=== PATIENT | male | born 1945 | race Caucasian/White ===

== ENCOUNTER 2016-11-12 12:04 | Day surgery (SDC) | payer OTHER ==
[~2016-11-12] VITALS: Ht 162.6 cm; Wt 112.0 kg
[~2016-11-12 12:04] MED LIST: 1-ME1LIQ PO; ASPI81TA82 PO; FURO8SOL PO; GLYB1TAB51 PO; JANU50TA PO; LIPITOR PO; METO100T PO; METO5TAB46 PO; MULT-65 PO; NITR.3 SL; PRAS10TA PO; RAMI5CAP36 PO; ZETI10TA5 PO; ZOLP10TA3 PO
[2016-11-12] MEDS ORDERED: SODIUM CHLORID 0.9% 500 ML IV SCH (13:00)
[2016-11-12] MEDS ORDERED: ceFAZolin 2 GM PREMIX 50 ML IV SCH (13:00)
[2016-11-12] MEDS ORDERED: POVIDONE IODINE 5% (ANTISEPSIS KIT) 4 APPLICATIONS EACH NARE SCH (13:00)
[2016-11-12] MEDS ORDERED: INSULIN HUMAN REGULAR 1,000 UNITS/10 ML VIAL SQ PRN (13:00)
[2016-11-12] MEDS ORDERED: METOPROLOL TARTRATE 25 MG TAB PO PRN (13:00)
[2016-11-12] MEDS ORDERED: NO Heparin, Lovenox, Coumadin at least 12 hours prior to procedure. XX PRN (13:00)
[2016-11-12] MEDS ORDERED: MUPIROCIN 2% OINT 1 APPLIC/GM SYR NASAL SCH (13:00)
[2016-11-12] MEDS ORDERED: NS 1000 ML IV SCH (13:00)
[2016-11-12] MEDS ORDERED: LACTATED RINGER'S 1000 ML IV SCH (13:00)
[2016-11-12] MEDS ORDERED: CHLORHEXIDINE GLUCONATE 2 % 1 PACK (2 CLOTHS) TOP SCH (13:00)
[2016-11-12] MEDS ORDERED: Hold AM Insulin & AM Hypoglycemic medications in diabetic patients XX PRN (13:00)
[2016-11-12] MEDS ORDERED: VANCOMYCIN 1000 MG/NS 250 ML IV SCH ×2 (13:00)
[2016-11-12] MEDS ORDERED: ALLO300T2 PO (13:19)
[2016-11-12] MEDS ORDERED: ISOS30TA3 PO (13:19)
[2016-11-12] MEDS ORDERED: LOSA25TA PO (13:19)
[2016-11-12] MEDS ORDERED: CENTTAB PO (13:19)
[2016-11-12] MEDS ORDERED: ZETI10TA5 PO (13:19)
[2016-11-12] MEDS ORDERED: CLOP75TA PO (13:19)
[2016-11-12] MEDS ORDERED: LANTINJ SQ (13:19)
[2016-11-12] MEDS ORDERED: METO100T9 PO (13:19)
[2016-11-12] MEDS ORDERED: GABA300C5 PO (13:19)
[2016-11-12] MEDS ORDERED: ATOR1TAB18 PO (13:19)
[2016-11-12] MEDS ORDERED: ASPE10GE TOPICAL (13:19)
[2016-11-12] MEDS ORDERED: [UNRECOGNIZED DRUG - CODE] (13:19)
[2016-11-12] MEDS ORDERED: ASPI81CH CHEW (13:19)
[2016-11-12 13:35] VITALS: BP 165/71; PULSE 61; RESP 18; TEMP 97.9; O2SAT 96
[2016-11-12 14:25] LABS: AUTOMATED NEUTROPHIL # 4.1 TH/MM3 (1.8-7.7); BASOPHIL % 0.5 % (0.0-2.0); EOSINOPHIL # 0.3 TH/MM3 (0-0.4); EOSINOPHIL % 5.2 % (0.0-4.0); HEMATOCRIT 33.6 % (39.0-51.0); LYMPH % 16.8 % (9.0-44.0); MEAN CELL VOLUME 100.8 FL (80.0-100.0); MEAN CORPUSCULAR HEMOGLOBIN 31.8 PG (27.0-34.0); MEAN CORPUSCULAR HGB CONC 31.5 % (32.0-36.0); MONO % 10.1 % (0.0-8.0); NEUT % 67.4 % (16.0-70.0); PLATELET COUNT 67 TH/MM3 (150-450); RED BLOOD COUNT 3.33 MIL/MM3 (4.50-5.90); RED CELL DISTRIBUTION WIDTH 18.3 % (11.6-17.2)
[2016-11-12 14:30] LABS: APTT (PATIENT) 50.1 SEC (24.3-30.1); INTERNATIONAL NORMALIZED RATIO 1.1 RATIO; PROTHROMBIN TIME - PATIENT 12.1 SEC (9.8-11.6)
[2016-11-12] MEDS ORDERED: LIDOCAINE HCL 2% 50 ML VIAL ONE (14:31)
[2016-11-12 14:35] LABS: HEMO FLAGS AUTO DIFF
[2016-11-12 14:38] LABS: BICARBONATE 26.6 MEQ/L (21.0-32.0); POTASSIUM 6.2 MEQ/L (3.5-5.1)
[2016-11-12] MEDS ORDERED: MIDAZOLAM HCL 2 MG/2 ML VIAL ONE (14:52)
[2016-11-12] MEDS ORDERED: PROPOFOL 200 MG/20 ML AMP IV ONE (15:00)
[2016-11-12 15:04] LABS: PLATELET ESTIMATE SMEAR LOW (NORMAL); PLATELET MORPHOLOGY NORMAL (NORMAL)
[2016-11-12 15:34] LABS: SCAN/DIFF AUTO DIFF CONFIRMED
[2016-11-12] MEDS ORDERED: ACETAMINOPHEN 325 MG TAB PO PRN (15:45)
[2016-11-12] MEDS ORDERED: LEVA500T PO (15:48)
[2016-11-12] MEDS ORDERED: SODIUM POLYSTYRENE SULFONATE SUSP 15 GM/60 ML CUP PO ONE (16:15)
[2016-11-12] MEDS ORDERED: DEXTROSE 50% IN WATER 50 ML VIAL(D50) IV PUSH ONE (16:15)
[2016-11-12] MEDS ORDERED: INSULIN HUMAN REGULAR 1,000 UNITS/10 ML VIAL IV PUSH ONE (16:15)
[2016-11-12] MEDS ORDERED: HEPARIN SODIUM - IV 10,000 UNITS/10 ML VIAL ONE (17:00)
--- NOTE | 2016-11-18 18:24 | MP ---
cc: JAYNE SHIRLEY DATE OF SURGERY 11/12/2016 PROCEDURE Explantation of an [employer] research device. PROCEDURE NOTE The patient was brought to the operating suite in the fasting state after having signed informed consent. The left upper chest was prepped and draped as per policy and anesthetized with 1% lidocaine. A transverse incision was made over the device and using blunt careful dissection, the device was freed from the subcutaneous pocket. More dissection was carried out to free an adapter which is attached to a pacemaker lead positioned in the right ventricular apex. The adapter was removed without any difficulty. The pocket was then closed using 3-0 Vicryl interrupted stitches in two to three layers to close the subcutaneous tissue and then 4-0 Monocryl running stitch to close the subcuticular tissue. Overlapping Steri-Strips and a heavy pressure dressing were applied. There were no apparent immediate complications. CONCLUSION Successful explantation of an [employer] research protocol device. Of note, a [employer] pacemaker lead was left in place as desired by the patient and was capped. MD PRASAD Moss/MARK /3:41 PM /6:21 PM NOMAN
[2016-12-19] MEDS ORDERED: GABA300C5 PO (15:59)
[2016-12-19] MEDS ORDERED: SEVEL800 PO (15:59)
[2016-12-19] MEDS ORDERED: GLYB5TAB3 PO (16:13)
[2016-12-22] MEDS ORDERED: SITA25 PO (13:45)
[2016-12-22] MEDS ORDERED: FURO40TA PO (13:45)
== END 2016-11-12 18:26 | disposition home or self-care (01) ==
LOC: HDOC 12:04 → HDIC 12:05 → HDOC 18:26
PROVIDERS: ATTEND Internal Medicine Cardiovascular Disease
DX: Z45.09 Encounter for adjustment and management of other cardiac device (principal); I25.10 Atherosclerotic heart disease of native coronary artery without angina pectoris; E11.22 Type 2 diabetes mellitus with diabetic chronic kidney disease; N18.6 End stage renal disease; Z95.1 Presence of aortocoronary bypass graft; Z79.82 Long term (current) use of aspirin; Z79.01 Long term (current) use of anticoagulants
CPT/HCPCS: 0307T; 80048; 85025; 85610; 85730; J0690; J1644; J2250; J3010; J3370; J7050

== ENCOUNTER → 2016-12-22 | Day surgery (SDC) | payer MEDICARE, BC, OTHER ==
[~2016-12-22] VITALS: Ht 162.6 cm; Wt 118.6 kg
[~2016-12-22] MED LIST changes: -1-ME1LIQ PO; +ALLO300T2 PO; +ASPI81CH CHEW; -ASPI81TA82 PO; +ATOR1TAB18 PO; +BRIL90TA PO; +BUPIVACAINE HCL PF 0.25% 30 ML VIAL ONE; +BUPIVACAINE/EPINEPHRINE 0.25% PF 30 ML VIAL ONE; +CENTTAB PO; +CLOP75TA PO; +FAMOTIDINE 20 MG/2 ML VIAL ONE; +FURO40TA PO; -FURO8SOL PO; +GABA300C5 PO; +GELFOAM SIZE 100 ONE; -GLYB1TAB51 PO; +GLYB5TAB3 PO; +HEPARIN SODIUM - IV 10,000 UNITS/10 ML VIAL ONE; +HEPARIN SODIUM - SQ 10,000 UNITS/ML VIAL ONE; +Hemodialysis Vas Acc Cath PRN Heparin 1000 unit/ml Flush IVF; +Hemodialysis Vas Access Cath PRN NS Lock Flush IVF; +INSULIN HUMAN REGULAR 1,000 UNITS/10 ML VIAL SQ PRN; +IOHEXOL 300 MG/ML 100 ML BTL (for Rad CT) OTHER ONE; +ISOS30TA3 PO; -JANU50TA PO; +LACTATED RINGER'S 1000 ML IV SCH; +LANTINJ SQ; -LIPITOR PO; +LOSA25TA PO; -METO100T PO; +METO100T9 PO; -METO5TAB46 PO; +METOPROLOL TARTRATE 25 MG TAB PO PRN; +MIDAZOLAM HCL 2 MG/2 ML VIAL ONE; -MULT-65 PO; -NITR.3 SL; -PRAS10TA PO; +PROTAMINE SULFATE 50 MG/5 ML VIAL ONE; -RAMI5CAP36 PO; +SEVEL800 PO; +SITA25 PO; +SODIUM CHLOR 0.9% 250 ML INJ 250 ML IV ONE; +SODIUM CHLORID 0.9% 500 ML INJ 500 ML IV ONE; +SODIUM CHLORID 0.9% 500 ML IV SCH; +THROMBIN (TOPICAL) 5,000 UNIT VIAL ONE; -ZOLP10TA3 PO; +[UNRECOGNIZED DRUG - CODE]
[2016-12-22 13:25] VITALS: BP 174/75; PULSE 69; RESP 16; TEMP 98.6; O2SAT 95
[2016-12-22 13:37] LABS: AUTOMATED NEUTROPHIL # 4.2 TH/MM3 (1.8-7.7); BASOPHIL % 0.5 % (0.0-2.0); EOSINOPHIL # 0.4 TH/MM3 (0-0.4); EOSINOPHIL % 6.7 % (0.0-4.0); HEMATOCRIT 32.3 % (39.0-51.0); LYMPH % 17.1 % (9.0-44.0); LYMPHOCYTE # 1.1 TH/MM3 (1.0-4.8); MEAN CELL VOLUME 96.9 FL (80.0-100.0); MEAN CORPUSCULAR HEMOGLOBIN 31.5 PG (27.0-34.0); MEAN CORPUSCULAR HGB CONC 32.5 % (32.0-36.0); MONO % 11.6 % (0.0-8.0); NEUT % 64.1 % (16.0-70.0); PLATELET COUNT 78 TH/MM3 (150-450); RED BLOOD COUNT 3.33 MIL/MM3 (4.50-5.90); RED CELL DISTRIBUTION WIDTH 18.6 % (11.6-17.2); WHITE BLOOD COUNT 6.6 TH/MM3 (4.0-11.0)
[2016-12-22 13:40] LABS: HEMO FLAGS AUTO DIFF
[2016-12-22 13:52] LABS: BICARBONATE 24.3 MEQ/L (21.0-32.0); POTASSIUM 5.1 MEQ/L (3.5-5.1)
[2016-12-22 14:10] LABS: PLATELET ESTIMATE SMEAR LOW (NORMAL); PLATELET MORPHOLOGY NORMAL (NORMAL); SCAN/DIFF AUTO DIFF CONFIRMED
[2016-12-22 18:05] VITALS: BP 161/68; PULSE 65; RESP 16; TEMP 98.5; O2SAT 95
--- NOTE | 2016-12-23 11:39 | MP ---
cc: KISHORE ROQUE DATE OF PROCEDURE 12/22/2016 PREOPERATIVE DIAGNOSIS Non-maturing left upper extremity fistula placed at outside institution by Dr. Bazzi. The patient has a history of left subclavian pacemaker and a right IJ catheter. SURGEON DO Chi BOAT CANVAS MAKER INSTALLER Rosalie Gunderson IV FLUIDS 500 cc ESTIMATED BLOOD LOSS Minimal. URINE OUTPUT Not calculated. COMPLICATIONS None. ANESTHESIA MAC with local. PROCEDURE PERFORMED 1. Fistulogram left upper extremity. 2. Balloon angioplasty of left cephalic vein with a 5-mm x 4-cm balloon just above the antecubital fossa and then an 8-mm x 4-mm distal left subclavian balloon and then a 12-mm in the left subclavian vein. PROCEDURE The patient's left upper extremity was prepped and draped in sterile fashion after being under MAC anesthesia. Got access to the left upper extremity AV fistula just distal to the anastomosis with a 21-gauge needle over an exchange for a 4-Italian micropuncture catheter, then ultimately a 7-Italian 5-cm sheath. I shot a fistulogram in the left upper extremity that showed that the left upper extremity fistula was patent but sluggish especially at the area underneath the clavicle where the cephalic vein dumped into the axillary vein. Centrally the SVC left innominate were widely patent. The left subclavian vein appeared to be diseased not only by venogram as there was a stagnation of flow but also through the clivus which showed that there was relatively no lumen at the junction between the cephalic and into the subclavian vein. It showed that there was a pacemaker wire in the left subclavian vein. The left cephalic vein had some mild disease distally and had a moderate to high-grade stenosis a few centimeters from its takeoff that was noted pre-procedure to be significant. I performed balloon angioplasty with an 8-mm x 4-cm balloon in the left cephalic vein distally and then I used a 12-mm x 4-cm balloon in the left subclavian vein and performed balloon angioplasty. It should be noted that afterwards there was resolution of the stagnated flow. There was also an area just distal to the takeoff of an anastomosis that was treated with a 4-cm x 5-mm angioplasty balloon with resolution of this afterwards. It should be noted that there was an arterial inflow stenosis that the patient may be brought back in the future for a revision of the fistula, although I had discussion with the patient is that a patient with a pacer wire and at this point may be at risk of recurrent stenosis and failure in which a revision of this AV fistula may be futile. The patient was heparinized to an ACT of 290. It should be noted that at the end of the case I used a 2-0 Vicryl to remove my sheath out of the left arm and used pursestring stitch. It should be noted that I used a Thrombex pad and 4x4s with wide tape at the end of the case for a dressing. The patient tolerated the procedure well and was taken to the PACU at the end of the case. CONCLUSION The patient had a central venous outflow vein and a juxta-arterial anastomosis narrowing. The patient's central venous and outflow stenosis were treated. The patient tolerated the procedure well. DO SUHAIL Layton/DEAN /5:08 PM /11:20 AM
--- NOTE | 2016-12-23 15:45 | EKG ---
Date Performed: 12/22/2016 Time Performed: 13:07:50 PTAGE: 71 years EKG: Sinus rhythm POSSIBLE LEFT ATRIAL ENLARGEMENT NONSPECIFIC T-WAVE ABNORMALITY BORDERLINE ECG PREVIOUS TRACING : 12/23/2012 08.18 No significant change from previous tracing noted. DOCTOR: Julio Juárez Interpretating Date/Time 12/23/2016 15:44:21
== END | disposition home or self-care (01) ==
LOC: HSDC 12:21
PROVIDERS: ATTEND Surgery
DX: T85.898A Other specified complication of other internal prosthetic devices, implants and grafts, initial encounter (principal); I12.0 Hypertensive chronic kidney disease with stage 5 chronic kidney disease or end stage renal disease; N18.6 End stage renal disease; E78.5 Hyperlipidemia, unspecified; E11.9 Type 2 diabetes mellitus without complications; Z95.0 Presence of cardiac pacemaker
CPT/HCPCS: 01930; 37238; 37239; 75710; 80048; 85025; 93005; C1725; C1753; C1769; J1644; J2250; J2720; J3010; J7040; J7050; Q9967

== ENCOUNTER → 2016-12-29 | Outpatient (CLI) | payer MEDICARE, BC, OTHER ==
[~2016-12-29] MED LIST changes: -BUPIVACAINE HCL PF 0.25% 30 ML VIAL ONE; -BUPIVACAINE/EPINEPHRINE 0.25% PF 30 ML VIAL ONE; -FAMOTIDINE 20 MG/2 ML VIAL ONE; -GELFOAM SIZE 100 ONE; -HEPARIN SODIUM - IV 10,000 UNITS/10 ML VIAL ONE; -HEPARIN SODIUM - SQ 10,000 UNITS/ML VIAL ONE; -Hemodialysis Vas Acc Cath PRN Heparin 1000 unit/ml Flush IVF; -Hemodialysis Vas Access Cath PRN NS Lock Flush IVF; -INSULIN HUMAN REGULAR 1,000 UNITS/10 ML VIAL SQ PRN; -IOHEXOL 300 MG/ML 100 ML BTL (for Rad CT) OTHER ONE; -LACTATED RINGER'S 1000 ML IV SCH; -METOPROLOL TARTRATE 25 MG TAB PO PRN; -MIDAZOLAM HCL 2 MG/2 ML VIAL ONE; -PROTAMINE SULFATE 50 MG/5 ML VIAL ONE; -SODIUM CHLOR 0.9% 250 ML INJ 250 ML IV ONE; -SODIUM CHLORID 0.9% 500 ML INJ 500 ML IV ONE; -SODIUM CHLORID 0.9% 500 ML IV SCH; -THROMBIN (TOPICAL) 5,000 UNIT VIAL ONE
[2016-12-29 14:27] LABS: AUTOMATED NEUTROPHIL # 4.6 TH/MM3 (1.8-7.7); BASOPHIL % 0.4 % (0.0-2.0); EOSINOPHIL # 0.4 TH/MM3 (0-0.4); EOSINOPHIL % 5.7 % (0.0-4.0); HEMATOCRIT 38.9 % (39.0-51.0); HEMO FLAGS AUTO DIFF; LYMPH % 16.5 % (9.0-44.0); LYMPHOCYTE # 1.1 TH/MM3 (1.0-4.8); MEAN CORPUSCULAR HEMOGLOBIN 31.6 PG (27.0-34.0); MEAN CORPUSCULAR HGB CONC 31.9 % (32.0-36.0); MONO % 9.9 % (0.0-8.0); NEUT % 67.5 % (16.0-70.0); PLATELET COUNT 91 TH/MM3 (150-450); RED BLOOD COUNT 3.92 MIL/MM3 (4.50-5.90); RED CELL DISTRIBUTION WIDTH 19.6 % (11.6-17.2); WHITE BLOOD COUNT 6.9 TH/MM3 (4.0-11.0)
[2016-12-29 14:34] LABS: PROTHROMBIN TIME - PATIENT 11.2 SEC (9.8-11.6)
[2016-12-29 14:47] LABS: BICARBONATE 21.8 MEQ/L (21.0-32.0); POTASSIUM 5.1 MEQ/L (3.5-5.1)
--- NOTE | 2016-12-29 15:19 | RADRPT ---
EXAM DATE/TIME: 12/29/2016 14:42 [facility] COMPARISON: No previous studies available for comparison. INDICATIONS : Evaluate for pneumonia,pneumothorax and communicable diseases. Pre-op revision of dialysis catheter MEDICAL HISTORY : Cardiovascular disease. SURGICAL HISTORY : CABG. ENCOUNTER: Initial ACUITY: 1 day PAIN SCORE: 0/10 LOCATION: chest FINDINGS: The patient is status post sternotomy. The cardiac silhouette appears mildly enlarged. There is a tyree ble-lumen catheter in place from the right internal jugular approach with the tip overlying the SVC. There is a pacing lead seen in place from the left side. Pacemaker is not present. The lungs are lolita sly clear. No effusion is seen. CONCLUSION: No acute disease. David Dunaway MD on December 29, 2016 at 15:16 Board Certified Radiologist. This report was verified electronically.
[2016-12-29 15:38] LABS: SCAN/DIFF AUTO DIFF CONFIRMED
--- NOTE | 2016-12-30 15:04 | EKG ---
Date Performed: 12/29/2016 Time Performed: 13:06:33 PTAGE: 71 years EKG: Sinus rhythm POSSIBLE LEFT ATRIAL ENLARGEMENT NONSPECIFIC T-WAVE ABNORMALITY Compared to prior tracing no signifi cant change BORDERLINE ECG PREVIOUS TRACING 12/22/2016@ 13.07.50 DOCTOR: Sage Meza Interpretating Date/Time 12/30/2016 15:01:26
== END ==
LOC: CPRE 12:30
PROVIDERS: ATTEND Surgery
DX: N18.6 End stage renal disease (principal); R94.31 Abnormal electrocardiogram [ECG] [EKG]
CPT/HCPCS: 36415; 71020; 80048; 85025; 85610; 93005

== ENCOUNTER → 2017-01-05 | Day surgery (SDC) | payer MEDICARE, BC, OTHER ==
[~2017-01-05] VITALS: Ht 162.6 cm; Wt 118.0 kg
[~2017-01-05] MED LIST changes: +*morphine SULFATE 8 MG/ML PERIprocedure ONLY ONE; +CHLORHEXIDINE GLUCONATE 2 % 1 PACK (2 CLOTHS) TOP ONE; +HEPARIN SODIUM - IV 10,000 UNITS/10 ML VIAL IV ONE; +HEPARIN SODIUM - SQ 10,000 UNITS/ML VIAL ONE; +Hemodialysis Vas Acc Cath PRN Heparin 1000 unit/ml Flush IVF; +Hemodialysis Vas Access Cath PRN NS Lock Flush IVF; +INSULIN HUMAN REGULAR 1,000 UNITS/10 ML VIAL ONE; +NEOSTIGMINE 3 MG/3 ML SYR IV ONE; +ONDANSETRON HCL 4 MG/2 ML VIAL IV PUSH ONE; +PHENYLEPH/NS 1000 MCG/10 ML SYR IV ONE; +POVIDONE IODINE 7.5% SCRUB 118 ML BOTTLE TOPICAL ONE; +PROPOFOL 200 MG/20 ML AMP IV ONE; +SODIUM CHLOR 0.9% 250 ML INJ 250 ML ONE; +VANCOMYCIN HCL 1000 MG VIAL ONE; +ceFAZolin INJ 1,000 MG VIAL IV ONE; +ePHEDrine/NS 25 MG/5 ML SYR IV ONE; +fentaNYL CITRATE 250 MCG/5 ML AMP ONE
[2017-01-05 10:36] VITALS: BP 145/71; PULSE 64; RESP 20; TEMP 97.9; O2SAT 96
[2017-01-05] MEDS: GELFOAM SIZE 100 ONE ×2 (12:25→12:30)
[2017-01-05] MEDS: BUPIVACAINE/EPINEPHRINE 0.25% 50 ML VIAL ONE ×2 (12:25→12:30)
[2017-01-05] MEDS: THROMBIN (TOPICAL) 5,000 UNIT VIAL ONE ×2 (12:26→12:30)
[2017-01-05] MEDS: HEPARIN SODIUM - SQ 10,000 UNITS/ML VIAL ONE ×2 (12:26→12:30)
[2017-01-05 17:02] VITALS: BP 134/61; PULSE 69; RESP 16; TEMP 98.4; O2SAT 97
--- NOTE | 2017-01-06 12:07 | MP ---
cc: KISHORE ROQUE DATE OF SURGERY 01/05/[address] Kishore Roque DATE OF SURGERY 01/05/2017 PREOPERATIVE DIAGNOSIS End-stage renal disease. POSTOPERATIVE DIAGNOSIS End-stage renal disease. PROCEDURE Left upper extremity A-V fistula revision with interposition 5-mm carotid bovine artery between the left cephalic vein and brachial artery. SURGEON Dr. Roque. PAPER FOLDING MACHINE OPERATOR Arely Rodriguez. ANESTHESIA General anesthesia. We also used approximately 20 cc of 0.5% Marcaine with epinephrine. IV FLUIDS 600 cc of crystalloid. INDICATIONS AND PROCEDURE This is a patient who had a history of a left upper extremity A-V fistula by Dr. Bazzi that was not maturing. We suspect there was an in-flow stenosis after recent arteriogram so I performed an incision along the medial aspect of the left upper extremity just above the antecubital fossa with a scalpel and electrocautery. I dissected down to the brachial artery and mobilized it. I placed vessel loops around it proximally and distally. I mobilized the cephalic vein and through its scar tissue. Then, once I mobilized it, I heparinized the patient with 3000 units of heparin and divided it just to the level where I could no longer hear a signal as there was a ro-anastomotic near-occlusion. Once I did this, I transected it by performing a venotomy on the left upper extremity cephalic vein longitudinally. I was able to get back-flow and I was able pass up through a 4.5-mm coronary dilator distally into the cephalic vein. Proximally there was essentially no blood flow. I irrigated the area with heparinized saline. I then performed an arteriotomy in the left brachial artery with an 11-blade and Gasca scissors. After I irrigated the area, I irrigated a 5.0 diameter bovine carotid artery. I controlled the proximal and distal brachial artery with two pediatric profunda clamps. I performed an arteriotomy with an 11-blade here and I performed an anastomosis with an interposition graft between the brachial artery and the outflow cephalic vein. This was performed with two 5-0 Prolenes and a BV1. There was one 6-0 Prolene stitch needed for correction at the end of the case. There was a good thrill in the outflow cephalic vein and in the radial artery distally. The patient tolerated procedure well. It should be noted I did Shar in conjunction with Thrombin to help out with oozing as the patient has a history of thrombocytopenia and renal failure. I closed in layers with a 2-0 and a 3-0 Vicryl absorbable suture and 4-0 Monocryl for the skin with Dermabond and we placed a dressing over this area. The patient tolerated the procedure well and was taken to the PACU at in the end of the case. It should be noted that I did give the patient perioperative Ancef before making my incision which was 2 grams of Ancef IV antibiotics. DO SUHAIL Layton/DEAN /2:43 PM /11:57 AM
== END | disposition home or self-care (01) ==
LOC: HCVO 09:08
PROVIDERS: ATTEND Surgery
DX: N18.6 End stage renal disease (principal); I12.0 Hypertensive chronic kidney disease with stage 5 chronic kidney disease or end stage renal disease; E11.9 Type 2 diabetes mellitus without complications; Z79.4 Long term (current) use of insulin; Z12.0 Encounter for screening for malignant neoplasm of stomach
CPT/HCPCS: 01844; 36832; 76937; 82948; 84132; J0690; J1644; J1815; J2270; J2370; J2405; J2710; J3010; J3370; J7050

== ENCOUNTER 2017-01-24 19:35 | Inpatient (IN) | payer MEDICARE, BC, OTHER ==
[~2017-01-24] VITALS: Ht 162.6 cm; Wt 114.8 kg
[~2017-01-24 19:35] MED LIST changes: -*morphine SULFATE 8 MG/ML PERIprocedure ONLY ONE; -BRIL90TA PO; -CHLORHEXIDINE GLUCONATE 2 % 1 PACK (2 CLOTHS) TOP ONE; -HEPARIN SODIUM - IV 10,000 UNITS/10 ML VIAL IV ONE; -HEPARIN SODIUM - SQ 10,000 UNITS/ML VIAL ONE; -Hemodialysis Vas Acc Cath PRN Heparin 1000 unit/ml Flush IVF; -Hemodialysis Vas Access Cath PRN NS Lock Flush IVF; -INSULIN HUMAN REGULAR 1,000 UNITS/10 ML VIAL ONE; -NEOSTIGMINE 3 MG/3 ML SYR IV ONE; -ONDANSETRON HCL 4 MG/2 ML VIAL IV PUSH ONE; -PHENYLEPH/NS 1000 MCG/10 ML SYR IV ONE; -POVIDONE IODINE 7.5% SCRUB 118 ML BOTTLE TOPICAL ONE; -PROPOFOL 200 MG/20 ML AMP IV ONE; -SODIUM CHLOR 0.9% 250 ML INJ 250 ML ONE; -VANCOMYCIN HCL 1000 MG VIAL ONE; -ceFAZolin INJ 1,000 MG VIAL IV ONE; -ePHEDrine/NS 25 MG/5 ML SYR IV ONE; -fentaNYL CITRATE 250 MCG/5 ML AMP ONE
[2017-01-24 19:40] VITALS: BP 142/65; PULSE 74; RESP 18; TEMP 99.1; O2SAT 98
[2017-01-24 19:47] VITALS: BP 150/70; PULSE 75; RESP 24; TEMP 98.7; O2SAT 95
--- NOTE | 2017-01-24 19:59 | PD ---
HPI Chief Complaint: Chest Pain Time Seen by Provider: 19:47 Travel History International Travel<30 days: No Contact w/Intl Traveler<30days: No Traveled to known affect area: No History of Present Illness HPI This is a 71 year old male with a history of coronary artery disease and end- stage renal disease who presents to the emergency department with chest discomfort that's been going on for more than a week, intermittent, feeling like a tightness in his left chest that radiates down his arm associated with diaphoresis. He says the pain gets worse when he exerts himself although recently he started to feel the pain when he is resting. Currently the pain is a 5 out of 10[address] He [address] Dr[address] Juárez for this pain yesterday and it was recommended that he be admitted but he declined. He is scheduled for catheterization on Thursday. He felt fine this morning but that his pain worsened throughout the afternoon which prompted him to come to the emergency department. He is taken 3 baby aspirin today. PFSH Past Medical History Cancer: No Cardiovascular Problems: Yes (cad, [place]) Diabetes: Yes (insulin dep and PO meds) Patient Takes Glucophage: No Endocrine: Yes Genitourinary: Yes (oliguria) Hepatitis: No Hiatal Hernia: No Hypertension: Yes (on meds) Immune Disorder: No Musculoskeletal: No Neurologic: No Psychiatric: No Respiratory: No Thyroid Disease: No Past Surgical History Abdominal Surgery: No AICD: No Body Medical Devices: left fistula, CARDIAC STENTS Cardiac Surgery: Yes (12 stents, triple bypass, INTERNAL HEART MONITOR PLACEMENT AND REMOVAL) Ear Surgery: No Endocrine Surgery: No Eye Surgery: No Genitourinary Surgery: No Gynecologic Surgery: No Joint Replacement: No Oral Surgery: Yes (tonsillectomy) Pacemaker: No Thoracic Surgery: Yes (open heart, removal of study device from left upper chest) Other Surgery: Yes Social History Alcohol Use: Yes (OCC ) Tobacco Use: No Substance Use: No Allergies-Medications (Allergen,Severity, Reaction): Coded Allergies: No Known Allergies (Unverified , 01/05/17) Reported Meds & Prescriptions Reported Meds & Active Scripts Active Reported Furosemide 40 Mg Tab 80 Mg PO DAILY PRN Januvia (Sitagliptin Phosphate) 25 Mg Tab 50 Mg PO DAILY Glyburide 5 Mg Tab 5 Mg PO BID Take with meals at the same time each day Renvela (Sevelamer Carbonate) 800 Mg Tab 800 Mg PO TID Gabapentin 300 Mg Cap 300 Mg PO HS Zetia (Ezetimibe) 10 Mg Tab 10 Mg PO DAILY Prorenal Qd (Multiple Vitamins W/ Minerals) 1 Cap Cap Centrum Silver (Multiple Vitamins W/ Minerals) 1 Tab 1 Tab PO DAILY Metoprolol Succinate ER 24 HR (Metoprolol Succinate) 100 Mg Tab 100 Mg PO BID Losartan (Losartan Potassium) 25 Mg Tab 25 Mg PO DAILY Lantus Solostar Pen Inj (Insulin Glargine) 300 Unit/3 Ml Pen 2-3 Units SQ DAILY Isosorbide Mononitrate ER (Isosorbide Mononitrate) 30 Mg Maribel 30 Mg PO DAILY Gabapentin 300 Mg Cap 2 Tab PO DAILY Clopidogrel (Clopidogrel Bisulfate) 75 Mg Tab 75 Mg PO DAILY Atorvastatin (Atorvastatin Calcium) 80 Mg Tab 80 Mg PO HS Aspirin 81 Mg Chew 81 Mg CHEW DAILY Allopurinol 300 Mg Tab 300 Mg PO DAILY Review of Systems Except as stated in HPI: all other systems reviewed are Neg Physical Exam Narrative GENERAL:Well appearing, no acute distress SKIN: Well-healing scar involving the left upper arm over AV fistula HEAD: Atraumatic. Normocephalic. EYES: Pupils equal and round. No injection or drainage. ENT: Moist mucous membranes NECK: Trachea midline. CARDIOVASCULAR: Regular rate and rhythm. No murmur appreciated. RESPIRATORY: Clear to auscultation. Breath sounds equal bilaterally. GASTROINTESTINAL: Abdomen soft, non-tender, nondistended. MUSCULOSKELETAL: No obvious deformities. NEUROLOGICAL: Awake and alert. No obvious cranial nerve deficits. Moving all extremities. PSYCHIATRIC: Appropriate mood and affect; insight and judgment normal. Data Data Last Documented VS Vital Signs Date Time Temp Pulse Resp B/P Pulse Ox O2 Delivery O2 Flow Rate FiO2 01/24/17 22:01 70 16 114/54 93 Room Air 01/24/17 19:47 98.7 Orders Electrocardiogram (01/24/17 19:56) Complete Blood Count With Diff (01/24/17 19:56) Comprehensive Metabolic Panel (01/24/17 19:56) Magnesium (Mg) (01/24/17 19:56) Prothrombin Time / Inr (Pt) (01/24/17 19:56) Act Partial Throm Time (Ptt) (01/24/17 19:56) Troponin I (01/24/17 19:56) Chest, Single Ap (01/24/17 19:56) Ecg Monitoring (01/24/17 19:56) Bilateral Bp Monitoring (01/24/17 19:56) Iv Access Insert/Monitor (01/24/17 19:56) Oximetry (01/24/17 19:56) Oxygen Administration (01/24/17 19:56) Morphine Inj (Morphine Inj) (01/24/17 20:00) Sodium Chloride 0.9% Flush (Ns Flush) (01/24/17 20:00) Nitroglycerin Sl (Nitrostat Sl) (01/24/17 20:00) Heparin Infusion CORY.Q1H (01/24/17 21:59) Heparin Inj (Heparin Inj) (01/24/17 22:00) Heparin-D5w Inj (Heparin-D5w Inj) (01/24/17 22:00) Act Partial Throm Time (Ptt) (01/24/17 21:59) Cbc No Diff, Includes Plts (01/24/17 21:59) Cbc No Diff, Includes Plts (01/27/17 06:00) Act Partial Throm Time (Ptt) (01/25/17 04:59) Occult Blood (Hemoccult) Stool (01/24/17 21:59) Admit Order (Ed Use Only) (01/24/17 22:12) Labs Laboratory Tests Test 01/24/17 20:35 White Blood Count 7.8 TH/MM3 Red Blood Count 3.40 MIL/MM3 Hemoglobin 10.6 GM/DL Hematocrit 32.5 % Mean Corpuscular Volume 95.6 FL Mean Corpuscular Hemoglobin 31.3 PG Mean Corpuscular Hemoglobin 32.7 % Concent Red Cell Distribution Width 17.1 % Platelet Count 95 TH/MM3 Mean Platelet Volume 9.3 FL Neutrophils (%) (Auto) 70.4 % Lymphocytes (%) (Auto) 13.6 % Monocytes (%) (Auto) 8.9 % Eosinophils (%) (Auto) 6.7 % Basophils (%) (Auto) 0.4 % Neutrophils # (Auto) 5.5 TH/MM3 Lymphocytes # (Auto) 1.1 TH/MM3 Monocytes # (Auto) 0.7 TH/MM3 Eosinophils # (Auto) 0.5 TH/MM3 Basophils # (Auto) 0.0 TH/MM3 CBC Comment AUTO DIFF Differential Comment AUTO DIFF CONFIRMED Platelet Estimate LOW Platelet Morphology Comment NORMAL Tear Drop Cells 1+ Ovalocytes 1+ Prothrombin Time 10.9 SEC Prothromb Time International 1.0 RATIO Ratio Activated Partial 23.9 SEC Thromboplast Time Sodium Level 136 MEQ/L Potassium Level 4.6 MEQ/L Chloride Level 101 MEQ/L Carbon Dioxide Level 27.0 MEQ/L Anion Gap 8 MEQ/L Blood Urea Nitrogen 26 MG/DL Creatinine 5.47 MG/DL Estimat Glomerular Filtration 10 ML/MIN Rate Random Glucose 277 MG/DL Calcium Level 8.6 MG/DL Magnesium Level 2.1 MG/DL Total Bilirubin 0.3 MG/DL Aspartate Amino Transf 21 U/L (AST/SGOT) Alanine Aminotransferase 21 U/L (ALT/SGPT) Alkaline Phosphatase 109 U/L Troponin I 0.09 NG/ML Total Protein 6.7 GM/DL Albumin 3.3 GM/DL [facility] Medical Decision Making Medical Screen Exam Complete: Yes Emergency Medical Condition: Yes Interpretation(s) EKG: Normal sinus rhythm with no ST changes Anemia Thrombocytopenia Renal failure Troponin 0.09 Chest x-ray: No acute process Differential Diagnosis Unstable angina, nSTEMI, STEMI, pericarditis Narrative Course This is a 71-year-old male who has a history of end-stage renal disease and coronary artery disease who presents to the emergency department with escalating chest pain that started only with exertion and now is occurring at rest consistent with unstable angina. Patient saw Dr. Juárez in clinic on Thursday and is scheduled for cardiac catheterization on Thursday. At that time he was told he should be admitted but declined. Patient was placed on a monitor and an IV was established. He was given morphine and nitroglycerin for the pain. EKG was reassuring. He was started on heparin. He will be admitted for cardiology consultation. His pain improved in the emergency department. Troponin is 0.09 which is likely elevated in the setting of his chronic kidney disease. Diagnosis Primary Impression: Unstable angina Admitting Information Admitting Physician Requests: Admit Collette Schulz MD Jan 24, 2017 19:59
[2017-01-24] MEDS ORDERED: SODIUM CHLORIDE 0.9% FLUSH 10 ML FLUSH IVF PRN (20:00)
[2017-01-24] MEDS ORDERED: MORPHINE SULFATE 4 MG/ML INJ IV PUSH ONE (20:00)
[2017-01-24] MEDS: NITROGLYCERIN 0.4 MG SL 25 TABS/BTL SL SCH ×3 (20:05→20:54)
--- NOTE | 2017-01-24 20:47 | RADRPT ---
EXAM DATE/TIME: 01/24/2017 20:11 [facility] COMPARISON: CHEST SINGLE AP, December 23, 2012, 11:32. INDICATIONS : Chest pain. MEDICAL HISTORY : Cardiovascular disease. SURGICAL HISTORY : CABG. 12 stents. ENCOUNTER: Initial ACUITY: 1 day PAIN SCORE: 5/10 LOCATION: Bilateral chest FINDINGS: A single view of the chest demonstrates the lungs to be symmetrically aerated without evidence of mas s, infiltrate or effusion. The heart size is enlarged but stable. There is evidence of previous card iothoracic surgery. Bilateral central lines are in place. There is no pneumothorax. The bony structur es are stable.. CONCLUSION: No acute disease. No significant change has occurred. Jerel Mays MD on January 24, 2017 at 20:45 Board Certified Radiologist. This report was verified electronically.
[2017-01-24 20:54] VITALS: BP 134/59; PULSE 77; RESP 16; O2SAT 94
[2017-01-24 21:00] LABS: AUTOMATED NEUTROPHIL # 5.5 TH/MM3 (1.8-7.7); BASOPHIL % 0.4 % (0.0-2.0); EOSINOPHIL # 0.5 TH/MM3 (0-0.4); EOSINOPHIL % 6.7 % (0.0-4.0); HEMATOCRIT 32.5 % (39.0-51.0); LYMPH % 13.6 % (9.0-44.0); LYMPHOCYTE # 1.1 TH/MM3 (1.0-4.8); MEAN CELL VOLUME 95.6 FL (80.0-100.0); MEAN CORPUSCULAR HEMOGLOBIN 31.3 PG (27.0-34.0); MEAN CORPUSCULAR HGB CONC 32.7 % (32.0-36.0); MONO % 8.9 % (0.0-8.0); NEUT % 70.4 % (16.0-70.0); PLATELET COUNT 95 TH/MM3 (150-450); RED CELL DISTRIBUTION WIDTH 17.1 % (11.6-17.2); WHITE BLOOD COUNT 7.8 TH/MM3 (4.0-11.0)
[2017-01-24 21:13] LABS: APTT (PATIENT) 23.9 SEC (24.3-30.1); PROTHROMBIN TIME - PATIENT 10.9 SEC (9.8-11.6)
[2017-01-24 21:23] LABS: ANION GAP 8 MEQ/L (5-15); AST (GOT) 21 U/L (15-37); BLOOD UREA NITROGEN 26 MG/DL (7-18); CHLORIDE 101 MEQ/L (98-107); GLOMERULAR FILTRATION RATE 10 ML/MIN (>89); MAGNESIUM 2.1 MG/DL (1.5-2.5); POTASSIUM 4.6 MEQ/L (3.5-5.1); SODIUM (NA) 136 MEQ/L (136-145)
[2017-01-24 21:28] LABS: ALKALINE PHOSPHATASE 109 U/L (45-117); ALT (GPT) 21 U/L (12-78); TOTAL BILIRUBIN ADULT 0.3 MG/DL (0.2-1.0)
[2017-01-24 21:49] LABS: HEMO FLAGS AUTO DIFF
[2017-01-24 21:57] LABS: PLATELET ESTIMATE SMEAR LOW (NORMAL); PLATELET MORPHOLOGY NORMAL (NORMAL); TEARDROP RBCS 1+ (NORMAL)
[2017-01-24 21:59] LABS: OVALOCYTES 1+ (NORMAL); SCAN/DIFF AUTO DIFF CONFIRMED
[2017-01-24] MEDS ORDERED: HEPARIN SODIUM - IV 10,000 UNITS/10 ML VIAL IV ONE (22:00)
[2017-01-24 22:01] VITALS: BP 114/54; PULSE 70; RESP 16; O2SAT 93
[2017-01-24] MEDS: HEPARIN-D5W INJ 250 ML IV SCH (22:18)
[2017-01-24] MEDS ORDERED: ACETAMINOPHEN 325 MG TAB PO PRN (23:30)
[2017-01-24] MEDS ORDERED: NITROGLYCERIN 0.4 MG SL 25 TABS/BTL SL PRN (23:30)
[2017-01-24] MEDS ORDERED: ONDANSETRON HCL 4 MG/2 ML VIAL IV PUSH PRN (23:30)
[2017-01-24 23:34] VITALS: BP 113/54; PULSE 70; RESP 16; O2SAT 96
[2017-01-25] VITALS (8 sets, daily range): BP systolic 104–142; BP diastolic 54–67; PULSE 66–76; RESP 18–20; TEMP 98.1–98.4; O2SAT 92–94
[2017-01-25 06:01] LABS: APTT (PATIENT) 40.1 SEC (24.3-30.1)
[2017-01-25] MEDS ORDERED: NON-FORMULARY DRUG (Metoprolol Succinate ER 24 HR 100 MG) PO SCH (10:00)
[2017-01-25] MEDS ORDERED: LOSARTAN 25 MG TAB PO SCH (10:00)
[2017-01-25] MEDS ORDERED: ISOSORBIDE MONONITRATE 30 MG TAB PO SCH (10:00)
[2017-01-25] MEDS ORDERED: FUROSEMIDE 40 MG TAB PO PRN (10:00)
--- NOTE | 2017-01-25 10:22 | EKG ---
Date Performed: 01/25/2017 Time Performed: 07:27:58 PTAGE: 71 years EKG: Sinus rhythm POSSIBLE LEFT ATRIAL ENLARGEMENT MINIMAL ST DEPRESSION BORDERLINE ECG Compared to prior tracing no s ignificant change PREVIOUS TRACING : 01/24/2017 19.50 DOCTOR: Dot Fields Interpretating Date/Time 01/25/2017 10:21:17
--- NOTE | 2017-01-25 10:22 | EKG ---
Date Performed: 01/24/2017 Time Performed: 19:50:19 PTAGE: 71 years EKG: Sinus rhythm POSSIBLE LEFT ATRIAL ENLARGEMENT BORDERLINE ECG NO PREVIOUS TRACING DOCTOR: Dot Fields Interpretating Date/Time 01/25/2017 10:21:08
[2017-01-25] MEDS ORDERED: ALLOPURINOL 300 MG TAB PO SCH (11:00)
[2017-01-25] MEDS: ATORVASTATIN 80 MG TAB PO SCH ×3 (11:00→21:05)
[2017-01-25] MEDS ORDERED: ASPIRIN 81 MG CHEW TAB CHEW SCH (11:00)
[2017-01-25] MEDS: EZETIMIBE 10 MG TAB PO SCH ×3 (11:00→21:05)
[2017-01-25] MEDS: LOSARTAN 25 MG TAB PO SCH ×2 (11:00→11:29)
[2017-01-25] MEDS: CLOPIDOGREL 75 MG TAB PO SCH (11:28)
[2017-01-25] MEDS: FAMOTIDINE 20 MG TAB PO SCH ×2 (11:29→21:08)
[2017-01-25] MEDS: METOPROLOL TARTRATE 25 MG TAB PO SCH ×2 (11:29→21:05)
[2017-01-25] MEDS: ASPIRIN EC 81 MG TABEC PO SCH (11:29)
[2017-01-25] MEDS: SEVELAMER CARBONATE 800 MG TAB PO SCH ×2 (11:29→16:38)
--- NOTE | 2017-01-25 11:49 | MB ---
cc: HAKEEM GUZMÁN MD, GLEN DATE OF CONSULTATION: 01/25/2017 1943 REASON FOR CONSULTATION Unstable angina. HISTORY OF PRESENT ILLNESS 71-year-old male with past medical history significant for coronary artery disease status post OK in 1997, CABG x3 in 2002, subsequent percutaneous coronary interventions, diabetes, hypertension, hyperlipidemia, chronic kidney disease on hemodialysis who presented to the hospital with chest pain for the last two days, not relieved by nitroglycerin. The patient has been started on IV heparin. EKG shows normal sinus rhythm with no acute ST changes. Cardiology has been consulted for further management and evaluation. Of note, Dr. Juárez saw him on Thursday and was planning to do a left heart catheterization on Thursday. REVIEW OF SYSTEMS: Negative except for what is mentioned in the HPI. PAST MEDICAL HISTORY: 1. Chronic renal insufficiency on hemodialysis. 2. Coronary artery disease, status post myocardial infarction, three stents in 1997. 3. Status post three vessel bypass surgery in 2002. 4. Stent to the distal left main. The patient is known to have 2 out of 3 grafts patent. 5. Diabetes. 6. Hypertension. 7. Hyperlipidemia. 8. Obesity. ALLERGIES NO KNOWN DRUG ALLERGIES. SOCIAL HISTORY No smoking. No illicit drug use. He drinks alcohol socially. CARDIAC HOME MEDICATIONS 1. Lasix 40 milligrams p.o. p.r.n. 2. Metoprolol 100 milligrams p.o. b.i.d. 3. Losartan 25 milligrams p.o. daily. 4. Imdur 30 milligrams p.o. daily. 5. Plavix 75 milligrams p.o. daily. 6. Lipitor 80 milligrams p.o. daily. 7. Aspirin 81 milligrams p.o. daily. PHYSICAL EXAMINATION: VITAL SIGNS: Temperature 98, respiratory rate 20, heart rate 76, blood pressure 118/57. O2 sat 92% on room air. GENERAL: Awake, alert, oriented x3, in no acute distress. NECK: No JVD. No carotid bruits. CHEST: He has a port on the right side of the chest. HEART: Regular rate and rhythm. No murmurs, rubs, or gallops. LUNGS: Clear to auscultation bilaterally. No wheezing, no rhonchi, no rales. ABDOMEN: Soft, non-tender, non-distended. Positive bowel sounds. Obese. EXTREMITIES: No cyanosis, no edema. Pulses throughout. He has a venous fistula on the left arm. DATA CBC: hemoglobin 10, hematocrit 32, platelet count 95, INR 1. Electrolytes: sodium 136, potassium 4.6, BUN 26, creatinine 5.47, troponin 0.09 and 0.29. Albumin 3.3, total protein 6.7. IMAGING STUDIES: Chest x-ray: No acute cardiopulmonary process. ASSESSMENT/PLAN 71-year-old male with known coronary artery disease admitted with ACS / non- STEMI in the setting of worsening angina. Currently he remains afebrile, hemodynamically stable, and chest pain free. He has been started on heparin drip. He is scheduled for a left heart cath/PCI tomorrow by Dr. Efrem Juárez. Given the patient's known chronic kidney disease and hemodialysis consult nephrology for HD after PCI cath. Recommendations: 1. Keep NPO for LHC +/- PCI in AM with Dr. Juárez 2. Continue aggressive medical management for CAD with beta-jacki, statins, long-acting nitrate, and an SUE inhibitor. 3. Nephrology consult for HD Thank you for the opportunity to take part in the care of this patient. The patient will be followed by Dr. Efrem Juárez tomorrow morning. MD IJEOMA Correa/JOVANA /9:43 AM /11:21 AM NOMAN
[2017-01-25 12:08] LABS: APTT (PATIENT) 37.9 SEC (24.3-30.1)
--- NOTE | 2017-01-25 13:25 | HHI.HP ---
[facility] Service [facility] Primary Care Physician Brittany Rutledge Admission Diagnosis unstable angina Diagnoses: Travel History International Travel<30 Days: No Contact w/Intl Traveler <30 Da: No Traveled to Known Affected Are: No Past Family Social History Allergies: Coded Allergies: No Known Allergies (Unverified , 01/05/17) Physical Exam Vital Signs Vital Signs Date Time Temp Pulse Resp B/P Pulse Ox O2 Delivery O2 Flow Rate FiO2 01/25/17 09:00 72 01/25/17 08:00 98.3 76 20 118/57 92 01/25/17 08:00 Room Air 01/25/17 04:00 98.1 71 18 137/62 94 01/25/17 01:30 Room Air 01/25/17 00:28 73 16 113/54 94 01/25/17 00:00 98.4 71 18 142/67 93 01/24/17 23:34 70 16 113/54 96 Room Air 01/24/17 22:01 70 16 114/54 93 Room Air 01/24/17 20:54 77 16 134/59 94 Room Air 01/24/17 19:47 98.7 75 24 150/70 95 01/24/17 19:40 99.1 74 18 142/65 98 Room Air Physical Exam GENERAL: This is a well-nourished, well-developed patient, in no apparent distress. SKIN: No rashes, ecchymoses or lesions. Cool and dry. HEAD: Atraumatic. Normocephalic. No temporal or scalp tenderness. EYES: Pupils equal round and reactive. Extraocular motions intact. No scleral icterus. No injection or drainage. ENT: Nose without bleeding, purulent drainage or septal hematoma. Throat without erythema, tonsillar hypertrophy or exudate. Uvula midline. Airway patent. NECK: Trachea midline. No JVD or lymphadenopathy. Supple, nontender, no meningeal signs. CARDIOVASCULAR: Regular rate and rhythm without murmurs, gallops, or rubs. RESPIRATORY: Clear to auscultation. Breath sounds equal bilaterally. No wheezes , rales, or rhonchi. GASTROINTESTINAL: Abdomen soft, non-tender, nondistended. No hepato-splenomegaly , or palpable masses. No guarding. MUSCULOSKELETAL: Extremities without clubbing, cyanosis, or edema. No joint tenderness, effusion, or edema noted. No calf tenderness. Negative Homans sign bilaterally. NEUROLOGICAL: Awake and alert. Cranial nerves II through XII intact. Motor and sensory grossly within normal limits. Five out of 5 muscle strength in all muscle groups. Normal speech. Laboratory Laboratory Tests Test 01/24/17 01/25/17 01/25/17 20:35 04:29 11:30 White Blood Count 7.8 Red Blood Count 3.40 Hemoglobin 10.6 Hematocrit 32.5 Mean Corpuscular Volume 95.6 Mean Corpuscular Hemoglobin 31.3 Mean Corpuscular Hemoglobin 32.7 Concent Red Cell Distribution Width 17.1 Platelet Count 95 Mean Platelet Volume 9.3 Neutrophils (%) (Auto) 70.4 Lymphocytes (%) (Auto) 13.6 Monocytes (%) (Auto) 8.9 Eosinophils (%) (Auto) 6.7 Basophils (%) (Auto) 0.4 Neutrophils # (Auto) 5.5 Lymphocytes # (Auto) 1.1 Monocytes # (Auto) 0.7 Eosinophils # (Auto) 0.5 Basophils # (Auto) 0.0 CBC Comment AUTO DIFF Differential Comment AUTO DIFF CONFIRMED Platelet Estimate LOW Platelet Morphology Comment NORMAL Tear Drop Cells 1+ Ovalocytes 1+ Prothrombin Time 10.9 Prothromb Time International 1.0 Ratio Activated Partial 23.9 40.1 37.9 Thromboplast Time Sodium Level 136 Potassium Level 4.6 Chloride Level 101 Carbon Dioxide Level 27.0 Anion Gap 8 Blood Urea Nitrogen 26 Creatinine 5.47 Estimat Glomerular Filtration 10 Rate Random Glucose 277 Calcium Level 8.6 Magnesium Level 2.1 Total Bilirubin 0.3 Aspartate Amino Transf 21 (AST/SGOT) Alanine Aminotransferase 21 (ALT/SGPT) Alkaline Phosphatase 109 Troponin I 0.09 0.29 0.31 Total Protein 6.7 Albumin 3.3 Result Diagram: 01/24/17203401/24/172034 Assessment and Plan Assessment and Plan patient seen and examined PLease refer to admission H & P for details Unstable aNGINA ESRD on HD Appreciate Cardiology input on heparin GTt chest pain free now plan for cardiac cath in am NPOafter midnight Nephrology consulted for HD discussed with patient discussed with Isabella OWENS Physician Certification 2 Midnight Certification Type: Admission for Inpatient Services Order for Inpatient Services The services are ordered in accordance with Medicare regulations or non- Medicare payer requirements, as applicable. In the case of services not specified as inpatient-only, they are appropriately provided as inpatient services in accordance with the 2-midnight benchmark. Estimated LOS (days): 3 days is the estimated time the patient will need to remain in the hospital, assuming treatment plan goals are met and no additional complications. Post-Hospital Plan: Home Tonia Dawson MD Jan 25, 2017 13:25
[2017-01-25] MEDS ORDERED: ONDANSETRON HCL 4 MG/2 ML VIAL IV PRN (15:30)
[2017-01-25] MEDS ORDERED: SODIUM CHLOR 0.9% 1000 ML INJ 1,000 ML IV PRN ×3 (15:30)
[2017-01-25] MEDS ORDERED: SODIUM CHLORIDE 0.9% FLUSH 10 ML FLUSH IV FLUSH PRN (15:30)
[2017-01-25] MEDS ORDERED: GENTAMICIN SULFATE (DIALYSIS USE ONLY) 20 MG/2 ML VIAL IV PRN (15:30)
[2017-01-25] MEDS ORDERED: MANNITOL 12.5 GM/50 ML VIAL IV PRN (15:30)
[2017-01-25] MEDS ORDERED: HEPARIN SODIUM - IV 10,000 UNITS/10 ML VIAL PRN (15:30)
[2017-01-25] MEDS ORDERED: ALBUMIN HUMAN 25% 25 GM/100 ML BAGP IV PRN (15:30)
[2017-01-25] MEDS ORDERED: diphenhydrAMINE HCL 25 MG CAP PO PRN (15:30)
[2017-01-25] MEDS ORDERED: cloNIDine HCL 0.1 MG TAB PO PRN (15:30)
[2017-01-25] MEDS ORDERED: GELATIN 12 MM/7 MM FOAM TOP PRN (15:30)
[2017-01-25] MEDS ORDERED: ACETAMINOPHEN 325 MG TAB PO PRN (15:30)
[2017-01-25] MEDS ORDERED: HEPARIN SODIUM - IV 10,000 UNITS/10 ML VIAL IVF PRN (15:30)
[2017-01-25] MEDS ORDERED: NITROGLYCERIN 0.4 MG SL 25 TABS/BTL SL PRN (15:30)
--- NOTE | 2017-01-25 15:57 | MB ---
cc: CONCEPCION BARRON MD DATE OF CONSULTATION 01/25/17 REASON FOR CONSULTATION End-stage renal disease management. HISTORY OF PRESENT ILLNESS This is a 71-year-old male with a history of end-stage renal disease. He is on hemodialysis Tuesdays, and Saturdays and follows up with Dr. Cisneros in [place]. The patient had a full hemodialysis treatment on Thursday. The patient presented with angina symptoms. He follows up closely with Dr. Juárez and the plan is for a cardiac cath to be performed on Thursday. The patient has had ongoing chest pains for some time which progressively got worse and worse. He has a background history of previous CABG and multiple previous coronary stents. The patient also has a history of hypertension, diabetes. The patient is otherwise resting comfortably at this time and has no acute complaints. His vital signs, blood pressure otherwise stable. Nephrology was consulted for further dialysis management. REVIEW OF SYSTEMS No chest pains at this time, however, had previous chest pains prior to admission. No nausea. No vomiting. No diarrhea. No dizziness or loss of consciousness, otherwise review of systems negative. PAST MEDICAL HISTORY Past medical history includes ESRD on hemodialysis Thursday, and Thursday, followed up in [place] with Dr. Cisneros. CAD status post MD with three cardiac stents in 1997. History of three-vessel CABG in 2002. History of left main stent. History of diabetes, dyslipidemia and obesity. ALLERGIES NO KNOWN DRUG ALLERGIES. SOCIAL HISTORY No tobacco, alcohol or drug use. MEDICATIONS Home included: 1. Lasix. 2. Metoprolol. 3. Losartan. 4. Imdur. 5. Plavix. 6. Lipitor. 7. Aspirin. PHYSICAL EXAMINATION VITAL SIGNS: At the time of evaluation temperature 98.3, pulse 76, respiratory rate 20, blood pressure 118/57, pulse ox 92% on room air. GENERAL: Awake, alert, oriented, no apparent distress. HEENT: Neck soft supple. No lymphadenopathy. CARDIAC: Regular rate and rhythm. PULMONARY: Lungs clear to auscultation bilaterally. ABDOMEN: Soft, nontender, nondistended. EXTREMITIES: No edema. LABORATORY FINDINGS White count 7.8, hemoglobin 10.6, hematocrit 32.5 with platelet count 95, sodium 136, potassium 4.6, chloride 101, bicarb 27, BUN 26, creatinine 5.4 with glucose 277. Troponin was initially 0.09 and trended up to 0.29 and 0.31. ASSESSMENT/PLAN PROBLEM #1 End-stage renal disease. The patient is on hemodialysis Thursday, and Saturdays and follows up as an outpatient with Dr. Cisneros in [place]. He had a full hemodialysis treatment on Thursday. At this point his volume status and electrolytes are stable. We will plan to the next dialysis on Thursday if the patient is still here and continue with Thursday, , Thursday dialysis. Continue to renal dose medications and avoid nephrotoxins. PROBLEM #2 Non-ST MD. The patient has elevation in troponin trends and plan is for a cardiac cath tomorrow with Dr. Juárez. The patient has an extensive cardiac history. Continue to monitor and continue follow up with cardiology. PROBLEM #3 diabetes. The patient's glucose was 277 at the time of admission. Continue glucose monitoring and insulin as needed. Continue to monitor closely. PROBLEM #4 Hypertension, blood pressure is stable. Continue to monitor. Concepcion Barron MD DVP/EO /3:28 PM /3:45 PM
[2017-01-25] MEDS: MULTIVITAMIN HEMATINIC THERAPEUTIC TAB PO SCH (16:46)
[2017-01-25] MEDS ORDERED: ATORVASTATIN 80 MG TAB PO SCH (21:00)
[2017-01-25] MEDS: GABAPENTIN 300 MG CAP PO SCH (21:05)
[2017-01-25] MEDS: HEPARIN-D5W INJ 250 ML IV SCH (21:06)
[2017-01-26] VITALS (16 sets, daily range): BP systolic 118–166; BP diastolic 57–74; PULSE 65–75; RESP 18; TEMP 97.9–98.9; O2SAT 93–98
[2017-01-26 04:42] LABS: AUTOMATED NEUTROPHIL # 3.8 TH/MM3 (1.8-7.7); BASOPHIL % 0.5 % (0.0-2.0); EOSINOPHIL # 0.6 TH/MM3 (0-0.4); EOSINOPHIL % 8.7 % (0.0-4.0); HEMATOCRIT 34.5 % (39.0-51.0); HEMO FLAGS DIFF FINAL; LYMPH % 24.6 % (9.0-44.0); LYMPHOCYTE # 1.7 TH/MM3 (1.0-4.8); MEAN CELL VOLUME 96.5 FL (80.0-100.0); MEAN CORPUSCULAR HEMOGLOBIN 32.5 PG (27.0-34.0); MEAN CORPUSCULAR HGB CONC 33.7 % (32.0-36.0); MONO % 9.3 % (0.0-8.0); NEUT % 56.9 % (16.0-70.0); PLATELET COUNT 127 TH/MM3 (150-450); RED BLOOD COUNT 3.57 MIL/MM3 (4.50-5.90); RED CELL DISTRIBUTION WIDTH 17.2 % (11.6-17.2); WHITE BLOOD COUNT 6.8 TH/MM3 (4.0-11.0)
[2017-01-26 04:43] LABS: APTT (PATIENT) 44.8 SEC (24.3-30.1)
[2017-01-26 05:03] LABS: BICARBONATE 23.7 MEQ/L (21.0-32.0); POTASSIUM 4.8 MEQ/L (3.5-5.1)
[2017-01-26] MEDS: ISOSORBIDE MONONITRATE 30 MG TAB PO SCH (05:03)
--- NOTE | 2017-01-26 08:35 | MH ---
cc: CHE MIRANDA MD DATE OF ADMISSION: 01/24/2017 DATE OF : 1945 CHIEF COMPLAINT Chest time. Travel: [facility] a few weeks ago. CHIEF COMPLAINT: Chest pain. HISTORY OF PRESENT ILLNESS This is a pleasant 71-year-old male with a significant history of coronary artery disease and end stage renal disease. The patient's last stents were in July of 2016. He is well known to Dr. Juárez, cardiology, who the patient saw for evaluation on Thursday. The patient has been having mild chest pain off and on for 4 weeks. He states that the pain is midsternal and radiates into both of his arms. He does note an achy sensation and he is positive for exertional pain after eating or walking. The patient states that the pain has continued to worsen over the past few weeks. He and his are very aware of his cardiac pain and when he needs to come in for evaluation. The patient was encouraged per Dr. Juárez to come to the hospital on Thursday but the patient declined admission during his office visit. He was set up for cardiac catheterization for Thursday, tomorrow, as an outpatient. The patient yesterday on 01/24/2017 began having extreme chest pain. He took 4 nitroglycerin over a one hour period and was unable to get the pain under control so he then decided to come to the hospital for evaluation. He is currently on a heparin drip, sitting up in the chair, alert, oriented and chest pain has been under control since his admission to the hospital. According to the record, during this acute episode of pain, the patient also took three baby aspirin without relief. The patient did travel to [facility] a few weeks ago and did not exertional chest pain that he was able to control with nitroglycerin. PAST MEDICAL HISTORY: 1. Coronary artery disease. 2. SD. 3. Diabetes type 2. 4. Insulin dependent, on p.o. meds. 5. End-stage renal disease 6. Oliguria. 7. Hypertension. 8. Hyperlipidemia. 9. Obesity. PAST SURGICAL HISTORY: 1. Twelve cardiac stents. 2. Triple bypass. 3. Internal heart monitor placement and removal. 4. Left fistula x2. 5. Dialysis Thursday, and Thursday. He did receive his dialysis Thursday morning. 6. Tonsillectomy. ALLERGIES: None known. REPORTED MEDICATIONS: 1. Lasix. 2. Januvia. 3. Glyburide 4. Renvela. 5. Gabapentin 6. Zetia. 7. Prorenal Multiple Vitamins 8. Centrum. 9. Metoprolol. 10. Losartan. 11. Lantus. 12. Isosorbide 13. Plavix. 14. Atorvastatin. 15. Aspirin 16. Allopurinol SOCIAL HISTORY: Currently the patient is , lives at home with his . He has 4 girls. One of the girls lives close by and is available to assist patient and . No tobacco ever. No illicit drug use. Occasional social alcohol use. FAMILY HISTORY: Heart disease and diabetes. REVIEW OF SYSTEMS: A 12 point review was obtained, positives noted in the HPI which includes chest pain with radiation, end-stage renal disease with dialysis, cardiac stents in July, exertional chest pain. Other systems negative or unremarkable. The patient had a bowel movement yesterday and today, normal. PHYSICAL EXAMINATION: VITAL SIGNS: Temperature is 98.3, pulse 76, respiratory rate 20, blood pressure 118/57. It has been as high as 142/67, at midnight last night, O2 sat 92% on room air. GENERAL: Obese male, looks to be his stated age, sitting up in the chair, alert, oriented, conversational. SKIN: [place] mucous membranes, warm and dry. HEENT: Atraumatic, normocephalic. PERRLA. No scleral icterus. Mucous membranes pink and moist. NECK: Short, obese, supple. Trachea midline. CARDIOVASCULAR: S1-S2. Regular rate and rhythm, heart sounds are distant but audible. No murmurs, rubs, or gallops. RESPIRATORY: Essentially clear to auscultation, anteriorly and posteriorly, no rales, rhonchi or wheezing. ABDOMEN: Obese, round, soft, non-tender, non-distended. Active bowel sounds in all four quads. MUSCULOSKELETAL: He moves his extremities with purpose. He does have 1+ edema, which appears chronic in his lower extremities bilaterally. He has no obvious deformities. NEUROLOGIC: Alert, oriented, good historian. Speech is clear. PSYCHIATRIC: Appropriate mood and affect. Insight and judgment is normal. DIAGNOSTIC DATA WBC count 7.8, RBC 3.4, hemoglobin 10.6, hematocrit 32.5, platelet count 95. Neutrophil percentage auto count 70.4, monocyte auto count 8.9, eosinophils 6.7, platelet estimate is low. Teardrop cells 1+, ovalocytes 1+. Coagulation, PT/INR 1. PTT 40.1 at the last check. Chemistry: Sodium 136, potassium 4.6, chloride 101, carbon dioxide 27, anion gap 8, BUN 26, creatinine 5.47, random glucose 277, troponin 0.09 and 0.29. Albumin 3.3, total protein 6.7. IMAGING STUDIES: Chest x-ray, no acute disease. No significant changes. ASSESSMENT: 1. Chest spine rule out SD. 2. Cardiovascular disease 3. Diabetes mellitus type 2 uncontrolled. 4. End-stage renal disease currently on hemodialysis. 5. Hypertension. 6. Morbid obesity. PLAN Admit, currently the patient is n.p.o. pending any further testing today. This will be reevaluated once cardiology has seen him. ECG monitoring, IV access, O2 administration as needed. Pain management, DVT prophylaxis with heparin IV and infusion, cardiology has been consulted for his expert opinion on further testing needed. Nephrology has been consulted for his end-stage renal disease. The patient will have p.r.n. medications for pain, nausea, bowel regimen, headache. He can be out of bed with assistance for his safety. Medications have been reconciled. Chief need is for his cardiac pain to be monitored. The patient has been educated and knows to let staff know if the pain returns. The patient is full code, full aggressive care. We will follow. Patient will be placed on Pepcid for PUD prophylaxis. Dictated by: GRACIELA Pollock MD DON Bernal/JOVANA /9:45 AM /8:34 AM
[2017-01-26] MEDS: SEVELAMER CARBONATE 800 MG TAB PO SCH ×3 (09:00→18:00)
[2017-01-26] MEDS: LOSARTAN 25 MG TAB PO SCH (09:00)
[2017-01-26] MEDS: ASPIRIN EC 81 MG TABEC PO SCH (09:00)
[2017-01-26] MEDS: INSULIN DETEMIR 100 UNITS/ML VIAL SQ SCH (09:00)
[2017-01-26] MEDS: CLOPIDOGREL 75 MG TAB PO SCH (10:12)
[2017-01-26] MEDS: FAMOTIDINE 20 MG TAB PO SCH ×2 (10:12→20:53)
[2017-01-26] MEDS: METOPROLOL TARTRATE 25 MG TAB PO SCH ×2 (10:12→20:53)
[2017-01-26] MEDS: ALLOPURINOL 100 MG TAB PO SCH (10:13)
[2017-01-26] MEDS: MULTIVITAMIN HEMATINIC THERAPEUTIC TAB PO SCH (10:13)
[2017-01-26 10:47] LABS: APTT (PATIENT) 49.5 SEC (24.3-30.1)
[2017-01-26] MEDS ORDERED: IOHEXOL 350 MG/ML 100 ML BTL (for Cath Lab) OTHER ONE (13:44)
--- NOTE | 2017-01-26 13:53 | HHI.PR ---
Subjective Remarks up in chair alert family in NPO , awaiting cardiac cath. chest pain X 1 this am (Isabella Izaguirre) Objective Objective Results - Vital Signs Date Time Temp Pulse Resp B/P Pulse Ox O2 Delivery O2 Flow Rate FiO2 01/26/17 12:00 98.0 65 18 121/57 93 01/26/17 10:45 93 21 01/26/17 10:27 95 Room Air 01/26/17 08:00 97.9 71 18 118/58 95 01/26/17 04:45 74 126/74 01/26/17 04:41 156/70 01/26/17 04:00 98.4 72 18 139/63 93 01/26/17 03:32 66 01/26/17 00:00 98.5 68 18 140/62 95 01/25/17 21:11 Room Air 01/25/17 20:00 98.3 71 18 127/60 94 01/25/17 16:00 98.3 74 20 104/54 93 I/O 01/25/17 01/25/17 01/25/17 01/26/17 01/26/17 01/26/17 07:00 15:00 23:00 07:00 15:00 23:00 Intake Total 240 ml 480 ml 240 ml Output Total 0 ml Balance 240 ml 480 ml 240 ml Intake Oral 240 ml 480 ml 240 ml Output Urine Total 0 ml # Voids 0 1 2 # Bowel Movements 0 0 0 (Isabella Izaguirre) Result Diagram: 01/26/17 0354 01/26/17 0354 ROS General: Weakness (generalized), Other (10 point ROS done . Positives noted. other systems negative or unremarkable) Cardiac: Chest Pain Pulmonary: Cough (occasional), SOB (Isabella Izaguirre) Physical Exam Physical Exam PHYSICAL EXAMINATION GENERAL: This is a well-developed, well-nourished obese male who appears to be in no acute distress. He is alert and awake, HEAD: Normocephalic without any lesion or mass noted. Facial features appear symmetric. OROPHARYNGEAL: Oropharynx without erythema or edema. NECK: Supple. No nuchal rigidity or lymphadenopathy. Trachea midline without deviation. CARDIAC: Regular rhythm, regular rate, S1 and S2 are heard. Murmur none no gallops or rubs. LUNGS: Clear to auscultation bilaterally. No wheeze, ABDOMEN: Soft, nontender, no organomegaly or masses. Bowel sounds are heard in all four quadrants. No rebound. No guarding. EXTREMITIES: Trace to 1+ edema. Pulses equal bilateral. NEUROLOGICAL: Patient mood and affect appropriate. No focal deficit SKIN:Warm and moist Objective Remarks I'm ready to get this heart catheter over with (Isabella Izaguirre) A/P Assessment and Plan 1. Chest pain rule out RI. 2. Cardiovascular disease 3. Diabetes mellitus type 2 uncontrolled. 4. End-stage renal disease currently on hemodialysis. 5. Hypertension. 6. Morbid obesity. PLAN Patient is nothing by mouth for cardiac catheter today. He is currently maintained on a heparin drip. He has had one bout of midsternal chest pain today relieved with nitroglycerin This O2 administration as needed. Pain management, appreciate cardiac consult and management. Out of bed with assistance for his safety Nephrology has been consulted for his end-stage renal disease. Plan is for patient to have his usual dialysis tomorrow if he is still here in the hospital The patient will have p.r.n. medications for pain, nausea, bowel regimen, headache. Hypertension, medical management, stable Obesity, diet control and exercise discussed with patient and family Discussed With: Nurse, Family (patient and family), Other (Dr. Dawson, seen on her behalf) (Isabella Izaguirre) Assessment and Plan patient seen and examined had brief episode of chest pain earlier, resolved with nitro s/p cardiac cath: severe restenosis of OM2 and mid left circumflex stents placed a few months ago, patent ARMIJO to LAD and patent SV to PDA, normal EF 55% . Two more stents placed today in areas of restenosis. Plavix changed to Brilinta HD per nephrology anticipate discharge in am discussed with patient discussed with Isabella OWENS (Tonia Dawson MD) Isabella Izaguirre Jan 26, 2017 13:53 Tonia Dawson MD Jan 26, 2017 15:34
[2017-01-26] MEDS: WATER IV SCH ×2 (14:51)
[2017-01-26] MEDS: DEXTROSE 5% IV SCH ×2 (14:51)
[2017-01-26] MEDS: ABCIXIMAB IV SCH ×2 (14:51)
[2017-01-26] MEDS: TICAGRELOR 90 MG TAB PO SCH (14:58)
[2017-01-26] MEDS ORDERED: MISC INFORMATION XX ONE (15:00)
[2017-01-26] MEDS ORDERED: SODIUM CHLORIDE 0.9% FLUSH 5 ML FLUSH IVF PRN (15:00)
--- NOTE | 2017-01-26 15:03 | PD.CARD.PN ---
Subjective Subjective Remarks No further chest discomfort. No dyspnea, dizziness, palpitations. Objective Medications Item Value Date Time Isosorbide 30 mg 01/26/17 0700 Mononitrate DAILY@07/PO 01/26/17 0503 (Imdur) Atorvastatin 80 mg 01/25/17 2100 Calcium HS/PO 01/25/17 210 (Lipitor) EZETIMIBE 10 mg 01/25/17 2100 (Zetia) HS/PO 01/25/17 210 Losartan Potassium 25 mg 01/25/17 1100 (Cozaar) DAILY/PO Aspirin 81 mg 01/25/17 1100 (Ecotrin Ec) DAILY/PO 01/26/17 0900 Clopidogrel 75 mg 01/25/17 1100 Bisulfate DAILY/PO 01/26/17 1012 (Plavix) Metoprolol 25 mg 01/25/17 1100 Tartrate Q12HR/PO 01/26/17 1012 (Lopressor) Furosemide 80 mg 01/25/17 1000 (Lasix) DAILY PRN/PO Vital Signs / I&O Vital Signs Date Time Temp Pulse Resp B/P Pulse Ox O2 Delivery O2 Flow Rate FiO2 01/26/17 12:00 98.0 65 18 121/57 93 01/26/17 10:45 93 21 01/26/17 10:27 95 Room Air 01/26/17 08:00 97.9 71 18 118/58 95 01/26/17 04:45 74 126/74 01/26/17 04:41 156/70 01/26/17 04:00 98.4 72 18 139/63 93 01/26/17 03:32 66 01/26/17 00:00 98.5 68 18 140/62 95 01/25/17 21:11 Room Air 01/25/17 20:00 98.3 71 18 127/60 94 01/25/17 16:00 98.3 74 20 104/54 93 I/O 01/25/17 01/25/17 01/25/17 01/26/17 01/26/17 01/26/17 07:00 15:00 23:00 07:00 15:00 23:00 Intake Total 240 ml 480 ml 240 ml 196 ml Output Total 0 ml Balance 240 ml 480 ml 240 ml 196 ml Intake Oral 240 ml 480 ml 240 ml IV Total 196 ml Output Urine Total 0 ml # Voids 0 1 2 # Bowel Movements 0 0 0 Physical Exam GENERAL: Well developed, well nourished. No acute distress. HEENT: Jugular venous pressure is normal. CHEST: Lungs clear to auscultation bilaterally. Unlabored respiratory effort. CARDIAC: Regular rate and rhythm without S3, S4, or murmur. ABDOMEN: Soft, nontender, no hepatosplenomegaly. Bowel sounds present. EXTREMITIES: No clubbing, cyanosis, or edema. Laboratory Laboratory Tests Test 01/25/17 01/26/17 01/26/17 20:15 03:54 10:25 Activated Partial 39.0 SEC 44.8 SEC 49.5 SEC Thromboplast Time White Blood Count 6.8 TH/MM3 Red Blood Count 3.57 MIL/MM3 Hemoglobin 11.6 GM/DL Hematocrit 34.5 % Mean Corpuscular Volume 96.5 FL Mean Corpuscular Hemoglobin 32.5 PG Mean Corpuscular Hemoglobin 33.7 % Concent Red Cell Distribution Width 17.2 % Platelet Count 127 TH/MM3 Mean Platelet Volume 9.7 FL Neutrophils (%) (Auto) 56.9 % Lymphocytes (%) (Auto) 24.6 % Monocytes (%) (Auto) 9.3 % Eosinophils (%) (Auto) 8.7 % Basophils (%) (Auto) 0.5 % Neutrophils # (Auto) 3.8 TH/MM3 Lymphocytes # (Auto) 1.7 TH/MM3 Monocytes # (Auto) 0.6 TH/MM3 Eosinophils # (Auto) 0.6 TH/MM3 Basophils # (Auto) 0.0 TH/MM3 CBC Comment DIFF FINAL Differential Comment Sodium Level 137 MEQ/L Potassium Level 4.8 MEQ/L Chloride Level 102 MEQ/L Carbon Dioxide Level 23.7 MEQ/L Anion Gap 11 MEQ/L Blood Urea Nitrogen 40 MG/DL Creatinine 8.02 MG/DL Estimat Glomerular Filtration 7 ML/MIN Rate Random Glucose 197 MG/DL Calcium Level 8.9 MG/DL Troponin I 0.24 NG/ML Assessment and Plan Problem List: (1) CAD (coronary artery disease) Assessment and Plan: Stable overnight. Cath today shows severe restenosis of OM2 and mid left circumflex stents placed a few months ago in [place], patent ARMIJO to LAD and patent SV to PDA, normal EF 55%. Two more stents placed today in areas of restenosis. REC overnight observation, change Plavix to Brilinta (2) Hypertension Assessment and Plan: Mostly normotensive. Cont same. (3) Hyperlipidemia Assessment and Plan: Continues on atorvastatin, Zetia. Check lipid profile in the morning. Code Status full code Discussed Condition With patient Problem Qualifiers (1) CAD (coronary artery disease): Qualified Code: I25.110 - Coronary artery disease involving [place] coronary artery of [place] heart with unstable angina pectoris (2) Hypertension: Qualified Code: I10 - Essential hypertension (3) Hyperlipidemia: Qualified Code: E78.2 - Mixed hyperlipidemia Julio Juárez MD Jan 26, 2017 15:03
[2017-01-26] MEDS ORDERED: HEPARIN SODIUM - IV 10,000 UNITS/10 ML VIAL ONE (15:29)
[2017-01-26] MEDS ORDERED: NITROGLYCERIN 0.4 MG SL 25 TABS/BTL SL ONE (15:30)
--- NOTE | 2017-01-26 15:35 | MA ---
cc: KRISTEN SHIRLEY M.D. DATE: 01/26/2017 PROCEDURE Left heart catheterization, selective coronary and graft angiography, left ventriculography, angioplasty and stent of the very proximal second obtuse marginal, angioplasty and stent of the mid-left circumflex. PROCEDURE NOTE The patient was brought to the cardiac catheterization laboratory in a fasting state after having signed informed consent. The right groin was prepped and draped as per policy and anesthetized with 1% lidocaine. Arterial access was obtained via the right femoral artery and a 6-[place] sheath placed. Coronary arteriography was performed using 6-[place] Felicity left 4.0 and right progressive catheters. The left internal mammary artery was engaged with a progressive right catheter. The vein graft to the right coronary was engaged with a multipurpose catheter. Left ventriculography was done using a standard 6-[place] pigtail. Percutaneous coronary intervention was done as described below. There were no apparent immediate complications. HEMODYNAMIC DATA Left ventricle 137 with an end-diastolic pressure of 18. Aorta 133/59 with a mean of 91. There was no significant transvalvular aortic gradient on pullback of the pigtail catheter. CORONARY ARTERIOGRAPHY The eft main demonstrates a stent from its distal portion into the ostium of the left circumflex. There is mild restenosis of the stent, up to 15% severity. The ostial to mid left main has minimal luminal irregularities. The LAD is totally occluded proximally. The left circumflex demonstrates stents in the midportion and extending into the second obtuse marginal. There is 95% restenosis of the mid left circumflex stent and 95% restenosis of the very proximal second obtuse marginal stent. The first obtuse marginal branches early and in the more medial branch there is 70% stenosis at its origin. The more lateral branch is totally occluded proximally. The continuation of the left circumflex after the takeoff of the second obtuse marginal is subtotally occluded. It is a small vessel distally. The right coronary artery is diffusely diseased. There appears to be a stent from its ostium in the proximal portion and a stent in its midportion. There is diffuse probably up to 80% restenosis of the mid stent. There is diffuse up to at least 50% restenosis of the more proximal stent. Competitive flow was evident distally. What functionally serves as a posterior descending artery has 50% distal stenosis. GRAFT ANGIOGRAPHY The left internal mammary artery to the LAD is tortuous but widely patent. The mid to distal LAD has minimal to mild diffuse luminal irregularities. A diagonal arises from the very proximal LAD and has 80-90% proximal stenosis. A few collaterals from the LAD to the left circumflex territory are seen. The vein graft to the posterior descending artery is widely patent. LEFT VENTRICULOGRAPHY Contrast injection of the left ventricle reveals no segmental wall motion abnormalities. Estimated ejection fraction is 55%. PERCUTANEOUS CORONARY INTERVENTION DESCRIPTION ReoPro was given as per protocol. Adequate heparin was given during the procedure to achieve an ACT greater than 250 seconds. Using a 6-[place] XB 3.5 guiding catheter the ostium of left main was re-engaged. Using a 0.014 [place] guidewire the mid left circumflex and obtuse marginal disease was crossed without difficulty and the tip of the wire positioned in the distal second obtuse marginal. Pre-dilation was done using a 3.0-mm E[place] balloon catheter. Stenting of the very proximal second obtuse marginal was done using a 3.0 x 18-mm Resolute stent which was deployed at 13-14 atmospheres for 30 seconds. Stenting of the mid left circumflex lesion was done using a 3.0 x 18-mm Resolute stent which was deployed at 15 atmospheres for 30 seconds. Final angiography shows overall good results with reduction of the stenoses to roughly 0% residual with no definite evidence for dissection or distal embolization. The patient tolerated the procedure well. He did develop chest pain with balloon inflations relieved by balloon deflations as well as administration of sublingual nitroglycerin. CONCLUSION 1. Severe three-vessel [place] coronary artery disease including severe restenosis of mid left circumflex and proximal second obtuse marginal stents placed several months ago, now status post repeat stenting of these two regions. 2. Patent left internal mammary artery to the LAD and patent vein graft to the posterior descending artery. 3. Normal left ventricular function with estimated ejection fraction of 55%. MD PRASAD Moss/VIVI /2:52 PM /3:18 PM NOMAN
[2017-01-26] MEDS ORDERED: MIDAZOLAM HCL 2 MG/2 ML VIAL ONE (16:00)
--- NOTE | 2017-01-26 17:29 | HHI.NPPN ---
Subjective History of Present Illness 71 year old male with CAD S/P Stents, ESRD on HD 4 to 41/2 hrs session Review of Systems General Constitutional: Fatigue Objective Data Data 01/25/17 01/26/17 19:00 07:00 Intake Total 240 ml 720 ml Output Total 0 ml Balance 240 ml 720 ml Intake Oral 240 ml 720 ml Output Urine Total 0 ml # Voids 0 3 # Bowel Movements 0 0 Vital Signs Date Time Temp Pulse Resp B/P Pulse Ox O2 Delivery O2 Flow Rate FiO2 01/26/17 17:02 70 01/26/17 16:30 98.9 70 18 166/61 98 01/26/17 15:21 96 Room Air 01/26/17 12:00 98.0 65 18 121/57 93 01/26/17 10:45 93 21 01/26/17 10:27 95 Room Air 01/26/17 08:00 97.9 71 18 118/58 95 01/26/17 04:45 74 126/74 01/26/17 04:41 156/70 01/26/17 04:00 98.4 72 18 139/63 93 01/26/17 03:32 66 01/26/17 00:00 98.5 68 18 140/62 95 01/25/17 21:11 Room Air 01/25/17 20:00 98.3 71 18 127/60 94 -: 01/26/17 0354 01/26/17 0354 Physical Exam General Appearance: Well Developed, Well Nourished Neck Neck Exam: Neck Supple Pulmonary Resp Exam: Clear Bilaterally, Breath Sounds Equal Cardiology CV Exam: Regular, Normal Sinus Rhythm Gastrointestinal/Abdomen GI Exam: Soft, Non-Tender, Bowel Sounds Present Extremeties Extremities Exam: Moderate Edema Neurologic Neuro Exam: Alert, Awake Assessment/Plan Problem List: (1) ESRD (end stage renal disease) Plan: Patient is a ESRD pt who will need a 4 hours dialysis treatment in am continue to observe S/P Cath stents HD schedule (2) Hypertension (3) CAD (coronary artery disease) Plan s/p stents Problem Qualifiers (1) Hypertension: Qualified Code: I10 - Essential hypertension (2) CAD (coronary artery disease): Qualified Code: I25.110 - Coronary artery disease involving [place] coronary artery of [place] heart with unstable angina pectoris Marquez Juares MD Jan 26, 2017 17:29
[2017-01-26] MEDS: ATORVASTATIN 80 MG TAB PO SCH (20:53)
[2017-01-26] MEDS: GABAPENTIN 300 MG CAP PO SCH (20:53)
[2017-01-26] MEDS: EZETIMIBE 10 MG TAB PO SCH (20:54)
[2017-01-26] MEDS: SODIUM CHLORIDE 0.9% FLUSH 5 ML FLUSH IVF SCH (21:00)
[2017-01-27] VITALS (12 sets, daily range): BP systolic 136–154; BP diastolic 55–76; PULSE 67–91; RESP 18; TEMP 98–98.8; O2SAT 94–98
[2017-01-27] MEDS: ABCIXIMAB IV SCH ×2 (01:24)
[2017-01-27] MEDS: WATER IV SCH ×2 (01:24)
[2017-01-27] MEDS: DEXTROSE 5% IV SCH ×2 (01:24)
[2017-01-27] MEDS: ISOSORBIDE MONONITRATE 30 MG TAB PO SCH (05:12)
[2017-01-27 07:22] LABS: BICARBONATE 25.2 MEQ/L (21.0-32.0); HDL CHOLESTEROL 43.4 MG/DL (40.0-60.0); POTASSIUM 4.7 MEQ/L (3.5-5.1)
--- NOTE | 2017-01-27 08:44 | PD.CARD.PN ---
Subjective Subjective Remarks Feels "great". No angina, dyspnea, dizziness, palpitations, groin pain. Objective Medications Item Value Date Time Aspirin 81 mg 01/27/17 0900 (Aspirin Chew) DAILY/PO Ticagrelor 90 mg 01/26/17 2100 (Brilinta) BID/PO 01/26/17 1458 Isosorbide 30 mg 01/26/17 0700 Mononitrate DAILY@07/PO 01/27/17 0512 (Imdur) Atorvastatin 80 mg 01/25/17 2100 Calcium HS/PO 01/26/172052 (Lipitor) EZETIMIBE 10 mg 01/25/17 2100 (Zetia) HS/PO 01/26/172053 Losartan Potassium 25 mg 01/25/17 1100 (Cozaar) DAILY/PO Metoprolol 25 mg 01/25/17 1100 Tartrate Q12HR/PO 01/26/172052 (Lopressor) Furosemide 80 mg 01/25/17 1000 (Lasix) DAILY PRN/PO Vital Signs / I&O Vital Signs Date Time Temp Pulse Resp B/P Pulse Ox O2 Delivery O2 Flow Rate FiO2 01/27/17 07:00 98.8 83 18 136/55 94 01/27/17 07:00 94 Room Air 01/27/17 06:00 73 01/27/17 05:00 72 01/27/17 04:00 67 01/27/17 04:00 98.1 70 18 153/74 98 01/27/17 03:00 72 01/27/17 02:00 74 01/27/17 01:00 72 01/27/17 00:00 77 01/27/17 00:00 98.0 76 18 154/76 98 01/26/17 23:00 70 01/26/17 22:00 71 01/26/17 21:00 70 01/26/17 20:00 98.1 71 18 145/73 98 01/26/17 20:00 75 01/26/17 19:30 95 Room Air 01/26/17 19:30 95 Room Air 01/26/17 19:00 68 01/26/17 18:00 69 01/26/17 17:02 70 01/26/17 16:30 98.9 70 18 166/61 98 01/26/17 15:21 96 Room Air 01/26/17 12:00 98.0 65 18 121/57 93 01/26/17 10:45 93 21 01/26/17 10:27 95 Room Air I/O 01/26/17 01/26/17 01/26/17 01/27/17 01/27/17 01/27/17 07:00 15:00 23:00 07:00 15:00 23:00 Intake Total 240 ml 196 ml 240 ml Output Total 1 ml Balance 240 ml 196 ml 239 ml Intake Oral 240 ml 240 ml IV Total 196 ml Stool Total 1 ml # Voids 2 2 # Bowel Movements 0 Physical Exam GENERAL: Well developed, well nourished. No acute distress. HEENT: Jugular venous pressure is normal. CHEST: Lungs clear to auscultation bilaterally. Unlabored respiratory effort. CARDIAC: Regular rate and rhythm without S3, S4, or murmur. ABDOMEN: Soft, nontender, no hepatosplenomegaly. Bowel sounds present. EXTREMITIES: No clubbing, cyanosis, or edema. Right groin nontender, no hematoma. Laboratory Laboratory Tests Test 01/26/17 01/27/17 10:25 05:10 Activated Partial 49.5 SEC Thromboplast Time Sodium Level 137 MEQ/L Potassium Level 4.7 MEQ/L Chloride Level 101 MEQ/L Carbon Dioxide Level 25.2 MEQ/L Anion Gap 11 MEQ/L Blood Urea Nitrogen 46 MG/DL Creatinine 9.44 MG/DL Estimat Glomerular Filtration 5 ML/MIN Rate Random Glucose 137 MG/DL Calcium Level 8.3 MG/DL Total Creatine Kinase 130 U/L Troponin I 0.86 NG/ML Triglycerides Level 159 MG/DL Cholesterol Level 96 MG/DL LDL Cholesterol 21 MG/DL HDL Cholesterol 43.4 MG/DL Cholesterol/HDL Ratio 2.21 RATIO Assessment and Plan Problem List: (1) CAD (coronary artery disease) Assessment and Plan: Stable overnight. Cath yesterday shows severe restenosis of OM2 and mid left circumflex stents placed a few months ago in [place], patent ARMIJO to LAD and patent SV to PDA, normal EF 55%. Two more stents placed yesterday in areas of restenosis. REC OK to discharge home today stop Imdur Plavix changed to Brilinta daily baby aspirin f/u with me 3-4 weeks (2) Hypertension Assessment and Plan: Mostly normotensive. Cont same. (3) Hyperlipidemia Assessment and Plan: Continues on atorvastatin, Zetia. Lipid profile very good with very low LDL. Code Status full code Discussed Condition With patient and Problem Qualifiers (1) CAD (coronary artery disease): Qualified Code: I25.110 - Coronary artery disease involving [place] coronary artery of [place] heart with unstable angina pectoris (2) Hypertension: Qualified Code: I10 - Essential hypertension (3) Hyperlipidemia: Qualified Code: E78.2 - Mixed hyperlipidemia Julio Juárez MD Jan 27, 2017 08:44
[2017-01-27] MEDS: SODIUM CHLORIDE 0.9% FLUSH 5 ML FLUSH IVF SCH (09:00)
[2017-01-27] MEDS: LOSARTAN 25 MG TAB PO SCH (09:00)
[2017-01-27] MEDS: SEVELAMER CARBONATE 800 MG TAB PO SCH ×2 (09:00→13:00)
[2017-01-27] MEDS ORDERED: ASPIRIN 81 MG CHEW TAB PO SCH (09:00)
[2017-01-27] MEDS ORDERED: BRIL90TA PO (10:28)
--- NOTE | 2017-01-27 11:09 | HHI.NPPN ---
Subjective History of Present Illness 71 year old male with CAD S/P Stents, ESRD on HD 4 to 41/2 hrs session Review of Systems General Constitutional: Fatigue Objective Data Data 01/26/17 01/27/17 19:00 07:00 Intake Total 196 ml 240 ml Output Total 1 ml Balance 196 ml 239 ml Intake Oral 240 ml IV Total 196 ml Stool Total 1 ml # Voids 2 Vital Signs Date Time Temp Pulse Resp B/P Pulse Ox O2 Delivery O2 Flow Rate FiO2 01/27/17 09:18 72 01/27/17 08:00 70 01/27/17 07:00 76 01/27/17 07:00 98.8 83 18 136/55 94 01/27/17 07:00 94 Room Air 01/27/17 06:00 73 01/27/17 05:00 72 01/27/17 04:00 67 01/27/17 04:00 98.1 70 18 153/74 98 01/27/17 03:00 72 01/27/17 02:00 74 01/27/17 01:00 72 01/27/17 00:00 77 01/27/17 00:00 98.0 76 18 154/76 98 01/26/17 23:00 70 01/26/17 22:00 71 01/26/17 21:00 70 01/26/17 20:00 98.1 71 18 145/73 98 01/26/17 20:00 75 01/26/17 19:30 95 Room Air 01/26/17 19:30 95 Room Air 01/26/17 19:00 68 01/26/17 18:00 69 01/26/17 17:02 70 01/26/17 16:30 98.9 70 18 166/61 98 01/26/17 15:21 96 Room Air 01/26/17 12:00 98.0 65 18 121/57 93 -: 01/26/17 0354 01/27/17 0510 Physical Exam General Appearance: Well Developed, Well Nourished Neck Neck Exam: Neck Supple Pulmonary Resp Exam: Clear Bilaterally, Breath Sounds Equal Cardiology CV Exam: Regular, Normal Sinus Rhythm Gastrointestinal/Abdomen GI Exam: Soft, Non-Tender, Bowel Sounds Present Extremeties Extremities Exam: Moderate Edema Neurologic Neuro Exam: Alert, Awake Assessment/Plan Problem List: (1) ESRD (end stage renal disease) Plan: Patient is a ESRD is seen during hemodialysis 2K /HCO3, UF 3 L tolerating it well continue to observe S/P Cath stents HD T,T,S (2) Hypertension (3) CAD (coronary artery disease) Plan s/p stents Problem Qualifiers (1) Hypertension: Qualified Code: I10 - Essential hypertension (2) CAD (coronary artery disease): Qualified Code: I25.110 - Coronary artery disease involving [place] coronary artery of [place] heart with unstable angina pectoris Mraquez Juares MD Jan 27, 2017 11:09
--- NOTE | 2017-01-27 11:39 | HHI.PR ---
Subjective Interval History awake alert and oriented seen during HD denies chest pain anxious to go home no other complaints Vitals/Results Intake & Output 01/26/17 01/26/17 01/27/17 15:00 23:00 07:00 Intake Total 196 ml 240 ml Output Total 1 ml Balance 196 ml 239 ml Intake Oral 240 ml IV Total 196 ml Stool Total 1 ml # Voids 2 Vital Signs Vital Signs Date Time Temp Pulse Resp B/P Pulse Ox O2 Delivery O2 Flow Rate FiO2 01/27/17 09:18 72 01/27/17 08:00 70 01/27/17 07:00 76 01/27/17 07:00 98.8 83 18 136/55 94 01/27/17 07:00 94 Room Air 01/27/17 06:00 73 01/27/17 05:00 72 01/27/17 04:00 67 01/27/17 04:00 98.1 70 18 153/74 98 01/27/17 03:00 72 01/27/17 02:00 74 01/27/17 01:00 72 01/27/17 00:00 77 01/27/17 00:00 98.0 76 18 154/76 98 01/26/17 23:00 70 01/26/17 22:00 71 01/26/17 21:00 70 01/26/17 20:00 98.1 71 18 145/73 98 01/26/17 20:00 75 01/26/17 19:30 95 Room Air 01/26/17 19:30 95 Room Air 01/26/17 19:00 68 01/26/17 18:00 69 01/26/17 17:02 70 01/26/17 16:30 98.9 70 18 166/61 98 01/26/17 15:21 96 Room Air 01/26/17 12:00 98.0 65 18 121/57 93 CBC/BMP: 01/26/17 0354 01/27/17 0510 Lab Results Laboratory Tests Test 01/27/17 05:10 Sodium Level 137 MEQ/L Potassium Level 4.7 MEQ/L Chloride Level 101 MEQ/L Carbon Dioxide Level 25.2 MEQ/L Anion Gap 11 MEQ/L Blood Urea Nitrogen 46 MG/DL Creatinine 9.44 MG/DL Estimat Glomerular Filtration 5 ML/MIN Rate Random Glucose 137 MG/DL Calcium Level 8.3 MG/DL Total Creatine Kinase 130 U/L Troponin I 0.86 NG/ML Triglycerides Level 159 MG/DL Cholesterol Level 96 MG/DL LDL Cholesterol 21 MG/DL HDL Cholesterol 43.4 MG/DL Cholesterol/HDL Ratio 2.21 RATIO Physical Exam General General Appearance: Well Developed, Well Nourished Neck Neck Exam: Neck Supple Pulmonary Resp Exam: Clear Bilaterally, Breath Sounds Equal Cardiology CV Exam: Regular, Normal Sinus Rhythm Gastrointestinal/Abdomen GI Exam: Soft, Non-Tender, Bowel Sounds Present Extremeties Extremities Exam: Moderate Edema Neurologic Neuro Exam: Alert, Awake Assessment/Plan Assessment/Plan Physical Exam Physical Exam PHYSICAL EXAMINATION GENERAL: This is a well-developed, well-nourished obese male who appears to be in no acute distress. He is alert and awake, HEAD: Normocephalic without any lesion or mass noted. Facial features appear symmetric. OROPHARYNGEAL: Oropharynx without erythema or edema. NECK: Supple. No nuchal rigidity or lymphadenopathy. Trachea midline without deviation. CARDIAC: Regular rhythm, regular rate, S1 and S2 are heard. Murmur none no gallops or rubs. LUNGS: Clear to auscultation bilaterally. No wheeze, ABDOMEN: Soft, nontender, no organomegaly or masses. Bowel sounds are heard in all four quadrants. No rebound. No guarding. EXTREMITIES: Trace to 1+ edema. Pulses equal bilateral. NEUROLOGICAL: Patient mood and affect appropriate. No focal deficit SKIN:Warm and moist Plan A/P Assessment and Plan 1. Chest pain rule out [place]. 2. Cardiovascular disease 3. Diabetes mellitus type 2 uncontrolled. 4. End-stage renal disease currently on hemodialysis. 5. Hypertension. 6. Morbid obesity. PLAN Appreciate cardiology input s/p cardiac cath: severe restenosis of OM2 and mid left circumflex stents placed a few months ago, patent ARMIJO to LAD and patent SV to PDA, normal EF 55% . Two more stents placed in areas of restenosis. Plavix changed to Brilinta cleared by cardiology for discharge Follow up with Dr Juárez in 3-4 weeks Appreciate Nephrology input, HD in progress p.r.n. medications for pain, nausea, bowel regimen and headache. Hypertension, medical management, stable Obesity, diet control and exercise discussed with patient and family ok to d/c home after HD follow up outpatient with cardiology in 3-4 weeks discussed with patient Tonia Dawson MD Jan 27, 2017 11:39
[2017-01-27] MEDS: MULTIVITAMIN HEMATINIC THERAPEUTIC TAB PO SCH (13:25)
[2017-01-27] MEDS: FAMOTIDINE 20 MG TAB PO SCH (13:25)
[2017-01-27] MEDS: INSULIN DETEMIR 100 UNITS/ML VIAL SQ SCH (13:25)
[2017-01-27] MEDS: METOPROLOL TARTRATE 25 MG TAB PO SCH (13:25)
[2017-01-27] MEDS: TICAGRELOR 90 MG TAB PO SCH (13:26)
[2017-01-27] MEDS: ALLOPURINOL 100 MG TAB PO SCH (13:27)
--- NOTE | 2017-01-27 16:55 | HHI.DS ---
Discharge Summary Admission Date Jan 24, 2017 at 22:13 Discharge Date: Jan 27, 2017 Admitting Diagnosis unstable angina Procedures heart cath Brief History This was a pleasant 71-year-old male with a significant history of coronary artery disease and end stage renal disease. The patient's last stents were in July of 2016. He was well known to Dr. Juárez, cardiology, who the patient saw for evaluation on Thursday. The patient had been having mild chest pain off and on for 4 weeks. He stated that the pain was midsternal and radiates into both of his arms. He did note an achy sensation and he was positive for exertional pain after eating or walking. The patient stated that the pain has continued to worsen over the past few weeks. He and his are very aware of his cardiac pain and when he needs to come in for evaluation. The patient was encouraged per Dr. Juárez to come to the hospital on Thursday but the patient declined admission during his office visit. He was set up for cardiac catheterization for Thursday, tomorrow, as an outpatient. The patient yesterday on 01/24/2017 began having extreme chest pain. He took 4 nitroglycerin over a one hour period and was unable to get the pain under control so he then decided to come to the hospital for evaluation. He was currently on a heparin drip, sitting up in the chair, alert, oriented and chest pain has been under control since his admission to the hospital. CBC/BMP: 01/26/17 0354 01/27/17 0510 Significant Findings Laboratory Tests Test 01/24/17 01/25/17 01/25/17 01/25/17 20:35 04:29 11:30 20:15 Red Blood Count 3.40 MIL/MM3 (4.50-5.90) Hemoglobin 10.6 GM/DL (13.0-17.0) Hematocrit 32.5 % (39.0-51.0) Platelet Count 95 TH/MM3 (150-450) Neutrophils (%) (Auto) 70.4 % (16.0-70.0) Monocytes (%) (Auto) 8.9 % (0.0-8.0) Eosinophils (%) (Auto) 6.7 % (0.0-4.0) Eosinophils # (Auto) 0.5 TH/MM3 (0-0.4) Platelet Estimate LOW (NORMAL) Tear Drop Cells 1+ (NORMAL) Ovalocytes 1+ (NORMAL) Activated Partial 23.9 SEC 40.1 SEC 37.9 SEC 39.0 SEC Thromboplast Time (24.3-30.1) (24.3-30.1) (24.3-30.1) (24.3-30.1) Blood Urea Nitrogen 26 MG/DL (7-18) Creatinine 5.47 MG/DL (0.60-1.30) Estimat Glomerular Filtration 10 ML/MIN (>89) Rate Random Glucose 277 MG/DL (74-106) Troponin I 0.09 NG/ML 0.29 NG/ML 0.31 NG/ML (0.02-0.05) (0.02-0.05) (0.02-0.05) Albumin 3.3 GM/DL (3.4-5.0) Test 01/26/17 01/26/17 01/27/17 03:54 10:25 05:10 Red Blood Count 3.57 MIL/MM3 (4.50-5.90) Hemoglobin 11.6 GM/DL (13.0-17.0) Hematocrit 34.5 % (39.0-51.0) Platelet Count 127 TH/MM3 (150-450) Monocytes (%) (Auto) 9.3 % (0.0-8.0) Eosinophils (%) (Auto) 8.7 % (0.0-4.0) Eosinophils # (Auto) 0.6 TH/MM3 (0-0.4) Activated Partial 44.8 SEC 49.5 SEC Thromboplast Time (24.3-30.1) (24.3-30.1) Blood Urea Nitrogen 40 MG/DL (7-18) 46 MG/DL (7-18) Creatinine 8.02 MG/DL 9.44 MG/DL (0.60-1.30) (0.60-1.30) Estimat Glomerular Filtration 7 ML/MIN (>89) 5 ML/MIN (>89) Rate Random Glucose 197 MG/DL 137 MG/DL (74-106) (74-106) Troponin I 0.24 NG/ML 0.86 NG/ML (0.02-0.05) (0.02-0.05) Calcium Level 8.3 MG/DL (8.5-10.1) Triglycerides Level 159 MG/DL (42-150) Cholesterol Level 96 MG/DL (120-200) PE at Discharge GENERAL: This was a well-developed, well-nourished obese male who appeared to be in no acute distress. He was alert and awake, HEAD: Normocephalic without any lesion or mass noted. Facial features appear symmetric. OROPHARYNGEAL: Oropharynx without erythema or edema. NECK: Supple. No nuchal rigidity or lymphadenopathy. Trachea midline without deviation. CARDIAC: Regular rhythm, regular rate, S1 and S2 are heard. Murmur none no gallops or rubs. LUNGS: Clear to auscultation bilaterally. No wheeze, ABDOMEN: Soft, nontender, no organomegaly or masses. Bowel sounds are heard in all four quadrants. No rebound. No guarding. EXTREMITIES: Trace to 1+ edema. Pulses equal bilateral. NEUROLOGICAL: Patient mood and affect appropriate. No focal deficit SKIN:Warm and moist Hospital Course These are the diagnoses that were used to treat this patient during his hospital stay and what his care plan was based on. 1. Chest pain rule out [place]. 2. Cardiovascular disease 3. Diabetes mellitus type 2 uncontrolled. 4. End-stage renal disease currently on hemodialysis. 5. Hypertension. 6. Morbid obesity. Appreciate cardiology input and consult. Patient was evaluated and set up for cardiac catheter, Thursday afternoon which was the time that he was originally set up for his outpatient study patient was stabilized with medications and a heparin drip will time for his cardiac catheter. I'll signs were monitored every 4 and when necessary depending on patient needs. Patient spent quality time with his family and was up in chair before his heart catheter. Labs were monitored. s/p cardiac cath: severe restenosis of OM2 and mid left circumflex stents placed a few months ago, patent ARMIJO to LAD and patent SV to PDA, normal EF 55% . Two more stents placed in areas of restenosis. Plavix changed to Brilinta cleared by cardiology for discharge on 01-27-[address] Juárez in 3-4 weeks Appreciate Nephrology input, HD in progress today. Patient receives dialysis on Thursday. Her treatment Thursday before coming to the emergency room p.r.n. medications for pain, nausea, bowel regimen and headache. Hypertension, medical management, stable Obesity, diet control and exercise discussed with patient and family, ok to d/c home after HD. Patient had no further chest pain, was stable post his heart catheter and stents. follow up outpatient with cardiology in 3-4 weeks discussed with patient Tonia Dawson MD Jan 27, 2017 11:39 Pt Condition on Discharge: Stable Discharge Disposition: Discharge Home Discharge Instructions DIET: Follow Instructions for: Heart Healthy Diet Activities you can perform: Regular-No Restrictions Follow up Referrals: Cardiology - 4 Weeks with Julio Juárez MD New Medications: Ticagrelor (Brilinta) 90 Mg Tab 90 MG PO BID CAD #60 TAB Continued Medications: Allopurinol (Allopurinol) 300 Mg Tab 300 MG PO DAILY Gout #30 Ref 0 TAB Aspirin (Aspirin) 81 Mg Chew 81 MG CHEW DAILY Ref 0 TAB Atorvastatin (Atorvastatin) 80 Mg Tab 80 MG PO HS Cholesterol Management #30 Ref 0 TAB Ezetimibe (Zetia) 10 Mg Tab 10 MG PO DAILY #30 Ref 0 TAB Furosemide (Furosemide) 40 Mg Tab 80 MG PO DAILY PRN swelling #30 Ref 0 TAB Gabapentin (Gabapentin) 300 Mg Cap 2 TAB PO DAILY #90 Ref 0 CAP Gabapentin (Gabapentin) 300 Mg Cap 300 MG PO HS Pain Management #30 Ref 0 CAP Glyburide (Glyburide) 5 Mg Tab 5 MG PO BID Take with meals at the same time each day Blood Sugar Management # 30 Ref 0 TAB Insulin Glargine Inj (Lantus Solostar Pen Inj) 300 Unit/3 Ml Pen 2-3 UNITS SQ DAILY Blood Sugar Management Ref 0 PEN Losartan (Losartan) 25 Mg Tab 25 MG PO DAILY Blood Pressure Management #30 Ref 0 TAB Metoprolol Succinate ER 24 HR (Metoprolol Succinate ER 24 HR) 100 Mg Tab 100 MG PO BID #30 Ref 0 TAB Multiple Vitamins W/ Minerals (Centrum Silver) 1 Tab 1 TAB PO DAILY Nutritional Supplement Ref 0 TAB Multiple Vitamins W/ Minerals (Prorenal Qd) 1 Cap Cap Sevelamer Carbonate (Renvela) 800 Mg Tab 800 MG PO TID Control phosphorous levels #90 Ref 0 TAB Sitagliptin (Januvia) 25 Mg Tab 50 MG PO DAILY Blood Sugar Management #30 Ref 0 TAB Discontinued Medications: Clopidogrel (Clopidogrel) 75 Mg Tab 75 MG PO DAILY Blood Clot Prevention #30 Ref 0 TAB Isosorbide Mononitrate ER (Isosorbide Mononitrate ER) 30 Mg Maribel 30 MG PO DAILY Prevent Chest Pain #30 Ref 0 TAB Zina,Isabella M. DIRECTOR INSURANCE Jan 27, 2017 16:55
== END 2017-01-27 14:12 | disposition home or self-care (01) | DRG 246 ==
LOC: NEPE 19:35 → NEDA 22:13 → N04B 01-25 00:45 → HCIS 01-26 15:02
PROVIDERS: ADMIT Internal Medicine; ATTEND Internal Medicine
PROC: 027135Z Dilation of Coronary Artery, Two Arteries with Two Drug-eluting Intraluminal Devices, Percutaneous Approach (ICD-10-PCS; principal; 2017-01-26)
PROC: 4A023N7 Measurement of Cardiac Sampling and Pressure, Left Heart, Percutaneous Approach (ICD-10-PCS; 2017-01-26)
PROC: B2131ZZ Fluoroscopy of Multiple Coronary Artery Bypass Grafts using Low Osmolar Contrast (ICD-10-PCS; 2017-01-26)
PROC: B2111ZZ Fluoroscopy of Multiple Coronary Arteries using Low Osmolar Contrast (ICD-10-PCS; 2017-01-26)
PROC: B2181ZZ Fluoroscopy of Left Internal Mammary Bypass Graft using Low Osmolar Contrast (ICD-10-PCS; 2017-01-26)
PROC: B2151ZZ Fluoroscopy of Left Heart using Low Osmolar Contrast (ICD-10-PCS; 2017-01-26)
PROC: 5A1D00Z (ICD-10-PCS; 2017-01-27)
DX: I25.110 Atherosclerotic heart disease of native coronary artery with unstable angina pectoris (principal); N18.6 End stage renal disease; T82.857A Stenosis of other cardiac prosthetic devices, implants and grafts, initial encounter; I12.0 Hypertensive chronic kidney disease with stage 5 chronic kidney disease or end stage renal disease; I25.710 Atherosclerosis of autologous vein coronary artery bypass graft(s) with unstable angina pectoris; E11.22 Type 2 diabetes mellitus with diabetic chronic kidney disease; Z99.2 Dependence on renal dialysis; N18.9 Chronic kidney disease, unspecified; Z79.4 Long term (current) use of insulin; I25.2 Old myocardial infarction; E11.65 Type 2 diabetes mellitus with hyperglycemia; E66.01 Morbid (severe) obesity due to excess calories; Z79.82 Long term (current) use of aspirin; E78.2 Mixed hyperlipidemia; Y71.1 Therapeutic (nonsurgical) and rehabilitative cardiovascular devices associated with adverse incidents; Y92.9 Unspecified place or not applicable; Y83.8 Other surgical procedures as the cause of abnormal reaction of the patient, or of later complication, without mention of misadventure at the time of the procedure
CPT/HCPCS: 71010; 80048; 80053; 80061; 82550; 83735; 84484; 85002; 85025; 85347; 85610; 85730; 90935; 92928; 93005; 93458; 96374; C1725; C1769; C1874; C1887; C1893; J0130; J1580; J1644; J2250; J2270; J7030; J7060; Q9967

== ENCOUNTER 2017-06-02 03:24 | Inpatient (IN) | payer MEDICARE, BC, OTHER ==
[2017-06-02] VITALS (31 sets, daily range): BP systolic 120–262; BP diastolic 61–124; PULSE 55–82; RESP 17–30; TEMP 98.2; O2SAT 92–100
[~2017-06-02] VITALS: Ht 162.6 cm; Wt 110.0 kg
[~2017-06-02 03:24] MED LIST changes: +BRIL90TA PO; -CLOP75TA PO; -ISOS30TA3 PO
[2017-06-02] MEDS ORDERED: PRAS10TA PO (03:45)
[2017-06-02] MEDS ORDERED: NITROGLYCERIN 2% OINT 1 GM PACKET TOP ONE (03:45)
[2017-06-02] MEDS ORDERED: SODIUM CHLORIDE 0.9% FLUSH 10 ML FLUSH IVF PRN (03:45)
[2017-06-02] MEDS ORDERED: NITROGLYCERIN 0.4 MG SL 25 TABS/BTL SL ONE (03:45)
[2017-06-02] MEDS ORDERED: NITROGLYCERIN-D5W 50 MG/250 ML 250 ML ONE (03:46)
[2017-06-02] MEDS ORDERED: GLIM1TAB PO (03:48)
--- NOTE | 2017-06-02 03:56 | PD ---
HPI Chief Complaint: Chest Pain Time Seen by Provider: 03:28 Travel History International Travel<30 days: No Contact w/Intl Traveler<30days: No Traveled to known affect area: No History of Present Illness HPI The patient is a 71 year old male who presents to the [facility] emergency department with a history of chest pain that he reports is a 10 out of 10 chest pressure in the center of his chest that began on Thursday and then resolved and then recurred again today at approximately 12:30 AM. He reports that he missed dialysis on Thursday as he was concerned that the chest pain may recur if he left his home. He reports that his steam tank operator is in [place]. He reports that he did call his head automatic sawyer, Dr. Juárez has an appointment scheduled for this . The patient reports that his last cardiac catheterization was in January 2017. He reports that his stent was placed at that time. He reports that in total he's had approximately 15 stents placed and in 1997 he had a three-vessel bypass done. He is on Effient. The patient reports that he has been taking this regularly. He reports that he has been taking his blood pressure medicine regularly. The patient arrives with a blood pressure 262/124. He reports that over the last 2 days he noticed progressive swelling in bilateral lower extremities. The patient reports that he is also noted shortness of breath that began an hour prior to arrival. The patient reports that he tried taking 3 sublingual nitroglycerin without relief. He reports that the pain radiates into bilateral shoulders. He reports having nausea with some sweating associated with this. He denies having any prior history of congestive heart failure. The patient reports that he did take 2 adult aspirin prior to arrival. Otherwise on review of systems, the patient denies any recent fevers, cough, congestion, abdominal pain, vomiting, diarrhea , urinary symptoms, or neurologic symptoms. [facility] Past Medical History Narrative Medical The patient's past medical history is significant for coronary artery disease, chronic renal failure on hemodialysis on Thursday, , and Thursday, history of hypertension, history of obesity, hyperlipidemia, diabetes mellitus. Hx Anticoagulant Therapy: Yes Cancer: No Cardiovascular Problems: Yes Diabetes: Yes (insulin dep and PO meds) Endocrine: Yes Genitourinary: Yes (oliguria) Hepatitis: No Hiatal Hernia: No Hypertension: Yes (on meds) Immune Disorder: No Musculoskeletal: No Neurologic: No Psychiatric: No Reproductive: No Respiratory: No Thyroid Disease: No Past Surgical History Narrative Surgical The patient's past surgical history is significant for a left upper extremity fistula, right sided Vas-Cath placement, cardiac catheterization with 15 stents placed previously, history of coronary artery bypass grafting of 3 vessels in 1997, tonsillectomy. Abdominal Surgery: No AICD: No Body Medical Devices: left fistula, CARDIAC STENTS Cardiac Surgery: Yes (12 stents, triple bypass, INTERNAL HEART MONITOR PLACEMENT AND REMOVAL) Ear Surgery: No Endocrine Surgery: No Eye Surgery: No Genitourinary Surgery: No Gynecologic Surgery: No Joint Replacement: No Oral Surgery: Yes (tonsillectomy) Pacemaker: No Thoracic Surgery: Yes (open heart, removal of study device from left upper chest) Other Surgery: Yes Social History Alcohol Use: Yes (OCC ) Tobacco Use: No Substance Use: No Allergies-Medications (Allergen,Severity, Reaction): Coded Allergies: No Known Allergies (Unverified , 06/02/17) Reported Meds & Prescriptions Reported Meds & Active Scripts Active Reported Centrum (Multiple Vitamins W/ Minerals) 1 Chew 1 Tab CHEW DAILY Glimepiride 1 Mg Tab 0 PO DAILY Take with breakfast or first main meal Effient (Prasugrel) 10 Mg Tab 10 Mg PO HS Furosemide 40 Mg Tab 80 Mg PO DAILY PRN Januvia (Sitagliptin Phosphate) 25 Mg Tab 50 Mg PO DAILY Renvela (Sevelamer Carbonate) 800 Mg Tab 800 Mg PO TID Gabapentin 300 Mg Cap 300 Mg PO TID Zetia (Ezetimibe) 10 Mg Tab 10 Mg PO HS Prorenal Qd (Multiple Vitamins W/ Minerals) 1 Cap Cap Metoprolol Succinate ER 24 HR (Metoprolol Succinate) 100 Mg Tab 100 Mg PO BID Losartan (Losartan Potassium) 25 Mg Tab 25 Mg PO DAILY Lantus Solostar Pen Inj (Insulin Glargine) 300 Unit/3 Ml Pen 2-3 Units SQ DAILY Atorvastatin (Atorvastatin Calcium) 80 Mg Tab 80 Mg PO HS Aspirin 81 Mg Chew 81 Mg CHEW DAILY Allopurinol 300 Mg Tab 300 Mg PO DAILY Review of Systems Except as stated in HPI: all other systems reviewed are Neg General / Constitutional: No: Fever Eyes: No: Visual changes HENT: No: Headaches Cardiovascular: Positive: Chest Pain or Discomfort, Diaphoresis, Dyspnea on exertion, Edema Respiratory: No: Shortness of Breath Gastrointestinal: Positive: Nausea, No: Abdominal Pain Genitourinary: No: Dysuria Musculoskeletal: No: Pain Skin: No Rash Neurologic: No: Weakness Psychiatric: No: Depression Endocrine: No: Polydipsia Hematologic/Lymphatic: No: Easy Bruising Physical Exam Narrative General: The patient is a well-developed well-nourished male who is uncomfortable appearing on arrival. Head and Neck exam: Head is normocephalic atraumatic. Eyes: EOMI, pupils are equal round and reactive to light. Nose: Midline septum with pink mucous membranes Mouth: Dentition unremarkable. Moist mucus membranes. Posterior oropharynx is not erythematous. No tonsillar hypertrophy. Uvula midline. Airway patent. Neck: No palpable lymphadenopathy. No nuchal rigidity. No thyromegaly. Cardiovascular: Regular rate and rhythm without murmurs, gallops, or rubs. No pulse deficit to the extremities and simultaneous auscultation and palpation of his radial artery. Lungs: Decreased breath sounds in bilateral bases. Soft expiratory wheezes are audible. Tachypnea is noted. No tripoding. No accessory muscle use. Abdomen: Soft, without tenderness to palpation in all 4 quadrants of the abdomen. No guarding, rebound, or rigidity. Normal bowel sounds are audible. No tenderness on palpation of McBurney's point. Extremities: No clubbing or cyanosis. The patient has 1-2+ pitting edema. 2+ pulses in all 4 extremities. Back: No costovertebral angle tenderness to palpation. Neurologic Exam: Grossly nonfocal. Skin Exam: No rash noted. Intact skin that is warm and dry. Data Data Last Documented VS Vital Signs Date Time Temp Pulse Resp B/P Pulse Ox O2 Delivery O2 Flow Rate FiO2 06/02/17 05:12 94 Venturi Mask 6.00 50 06/02/17 05:05 78 22 188/83 06/02/17 04:02 98.2 Orders Electrocardiogram (06/02/17 03:36) B-Type Natriuretic Peptide (06/02/17 03:36) Ckmb (Isoenzyme) Profile (06/02/17 03:36) Complete Blood Count With Diff (06/02/17 03:36) Comprehensive Metabolic Panel (06/02/17 03:36) Magnesium (Mg) (06/02/17 03:36) Prothrombin Time / Inr (Pt) (06/02/17 03:36) Act Partial Throm Time (Ptt) (06/02/17 03:36) Troponin I (06/02/17 03:36) Lipase (06/02/17 03:36) Chest, Single Ap (06/02/17 03:36) Ecg Monitoring (06/02/17 03:36) Bilateral Bp Monitoring (06/02/17 03:36) Iv Access Insert/Monitor (06/02/17 03:36) Oximetry (06/02/17 03:36) Oxygen Administration (06/02/17 03:36) Nitroglycerin 2% Oint (Nitroglycerin 2% (06/02/17 03:45) Sodium Chloride 0.9% Flush (Ns Flush) (06/02/17 03:45) Nitroglycerin Sl (Nitrostat Sl) (06/02/17 03:45) Nitroglycerin-Dextrose Inj (Nitroglyceri (06/02/17 03:46) Nitroglycerin-Dextrose Inj (Nitroglyceri (06/02/17 04:00) Labetalol Inj (Trandate Inj) (06/02/17 04:30) Morphine Inj (Morphine Inj) (06/02/17 04:30) Ondansetron Inj (Zofran Inj) (06/02/17 04:30) CKMB (06/02/17 03:46) CKMB% (06/02/17 03:46) Hydromorphone Pf Inj (Dilaudid Pf Inj) (06/02/17 05:00) Furosemide Inj (Lasix Inj) (06/02/17 05:00) Cta Thor Abd Aorta W Iv C W3d (06/02/17 05:07) Admit Order (Ed Use Only) (06/02/17 05:11) Consult Nephrology (06/02/17 ) Labs Laboratory Tests Test 06/02/17 03:46 White Blood Count 10.0 TH/MM3 Red Blood Count 3.76 MIL/MM3 Hemoglobin 12.0 GM/DL Hematocrit 37.9 % Mean Corpuscular Volume 100.7 FL Mean Corpuscular Hemoglobin 31.8 PG Mean Corpuscular Hemoglobin 31.6 % Concent Red Cell Distribution Width 18.1 % Platelet Count 180 TH/MM3 Mean Platelet Volume 9.7 FL Neutrophils (%) (Auto) 78.0 % Lymphocytes (%) (Auto) 10.1 % Monocytes (%) (Auto) 7.3 % Eosinophils (%) (Auto) 4.1 % Basophils (%) (Auto) 0.5 % Neutrophils # (Auto) 7.8 TH/MM3 Lymphocytes # (Auto) 1.0 TH/MM3 Monocytes # (Auto) 0.7 TH/MM3 Eosinophils # (Auto) 0.4 TH/MM3 Basophils # (Auto) 0.0 TH/MM3 CBC Comment DIFF FINAL Differential Comment Prothrombin Time 11.2 SEC Prothromb Time International 1.0 RATIO Ratio Activated Partial 26.4 SEC Thromboplast Time Sodium Level 137 MEQ/L Potassium Level 5.8 MEQ/L Chloride Level 103 MEQ/L Carbon Dioxide Level 24.4 MEQ/L Anion Gap 10 MEQ/L Blood Urea Nitrogen 84 MG/DL Creatinine 9.73 MG/DL Estimat Glomerular Filtration 5 ML/MIN Rate Random Glucose 322 MG/DL Calcium Level 7.7 MG/DL Magnesium Level 2.4 MG/DL Total Bilirubin 0.4 MG/DL Aspartate Amino Transf 31 U/L (AST/SGOT) Alanine Aminotransferase 36 U/L (ALT/SGPT) Alkaline Phosphatase 125 U/L Total Creatine Kinase 204 U/L Creatine Kinase MB 1.4 NG/ML Troponin I 0.10 NG/ML B-Type Natriuretic Peptide 422 PG/ML Total Protein 7.5 GM/DL Albumin 3.6 GM/DL Lipase 300 U/L [facility] Medical Decision Making Medical Screen Exam Complete: Yes Emergency Medical Condition: Yes Medical Record Reviewed: Yes Interpretation(s) Last Impressions Chest X-Ray 06/02/17 0336 Signed Impressions: Service Date/Time: Friday, June 02, 2017 03:56 - CONCLUSION: Mild patchy bibasilar infiltrates, right greater than left. Robert Steiner MD Differential Diagnosis Pulmonary edema from missing hemodialysis, versus electrolytic normality, versus acute coronary syndrome, versus flash pulmonary edema from uncontrolled hypertension Narrative Course During the course of the patients emergency department visit, the patients history, examination, and differential diagnosis were reviewed with the patient. The patient had IV access obtained by ar in the left external jugular vein with an 18-gauge Angiocath. The patient tolerated the procedure well. The patient was given sublingual nitroglycerin every 5 minutes 3 while a nitroglycerin drip was set up in order to lower the patient's blood pressure. The patient's blood pressure will be lowered approximately 20%. An ECG done on arrival shows a sinus rhythm heart rate is 79, no acute ST segment elevation, mild ST depression is noted in lead 1, 2. QRS duration is 85 ms, QTC 429 ms. The patient reported continued pain and was given morphine 4 mg IV, Zofran 4 mg IV. The patient reported continued severe pain and was given hydromorphone 0.5 mg IV. The patient's blood pressure remained elevated in spite of being on a nitroglycerin drip and he was given labetalol 10 mg IV. The patient's persistent severe chest pain in association with the extremely high blood pressure made me concerned that the patient was experiencing an aortic dissection. The patients laboratory studies were reviewed and remarkable for a white count 10, hemoglobin 12, platelets 180 with 78 neutrophils, CMP is remarkable for a potassium of 5.8, BUN 84, creatinine 9.73, glucose 322, alkaline phosphatase 125 , CPK 204, troponin I 0.10, BNP 422, lipase 300, PT 11.2, PTT 26.4. Radiology studies were reviewed and remarkable for a chest x-ray that shows mild patchy right basilar infiltrates right greater than the left suspicious for pulmonary edema. I spoke to the steam tank operator on-call regarding this patient's emergent need for hemodialysis. He will be calling the nurse in for treatment emergently. He was also made aware that the patient has findings that could be consistent with an aortic dissection given his extremely elevated blood pressure and chest pain. The patient will undergo CT aortogram with dialysis emergently to follow. The patients results were discussed with the patient, including the plan of care. I explained that further testing and/ or monitoring is indicated based on the patients history, examination, and/ or laboratory findings. Therefore, I recommended admission for additional evaluation. The patient expressed understanding and was agreeable with this plan. The patient was admitted to the hospital in critical condition and sent to a bed under the care of the bagman/woman service. Critical Care Narrative Aggregate critical care time was 40 minutes. Time to perform other separately billable procedures was not included in the critical care time. My time did not include minutes spent treating any other patients simultaneously or on activities that did not directly contribute to the patient's treatment. The services I provided to this patient were to treat and/or prevent clinically significant deterioration that could result in: Respiratory failure related to fluid overload, versus related to aortic dissection, versus cardiac arrhythmia related to acute coronary syndrome I provided critical care services requiring my management, as noted below: Chart data review, documentation time, medication orders and management, vital sign assessments/reviewing monitor data, ordering and reviewing lab tests, ordering and interpreting/reviewing x-rays and diagnostic studies, care of the patient and discussion of the patient with the admitting physicians. Physician Communication Physician Communication The steam tank operator on-call, was called regarding this patient's evaluation and his emergent need for dialysis. He is point to call the dialysis nurse in. The patient's case is discussed with Dr. Cristina who did agree to admit the patient to the bagman/woman service. Diagnosis Primary Impression: Chest pain Qualified Code: R07.9 - Chest pain, unspecified type Additional Impressions: Hypertensive emergency Pulmonary edema Qualified Code: J81.0 - Acute pulmonary edema Chronic renal failure Qualified Code: N18.9 - Chronic renal failure, unspecified CKD stage Admitting Information Admitting Physician Requests: Admit Josefina Armstrong MD Jun 02, 2017 03:56
[2017-06-02] MEDS ORDERED: NITROGLYCERIN-D5W 50 MG/250 ML 250 ML IV SCH (04:00)
[2017-06-02 04:04] LABS: AUTOMATED NEUTROPHIL # 7.8 TH/MM3 (1.8-7.7); BASOPHIL % 0.5 % (0.0-2.0); EOSINOPHIL # 0.4 TH/MM3 (0-0.4); EOSINOPHIL % 4.1 % (0.0-4.0); HEMATOCRIT 37.9 % (39.0-51.0); HEMO FLAGS DIFF FINAL; LYMPH % 10.1 % (9.0-44.0); MEAN CELL VOLUME 100.7 FL (80.0-100.0); MEAN CORPUSCULAR HEMOGLOBIN 31.8 PG (27.0-34.0); MEAN CORPUSCULAR HGB CONC 31.6 % (32.0-36.0); MONO % 7.3 % (0.0-8.0); PLATELET COUNT 180 TH/MM3 (150-450); RED BLOOD COUNT 3.76 MIL/MM3 (4.50-5.90); RED CELL DISTRIBUTION WIDTH 18.1 % (11.6-17.2)
[2017-06-02 04:09] LABS: APTT (PATIENT) 26.4 SEC (24.3-30.1); PROTHROMBIN TIME - PATIENT 11.2 SEC (9.8-11.6)
[2017-06-02] MEDS ORDERED: CENTCHW4 CHEW (04:19)
[2017-06-02] MEDS ORDERED: MORPHINE SULFATE 4 MG/ML INJ IV PUSH ONE (04:30)
[2017-06-02] MEDS ORDERED: ONDANSETRON HCL 4 MG/2 ML VIAL IV PUSH ONE (04:30)
[2017-06-02] MEDS ORDERED: LABETALOL HCL 100 MG/20 ML VIAL IV PUSH ONE (04:30)
[2017-06-02 04:35] LABS: ANION GAP 10 MEQ/L (5-15); AST (GOT) 31 U/L (15-37); BICARBONATE 24.4 MEQ/L (21.0-32.0); BLOOD UREA NITROGEN 84 MG/DL (7-18); CHLORIDE 103 MEQ/L (98-107); GLOMERULAR FILTRATION RATE 5 ML/MIN (>89); MAGNESIUM 2.4 MG/DL (1.5-2.5); POTASSIUM 5.8 MEQ/L (3.5-5.1); SODIUM (NA) 137 MEQ/L (136-145)
[2017-06-02 04:36] LABS: ALT (GPT) 36 U/L (12-78)
[2017-06-02 04:40] LABS: ALKALINE PHOSPHATASE 125 U/L (45-117); CREATINE KINASE 204 U/L (39-308); TOTAL BILIRUBIN ADULT 0.4 MG/DL (0.2-1.0)
[2017-06-02 04:54] LABS: CKMB 1.4 NG/ML (0.5-3.6)
[2017-06-02] MEDS ORDERED: HYDROmorphone HCL PF 1 MG/ML VIAL IV PUSH ONE (05:00)
[2017-06-02] MEDS ORDERED: FUROSEMIDE 40 MG/4 ML VIAL IV PUSH ONE (05:00)
--- NOTE | 2017-06-02 05:05 | RADRPT ---
EXAM DATE/TIME: 06/02/2017 03:56 [facility] COMPARISON: CHEST SINGLE AP, January 24, 2017, 20:11. INDICATIONS : Chest pain. MEDICAL HISTORY : Cardiovascular disease. SURGICAL HISTORY : CABG. 12 stents. ENCOUNTER: Initial ACUITY: 1 day PAIN SCORE: 5/10 LOCATION: Bilateral chest FINDINGS: Double-lumen right subclavian central line stable position. Residual pacer lead courses from the lef t side. The heart is enlarged. Prior median sternotomy. Indistinctness and engorgement of the cent ral bronchopulmonary markings similar to prior when taking into account differences in technique. So me mild patchy infiltrates in the lower lungs without consolidation. CONCLUSION: Mild patchy bibasilar infiltrates, right greater than left. Robert Steiner MD on June 02, 2017 at 5:02 Board Certified Radiologist. This report was verified electronically.
[2017-06-02] MEDS ORDERED: ONDANSETRON HCL 4 MG/2 ML VIAL IV PRN ×2 (05:15→09:15)
[2017-06-02] MEDS ORDERED: DEXTROSE 50% IN WATER 50 ML VIAL(D50) IV PUSH PRN (05:15)
[2017-06-02] MEDS ORDERED: MISCELLANEOUS NURSING INFORMATION XX SCH (05:15)
[2017-06-02] MEDS ORDERED: CHLORHEXIDINE GLUCONATE 2 % 1 PACK (2 CLOTHS) TOP PRN (05:15)
[2017-06-02] MEDS ORDERED: RESP: ALBUTEROL 2.5 MG/IPRATROPIUM 0.5 MG NEB (PRN) INH (05:15)
--- NOTE | 2017-06-02 05:26 | HHI.HP ---
HPI Service Critical Care Medicine Primary Care Physician Brittany Rutledge Admission Diagnosis Hypertensive emergency, chest pain Diagnosis: Chief Complaint: chest pain Travel History International Travel<30 Days: No Contact w/Intl Traveler <30 Da: No Traveled to Known Affected Are: No History of Present Illness This is a 71yM with a strong CAD history s/p multiple PCI and CABG who presents with 10/10 chest pain unrelieved by ntg SL. He has a history of ESRD and presents after skipping his dialysis. He states that his chest pain has been going since Thursday, and he skipped HD on thursday because he was afraid IHD would make his chest pain worse. He states this pain feels like his prior heart attacks. he denies any other symptoms of fever, chills, nausea, vomiting, diarrhea. does endorse SOB and orthopnea. In the ED he was severely hypertensive with BP 262/124. He was given NTG without improvement. He was started on NGT drip and his BP was controlled < 200, but again his chest pain persisted. Nephrology was consulted for emergent dialysis. The patient also underwent CT aortogram to rule out acute dissection, formal read pending, but preliminarily negative for acute dissection. He is hypoxic on ventimask with spo2 91%. Critical care medicine is consulted to evaluate and manage his hypertensive emergency and hypoxemia. The remainder of the ROS and history is negative unless otherwise documented. Review of Systems Constitutional: DENIES: Diaphoretic episodes, Fatigue, Fever, Chills Respiratory: COMPLAINS OF: Shortness of breath, DENIES: Cough, Snoring, Wheezing, Hemoptysis, Sputum production Cardiovascular: COMPLAINS OF: Chest pain, Dyspnea on Exertion, Lower Extremity Edema, Orthopnea, DENIES: Palpitations, Syncope, PND, Claudication Gastrointestinal: DENIES: Abdominal pain, Black stools, Bloody stools, Constipation, Diarrhea, Nausea, Vomiting Neurologic: DENIES: Headache Past Family Social History Allergies: Coded Allergies: No Known Allergies (Unverified , 06/02/17) Past Medical History coronary artery disease s/p CABG and multiple PCI chronic renal failure on hemodialysis on Thursday, , and Thursday hypertension obesity hyperlipidemia insulin dependent diabetes mellitus Past Surgical History left upper extremity fistula right sided Vas-Cath placement cardiac catheterization with 15 stents placed previously coronary artery bypass grafting of 3 vessels in 1997 tonsillectomy. Reported Medications Effient (Prasugrel) 10 Mg Tab 10 Mg PO HS Furosemide 40 Mg Tab 80 Mg PO DAILY PRN Januvia (Sitagliptin Phosphate) 25 Mg Tab 50 Mg PO DAILY Glyburide 5 Mg Tab 5 Mg PO BID Take with meals at the same time each day Renvela (Sevelamer Carbonate) 800 Mg Tab 800 Mg PO TID Gabapentin 300 Mg Cap 300 Mg PO TID Zetia (Ezetimibe) 10 Mg Tab 10 Mg PO HS Prorenal Qd (Multiple Vitamins W/ Minerals) 1 Cap Cap Centrum Silver (Multiple Vitamins W/ Minerals) 1 Tab 1 Tab PO DAILY Metoprolol Succinate ER 24 HR (Metoprolol Succinate) 100 Mg Tab 100 Mg PO BID Losartan (Losartan Potassium) 25 Mg Tab 25 Mg PO DAILY Lantus Solostar Pen Inj (Insulin Glargine) 300 Unit/3 Ml Pen 2-3 Units SQ DAILY Atorvastatin (Atorvastatin Calcium) 80 Mg Tab 80 Mg PO HS Aspirin 81 Mg Chew 81 Mg CHEW DAILY Allopurinol 300 Mg Tab 300 Mg PO DAILY Active Ordered Medications See MAR Family History Reviewed and found to be noncontributory to his acute illness Social History occasional etoh use. Physical Exam Vital Signs Vital Signs Date Time Temp Pulse Resp B/P Pulse Ox O2 Delivery O2 Flow Rate FiO2 06/02/17 05:15 77 21 186/85 95 Venturi Mask 50 06/02/17 05:12 94 Venturi Mask 6.00 50 06/02/17 05:05 78 22 188/83 93 Venturi Mask 50 06/02/17 04:50 81 20 188/78 92 Nasal Cannula 3 06/02/17 04:45 81 20 194/88 92 Nasal Cannula 3 06/02/17 04:44 81 22 214/102 92 Nasal Cannula 3 06/02/17 04:18 80 22 233/120 94 Nasal Cannula 3 06/02/17 04:02 98.2 79 22 218/107 94 Nasal Cannula 3 06/02/17 03:55 93 Nasal Cannula 3 06/02/17 03:55 22 94 Nasal Cannula 3 06/02/17 03:36 77 22 262/124 95 Nasal Cannula 3 06/02/17 03:35 94 Nasal Cannula 3 06/02/17 03:31 77 22 228/102 Room Air Physical Exam gen: obese elderly male, sitting in bed, in respiratory distress heent: perrl. mucous membranes moist neck: large neck circumference prevents accurate assessment of jvd. trachea midline. chest: labored. tachypneic. on ventimask. spo2 91%. bilateral crackles. cv: normal rate, regular rhythm. on NTG drip. sbp 196 on my exam. abd: obese, soft, nontender, nondistended. no guarding extr: distal pulses 2+. 2+ peripheral edema neuro: RASS 0. no focal deficits. Laboratory Laboratory Tests Test 06/02/17 03:46 White Blood Count 10.0 Red Blood Count 3.76 Hemoglobin 12.0 Hematocrit 37.9 Mean Corpuscular Volume 100.7 Mean Corpuscular Hemoglobin 31.8 Mean Corpuscular Hemoglobin 31.6 Concent Red Cell Distribution Width 18.1 Platelet Count 180 Mean Platelet Volume 9.7 Neutrophils (%) (Auto) 78.0 Lymphocytes (%) (Auto) 10.1 Monocytes (%) (Auto) 7.3 Eosinophils (%) (Auto) 4.1 Basophils (%) (Auto) 0.5 Neutrophils # (Auto) 7.8 Lymphocytes # (Auto) 1.0 Monocytes # (Auto) 0.7 Eosinophils # (Auto) 0.4 Basophils # (Auto) 0.0 CBC Comment DIFF FINAL Differential Comment Prothrombin Time 11.2 Prothromb Time International 1.0 Ratio Activated Partial 26.4 Thromboplast Time Sodium Level 137 Potassium Level 5.8 Chloride Level 103 Carbon Dioxide Level 24.4 Anion Gap 10 Blood Urea Nitrogen 84 Creatinine 9.73 Estimat Glomerular Filtration 5 Rate Random Glucose 322 Calcium Level 7.7 Magnesium Level 2.4 Total Bilirubin 0.4 Aspartate Amino Transf 31 (AST/SGOT) Alanine Aminotransferase 36 (ALT/SGPT) Alkaline Phosphatase 125 Total Creatine Kinase 204 Creatine Kinase MB 1.4 Troponin I 0.10 B-Type Natriuretic Peptide 422 Total Protein 7.5 Albumin 3.6 Lipase 300 Result Diagram: 06/02/176 06/02/17345 Imaging Last Impressions Chest X-Ray 06/02/17335 Signed Impressions: Service Date/Time: Friday, June 02, 2017 03:56 - CONCLUSION: Mild patchy bibasilar infiltrates, right greater than left. Robert Steiner MD Assessment and Plan Assessment and Plan Assessment: 71yM with CAD, ESRD who presents with hypertensive emergency, unrelenting chest pain, and Pulmonary edema/CHF exacerbation unknown type, intravascular volume overload. Critically ill. continue NGT drip. may need second iv agent. agree with emergent dialysis. trend troponins. Hypertensive Emergency -- NGT drip -- goal SBP < 180 -- will add cardene drip as second line agent -- prn hydralazine, labetalol -- emergent HD Acute hypoxic respiratory failure Acute intravascular volume overload Acute CHF exacerbation, unknown type Pulmonary Edema -- emergent HD -- 2d echo -- wean fio2 for spo2 > 90% -- nebs, pulmonary toilet. chest pain -- NTG -- morphine prn Critical Care time: 40 minutes, exclusive of separately billable procedures. Darryn Cristina MD Jun 02, 2017 05:26
[2017-06-02] MEDS ORDERED: HEPARIN SODIUM - SQ 10,000 UNITS/ML VIAL SQ SCH (06:00)
[2017-06-02] MEDS ORDERED: LABETALOL HCL 100 MG/20 ML VIAL IV PUSH PRN (06:15)
[2017-06-02] MEDS ORDERED: niCARdipine INJ 25 MG in SODIUM CHLOR 0.9% 250 ML INJ 250 ML IV SCH (06:15)
[2017-06-02] MEDS ORDERED: IOHEXOL 350 MG/ML 10 ML VIAL (for RAD DIAG) IV ONE (06:24)
--- NOTE | 2017-06-02 06:56 | RADRPT ---
EXAM DATE/TIME: 06/02/2017 05:48 [facility] COMPARISON: CHEST SINGLE AP, June 02, 2017, 3:56. INDICATIONS : Chest pain, shortness of breath, diaphoretic and nausea. IV CONTRAST: 50 cc Omnipaque 350 (iohexol) IV RADIATION DOSE: 7.37 CTDIvol (mGy) MEDICAL HISTORY : Cardiovascular disease. Kidney failure. SURGICAL HISTORY : CABG Coronary artery stent.Dialysis. ENCOUNTER: Initial ACUITY: 1 day PAIN SCALE: 10/10 LOCATION: chest TECHNIQUE: Volumetric scanning was performed using a multi-row detector CT scanner. The data was post processed with a variety of visualization algorithms including full volume maximum intensity projection, multi -planar sliding thin slab reformation, curved planar reformation, and surface rendering techniques. Using automated exposure control and adjustment of the mA and/or kV according to patient size, radiat ion dose was kept as low as reasonably achievable to obtain optimal diagnostic quality images. DICOM format image data is available electronically for review and comparison. Patient is markedly elevat ed creatinine and is scheduled for dialysis within the hour. FINDINGS: LUNGS: Small bilateral pleural effusions, larger on the right measuring 12 mm. Patchy areas of infiltrate a nd the costophrenic angles and anterior right lower lung. MEDIASTINUM: Scattered nonenlarged mediastinal lymph nodes. No evidence of pericardial effusion. ABDOMEN: No calcified gallstones. Bilateral renal cortical thinning. No gross abnormality in the liver, sple en, pancreas. No dilated loops of small or large bowel. Fat containing inguinal hernia. PELVIS: Small bilateral fat containing inguinal hernias. Bilateral hydroceles. THORACIC AORTA: The thoracic aortic root is normal with normal branching of the great vessels. There is no evidence of aneurysm or dissection. ABDOMINAL AORTA: The aorta is normal in caliber without aneurysm or dissection. The renal arteries are patent bilater ally. The proximal celiac and superior mesenteric arteries are patent and normal in diameter. Arter iosclerotic wall calcification. PELVIC VESSELS: The internal iliac and external iliac vessels are patent without aneurysm or stenosis. CONCLUSION: 1. No evidence of aortic aneurysm or dissection. 2. Patchy basilar pulmonary infiltrates and small pleural effusions. 3. Bilateral hydroceles for a Robert Steiner MD on June 02, 2017 at 6:48 Board Certified Radiologist. This report was verified electronically.
[2017-06-02] MEDS: INSULIN NovoLIN REGULAR SUPPLEMENTAL SCALE SQ SCH ×3 (07:00→16:00)
--- NOTE | 2017-06-02 07:34 | EKG ---
Date Performed: 06/02/2017 Time Performed: 03:34:33 PTAGE: 71 years EKG: Baseline artifact present Sinus rhythm MODERATE ST DEPRESSION ABNORMAL ECG Given the baseline artifact I would repeat EKG. Clinical correla tion is suggested. NO PREVIOUS TRACING DOCTOR: Sander Briones Interpretating Date/Time 06/02/2017 07:33:19
[2017-06-02] MEDS: DOCUSATE SODIUM 50 MG/SENNA 8.6 MG TAB PO SCH (09:00)
[2017-06-02] MEDS ORDERED: SODIUM CHLOR 0.9% 1000 ML INJ 1,000 ML IV PRN (09:11)
[2017-06-02] MEDS ORDERED: HEPARIN SODIUM - IV 10,000 UNITS/10 ML VIAL IVF PRN (09:15)
[2017-06-02] MEDS ORDERED: cloNIDine HCL 0.1 MG TAB PO PRN (09:15)
[2017-06-02] MEDS ORDERED: ACETAMINOPHEN 325 MG TAB PO PRN (09:15)
[2017-06-02] MEDS ORDERED: diphenhydrAMINE HCL 25 MG CAP PO PRN (09:15)
[2017-06-02] MEDS ORDERED: MANNITOL 12.5 GM/50 ML VIAL IV PRN (09:15)
[2017-06-02] MEDS ORDERED: GELATIN 12 MM/7 MM FOAM TOP PRN (09:15)
--- NOTE | 2017-06-02 10:09 | PD.CONS ---
HPI Service Nephrology Consult Requested By Reason for Consult ESRD on HD Primary Care Physician Brittany Rutledge History of Present Illness This is a 71 y/o male patient who presented to ER for severe chest pain. He has a hx of ESRD, typically dialyzes in [facility] and follows with Dr. Cisneros. The patient, however, developed chest pain Thursday and was concerned dialysis would make the pain worse. His last HD was . Other PMH of DMII , HTN, and CAD with 15 prior stents and 3 vessel bypass surgery in 1997. On arrival he was in hypertensive urgency with systolic BP in 260s. He was started on a Nitro gtt, Cardene gtt, and given NTG paste. He is seen today during dialysis, is obtunded and unable to answer questions or stay awake. His BP was in 70s systolic during dialysis, therefore only 2 liters was able to be removed. His hemoglobin is stable on arrival, K noted to be 5.8. He was dialyzed on a 1K bath. We were consulted for dialysis management this admission. He is a full code. (Vivienne Thomas) Review of Systems ROS Limitations: Clinical Condition, Altered Mental Status Respiratory: COMPLAINS OF: Shortness of breath Cardiovascular: COMPLAINS OF: Chest pain, Lower Extremity Edema (Vivienne Thomas) Past Family Social History Allergies: Coded Allergies: No Known Allergies (Unverified , 06/02/17) Past Medical History ESRD on HD TTS CAD s/p CABG and multiple PCI hypertension hyperlipidemia Diabetes mellitus gout anemia of chronic disease morbid obesity Past Surgical History left upper extremity fistula right sided Vas-Cath placement cardiac catheterization with 15 stents placed previously coronary artery bypass grafting of 3 vessels in 1997 tonsillectomy. Reported Medications Centrum (Multiple Vitamins W/ Minerals) 1 Chew 1 Tab CHEW DAILY Glimepiride 1 Mg Tab 0 PO DAILY Take with breakfast or first main meal Effient (Prasugrel) 10 Mg Tab 10 Mg PO HS Furosemide 40 Mg Tab 80 Mg PO DAILY PRN Januvia (Sitagliptin Phosphate) 25 Mg Tab 50 Mg PO DAILY Renvela (Sevelamer Carbonate) 800 Mg Tab 800 Mg PO TID Gabapentin 300 Mg Cap 300 Mg PO TID Zetia (Ezetimibe) 10 Mg Tab 10 Mg PO HS Prorenal Qd (Multiple Vitamins W/ Minerals) 1 Cap Cap Metoprolol Succinate ER 24 HR (Metoprolol Succinate) 100 Mg Tab 100 Mg PO BID Losartan (Losartan Potassium) 25 Mg Tab 25 Mg PO DAILY Lantus Solostar Pen Inj (Insulin Glargine) 300 Unit/3 Ml Pen 2-3 Units SQ DAILY Atorvastatin (Atorvastatin Calcium) 80 Mg Tab 80 Mg PO HS Aspirin 81 Mg Chew 81 Mg CHEW DAILY Allopurinol 300 Mg Tab 300 Mg PO DAILY Active Ordered Medications Current Medications Medications (Trade) Dose Ordered Sig/Maddison Route Start Time Stop Time Status Last Admin Sodium Chloride 2 ml 2 ml UNSCH PRN IVF 06/02/17 03:45 (Nitroglycerin-Dextrose Inj) 250 ml @ 0 mls/hr TITRATE IV 06/02/17 04:00 06/02/17 04:04 (D50w (Vial) Inj) 25 ml UNSCH PRN IV PUSH 06/02/17 05:15 (Zofran Inj) 4 mg Q6H PRN IV 06/02/17 05:15 (Heparin Inj) 5,000 units Q12H SQ 06/02/17 06:00 Miscellaneous Information 1 Q361D XX 06/02/17 05:15 (Chlorhexidine 2% Cloth) 3 pack Taper DAILY@04 TOP 06/03/17 04:00 05/30/18 03:59 (Chlorhexidine 2% Cloth) 3 pack UNSCH PRN TOP 06/02/17 05:15 Senna/Docusate Sodium 1 tab 1 tab BID PO 06/02/17 09:00 (Cardene Inj/NS 250 ml Inj) 260 ml @ 0 mls/hr TITRATE IV 06/02/17 06:15 (Trandate Inj) 20 mg Q15M PRN IV PUSH 06/02/17 06:15 (Apresoline Inj) 10 mg Q30M PRN IV PUSH 06/02/17 06:15 Morphine Sulfate 2 mg 2 mg Q1H PRN IV PUSH 06/02/17 06:45 (NS 1000 ml Inj) 1,000 ml @ 0 mls/hr Q0M PRN IV 06/02/17 09:11 Heparin Sodium (Porcine) 8000 units 8,000 units UNSCH PRN IVF 06/02/17 09:15 Sodium Chloride 1,000 ml @ 200 mls/hr Q5H PRN IV 06/02/17 09:11 (NS 1000 ml Inj) 1,000 ml @ 0 mls/hr Q0M PRN IV 06/02/17 09:11 (Mannitol Inj) 12.5 gm UNSCH PRN IV 06/02/17 09:15 (Albumin 25% Inj) 25 gm UNSCH PRN IV 06/02/17 09:15 (NS Flush) 5 ml UNSCH PRN IV FLUSH 06/02/17 09:15 (Heparin Inj) UNSCH PRN .XX 06/02/17 09:15 (Gentamicin (Dialysis) Inj) 20 mg UNSCH PRN IV 06/02/17 09:15 (Zofran Inj) 4 mg UNSCH PRN IV 06/02/17 09:15 (Tylenol) 650 mg UNSCH PRN PO 06/02/17 09:15 (Benadryl) 25 mg UNSCH PRN PO 06/02/17 09:15 (Nitrostat Sl) 0.4 mg UNSCH PRN SL 06/02/17 09:15 (Catapres) 0.1 mg UNSCH PRN PO 06/02/17 09:15 (Gelfoam 12 Mm/7 Mm Top) 1 foam UNSCH PRN TOP 06/02/17 09:15 Family History unable to obtain Social History unable to obtain he lives in [facility] full code (Vivienne Thomas) Physical Exam Vital Signs Vital Signs Date Time Temp Pulse Resp B/P Pulse Ox O2 Delivery O2 Flow Rate FiO2 06/02/17 06:10 82 22 205/84 92 Venturi Mask 50 06/02/17 05:33 74 22 183/83 95 Venturi Mask 50 06/02/17 05:26 76 20 188/88 95 Venturi Mask 50 06/02/17 05:22 79 21 168/75 96 Venturi Mask 50 06/02/17 05:15 77 21 186/85 95 Venturi Mask 50 06/02/17 05:12 94 Venturi Mask 6.00 50 06/02/17 05:05 78 22 188/83 93 Venturi Mask 50 06/02/17 04:50 81 20 188/78 92 Nasal Cannula 3 06/02/17 04:45 81 20 194/88 92 Nasal Cannula 3 06/02/17 04:44 81 22 214/102 92 Nasal Cannula 3 06/02/17 04:18 80 22 233/120 94 Nasal Cannula 3 06/02/17 04:02 98.2 79 22 218/107 94 Nasal Cannula 3 06/02/17 03:55 93 Nasal Cannula 3 06/02/17 03:55 22 94 Nasal Cannula 3 06/02/17 03:36 77 22 262/124 95 Nasal Cannula 3 06/02/17 03:35 94 Nasal Cannula 3 06/02/17 03:31 77 22 228/102 Room Air Physical Exam 71 y/o Obese Male patient he is sleepy, lethargic, obtunded opens eyes to sternal rub only for a brief period, then falls asleep; unable to follow commands CV: S1/S2, RRR no murmurs Lungs; shallow respirations, he is on venti mask, rales throughout Ext: he has edema in all extremities, left AC + thrill/bruit PermCath in right chest Abd: round, non tender, obese, umbilical hernia is present Laboratory Laboratory Tests Test 06/02/17 03:46 White Blood Count 10.0 Red Blood Count 3.76 Hemoglobin 12.0 Hematocrit 37.9 Mean Corpuscular Volume 100.7 Mean Corpuscular Hemoglobin 31.8 Mean Corpuscular Hemoglobin 31.6 Concent Red Cell Distribution Width 18.1 Platelet Count 180 Mean Platelet Volume 9.7 Neutrophils (%) (Auto) 78.0 Lymphocytes (%) (Auto) 10.1 Monocytes (%) (Auto) 7.3 Eosinophils (%) (Auto) 4.1 Basophils (%) (Auto) 0.5 Neutrophils # (Auto) 7.8 Lymphocytes # (Auto) 1.0 Monocytes # (Auto) 0.7 Eosinophils # (Auto) 0.4 Basophils # (Auto) 0.0 CBC Comment DIFF FINAL Differential Comment Prothrombin Time 11.2 Prothromb Time International 1.0 Ratio Activated Partial 26.4 Thromboplast Time Sodium Level 137 Potassium Level 5.8 Chloride Level 103 Carbon Dioxide Level 24.4 Anion Gap 10 Blood Urea Nitrogen 84 Creatinine 9.73 Estimat Glomerular Filtration 5 Rate Random Glucose 322 Calcium Level 7.7 Magnesium Level 2.4 Total Bilirubin 0.4 Aspartate Amino Transf 31 (AST/SGOT) Alanine Aminotransferase 36 (ALT/SGPT) Alkaline Phosphatase 125 Total Creatine Kinase 204 Creatine Kinase MB 1.4 Troponin I 0.10 B-Type Natriuretic Peptide 422 Total Protein 7.5 Albumin 3.6 Lipase 300 (Vivienne Thomas) Result Diagram: 06/02/17 0346 06/02/17 034 Imaging Last Impressions Aorta CTA 06/02/17 050 Signed Impressions: Service Date/Time: Friday, June 02, 2017 05:48 - CONCLUSION: 1. No evidence of aortic aneurysm or dissection. 2. Patchy basilar pulmonary infiltrates and small pleural effusions. 3. Bilateral hydroceles for a Robert Steiner MD Chest X-Ray 06/02/17335 Signed Impressions: Service Date/Time: Friday, June 02, 2017 03:56 - CONCLUSION: Mild patchy bibasilar infiltrates, right greater than left. Robert Steiner MD (Vivienne Thomas) Assessment and Plan Problem List: (1) ESRD (end stage renal disease) Plan: Seen during dialysis today on a 1K, 350 BFR, goal 5L blood pressure would not tolerate fluid removal, only 2 liters removed Hyperkalemic, see below he will likely need additional treatment tomorrow for fluid removal He has permcath for HD, also with access in left arm (had fistulogram and angioplasty by Dr. Curry on 12/22/16) avoid IVF in this patient renally dose medications when appropriate (2) Hyperkalemia Plan: likely due to missing dialysis. dialyzed on a 1K, repeat renal panel (3) Hypertensive emergency Plan: He was on Nitro gtt, Cardene gtt, NTG patch blood pressure has improved monitor and resume home medications, titrate to effect (4) CAD (coronary artery disease) Plan: he has a very extensive cardiac history he was on NTG infusion, is on NTG paste 2D echo ordered he had a catheterization on January 26 (5) Anemia Plan: Epogen not required follow Hb (6) Metabolic bone disease Plan: Check phosphorus level resume home Renvela, titrate as needed (7) DM (diabetes mellitus) Plan: continue insulin therapy, goal 140-180 mg/dL (Vivienne Thomas) Problem List: (1) ESRD (end stage renal disease) Plan: Seen during dialysis today on a 1K, 350 BFR, goal 5L blood pressure would not tolerate fluid removal, only 2 liters removed Hyperkalemic, see below he will likely need additional treatment tomorrow for fluid removal He has permcath for HD, also with access in left arm (had fistulogram and angioplasty by Dr. Curry on 12/22/16) avoid IVF in this patient renally dose medications when appropriate (2) Hyperkalemia Plan: likely due to missing dialysis. dialyzed on a 1K, repeat renal panel (3) Hypertensive emergency Plan: He was on Nitro gtt, Cardene gtt, NTG patch blood pressure has improved monitor and resume home medications, titrate to effect (4) CAD (coronary artery disease) Plan: he has a very extensive cardiac history he was on NTG infusion, is on NTG paste 2D echo ordered he had a catheterization on January 26 (5) Anemia Plan: Epogen not required follow Hb (6) Metabolic bone disease Plan: Check phosphorus level resume home Renvela, titrate as needed (7) DM (diabetes mellitus) Plan: continue insulin therapy, goal 140-180 mg/dL Assessment and Plan patient was seen and examined. Poorly responsive when I saw him. AVF in the left arm: has no bruit or thrill. (had BP cuff over it, I asked the RN who reported that it had no bruit even earlier). He has signs of fluid overload. Did not tolerate aggressive fluid removal, 2 liters removed. May need dialysis again tomorrow. May need to investigate encephalopathy. Agree with above assessment and plan. (Stephen Mixon MD) Vivienne Thomas Jun 02, 2017 10:09 Stephen Mixon MD Jun 02, 2017 17:27
[2017-06-02 15:14] LABS: BLOOD GAS BASE EXCESS 0.5 mmol/L (-2-2); BLOOD GAS CARBOXYHEMOGLOBIN 1.4 % (0-4); BLOOD GAS HCO3 28 mmol/L (22-26); BLOOD GAS METHEMOGLOBIN 1.6 % (0-2); BLOOD GAS O2 HGB SATURATION 93 % (90-100); BLOOD GAS OXYGEN CONTENT 13.9 Vol % (12.0-20.0); BLOOD GAS PCO2 74 mmHg (38-42); BLOOD GAS PO2 103 mmHg (61-120); BLOOD GAS TOTAL HGB 10.5 G/DL (12.0-16.0); TEMP CORR TO 98.6
[2017-06-02 15:15] LABS: CRITICAL VALUE YES; DRAW SITE RT RADIAL; FIO2 50 %; LITER FLOW 6 L/M; NUMBER OF ARTERIAL PUNCTURES 1; OXYGEN DEVICE Venti Mask; STAT NO; ULNAR PULSE PRESENT
[2017-06-02] MEDS ORDERED: ASPIRIN 81 MG CHEW TAB CHEW ONE (16:00)
[2017-06-02 16:42] LABS: HEMATOCRIT 34.8 % (39.0-51.0); MEAN CELL VOLUME 101.4 FL (80.0-100.0); MEAN CORPUSCULAR HEMOGLOBIN 31.4 PG (27.0-34.0); PLATELET COUNT 127 TH/MM3 (150-450); RED BLOOD COUNT 3.43 MIL/MM3 (4.50-5.90); RED CELL DISTRIBUTION WIDTH 18.2 % (11.6-17.2); REVIEW FLAG FINAL; WHITE BLOOD COUNT 9.9 TH/MM3 (4.0-11.0)
[2017-06-02] MEDS: HEPARIN-D5W 25,000 U/250 ML 250 ML IV SCH (16:52)
[2017-06-02 16:54] LABS: APTT (PATIENT) 26.6 SEC (24.3-30.1); PROTHROMBIN TIME - PATIENT 11.4 SEC (9.8-11.6)
[2017-06-02 17:37] LABS: BLOOD GAS BASE EXCESS 0.5 mmol/L (-2-2); BLOOD GAS CARBOXYHEMOGLOBIN 1.4 % (0-4); BLOOD GAS HCO3 28 mmol/L (22-26); BLOOD GAS METHEMOGLOBIN 1.7 % (0-2); BLOOD GAS O2 HGB SATURATION 93 % (90-100); BLOOD GAS OXYGEN CONTENT 13.8 Vol % (12.0-20.0); BLOOD GAS PCO2 71 mmHg (38-42); BLOOD GAS PO2 98 mmHg (61-120); BLOOD GAS TOTAL HGB 10.5 G/DL (12.0-16.0); TEMP CORR TO 98.6
[2017-06-02 17:38] LABS: CRITICAL VALUE YES; DRAW SITE RT RADIAL; FIO2 40 %; NUMBER OF ARTERIAL PUNCTURES 1; OXYGEN DEVICE BiPAP; STAT NO; ULNAR PULSE PRESENT
[2017-06-02] MEDS ORDERED: ETOMIDATE 20 MG/10 ML VIAL ONE (17:46)
[2017-06-02] MEDS ORDERED: ETOMIDATE 20 MG/10 ML VIAL IV PUSH ONE (18:00)
[2017-06-02] MEDS: fentaNYL DRIP 250 ML IV SCH (18:15)
--- NOTE | 2017-06-02 18:24 | RADRPT ---
EXAM DATE/TIME: 06/02/2017 17:57 [facility] COMPARISON: CHEST SINGLE AP, June 02, 2017, 3:56. INDICATIONS : Post endotracheal tube placement. MEDICAL HISTORY : Cardiovascular disease. Kidney failure SURGICAL HISTORY : CABG Coronary artery stent.Dialysis ENCOUNTER: Subsequent ACUITY: 1 day PAIN SCORE: Non-responsive. LOCATION: Bilateral chest FINDINGS: Patient is now intubated. Endotracheal tube tip is approximately 4 cm above the henri. Mild basilar predominant atelectasis and very small bilateral pleural effusions are noted, not significantly aviles ed. I don't see a pneumothorax. Median sternotomy and CABG changes are again noted. There is an abandoned left subclavian pacer lead. There is a right internal jugular double lumen dialysis catheter with distal tip at the atriocaval j unction again noted. CONCLUSION: 1. Endotracheal tube tip is approximately 4 cm above the henri. 2. Mild bibasilar atelectasis and small effusions. 3. Previous median sternotomy and CABG. Heart size stable, upper limits of normal. David Cui MD on June 02, 2017 at 18:20 Board Certified Radiologist. This report was verified electronically.
[2017-06-02 18:44] LABS: BLOOD GAS HCO3 25 mmol/L (22-26); BLOOD GAS METHEMOGLOBIN 0.8 % (0-2); BLOOD GAS O2 HGB SATURATION 97 % (90-100); BLOOD GAS PCO2 61 mmHg (38-42); BLOOD GAS PO2 426 mmHg (61-120); BLOOD GAS TOTAL HGB 10.9 G/DL (12.0-16.0); TEMP CORR TO 98.6
[2017-06-02 18:45] LABS: CRITICAL VALUE YES; OXYGEN DEVICE VENTILATOR
[2017-06-02 18:46] LABS: DRAW SITE RT RADIAL; FIO2 100 %; NUMBER OF ARTERIAL PUNCTURES 1; STAT NO; ULNAR PULSE PRESENT; VENT SETTINGS PRVC/AV
[2017-06-02] MEDS ORDERED: MIDAZOLAM HCL 2 MG/2 ML VIAL IV PRN (23:00)
[2017-06-03] VITALS (39 sets, daily range): BP systolic 107–181; BP diastolic 53–78; PULSE 56–100; RESP 0–23; TEMP 98.2–99.9; O2SAT 80–100
[2017-06-03 00:28] LABS: APTT (PATIENT) 36.2 SEC (24.3-30.1)
[2017-06-03 03:59] LABS: HEMATOCRIT 29.9 % (39.0-51.0); MEAN CELL VOLUME 97.2 FL (80.0-100.0); MEAN CORPUSCULAR HEMOGLOBIN 32.4 PG (27.0-34.0); MEAN CORPUSCULAR HGB CONC 33.4 % (32.0-36.0); PLATELET COUNT 116 TH/MM3 (150-450); RED BLOOD COUNT 3.08 MIL/MM3 (4.50-5.90); RED CELL DISTRIBUTION WIDTH 17.7 % (11.6-17.2); REVIEW FLAG FINAL; WHITE BLOOD COUNT 8.7 TH/MM3 (4.0-11.0)
[2017-06-03 04:31] LABS: BICARBONATE 26.2 MEQ/L (21.0-32.0); POTASSIUM 3.4 MEQ/L (3.5-5.1)
[2017-06-03 04:50] LABS: CALCIUM-PROTEIN CORRECTED 7.6 MG/DL (8.5-10.1)
--- NOTE | 2017-06-03 06:57 | MB ---
cc: DANIELA MAZARIEGOS DO DATE OF CONSULTATION 06/02/2017 REASON FOR CONSULTATION Chest pain, NSTEMI HISTORY OF PRESENT ILLNESS Tony Keith is a pleasant 71-year-old male who presents to [facility] emergency room on June 02, 2017 due to chest pain. He states that the chest pain originally started ThursdayMay 29. He had discussed this with Dr. Juárez and Dr. Juárez is partner who sees him in the office had planned to have him undergo a cardiac catheterization later this week. He skipped his hemodialysis on Thursday because he was afraid that the hemodialysis would make his chest pain worse. He states that this is similar to his prior heart attacks. On arrival, he was severely hypertensive with a blood pressure of 262/124. He was given nitroglycerin without improvement. He was then started on a nitroglycerin drip to get his blood pressure controlled. In seeing him in the ICU, he is hypoxic on a Ventimask and somewhat lethargic. He currently denies chest pain or shortness of breath. PAST MEDICAL HISTORY 1. Coronary artery disease 2. Chronic renal failure on hemodialysis Thursday, , Thursday. 3. Hypertension 4. Obesity 5. Hyperlipidemia 6. Diabetes mellitus PAST SURGICAL HISTORY 1. Left upper extremity fistula 2. Right-sided vas cath placement 3. Coronary artery bypass grafting x3 vessels (1997) 4. Extensive amount of PCI with around 15-20 stents placed in the past. Most recent cardiac catheterization (January 26, 2017) showing stent from the left main into the left circumflex with mild restenosis up to 15%. LAD is totally occluded proximally. Left circumflex demonstrates stents in the midportion with restenosis of 95% in the midportion as well as restenosis in the second obtuse marginal stent. The first obtuse marginal branch has a 70% stenosis at its origin. The lateral branch is totally occluded proximally. RCA is diffusely diseased with up to 80% restenosis in the midportion. ARMIJO to LAD is tortuous but widely patent. He underwent PCI of the mid left circumflex and obtuse marginal with placement of a Resolute drug-eluting stent (3 x 18) to the proximal second obtuse marginal. PCI of the mid left circumflex was done with a Resolute drug-eluting stent (3 x 18). 5. Tonsillectomy ALLERGIES NO KNOWN DRUG ALLERGIES. MEDICATIONS 1. Losartan 25 mg daily 2. Gabapentin 300 mg t.i.d. 3. Allopurinol 3 mg daily 4. Toprol XL 100 mg b.i.d. 5. Zetia 10 mg every night 6. Januvia 50 mg daily 7. Lipitor 80 mg every night 8. Lantus daily 9. Lasix 80 mg daily as needed for swelling 10. Aspirin 81 mg daily 11. Renvela 800 mg t.i.d. 12. Effient 10 mg every night 13. Glimepiride 1 mg daily FAMILY HISTORY Denies premature coronary artery disease or sudden cardiac within the family. SOCIAL HISTORY The patient rarely uses alcohol. Denies current tobacco or drug abuse. REVIEW OF SYSTEMS 14-systems were reviewed including osteopathic. Pertinent positives and negatives as above, otherwise negative. PHYSICAL EXAMINATION VITAL SIGNS: Temperature 98.2, heart rate 67, blood pressure 139/64, respirations 18, pulse ox 98%. GENERAL: The patient appears lethargic, but in no acute distress, alert, oriented x3. HEAD, EYES, EARS, NOSE, AND THROAT: Extraocular muscles intact. Mucous membranes moist. NECK: Supple. No JVD at 45 degrees. No carotid bruits heard bilaterally. Carotid upstroke is brisk in nature. HEART: Regular rate and rhythm. Positive first and second heart sounds with no murmurs, gallops or rubs. LUNGS: Clear to auscultation bilaterally. No wheezes, rales or rhonchi. ABDOMEN: Soft, nontender and nondistended. No organomegaly noted. EXTREMITIES: Showed trace edema bilaterally. SKIN: Warm, dry and intact. OSTEOPATHIC: No kyphoscoliosis, lordosis or paraspinal tender points. LABORATORY FINDINGS Hemoglobin 12.0, hematocrit 37.9, platelets 180. Potassium 5.8, BUN 84, creatinine 9.73, troponin 1.78. BNP 422. Electrocardiogram (June 02, 2017 at 0334) sinus rhythm, mild ST depressions throughout. IMPRESSION 1. NSTEMI 2. Extensive coronary artery disease with history of coronary artery bypass grafting (1997) and a significant amount of PCI with multiple stenting as above. 3. Hypertensive emergency with a blood pressure of 260/120 on arrival 4. End-stage renal disease on hemodialysis for which he missed his most recent one on Thursday. 5. Acute hypoxic respiratory failure. 6. Acute congestive heart failure. 7. Chest pain concerning for coronary insufficiency. RECOMMENDATIONS 1. Mr. Keith is currently relatively lethargic and a ABG will be obtained and on this was found to be retaining carbon dioxide. He will be placed on BiPap and this was discussed with critical care management who will follow up on the patient. 2. He will be started on a heparin drip for his NSTEMI as well as his aspirin and Effient. 3. We will continue to control his blood pressure. 4. We will check a 2-D echo to look at his overall left ventricular function, cardiac structure and possible valvopathies. 5. With his chest pain on arrival, I am concerned with his extensive history of coronary artery disease. This was discussed with Dr. Juárez and he will see him in the morning for further consideration of ischemic evaluation once he is stabilized for such. 6. Further recommendations will be made based on the hospital course. Thank you for allowing me to see Baldo Keith. If there are any questions, please do not hesitate to call. Daniela Mazariegos DO VGP/DJL /11:40 PM /6:39 AM
[2017-06-03] MEDS: INSULIN NovoLIN REGULAR SUPPLEMENTAL SCALE SQ SCH ×4 (07:00→21:00)
--- NOTE | 2017-06-03 07:54 | PD.CARD.PN ---
Subjective Subjective Remarks Intubated. Sedated. Objective Medications Item Value Date Time Aspirin 81 mg 06/03/17 0900 (Aspirin Chew) DAILY/CHEW Losartan Potassium 25 mg 06/03/17 0900 (Cozaar) DAILY/PO Atorvastatin 80 mg 06/02/17 2100 Calcium HS/PO (Lipitor) Prasugrel 10 mg 06/02/17 2100 (Effient) HS/PO Metoprolol 100 mg 06/02/17 2100 Succinate BID/PO (Toprol Xl) Heparin Sodium/ 250 ml @ 0 mls/hr 06/02/17 1530 Dextrose TITRATE/IV 06/02/17 1652 Nitroglycerin/ 250 ml @ 0 mls/hr 06/02/17 0400 Dextrose TITRATE/IV 06/02/17 0404 Vital Signs / I&O Vital Signs Date Time Temp Pulse Resp B/P Pulse Ox O2 Delivery O2 Flow Rate FiO2 06/03/17 03:24 97 Ventilator 06/03/17 03:19 98 50 06/03/17 00:09 100 50 06/03/17 00:00 99.4 65 20 144/69 100 06/02/17 22:00 55 06/02/17 21:12 100 50 06/02/17 20:00 59 06/02/17 20:00 98.2 59 21 164/80 96 06/02/17 18:12 99 100 06/02/17 18:02 64 06/02/17 18:00 66 06/02/17 17:01 57 19 133/63 100 06/02/17 16:10 58 06/02/17 16:10 58 30 143/66 100 06/02/17 16:00 59 22 99 06/02/17 16:00 59 06/02/17 16:00 100 40 06/02/17 14:01 62 06/02/17 14:00 62 06/02/17 13:01 66 06/02/17 13:01 66 19 139/64 98 06/02/17 13:01 66 06/02/17 13:01 66 06/02/17 12:32 67 06/02/17 12:32 67 19 132/65 100 06/02/17 12:32 67 06/02/17 12:32 67 06/02/17 12:12 66 06/02/17 12:12 66 18 120/61 98 06/02/17 12:12 66 06/02/17 12:12 66 06/02/17 12:00 67 17 97 06/02/17 12:00 67 06/02/17 12:00 67 06/02/17 12:00 67 06/02/17 10:42 67 17 121/62 94 06/02/17 10:42 67 I/O 06/02/17 06/02/17 06/02/17 06/03/17 06/03/17 06/03/17 07:00 15:00 23:00 07:00 15:00 23:00 Intake Total 0 ml 199 ml Output Total 2000 ml 0 ml Balance -2000 ml 199 ml Intake Oral 0 ml IV Total 199 ml Output Urine Total 0 ml Hemodialysis 2000 ml # Voids 2 Physical Exam GENERAL: Well developed, well nourished. Intubated. Sedated. HEENT: Jugular venous pressure is hard to assess. CHEST: Lungs clear to auscultation bilaterally. Unlabored respiratory effort. CARDIAC: Regular rate and rhythm without S3, S4. I/ CHASE RUSB. Normal S2. ABDOMEN: Soft, nontender, no hepatosplenomegaly. Bowel sounds present. EXTREMITIES: No clubbing, cyanosis. Trace edema. Laboratory Laboratory Tests Test 06/02/17 06/02/17 06/02/17 06/02/17 13:25 14:48 16:10 17:26 Troponin I 1.78 NG/ML 2.36 NG/ML Blood Gas Puncture Site RT RADIAL RT RADIAL Blood Gas Patient Temperature 98.6 98.6 Blood Gas HCO3 28 mmol/L 28 mmol/L Blood Gas Base Excess 0.5 mmol/L 0.5 mmol/L Blood Gas Oxygen Saturation 93 % 93 % Arterial Blood pH 7.20 7.21 Arterial Blood Partial 74 mmHg 71 mmHg Pressure CO2 Arterial Blood Partial 103 mmHg 98 mmHg Pressure O2 Arterial Blood Oxygen Content 13.9 Vol % 13.8 Vol % Arterial Blood 1.4 % 1.4 % Carboxyhemoglobin Arterial Blood Methemoglobin 1.6 % 1.7 % Blood Gas Hemoglobin 10.5 G/DL 10.5 G/DL Oxygen Delivery Device Venti Mask BiPAP Blood Gas Liter Flow 6 L/M Blood Gas Inspired Oxygen 50 % 40 % White Blood Count 9.9 TH/MM3 Red Blood Count 3.43 MIL/MM3 Hemoglobin 10.8 GM/DL Hematocrit 34.8 % Mean Corpuscular Volume 101.4 FL Mean Corpuscular Hemoglobin 31.4 PG Mean Corpuscular Hemoglobin 31.0 % Concent Red Cell Distribution Width 18.2 % Platelet Count 127 TH/MM3 Mean Platelet Volume 9.5 FL Prothrombin Time 11.4 SEC Prothromb Time International 1.0 RATIO Ratio Activated Partial 26.6 SEC Thromboplast Time Blood Gas Ventilator Setting Test 06/02/17 06/02/17 06/03/17 18:34 23:35 03:55 Blood Gas Puncture Site RT RADIAL Blood Gas Patient Temperature 98.6 Blood Gas HCO3 25 mmol/L Blood Gas Base Excess -2.0 mmol/L Blood Gas Oxygen Saturation 97 % Arterial Blood pH 7.23 Arterial Blood Partial 61 mmHg Pressure CO2 Arterial Blood Partial 426 mmHg Pressure O2 Arterial Blood Oxygen Content 16.0 Vol % Arterial Blood 0.0 % Carboxyhemoglobin Arterial Blood Methemoglobin 0.8 % Blood Gas Hemoglobin 10.9 G/DL Oxygen Delivery Device VENTILATOR Blood Gas Ventilator Setting PRVC/AV Blood Gas Inspired Oxygen 100 % Activated Partial 36.2 SEC Thromboplast Time Troponin I 4.05 NG/ML 4.15 NG/ML White Blood Count 8.7 TH/MM3 Red Blood Count 3.08 MIL/MM3 Hemoglobin 10.0 GM/DL Hematocrit 29.9 % Mean Corpuscular Volume 97.2 FL Mean Corpuscular Hemoglobin 32.4 PG Mean Corpuscular Hemoglobin 33.4 % Concent Red Cell Distribution Width 17.7 % Platelet Count 116 TH/MM3 Mean Platelet Volume 9.7 FL Sodium Level 142 MEQ/L Potassium Level 3.4 MEQ/L Chloride Level 104 MEQ/L Carbon Dioxide Level 26.2 MEQ/L Anion Gap 12 MEQ/L Blood Urea Nitrogen 63 MG/DL Creatinine 8.57 MG/DL Estimat Glomerular Filtration 6 ML/MIN Rate Random Glucose 60 MG/DL Calcium Level 7.1 MG/DL Protein Corrected Calcium 7.6 MG/DL Total Protein 6.1 GM/DL Assessment and Plan Problem List: (1) CAD (coronary artery disease) Assessment and Plan: Cardiac enzymes suggestive of NSTEMI. Patient with frequent, severe angina symptoms past few days. Suspect he has restenosed one of his distal left circumflex stents or possibly his left main stent. REC continue current regimen, cath when respiratory status more stable; discussed plans with patient's (2) Hypertensive emergency Assessment and Plan: BP's better today. Continue to monitor. (3) Respiratory failure Assessment and Plan: Probable CHF, possibly precipitated by uncontrolled HTN. Patient also missed dialysis last Thursday. EF on prior evaluations has been normal. Await echo. Continue dialysis. Continue beta jacki, ARB. Code Status full code Discussed Condition With patient's at length Problem Qualifiers (1) CAD (coronary artery disease): Qualified Code: I25.110 - Coronary artery disease involving [place] coronary artery of [place] heart with unstable angina pectoris (2) Respiratory failure: Qualified Code: J96.02 - Acute respiratory failure with hypercapnia Julio Juárez MD Jun 03, 2017 07:54
[2017-06-03] MEDS: CHLORHEXIDINE 0.12% (ORAL KIT) 15 ML CUP MT SCH ×2 (07:56→21:27)
[2017-06-03] MEDS: RESP: ALBUTEROL 2.5 MG/IPRATROPIUM 0.5 MG NEB (SCH) NEB ×3 (08:25→19:35)
[2017-06-03] MEDS: LOSARTAN 25 MG TAB PO SCH (09:00)
[2017-06-03] MEDS: DOCUSATE SODIUM 50 MG/SENNA 8.6 MG TAB PO SCH ×2 (09:00→21:26)
--- NOTE | 2017-06-03 09:15 | MH ---
cc: KRISTEN SHIRLEY M.D. DATE OF ADMISSION: 06/02/2017 DATE OF : 1945 REASON FOR ADMISSION Cardiac catheterization. HISTORY OF PRESENT ILLNESS The patient is a 71-year-old -English male with an extensive history of coronary artery disease, diabetes, end-stage renal disease, hypertension, hyperlipidemia, who is now admitted for cardiac catheterization. The patient over the last several days has been having increasing frequency of substernal chest discomfort described as "indigestion" for which he has been using sublingual nitroglycerin for relief. One of the episodes lasted about 40 minutes. The episodes have been occurring with minimal to no exertion. The chest pains are also similar to his previous angina. He denies pleurisy, lightheadedness, syncope, near-syncope, palpitations, pedal edema, paroxysmal nocturnal dyspnea. He reports compliance with his medications. PAST MEDICAL HISTORY 1. Hypertension. 2. Hyperlipidemia. 3. End-stage renal disease. 4. Diabetes. 5. Coronary artery disease status post bypass surgery 2002, status post Rotablator and stent of the distal left main/ostial left circumflex 03/11/2012, status post repeat stenting of the left main/left circumflex 11/23/2012 with a 3.5 mm Resolute stent. On 07/21/2016 he once again underwent stenting of the distal left main at [facility] with a 4.0 mm Promus stent, as well as stenting of the distal left circumflex using overlapping 3.0 and to 2.75 mm Promus stents. His last heart catheterization was 01/26/2017 showing severe re-stenosis of the left circumflex stents and he underwent repeat stenting of the distal left circumflex using two 3.0 mm Resolute stents. At that time his left main region was widely patent and he also has a known patent left internal mammary artery to the LAD and 40% ostial lesion in the vein graft to the posterior descending artery. MEDICATIONS His cardiac medications: 1. Aspirin 81 mg q. daily. 2. Atorvastatin 80 mg q.h.s. 3. Effient 10 mg q. daily. 4. Furosemide 40 mg q. daily p.r.n. 5. Metoprolol succinate 200 mg daily. 6. Zetia 10 mg q. daily. ALLERGIES No known drug allergies. FAMILY HISTORY Noncontributory. SOCIAL HISTORY The patient has never smoked cigarettes. He drinks occasional alcohol. REVIEW OF SYSTEMS As in the history of present illness, otherwise negative or noncontributory. PHYSICAL EXAMINATION VITAL SIGNS: On exam his blood pressure is 142/60 with a pulse of 60, respirations 15. GENERAL: In general he is a well-developed, well-nourished male in no acute distress. HEENT/NECK: Jugular venous pressure is normal. Carotid pulses are 2+ bilaterally and without bruits. CHEST: Examination of the chest reveals clear lung espitia. CARDIAC: On cardiac examination he has a regular rhythm and rate without S3, S4 or murmur. ABDOMEN: On abdominal examination he has a soft, obese, nontender abdomen. Bowel sounds are present. There is no definite hepatosplenomegaly. EXTREMITIES: Examination of the extremities reveals no clubbing or cyanosis. There is trace pretibial edema bilaterally. Peripheral pulses are normal throughout. IMPRESSION Recurrent, worsening angina symptoms in this 71-year-old -English male with an extensive history of coronary artery disease, diabetes, end-stage renal disease, hypertension, hyperlipidemia. I suspect he has developed severe restenosis in one or more of his left circumflex stents, possibly his left main stent. Because of the instability of his symptoms he has been recommended cardiac catheterization with possible percutaneous coronary intervention. The nature of these procedures and potential risks have been outlined. He agrees to proceed. PLAN Cardiac catheterization on 06/04/2017. ADDENDUM: Since dictation of this history and physical the patient was admitted to the hospital with abnormal cardiac enzymes, respiratory failure necessitating intubation. MD PRASAD Moss/CHLOE /11:06 AM /9:11 AM NOMAN
[2017-06-03] MEDS: ASPIRIN 81 MG CHEW TAB CHEW SCH (09:43)
[2017-06-03] MEDS: METOPROLOL SUCCINATE 50 MG EXTENDED RELEASE TAB PO SCH ×2 (09:43→21:26)
[2017-06-03] MEDS: MORPHINE SULFATE 4 MG/ML INJ IV PUSH PRN (10:19)
[2017-06-03] MEDS: fentaNYL DRIP 250 ML IV SCH (12:20)
--- NOTE | 2017-06-03 12:27 | HHI.NPPN ---
Subjective General Problems: Edema Renal Failure: Chronic, End Stage Renal Disease Interval History He was intubated overnight. is at bedside. Had 2 liters UF with dialysis yesterday as his blood pressure would not tolerate. (Vivienne Thomas) Review of Systems General General Remarks unable to assess (Vivienne Thomas) Objective Data Data 06/02/17 06/03/17 18:59 06:59 Intake Total 0 ml 199 ml Output Total 2000 ml 0 ml Balance -2000 ml 199 ml Intake Oral 0 ml IV Total 199 ml Output Urine Total 0 ml Hemodialysis 2000 ml Vital Signs Date Time Temp Pulse Resp B/P Pulse Ox O2 Delivery O2 Flow Rate FiO2 06/03/17 12:00 64 06/03/17 11:42 98 50 06/03/17 11:00 66 23 140/63 99 06/03/17 10:00 66 16 143/68 99 06/03/17 10:00 64 06/03/17 09:00 66 20 141/67 98 06/03/17 08:31 97 50 06/03/17 08:00 98.7 67 13 131/60 98 06/03/17 08:00 69 06/03/17 07:00 71 21 154/67 98 06/03/17 04:00 56 06/03/17 04:00 99.4 65 18 144/69 96 06/03/17 03:24 97 Ventilator 06/03/17 03:19 98 50 06/03/17 02:00 56 06/03/17 00:09 100 50 06/03/17 00:00 99.4 65 20 144/69 100 06/03/17 00:00 100 06/02/17 22:00 55 06/02/17 21:12 100 50 06/02/17 20:00 59 06/02/17 20:00 98.2 59 21 164/80 96 06/02/17 18:12 99 100 06/02/17 18:02 64 06/02/17 18:00 66 06/02/17 17:01 57 19 133/63 100 06/02/17 16:10 58 06/02/17 16:10 58 30 143/66 100 06/02/17 16:00 59 22 99 06/02/17 16:00 59 06/02/17 16:00 100 40 06/02/17 14:01 62 06/02/17 14:00 62 06/02/17 13:01 66 06/02/17 13:01 66 19 139/64 98 06/02/17 13:01 66 06/02/17 13:01 66 06/02/17 12:32 67 06/02/17 12:32 67 19 132/65 100 06/02/17 12:32 67 06/02/17 12:32 67 (Vivienne Thomas) -: 06/03/17 0355 06/03/17 0355 Imaging Last 72 hours Impressions Aorta CTA 06/02/17 0507 Signed Impressions: Service Date/Time: Friday, June 02, 2017 05:48 - CONCLUSION: 1. No evidence of aortic aneurysm or dissection. 2. Patchy basilar pulmonary infiltrates and small pleural effusions. 3. Bilateral hydroceles for a Robert Steiner MD Chest X-Ray 06/02/17 0336 Signed Impressions: Service Date/Time: Friday, June 02, 2017 03:56 - CONCLUSION: Mild patchy bibasilar infiltrates, right greater than left. Robert Steiner MD Chest X-Ray 06/02/17 0000 Signed Impressions: Service Date/Time: Friday, June 02, 2017 17:57 - CONCLUSION: 1. Endotracheal tube tip is approximately 4 cm above the henri. 2. Mild bibasilar atelectasis and small effusions. 3. Previous median sternotomy and CABG. Heart size stable, upper limits of normal. David Cui MD (Vivienne Thomas) Physical Exam General Appearance: Well Developed, No Acute Distress, Comfortable, Sleeping, Obese ( Vivienne Thomas) Throat Throat Exam: Oral Mucosa Tasley & Moist (Vivienne Thomas) Pulmonary Resp Exam: Breath Sounds Equal, No Distress, Crackles Resp Remarks vented lung sounds (Vivienne Thomas) Cardiology CV Exam: Regular, Normal Sinus Rhythm (Vivienne Thomas) Gastrointestinal/Abdomen GI Exam: Soft, Non-Tender, Bowel Sounds Present (Vivinene Thomas) Musculoskeletal MS Exam: Joints Intact, Normal Tone, Unable to Ambulate (Vivienne Thomas) Integumentary Skin Exam: Warm, Dry (Vivienne Thomas) Extremeties Extremities Exam: Pedal Pulses Palpable, Moderate Edema, Pitting Edema ( Vivienne Thomas) Neurologic Neuro Exam: Unresponsive, Sedated (Vivienne Thomas) VTE Prophylaxis Device: SCDs (Vivienne Thomas) Assessment/Plan Discussed Condition With: Spouse Assessment Summary: Anemia of CKD, End Stage Renal Disease Electrolyte Assessment: Hypocalcemia, Hypokalemia Problem List: (1) ESRD (end stage renal disease) Plan: Typical MWF HD, follows in 2 liter UF yesterday, will dialyze again today for fluid removal K is low, should correct with dialysis avoid IVF he has permcath for dialysis renally dose medications when appropriate (2) CAD (coronary artery disease) Plan: new NSTEMI, has a very extensive cardiac history he is on NTG paste likely will have cardiac catheterization, possibly tomorrow (3) Hyperkalemia Plan: now hypokalemic, monitor labs (4) Hypertensive emergency Plan: BP improved continue medications as ordered fluid removal with dialysis (5) Anemia Plan: Epogen not required follow Hb (6) Metabolic bone disease Plan: phosphorus level has been ordered (7) DM (diabetes mellitus) Plan: continue insulin therapy, goal 140-180 mg/dL (8) Respiratory failure Plan: requiring intubation vent settings: A/C 20/550/50/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 Agree with above assessment and plan. Discussed with patient's at the bedside. Dialysis today. Prognosis is guarded. Cardiology on the case. Appears to have suffered ACS. (Stephen Mixon MD) Problem Qualifiers (1) CAD (coronary artery disease): Qualified Code: I25.110 - Coronary artery disease involving [place] coronary artery of [place] heart with unstable angina pectoris (2) Respiratory failure: Qualified Code: J96.02 - Acute respiratory failure with hypercapnia Vivienne Thomas Jun 03, 2017 12:27 Stephen Mixon MD Jun 03, 2017 18:21
--- NOTE | 2017-06-03 13:45 | HHI.CCPN ---
Subjective Remarks/Hospital Course This is a 71yM with a strong CAD history s/p multiple PCI and CABG who presents with 10/10 chest pain unrelieved by ntg SL. He has a history of ESRD and presents after skipping his dialysis. He states that his chest pain has been going since Thursday, and he skipped HD on thursday because he was afraid IHD would make his chest pain worse. He states this pain feels like his prior heart attacks. he denies any other symptoms of fever, chills, nausea, vomiting, diarrhea. does endorse SOB and orthopnea. In the ED he was severely hypertensive with BP 262/124. He was given NTG without improvement. He was started on NGT drip and his BP was controlled < 200, but again his chest pain persisted. Nephrology was consulted for emergent dialysis. The patient also underwent CT aortogram to rule out acute dissection, formal read pending, but preliminarily negative for acute dissection. He is hypoxic on ventimask with spo2 91%. Critical care medicine is consulted to evaluate and manage his hypertensive emergency and hypoxemia. The remainder of the ROS and history is negative unless otherwise documented. SUBJ 06/03/17: Patient was intubated yesterday for worsening hypercarbic resp failure and encephalopathy. Trop peaked at 4.2, cardiology Dr. Juárez following. More awake, but failed CPAP today Objective Vital Signs Date Time Temp Pulse Resp B/P Pulse Ox O2 Delivery O2 Flow Rate FiO2 06/03/17 13:00 71 7 145/65 80 06/03/17 12:00 98.2 06/03/17 11:42 50 06/03/17 03:24 Ventilator 06/02/17 05:12 6.00 Intake and Output 06/02/17 06/02/17 06/03/17 08:00 16:00 00:00 Intake Total 0 ml 199 ml Output Total 2000 ml 0 ml Balance -2000 ml 199 ml Result Diagram: 06/03/17 0355 06/03/17 0355 Other Results Laboratory Tests Test 06/02/17 06/02/17 06/02/17 14:48 17:26 18:34 Blood Gas Puncture Site RT RADIAL RT RADIAL RT RADIAL Blood Gas Patient Temperature 98.6 98.6 98.6 Blood Gas HCO3 28 mmol/L 28 mmol/L 25 mmol/L (22-26) (22-26) (22-26) Blood Gas Base Excess 0.5 mmol/L 0.5 mmol/L -2.0 mmol/L (-2-2) (-2-2) (-2-2) Blood Gas Oxygen Saturation 93 % (90-100) 93 % (90-100) 97 % (90-100) Arterial Blood pH 7.20 7.21 7.23 (7.380-7.420) (7.380-7.420) (7.380-7.420) Arterial Blood Partial 74 mmHg (38-42) 71 mmHg (38-42) 61 mmHg (38-42) Pressure CO2 Arterial Blood Partial 103 mmHg 98 mmHg 426 mmHg Pressure O2 (61-120) (61-120) (61-120) Arterial Blood Oxygen Content 13.9 Vol % 13.8 Vol % 16.0 Vol % (12.0-20.0) (12.0-20.0) (12.0-20.0) Arterial Blood 1.4 % (0-4) 1.4 % (0-4) 0.0 % (0-4) Carboxyhemoglobin Arterial Blood Methemoglobin 1.6 % (0-2) 1.7 % (0-2) 0.8 % (0-2) Blood Gas Hemoglobin 10.5 G/DL 10.5 G/DL 10.9 G/DL (12.0-16.0) (12.0-16.0) (12.0-16.0) Oxygen Delivery Device Venti Mask BiPAP VENTILATOR Blood Gas Liter Flow 6 L/M Blood Gas Inspired Oxygen 50 % 40 % 100 % Blood Gas Ventilator Setting PRVC/AV Imaging Last Impressions Chest X-Ray 06/02/17 0336 Signed Impressions: Service Date/Time: Friday, June 02, 2017 03:56 - CONCLUSION: Mild patchy bibasilar infiltrates, right greater than left. Robert Steiner MD Objective Remarks gen: obese elderly male, intubated, sedated with fentanyl heent: perrl. mucous membranes moist. orotracheally intubated neck: large neck circumference prevents accurate assessment of jvd. trachea midline. chest:Air entry equal bilaterally, few crackles. cv: normal rate, regular rhythm. On heparin and fentanyl abd: obese, soft, nontender, nondistended. no guarding extr: distal pulses 2+. 2+ peripheral edema neuro: Intubated sedated, wakes up easily, follows commands. No focal deficits A/P Assessment and Plan Assessment: 71yM with CAD, ESRD who presents with hypertensive emergency, unrelenting chest pain, and Pulmonary edema/CHF exacerbation unknown type, intravascular volume overload. Critically ill. continue NGT drip. Emergent dialysis. trend troponins-ruled in for NSTEMI Neuro: - Propofol and fentanyl for sedation and vent synchrony CVS: ACS/NSTEMI Hypertensive Emergency -- NGT drip, IV Heparin, Aspirin -- goal SBP < 160 -- Continue Cozaar, metoprolol -- Cardene drip as needed -- prn hydralazine, labetalol -- Emergent HD -- Cardiology Dr. Juárez. Cath once stable Resp: Acute hypoxic respiratory failure Acute intravascular volume overload Acute CHF exacerbation, unknown type Acute hypercapnic respiratory failure -- Emergently intubated 06/02, for hypercapnic resp -- Pulmonary Edema, continue emergent HD -- 2d echo -- wean fio2 for spo2 > 90% -- nebs, pulmonary toilet. GI: - Start Nepro, IV Protonix ESRD -- HD per nephrology ID -- Monitor for infection HEME: -- Continue IV Heparin Critical Care time: 40 minutes, exclusive of separately billable procedures. Santo Hernandez MD Jun 03, 2017 13:45
[2017-06-03 14:23] LABS: APTT (PATIENT) 39.8 SEC (24.3-30.1)
[2017-06-03] MEDS: HEPARIN-D5W 25,000 U/250 ML 250 ML IV SCH (17:48)
[2017-06-03] MEDS: HEPARIN SODIUM - IV 10,000 UNITS/10 ML VIAL PRN (18:04)
[2017-06-03] MEDS: GENTAMICIN SULFATE (DIALYSIS USE ONLY) 20 MG/2 ML VIAL IV PRN (18:04)
[2017-06-03] MEDS: SODIUM CHLOR 0.9% 1000 ML INJ 1,000 ML IV PRN (18:05)
[2017-06-03] MEDS: ATORVASTATIN 80 MG TAB PO SCH ×2 (21:00→21:25)
[2017-06-03] MEDS: PRASUGREL 10 MG TAB PO SCH ×2 (21:00→21:25)
[2017-06-03 22:28] LABS: APTT (PATIENT) 52.3 SEC (24.3-30.1)
[2017-06-04] VITALS (44 sets, daily range): BP systolic 100–176; BP diastolic 53–79; PULSE 70–93; RESP 12–31; TEMP 98.5–100.4; O2SAT 89–99
[2017-06-04] MEDS: hydrALAZINE HCL 20 MG/ML VIAL IV PUSH PRN ×2 (01:43→13:39)
[2017-06-04] MEDS: INSULIN NovoLIN REGULAR SUPPLEMENTAL SCALE SQ SCH ×5 (03:00→20:58)
[2017-06-04] MEDS: RESP: ALBUTEROL 2.5 MG/IPRATROPIUM 0.5 MG NEB (SCH) NEB ×5 (03:52→20:09)
[2017-06-04] MEDS: CHLORHEXIDINE GLUCONATE 2 % 1 PACK (2 CLOTHS) TOP SCH (04:00)
[2017-06-04 04:17] LABS: AUTOMATED NEUTROPHIL # 7.5 TH/MM3 (1.8-7.7); BASOPHIL % 0.2 % (0.0-2.0); EOSINOPHIL # 0.3 TH/MM3 (0-0.4); EOSINOPHIL % 2.7 % (0.0-4.0); HEMATOCRIT 33.6 % (39.0-51.0); HEMO FLAGS DIFF FINAL; LYMPHOCYTE # 1.6 TH/MM3 (1.0-4.8); MEAN CELL VOLUME 96.5 FL (80.0-100.0); MEAN CORPUSCULAR HEMOGLOBIN 31.7 PG (27.0-34.0); MEAN CORPUSCULAR HGB CONC 32.8 % (32.0-36.0); MONO % 10.9 % (0.0-8.0); NEUT % 71.2 % (16.0-70.0); PLATELET COUNT 112 TH/MM3 (150-450); RED BLOOD COUNT 3.48 MIL/MM3 (4.50-5.90); RED CELL DISTRIBUTION WIDTH 18.4 % (11.6-17.2); WHITE BLOOD COUNT 10.6 TH/MM3 (4.0-11.0)
[2017-06-04 04:26] LABS: APTT (PATIENT) 52.3 SEC (24.3-30.1)
[2017-06-04 05:28] LABS: ALKALINE PHOSPHATASE 76 U/L (45-117); ALT (GPT) 23 U/L (12-78); ANION GAP 13 MEQ/L (5-15); AST (GOT) 35 U/L (15-37); BICARBONATE 26.3 MEQ/L (21.0-32.0); BLOOD UREA NITROGEN 43 MG/DL (7-18); CHLORIDE 100 MEQ/L (98-107); GLOMERULAR FILTRATION RATE 7 ML/MIN (>89); MAGNESIUM 1.9 MG/DL (1.5-2.5); POTASSIUM 3.5 MEQ/L (3.5-5.1); SODIUM (NA) 139 MEQ/L (136-145); TOTAL BILIRUBIN ADULT 1.2 MG/DL (0.2-1.0)
--- NOTE | 2017-06-04 06:11 | RADRPT ---
EXAM DATE/TIME: 06/04/2017 04:32 [facility] COMPARISON: CHEST SINGLE AP, June 02, 2017, 17:57. INDICATIONS : Shortness of breath, possible pulmonary disease. MEDICAL HISTORY : Cardiovascular disease. Renal failure, chronic. SURGICAL HISTORY : CABG. Coronary artery stent. ENCOUNTER: Subsequent ACUITY: 2 days PAIN SCORE: Non-responsive. LOCATION: Bilateral chest FINDINGS: Right double lumen catheter tip at the caval atrial junction. Interval extubation. Gastric tube tra verses the [id number]. Patchy left lower lung infiltrates similar to prior. No blunting of the c ostophrenic angle on the left side. No filtrates seen on the right. CONCLUSION: Stable left lower lung infiltrates and probable increasing left pleural effusion. Robert Steiner MD on June 04, 2017 at 6:09 Board Certified Radiologist. This report was verified electronically.
[2017-06-04] MEDS: LOSARTAN 25 MG TAB PO SCH (08:56)
[2017-06-04] MEDS: DOCUSATE SODIUM 50 MG/SENNA 8.6 MG TAB PO SCH ×2 (08:56→20:54)
[2017-06-04] MEDS: CHLORHEXIDINE 0.12% (ORAL KIT) 15 ML CUP MT SCH ×2 (08:56→20:00)
[2017-06-04] MEDS: ASPIRIN 81 MG CHEW TAB CHEW SCH (08:56)
[2017-06-04] MEDS: fentaNYL DRIP 250 ML IV SCH (08:56)
[2017-06-04] MEDS: METOPROLOL SUCCINATE 50 MG EXTENDED RELEASE TAB PO SCH (08:57)
[2017-06-04] MEDS ORDERED: METOPROLOL TARTRATE 5 MG/5 ML VIAL ONE (09:43)
--- NOTE | 2017-06-04 10:09 | ECHRPT ---
Indication: CONCLUSIONS BP: / HR: Rhythm: Sinus MEASUREMENTS (Male / Female) Normal Values Technical Quality:Very technically difficult study 2D ECHO LV Diastolic Diameter PLAX 4.2 cm 4.2 - 5.9 / 3.9 - 5.3 cm LV Systolic Diameter PLAX 2.8 cm IVS Diastolic Thickness 1.3 cm 0.6 - 1.0 / 0.6 - 0.9 cm LVPW Diastolic Thickness 1.3 cm 0.6 - 1.0 / 0.6 - 0.9 cm LV Relative Wall Thickness 0.6 LVOT Diameter 1.9 cm M-MODE Aortic Root Diameter MM 3.0 cm LA Systolic Diameter MM 4.7 cm LA Ao Ratio MM 1.6 DOPPLER MV Area PHT 4.5 cm Mitral E Point Velocity 82.4 cm/s Mitral A Point Velocity 76.5 cm/s Mitral E to A Ratio 1.1 PV Peak Velocity 119.0 cm/s PV Peak Gradient 5.7 mmHg FINDINGS LEFT VENTRICLE Normal left ventricular size. Mild concentric left ventricular hypertrophy. The left ventricular systolic function is normal with an estimated ejection fraction in the range of 60-65%. No regional wall motion abnormalities are present. RIGHT VENTRICLE The right ventricle was not well visualized. LEFT ATRIUM The left atrial size is mildly dilated. RIGHT ATRIUM The right atrial size is normal. ATRIAL SEPTUM Normal atrial septal thickness without atrial level shunting by limited color doppler interrogation. AORTA The aortic root and proximal ascending aorta are normal in size on limited imaging. MITRAL VALVE Mitral annular calcification is present. AORTIC VALVE Moderate aortic valve sclerosis is present. Trivial regurgitation. TRICUSPID VALVE The tricuspid valve is not well visualized. PULMONARY VALVE The pulmonary valve is not well visualized. VESSELS The inferior vena cava is normal in size. PERICARDIUM No pericardial effusion. Everton Armstrong MD (Electronically Signed) Final Date:04 June 2017 10:07
[2017-06-04 10:11] LABS: BLOOD GAS BASE EXCESS -1.2 mmol/L (-2-2); BLOOD GAS CARBOXYHEMOGLOBIN 1.1 % (0-4); BLOOD GAS HCO3 24 mmol/L (22-26); BLOOD GAS METHEMOGLOBIN 1.8 % (0-2); BLOOD GAS O2 HGB SATURATION 94 % (90-100); BLOOD GAS OXYGEN CONTENT 15.8 Vol % (12.0-20.0); BLOOD GAS PCO2 50 mmHg (38-42); BLOOD GAS PO2 115 mmHg (61-120); BLOOD GAS TOTAL HGB 11.8 G/DL (12.0-16.0); CRITICAL VALUE NO; DRAW SITE RT RADIAL; FIO2 40 %; NUMBER OF ARTERIAL PUNCTURES 1; OXYGEN DEVICE VENTILATOR; STAT NO; TEMP CORR TO 98.6; ULNAR PULSE PRESENT; VENT SETTINGS CPAP+5/PS5
--- NOTE | 2017-06-04 10:24 | HHI.CCPN ---
Subjective Remarks/Hospital Course This is a 71yM with a strong CAD history s/p multiple PCI and CABG who presents with 10/10 chest pain unrelieved by ntg SL. He has a history of ESRD and presents after skipping his dialysis. He states that his chest pain has been going since Thursday, and he skipped HD on thursday because he was afraid IHD would make his chest pain worse. He states this pain feels like his prior heart attacks. he denies any other symptoms of fever, chills, nausea, vomiting, diarrhea. does endorse SOB and orthopnea. In the ED he was severely hypertensive with BP 262/124. He was given NTG without improvement. He was started on NGT drip and his BP was controlled < 200, but again his chest pain persisted. Nephrology was consulted for emergent dialysis. The patient also underwent CT aortogram to rule out acute dissection, formal read pending, but preliminarily negative for acute dissection. He is hypoxic on ventimask with spo2 91%. Critical care medicine is consulted to evaluate and manage his hypertensive emergency and hypoxemia. The remainder of the ROS and history is negative unless otherwise documented. SUBJ 06/03/17: Patient was intubated yesterday for worsening hypercarbic resp failure and encephalopathy. Trop peaked at 4.2, cardiology Dr. Juárez following. More awake, but failed CPAP today 06/04; remains intubated on low-dose fentanyl, wakes up easily follows commands. Tolerating CPAP trial slightly better today. Chest x-ray shows slightly worsening left lower lobe infiltrate effusion Objective Vital Signs Date Time Temp Pulse Resp B/P Pulse Ox O2 Delivery O2 Flow Rate FiO2 06/04/17 08:19 98 40 06/04/17 08:00 70 06/04/17 06:30 15 152/69 06/04/17 04:00 99.5 06/03/17 03:24 Ventilator 06/02/17 05:12 6.00 Intake and Output 06/03/17 06/03/17 06/03/17 07:59 15:59 23:59 Intake Total 332 ml 90 ml Output Total 0 ml 3000 ml Balance 332 ml -2910 ml Result Diagram: 06/04/17 0328 06/04/17 0328 Imaging Last Impressions Chest X-Ray 06/02/17 0336 Signed Impressions: Service Date/Time: Friday, June 02, 2017 03:56 - CONCLUSION: Mild patchy bibasilar infiltrates, right greater than left. Robert Steiner MD Objective Remarks gen: obese elderly male, intubated, sedated with fentanyl heent: perrl. mucous membranes moist. orotracheally intubated neck: large neck circumference prevents accurate assessment of jvd. trachea midline. chest:Air entry equal bilaterally, few crackles. cv: normal rate, regular rhythm. On heparin and fentanyl abd: obese, soft, nontender, nondistended. no guarding extr: distal pulses 2+. 2+ peripheral edema neuro: Intubated sedated, wakes up easily, follows commands. No focal deficits A/P Assessment and Plan Assessment: 71yM with CAD, ESRD who presents with hypertensive emergency, unrelenting chest pain, and Pulmonary edema/CHF exacerbation. Critically ill. continue NGT drip. Emergent dialysis. ruled in for NSTEMI. Cath once stable Neuro: - Fentanyl for light sedation and vent synchrony CVS: ACS/NSTEMI Hypertensive Emergency -- Continue, IV Heparin, Aspirin. Change to sq heparin today -- goal SBP < 160 -- Continue Cozaar, metoprolol -- Cardene drip as needed, prn hydralazine, labetalol -- Emergent HD -- Cardiology Dr. Juárez. Cath once stable Resp: Acute hypoxic respiratory failure Acute intravascular volume overload Acute CHF exacerbation, unknown type Acute hypercapnic respiratory failure -- Emergently intubated 06/02, for hypercapnic resp -- Pulmonary Edema, continue HD per nephrology -- 2d echo -- wean fio2 for spo2 > 90% -- nebs, pulmonary toilet. -- CPAP trial with possible extubation today GI: - Start Nepro if not extubated, IV Protonix ESRD -- HD per nephrology ID -- Monitor for infection HEME: -- Change IV Heparin to sq today -- PPI Critical Care time: Level 3 Santo Hernandez MD Jun 04, 2017 10:24
[2017-06-04] MEDS: METOPROLOL TARTRATE 100 MG TAB PO SCH ×2 (11:41→20:54)
[2017-06-04] MEDS: MORPHINE SULFATE 4 MG/ML INJ IV PUSH PRN (11:42)
[2017-06-04] MEDS: NITROGLYCERIN 0.4 MG SL 25 TABS/BTL SL PRN ×2 (12:13→12:35)
--- NOTE | 2017-06-04 12:14 | PD.CARD.PN ---
Subjective Subjective Remarks Patient seen this morning Patient seen for Dr. Juárez No events overnight, no CP Doing well on CPAP Objective Medications Current Medications Medications (Trade) Dose Ordered Sig/Maddison Route Start Time Stop Time Status Last Admin (NS Flush) 2 ml UNSCH PRN IVF 06/02/17 03:45 (D50w (Vial) Inj) 25 ml UNSCH PRN IV PUSH 06/02/17 05:15 06/03/17 07:44 (Zofran Inj) 4 mg Q6H PRN IV 06/02/17 05:15 Miscellaneous Information 1 Q361D XX 06/02/17 05:15 (Chlorhexidine 2% Cloth) 3 pack Taper DAILY@04 TOP 06/03/17 04:00 05/30/18 03:59 06/04/17 04:00 (Chlorhexidine 2% Cloth) 3 pack UNSCH PRN TOP 06/02/17 05:15 Senna/Docusate Sodium 1 tab 1 tab BID PO 06/02/17 09:00 06/04/17 08:56 (Cardene Inj/NS 250 ml Inj) 260 ml @ 0 mls/hr TITRATE IV 06/02/17 06:15 (Trandate Inj) 20 mg Q15M PRN IV PUSH 06/02/17 06:15 06/04/17 12:05 (Apresoline Inj) 10 mg Q30M PRN IV PUSH 06/02/17 06:15 06/04/17 01:43 Morphine Sulfate 2 mg 2 mg Q1H PRN IV PUSH 06/02/17 06:45 06/04/17 11:42 (NS 1000 ml Inj) 1,000 ml @ 0 mls/hr Q0M PRN IV 06/02/17 09:11 06/03/17 18:05 Heparin Sodium (Porcine) 8000 units 8,000 units UNSCH PRN IVF 06/02/17 09:15 Sodium Chloride 1,000 ml @ 200 mls/hr Q5H PRN IV 06/02/17 09:11 (NS 1000 ml Inj) 1,000 ml @ 0 mls/hr Q0M PRN IV 06/02/17 09:11 (Mannitol Inj) 12.5 gm UNSCH PRN IV 06/02/17 09:15 (Albumin 25% Inj) 25 gm UNSCH PRN IV 06/02/17 09:15 (NS Flush) 5 ml UNSCH PRN IV FLUSH 06/02/17 09:15 (Heparin Inj) UNSCH PRN .XX 06/02/17 09:15 06/03/17 18:04 (Gentamicin (Dialysis) Inj) 20 mg UNSCH PRN IV 06/02/17 09:15 06/03/17 18:04 (Zofran Inj) 4 mg UNSCH PRN IV 06/02/17 09:15 (Tylenol) 650 mg UNSCH PRN PO 06/02/17 09:15 06/03/17 23:31 (Benadryl) 25 mg UNSCH PRN PO 06/02/17 09:15 (Nitrostat Sl) 0.4 mg UNSCH PRN SL 06/02/17 09:15 (Catapres) 0.1 mg UNSCH PRN PO 06/02/17 09:15 (Gelfoam 12 Mm/7 Mm Top) 1 foam UNSCH PRN TOP 06/02/17 09:15 (Aspirin Chew) 81 mg DAILY CHEW 06/03/17 09:00 06/04/17 08:56 (Lipitor) 80 mg HS PO 06/02/17 21:00 06/03/17 21:00 (Cozaar) 25 mg DAILY PO 06/03/17 09:00 06/04/17 08:56 (Effient) 10 mg HS PO 06/02/17 21:00 06/03/17 21:00 (Peridex 0.12% Liq) 15 ml BID@08,20 MT 06/02/17 20:00 06/04/17 08:56 (Lopressor) 100 mg Q12HR PO 06/04/17 11:00 06/04/17 11:41 (Heparin Inj) 5,000 units Q12HR SQ 06/04/17 21:00 Vital Signs / I&O Vital Signs Date Time Temp Pulse Resp B/P Pulse Ox O2 Delivery O2 Flow Rate FiO2 06/04/17 10:25 94 Nasal Cannula 3.00 06/04/17 10:25 94 Nasal Cannula 3 06/04/17 08:19 98 40 06/04/17 08:19 40 06/04/17 08:00 70 06/04/17 08:00 40 06/04/17 08:00 99.2 75 20 165/74 98 17/17 06:30 78 15 152/69 98 17/17 06:01 74 21 157/69 98 17 06:00 73 17 06:00 73 20 97 06/04/17 05:30 75 20 176/74 98 17 05:00 75 20 157/67 97 06/04/17 04:30 77 16 162/71 98 17 04:16 97 40 17 04:00 99.5 75 14 157/70 97 17 04:00 75 06/04/17 04:00 40 06/04/17 03:30 75 15 146/64 97 17 03:00 77 20 153/69 97 17 02:30 79 12 146/66 97 17 02:01 80 20 158/70 97 17 02:00 80 06/04/17 02:00 80 20 97 17 01:19 21 17 01:18 99 40 17 01:00 74 18 172/73 97 1717 00:30 75 13 161/71 97 17/17 00:00 40 06/04/17 00:00 100.4 76 18 172/72 98 17 00:00 76 17 23:30 79 21 174/76 98 16/17 23:00 79 20 171/73 97 16/17 22:30 79 20 177/75 99 16/17 22:12 98 40 1617 22:01 79 21 167/72 100 16/17 22:00 80 16/17 22:00 80 20 100 16/17 21:30 77 20 170/74 99 16/17 21:15 80 20 172/73 98 16/17 21:00 78 21 172/72 99 16/17 20:45 77 20 164/75 100 16/17 20:30 75 20 163/71 100 16/17 20:16 78 20 166/72 100 16/17 20:00 99.9 74 21 154/68 99 16/17 20:00 74 16/17 20:00 40 06/03/17 19:45 73 20 143/66 99 06/03/17 19:30 74 20 169/74 100 06/03/17 19:25 100 40 06/03/17 19:15 75 22 181/71 100 06/03/17 19:00 72 20 176/78 06/03/17 18:00 66 20 138/65 100 06/03/17 18:00 74 06/03/17 17:00 67 20 164/59 100 06/03/17 16:14 100 40 06/03/17 16:00 68 06/03/17 16:00 98.2 68 20 154/69 97 06/03/17 15:00 65 0 113/53 96 06/03/17 14:00 67 20 107/53 96 06/03/17 14:00 62 06/03/17 13:00 71 7 145/65 80 I/O 06/03/17 06/03/17 06/03/17 06/04/17 06/04/17 06/04/17 07:00 15:00 23:00 07:00 15:00 23:00 Intake Total 332 ml 90 ml 175 ml Output Total 0 ml 3000 ml Balance 332 ml -2910 ml 175 ml IV Total 332 ml 90 ml 175 ml Output Urine Total 0 ml Hemodialysis 3000 ml # Voids 0 0 Physical Exam GENERAL: NAD, currently awake on vent SKIN: Warm and dry. HEAD: Atraumatic. Normocephalic. EYES: Pupils equal and round. No scleral icterus. No injection or drainage. ENT: No nasal bleeding or discharge. Mucous membranes pink and moist. NECK: Trachea midline. No JVD. CARDIOVASCULAR: Regular rate and rhythm. RESPIRATORY: No accessory muscle use. Decreased breath sounds bilaterally GASTROINTESTINAL: Abdomen soft, non-tender, nondistended. Hepatic and splenic margins not palpable. MUSCULOSKELETAL: 1+ edema bilaterally. NEUROLOGICAL: Awake and alert. No obvious cranial nerve deficits. Motor grossly within normal limits. Five out of 5 muscle strength in the arms and legs. Normal speech. PSYCHIATRIC: Appropriate mood and affect; insight and judgment normal. Laboratory Laboratory Tests Test 06/03/17 06/03/17 06/03/17 06/04/17 13:12 18:00 22:02 03:28 Activated Partial 39.8 SEC 52.3 SEC 52.3 SEC Thromboplast Time Hepatitis A IgM Antibody NEGATIVE Hepatitis B Surface Antigen NEGATIVE Hepatitis B Core IgM Antibody NEGATIVE Hepatitis C Antibody NEGATIVE White Blood Count 10.6 TH/MM3 Red Blood Count 3.48 MIL/MM3 Hemoglobin 11.0 GM/DL Hematocrit 33.6 % Mean Corpuscular Volume 96.5 FL Mean Corpuscular Hemoglobin 31.7 PG Mean Corpuscular Hemoglobin 32.8 % Concent Red Cell Distribution Width 18.4 % Platelet Count 112 TH/MM3 Mean Platelet Volume 10.2 FL Neutrophils (%) (Auto) 71.2 % Lymphocytes (%) (Auto) 15.0 % Monocytes (%) (Auto) 10.9 % Eosinophils (%) (Auto) 2.7 % Basophils (%) (Auto) 0.2 % Neutrophils # (Auto) 7.5 TH/MM3 Lymphocytes # (Auto) 1.6 TH/MM3 Monocytes # (Auto) 1.1 TH/MM3 Eosinophils # (Auto) 0.3 TH/MM3 Basophils # (Auto) 0.0 TH/MM3 CBC Comment DIFF FINAL Differential Comment Sodium Level 139 MEQ/L Potassium Level 3.5 MEQ/L Chloride Level 100 MEQ/L Carbon Dioxide Level 26.3 MEQ/L Anion Gap 13 MEQ/L Blood Urea Nitrogen 43 MG/DL Creatinine 7.52 MG/DL Estimat Glomerular Filtration 7 ML/MIN Rate Random Glucose 138 MG/DL Calcium Level 7.8 MG/DL Phosphorus Level 3.4 MG/DL Magnesium Level 1.9 MG/DL Total Bilirubin 1.2 MG/DL Aspartate Amino Transf 35 U/L (AST/SGOT) Alanine Aminotransferase 23 U/L (ALT/SGPT) Alkaline Phosphatase 76 U/L Total Protein 6.6 GM/DL Albumin 3.1 GM/DL Test 06/04/17 10:05 Blood Gas Puncture Site RT RADIAL Blood Gas Patient Temperature 98.6 Blood Gas HCO3 24 mmol/L Blood Gas Base Excess -1.2 mmol/L Blood Gas Oxygen Saturation 94 % Arterial Blood pH 7.31 Arterial Blood Partial 50 mmHg Pressure CO2 Arterial Blood Partial 115 mmHg Pressure O2 Arterial Blood Oxygen Content 15.8 Vol % Arterial Blood 1.1 % Carboxyhemoglobin Arterial Blood Methemoglobin 1.8 % Blood Gas Hemoglobin 11.8 G/DL Oxygen Delivery Device VENTILATOR Blood Gas Ventilator Setting CPAP+5/PS5 Blood Gas Inspired Oxygen 40 % Assessment and Plan Problem List: (1) CAD (coronary artery disease) (2) Hypertensive emergency (3) Respiratory failure (4) NSTEMI (non-ST elevated myocardial infarction) (5) ESRD (end stage renal disease) (6) DM (diabetes mellitus) (7) Hyperlipidemia (8) Hypertension Assessment and Plan 1) NSTEMI with multiple PCI in the past 2) Unstable angina over the past week, concern for instent restenosis 3) Plan for extubation today 4) Await respiratory stability before cardiac catheterization Problem Qualifiers (1) CAD (coronary artery disease): Qualified Code: I25.110 - Coronary artery disease involving [place] coronary artery of [place] heart with unstable angina pectoris (2) Respiratory failure: Qualified Code: J96.02 - Acute respiratory failure with hypercapnia Sunny Hernández DO Jun 04, 2017 12:14
[2017-06-04] MEDS ORDERED: METOPROLOL TARTRATE 5 MG/5 ML VIAL IV PUSH ONE ×2 (14:30→15:45)
--- NOTE | 2017-06-04 15:00 | HHI.NPPN ---
Subjective General Problems: Edema Renal Failure: Chronic, End Stage Renal Disease Interval History He was extubated. Now awake on venti mask, following commands. Seen during dialysis. Started on Nitro gtt. (Vivienne Thomas) Review of Systems General Constitutional: Fatigue (Vivienne Thomas) Respiratory Lungs: SOB (Vivienne Thomas) Objective Data Data 06/03/17 06/04/17 19:00 07:00 Intake Total 332 ml 265 ml Output Total 0 ml 3000 ml Balance 332 ml -2735 ml IV Total 332 ml 265 ml Output Urine Total 0 ml Hemodialysis 3000 ml # Voids 0 Vital Signs Date Time Temp Pulse Resp B/P Pulse Ox O2 Delivery O2 Flow Rate FiO2 06/04/17 12:00 80 06/04/17 12:00 98.5 93 21 164/79 89 06/04/17 10:25 94 Nasal Cannula 3.00 06/04/17 10:25 94 Nasal Cannula 3 06/04/17 10:00 70 06/04/17 10:00 91 06/04/17 08:19 98 40 06/04/17 08:19 40 06/04/17 08:00 70 06/04/17 08:00 40 06/04/17 08:00 99.2 75 20 165/74 98 06/04/17 06:30 78 15 152/69 98 06/04/17 06:01 74 21 157/69 98 06/04/17 06:00 73 06/04/17 06:00 73 20 97 06/04/17 05:30 75 20 176/74 98 06/04/17 05:00 75 20 157/67 97 06/04/17 04:30 77 16 162/71 98 06/04/17 04:16 97 40 06/04/17 04:00 99.5 75 14 157/70 97 06/04/17 04:00 75 06/04/17 04:00 40 06/04/17 03:30 75 15 146/64 97 06/04/17 03:00 77 20 153/69 97 06/04/17 02:30 79 12 146/66 97 06/04/17 02:01 80 20 158/70 97 06/04/17 02:00 80 06/04/17 02:00 80 20 97 06/04/17 01:19 21 06/04/17 01:18 99 40 06/04/17 01:00 74 18 172/73 97 06/04/17 00:30 75 13 161/71 97 06/04/17 00:00 40 06/04/17 00:00 100.4 76 18 172/72 98 06/04/17 00:00 76 06/03/17 23:30 79 21 174/76 98 06/03/17 23:00 79 20 171/73 97 06/03/17 22:30 79 20 177/75 99 06/03/17 22:12 98 40 06/03/17 22:01 79 21 167/72 100 06/03/17 22:00 80 06/03/17 22:00 80 20 100 06/03/17 21:30 77 20 170/74 99 06/03/17 21:15 80 20 172/73 98 06/03/17 21:00 78 21 172/72 99 06/03/17 20:45 77 20 164/75 100 06/03/17 20:30 75 20 163/71 100 06/03/17 20:16 78 20 166/72 100 06/03/17 20:00 99.9 74 21 154/68 99 06/03/17 20:00 74 06/03/17 20:00 40 06/03/17 19:45 73 20 143/66 99 06/03/17 19:30 74 20 169/74 100 06/03/17 19:25 100 40 06/03/17 19:15 75 22 181/71 100 06/03/17 19:00 72 20 176/78 06/03/17 18:00 66 20 138/65 100 06/03/17 18:00 74 06/03/17 17:00 67 20 164/59 100 06/03/17 16:14 100 40 06/03/17 16:00 68 06/03/17 16:00 98.2 68 20 154/69 97 06/03/17 15:00 65 0 113/53 96 (Vivienne Thomas) -: 06/04/17 0328 06/04/17 0328 Imaging Last 72 hours Impressions Chest X-Ray 06/04/17 0600 Signed Impressions: Service Date/Time: May 04:32 - CONCLUSION: Stable left lower lung infiltrates and probable increasing left pleural effusion. Robert Steiner MD Aorta CTA 06/02/17 0507 Signed Impressions: Service Date/Time: Friday, June 02, 2017 05:48 - CONCLUSION: 1. No evidence of aortic aneurysm or dissection. 2. Patchy basilar pulmonary infiltrates and small pleural effusions. 3. Bilateral hydroceles for a Robert Steiner MD Chest X-Ray 06/02/17 0336 Signed Impressions: Service Date/Time: Friday, June 02, 2017 03:56 - CONCLUSION: Mild patchy bibasilar infiltrates, right greater than left. Robert Steiner MD Chest X-Ray 06/02/17 0000 Signed Impressions: Service Date/Time: Friday, June 02, 2017 17:57 - CONCLUSION: 1. Endotracheal tube tip is approximately 4 cm above the henri. 2. Mild bibasilar atelectasis and small effusions. 3. Previous median sternotomy and CABG. Heart size stable, upper limits of normal. David Cui MD Tubes & Lines: Perma-Cath Drip Comment heparin, NTG (Vivienne Thomas B. ADMISSIONS GATE ATTENDANT) Physical Exam General Appearance: Well Developed, No Acute Distress, Comfortable, Obese (Vivienne Thomas B. ADMISSIONS GATE ATTENDANT) Throat Throat Exam: Oral Mucosa [place] & Moist (Vivienne Thomas B. ADMISSIONS GATE ATTENDANT) Pulmonary Resp Exam: Breath Sounds Equal, No Distress, Crackles, Rhonchi (Vivienne Thomas B. ADMISSIONS GATE ATTENDANT) Cardiology CV Exam: Regular, Normal Sinus Rhythm (Vivienne Thomas B. ADMISSIONS GATE ATTENDANT) Gastrointestinal/Abdomen GI Exam: Soft, Non-Tender, Bowel Sounds Present (Vivienne Thomas B. ADMISSIONS GATE ATTENDANT) Musculoskeletal MS Exam: Joints Intact, Normal Tone, Unable to Ambulate (Vivienne Thomas B. ADMISSIONS GATE ATTENDANT) Integumentary Skin Exam: Clear, Warm, Dry, Intact (Vivienne Thomas B. ADMISSIONS GATE ATTENDANT) Extremeties Extremities Exam: Pedal Pulses Palpable, Moderate Edema, Pitting Edema ( Vivienne Thomas B. ADMISSIONS GATE ATTENDANT) Neurologic Neuro Exam: Alert, Awake, Moving All Extremities (Vivienne Thomas BPrashant SANTILLANP) VTE Prophylaxis Device: SCDs Meds: Heparin (Vivienne Thomas) Assessment/Plan Discussed Condition With: Patient Assessment Summary: Anemia of CKD, End Stage Renal Disease Electrolyte Assessment: Hypocalcemia, Hypokalemia Problem List: (1) ESRD (end stage renal disease) Plan: Typical TTS HD, follows in [facility] [place] [facility] [facility] yesterday for fluid removal (3L UF) Seen during bedside HD today on a 4K, 400 BFR, goal 4L On a 4K bath for hypokalemia, repeat renal panel in AM avoid IVF he has permcath for dialysis renally dose medications when appropriate (2) CAD (coronary artery disease) Plan: new NSTEMI, has a very extensive cardiac history started on NTG drip, also on heparin likely will have cardiac catheterization when more stable (3) Hyperkalemia Plan: now hypokalemic, monitor labs (4) Hypertensive emergency Plan: BP acceptable continue medications as ordered fluid removal with dialysis (5) Anemia Plan: Epogen not required follow Hb (6) Metabolic bone disease Plan: phosphorus level is acceptable (7) DM (diabetes mellitus) Plan: continue insulin therapy, goal 140-180 mg/dL (8) Respiratory failure Plan: s/p extubation monitor respiratory status (Vivienne Thomas) Problem List: (1) ESRD (end stage renal disease) Plan: Typical TTS HD, follows in [facility] [place] [facility] [place] [facility] yesterday for fluid removal (3L UF) Seen during bedside HD today on a 4K, 400 BFR, goal 4L On a 4K bath for hypokalemia, repeat renal panel in AM avoid IVF he has permcath for dialysis renally dose medications when appropriate (2) CAD (coronary artery disease) Plan: new NSTEMI, has a very extensive cardiac history started on NTG drip, also on heparin likely will have cardiac catheterization when more stable (3) Hyperkalemia Plan: now hypokalemic, monitor labs (4) Hypertensive emergency Plan: BP acceptable continue medications as ordered fluid removal with dialysis (5) Anemia Plan: Epogen not required follow Hb (6) Metabolic bone disease Plan: phosphorus level is acceptable (7) DM (diabetes mellitus) Plan: continue insulin therapy, goal 140-180 mg/dL (8) Respiratory failure Plan: s/p extubation monitor respiratory status Plan patient was seen and examined. Agree with above assessment and plan. (Stephen Mixon MD) Problem Qualifiers (1) CAD (coronary artery disease): Qualified Code: I25.110 - Coronary artery disease involving [place] coronary artery of [place] heart with unstable angina pectoris (2) Respiratory failure: Qualified Code: J96.02 - Acute respiratory failure with hypercapnia Vivienne Thomas Jun 04, 2017 15:00 Stephen Mixon MD Jun 05, 2017 20:19
[2017-06-04] MEDS: HEPARIN SODIUM - IV 10,000 UNITS/10 ML VIAL PRN ×2 (15:57→15:58)
[2017-06-04] MEDS: SODIUM CHLOR 0.9% 1000 ML INJ 1,000 ML IV PRN (15:57)
[2017-06-04] MEDS: SODIUM CHLORIDE 0.9% FLUSH 10 ML FLUSH IV FLUSH PRN ×2 (15:58→15:59)
[2017-06-04] MEDS: GENTAMICIN SULFATE (DIALYSIS USE ONLY) 20 MG/2 ML VIAL IV PRN (15:58)
[2017-06-04] MEDS: PRASUGREL 10 MG TAB PO SCH (20:53)
[2017-06-04] MEDS: ATORVASTATIN 80 MG TAB PO SCH (20:54)
[2017-06-04] MEDS: HEPARIN SODIUM - SQ 10,000 UNITS/ML VIAL SQ SCH (20:55)
[2017-06-05] VITALS (18 sets, daily range): BP systolic 125–159; BP diastolic 59–70; PULSE 75–90; RESP 14–21; TEMP 98.1–99.3; O2SAT 92–100
[2017-06-05] MEDS: RESP: ALBUTEROL 2.5 MG/IPRATROPIUM 0.5 MG NEB (SCH) NEB ×7 (00:34→23:40)
[2017-06-05] MEDS: INSULIN NovoLIN REGULAR SUPPLEMENTAL SCALE SQ SCH ×5 (03:00→20:59)
[2017-06-05] MEDS: CHLORHEXIDINE GLUCONATE 2 % 1 PACK (2 CLOTHS) TOP SCH (04:00)
--- NOTE | 2017-06-05 04:49 | RADRPT ---
EXAM DATE/TIME: 06/05/2017 03:51 [facility] COMPARISON: CHEST SINGLE AP, June 04, 2017, 4:32. INDICATIONS : Evaluate for respiratory disease. MEDICAL HISTORY : Cardiovascular disease. Renal failure, chronic. SURGICAL HISTORY : CABG. Coronary artery stent. ENCOUNTER: Subsequent ACUITY: 4 - 6 days PAIN SCORE: Non-responsive. LOCATION: chest FINDINGS: A single view of the chest demonstrates persistent left basilar consolidation with probable associate d effusion. Lungs are now hypoinflated with some developing atelectatic changes above the right hemid iaphragm. Heart size remains prominent. Right IJ dialysis type catheter with a left subclavian device possibly representing a pacer lead. Heart size is prominent with findings of prior CABG. Nasogastric tube is curled in the proximal gastric lumen. CONCLUSION: 1. Persistent left basilar consolidation/effusion with developing atelectatic changes above the right hemidiaphragm. 2. Cardiomegaly with stable postsurgical changes. Isaias Warner MD on June 05, 2017 at 4:44 Board Certified Radiologist. This report was verified electronically.
[2017-06-05] MEDS: NITROGLYCERIN-D5W 50 MG/250 ML 250 ML IV SCH (06:10)
[2017-06-05 06:18] LABS: AUTOMATED NEUTROPHIL # 9.6 TH/MM3 (1.8-7.7); BASOPHIL % 0.2 % (0.0-2.0); EOSINOPHIL # 0.2 TH/MM3 (0-0.4); EOSINOPHIL % 1.5 % (0.0-4.0); HEMATOCRIT 35.5 % (39.0-51.0); LYMPH % 6.3 % (9.0-44.0); LYMPHOCYTE # 0.7 TH/MM3 (1.0-4.8); MEAN CELL VOLUME 99.7 FL (80.0-100.0); MEAN CORPUSCULAR HEMOGLOBIN 31.5 PG (27.0-34.0); MEAN CORPUSCULAR HGB CONC 31.6 % (32.0-36.0); MONO % 10.6 % (0.0-8.0); NEUT % 81.4 % (16.0-70.0); PLATELET COUNT 89 TH/MM3 (150-450); RED BLOOD COUNT 3.56 MIL/MM3 (4.50-5.90); RED CELL DISTRIBUTION WIDTH 17.7 % (11.6-17.2); WHITE BLOOD COUNT 11.7 TH/MM3 (4.0-11.0)
[2017-06-05 06:21] LABS: HEMO FLAGS AUTO DIFF
[2017-06-05 06:35] LABS: APTT (PATIENT) 23.2 SEC (24.3-30.1)
[2017-06-05 07:03] LABS: ALKALINE PHOSPHATASE 82 U/L (45-117); ALT (GPT) 26 U/L (12-78); ANION GAP 10 MEQ/L (5-15); AST (GOT) 69 U/L (15-37); BICARBONATE 30.2 MEQ/L (21.0-32.0); BLOOD UREA NITROGEN 40 MG/DL (7-18); CHLORIDE 96 MEQ/L (98-107); GLOMERULAR FILTRATION RATE 8 ML/MIN (>89); POTASSIUM 4.6 MEQ/L (3.5-5.1); SODIUM (NA) 136 MEQ/L (136-145); TOTAL BILIRUBIN ADULT 0.8 MG/DL (0.2-1.0)
[2017-06-05] MEDS: CHLORHEXIDINE 0.12% (ORAL KIT) 15 ML CUP MT SCH ×2 (08:00→20:00)
[2017-06-05] MEDS: LOSARTAN 25 MG TAB PO SCH (08:18)
[2017-06-05] MEDS: METOPROLOL TARTRATE 100 MG TAB PO SCH ×2 (08:18→20:59)
[2017-06-05] MEDS: ASPIRIN 81 MG CHEW TAB CHEW SCH (08:18)
[2017-06-05] MEDS: DOCUSATE SODIUM 50 MG/SENNA 8.6 MG TAB PO SCH ×2 (08:18→20:59)
[2017-06-05] MEDS: HEPARIN SODIUM - SQ 10,000 UNITS/ML VIAL SQ SCH ×2 (08:31→20:59)
--- NOTE | 2017-06-05 09:20 | EKG ---
Date Performed: 06/04/2017 Time Performed: 14:18:55 PTAGE: 71 years EKG: Sinus rhythm POSSIBLE LEFT ATRIAL ENLARGEMENT ST DEVIATION AND MODERATE T-WAVE ABNORMALITY, CONSIDER LATERAL ISCH EMIA ABNORMAL ECG Compared to prior tracing no significant change PREVIOUS TRACING : 06/02/2017 03.34 DOCTOR: Cam Bauer Interpretating Date/Time 06/05/2017 09:17:16
[2017-06-05 09:24] LABS: BANDS 8 % (0-6); BASOPHILS 1 % (0-2); EOSINOPHILS 2 % (0-4); NEUTROPHIL # MANUAL DIFF 9.8 TH/MM3 (1.8-7.7); PLATELET ESTIMATE SMEAR LOW (NORMAL); PLATELET MORPHOLOGY NORMAL (NORMAL); POLYS (SEG NEUTROPHILS) 76 % (16-70); SCAN/DIFF FINAL DIFF MANUAL; WBC DIFF SAMPLE 100
--- NOTE | 2017-06-05 09:27 | PD.CARD.PN ---
Subjective Subjective Remarks No events overnight Patient does appear better than yesterday No chest pain Objective Medications Current Medications Medications (Trade) Dose Ordered Sig/Maddison Route Start Time Stop Time Status Last Admin (NS Flush) 2 ml UNSCH PRN IVF 06/02/17 03:45 (D50w (Vial) Inj) 25 ml UNSCH PRN IV PUSH 06/02/17 05:15 06/03/17 07:44 (Zofran Inj) 4 mg Q6H PRN IV 06/02/17 05:15 Miscellaneous Information 1 Q361D XX 06/02/17 05:15 (Chlorhexidine 2% Cloth) 3 pack Taper DAILY@04 TOP 06/03/17 04:00 05/30/18 03:59 06/05/17 04:00 (Chlorhexidine 2% Cloth) 3 pack UNSCH PRN TOP 06/02/17 05:15 Senna/Docusate Sodium 1 tab 1 tab BID PO 06/02/17 09:00 06/05/17 08:18 (Cardene Inj/NS 250 ml Inj) 260 ml @ 0 mls/hr TITRATE IV 06/02/17 06:15 (Trandate Inj) 20 mg Q15M PRN IV PUSH 06/02/17 06:15 06/04/17 12:05 (Apresoline Inj) 10 mg Q30M PRN IV PUSH 06/02/17 06:15 06/04/17 13:39 Morphine Sulfate 2 mg 2 mg Q1H PRN IV PUSH 06/02/17 06:45 06/04/17 11:42 (NS 1000 ml Inj) 1,000 ml @ 0 mls/hr Q0M PRN IV 06/02/17 09:11 06/03/17 18:05 Heparin Sodium (Porcine) 8000 units 8,000 units UNSCH PRN IVF 06/02/17 09:15 Sodium Chloride 1,000 ml @ 200 mls/hr Q5H PRN IV 06/02/17 09:11 (NS 1000 ml Inj) 1,000 ml @ 0 mls/hr Q0M PRN IV 06/02/17 09:11 06/04/17 15:57 (Mannitol Inj) 12.5 gm UNSCH PRN IV 06/02/17 09:15 (Albumin 25% Inj) 25 gm UNSCH PRN IV 06/02/17 09:15 (NS Flush) 5 ml UNSCH PRN IV FLUSH 06/02/17 09:15 06/04/17 15:59 (Heparin Inj) UNSCH PRN .XX 06/02/17 09:15 06/04/17 15:58 (Gentamicin (Dialysis) Inj) 20 mg UNSCH PRN IV 06/02/17 09:15 06/04/17 15:58 (Zofran Inj) 4 mg UNSCH PRN IV 06/02/17 09:15 (Tylenol) 650 mg UNSCH PRN PO 06/02/17 09:15 06/03/17 23:31 (Benadryl) 25 mg UNSCH PRN PO 06/02/17 09:15 (Nitrostat Sl) 0.4 mg UNSCH PRN SL 06/02/17 09:15 06/04/17 12:35 (Catapres) 0.1 mg UNSCH PRN PO 06/02/17 09:15 (Gelfoam 12 Mm/7 Mm Top) 1 foam UNSCH PRN TOP 06/02/17 09:15 (Aspirin Chew) 81 mg DAILY CHEW 06/03/17 09:00 06/05/17 08:18 (Lipitor) 80 mg HS PO 06/02/17 21:00 06/04/17 20:54 (Cozaar) 25 mg DAILY PO 06/03/17 09:00 06/05/17 08:18 (Effient) 10 mg HS PO 06/02/17 21:00 06/04/17 20:53 (Peridex 0.12% Liq) 15 ml BID@08,20 MT 06/02/17 20:00 06/04/17 08:56 (Lopressor) 100 mg Q12HR PO 06/04/17 11:00 06/05/17 08:18 Heparin Sodium (Porcine) 5000 units 5,000 units Q12HR SQ 06/04/17 21:00 06/04/17 20:55 (Nitroglycerin-Dextrose Inj) 250 ml @ 0 mls/hr TITRATE IV 06/04/17 14:30 06/05/17 06:10 Vital Signs / I&O Vital Signs Date Time Temp Pulse Resp B/P Pulse Ox O2 Delivery O2 Flow Rate FiO2 06/05/17 07:41 100 Nasal Cannula 4.00 06/05/17 06:23 15 06/05/17 06:00 86 06/05/17 04:00 79 06/05/17 04:00 99.3 79 18 151/64 92 06/05/17 03:40 96 Venturi Mask 6.00 50 06/05/17 02:08 99 BiPAP 06/05/17 02:00 76 06/05/17 00:28 100 50 06/05/17 00:20 78 21 159/70 97 06/05/17 00:00 98.5 78 17 138/63 98 06/05/17 00:00 78 06/04/17 23:41 76 18 130/57 96 06/04/17 23:20 77 17 135/62 96 06/04/17 23:00 80 17 122/56 95 06/04/17 22:40 79 18 120/56 93 06/04/17 22:20 81 17 123/56 95 06/04/17 22:00 82 17 122/58 94 06/04/17 22:00 82 06/04/17 21:40 85 17 113/55 95 06/04/17 21:20 86 19 124/56 95 06/04/17 21:01 86 31 131/53 94 06/04/17 21:00 86 31 95 06/04/17 20:41 85 18 141/61 93 06/04/17 20:20 84 17 147/65 94 06/04/17 20:12 96 Venturi Mask 06/04/17 20:01 84 19 139/61 94 06/04/17 20:00 85 06/04/17 20:00 98.8 85 20 94 06/04/17 19:40 86 17 144/65 96 06/04/17 19:21 86 18 140/63 94 06/04/17 19:01 86 18 137/60 95 06/04/17 19:00 86 23 95 06/04/17 18:00 90 06/04/17 16:00 98.8 90 24 100/55 90 06/04/17 16:00 90 06/04/17 14:00 87 06/04/17 12:00 80 06/04/17 12:00 98.5 93 21 164/79 89 06/04/17 10:25 94 Nasal Cannula 3.00 06/04/17 10:25 94 Nasal Cannula 3 06/04/17 10:00 70 06/04/17 10:00 91 I/O 06/04/17 06/04/17 06/04/17 06/05/17 06/05/17 06/05/17 07:00 15:00 23:00 07:00 15:00 23:00 Intake Total 175 ml 97 ml 112 ml Output Total 3320 ml Balance 175 ml -3223 ml 112 ml IV Total 175 ml 97 ml 112 ml Output Urine Total 320 ml Hemodialysis 3000 ml # Voids 0 Physical Exam GENERAL: NAD, AAOx3 SKIN: Warm and dry. HEAD: Atraumatic. Normocephalic. EYES: Pupils equal and round. No scleral icterus. No injection or drainage. ENT: No nasal bleeding or discharge. Mucous membranes pink and moist. NECK: Trachea midline. No JVD. CARDIOVASCULAR: Regular rate and rhythm. RESPIRATORY: No accessory muscle use. Decreased breath sounds bilaterally, specifically RLL GASTROINTESTINAL: Abdomen soft, non-tender, nondistended. Hepatic and splenic margins not palpable. MUSCULOSKELETAL: 1+ edema bilaterally. NEUROLOGICAL: Awake and alert. No obvious cranial nerve deficits. Motor grossly within normal limits. Five out of 5 muscle strength in the arms and legs. Normal speech. PSYCHIATRIC: Appropriate mood and affect; insight and judgment normal. Laboratory Laboratory Tests Test 06/04/17 06/05/17 10:05 05:53 Blood Gas Puncture Site RT RADIAL Blood Gas Patient Temperature 98.6 Blood Gas HCO3 24 mmol/L Blood Gas Base Excess -1.2 mmol/L Blood Gas Oxygen Saturation 94 % Arterial Blood pH 7.31 Arterial Blood Partial 50 mmHg Pressure CO2 Arterial Blood Partial 115 mmHg Pressure O2 Arterial Blood Oxygen Content 15.8 Vol % Arterial Blood 1.1 % Carboxyhemoglobin Arterial Blood Methemoglobin 1.8 % Blood Gas Hemoglobin 11.8 G/DL Oxygen Delivery Device VENTILATOR Blood Gas Ventilator Setting CPAP+5/PS5 Blood Gas Inspired Oxygen 40 % White Blood Count 11.7 TH/MM3 Red Blood Count 3.56 MIL/MM3 Hemoglobin 11.2 GM/DL Hematocrit 35.5 % Mean Corpuscular Volume 99.7 FL Mean Corpuscular Hemoglobin 31.5 PG Mean Corpuscular Hemoglobin 31.6 % Concent Red Cell Distribution Width 17.7 % Platelet Count 89 TH/MM3 Mean Platelet Volume 10.3 FL Neutrophils (%) (Auto) 81.4 % Lymphocytes (%) (Auto) 6.3 % Monocytes (%) (Auto) 10.6 % Eosinophils (%) (Auto) 1.5 % Basophils (%) (Auto) 0.2 % Neutrophils # (Auto) 9.6 TH/MM3 Lymphocytes # (Auto) 0.7 TH/MM3 Monocytes # (Auto) 1.2 TH/MM3 Eosinophils # (Auto) 0.2 TH/MM3 Basophils # (Auto) 0.0 TH/MM3 CBC Comment AUTO DIFF Activated Partial 23.2 SEC Thromboplast Time Sodium Level 136 MEQ/L Potassium Level 4.6 MEQ/L Chloride Level 96 MEQ/L Carbon Dioxide Level 30.2 MEQ/L Anion Gap 10 MEQ/L Blood Urea Nitrogen 40 MG/DL Creatinine 6.83 MG/DL Estimat Glomerular Filtration 8 ML/MIN Rate Random Glucose 170 MG/DL Calcium Level 7.9 MG/DL Total Bilirubin 0.8 MG/DL Aspartate Amino Transf 69 U/L (AST/SGOT) Alanine Aminotransferase 26 U/L (ALT/SGPT) Alkaline Phosphatase 82 U/L Total Protein 7.3 GM/DL Albumin 3.4 GM/DL Assessment and Plan Problem List: (1) CAD (coronary artery disease) (2) Hypertensive emergency (3) Respiratory failure (4) NSTEMI (non-ST elevated myocardial infarction) (5) ESRD (end stage renal disease) (6) DM (diabetes mellitus) (7) Hyperlipidemia (8) Hypertension Assessment and Plan 1) NSTEMI with multiple PCI in the past 2) Unstable angina over the past week, concern for in-stent restenosis 3) Patient extubated, still with high oxygen demand and does not appear to be able to lay flat 4) Will plan for cardiac catheterization on Thursday tentatively 5) Discussed with patient and his , in agreement 6) Will have to watch platelets, heparin stopped due to Plts 89, will discuss with critical care Problem Qualifiers (1) CAD (coronary artery disease): Qualified Code: I25.110 - Coronary artery disease involving [place] coronary artery of [place] heart with unstable angina pectoris (2) Respiratory failure: Qualified Code: J96.02 - Acute respiratory failure with hypercapnia Sunny Hernández DO Jun 05, 2017 09:27
--- NOTE | 2017-06-05 11:05 | HHI.NPPN ---
Subjective General Problems: Edema Renal Failure: Chronic, End Stage Renal Disease Interval History Sitting up in bed, awake/alert with at bedside. He has developed scleral hemorrhage bilaterally, atraumatic. On Nitro gtt. (Vivienne Thomas) Review of Systems General Constitutional: Fatigue (Vivienne Thomas) Respiratory Lungs: SOB (Vivienne Thomas) Objective Data Data 06/04/17 06/05/17 19:00 07:00 Intake Total 209 ml Output Total 3000 ml 320 ml Balance -3000 ml -111 ml IV Total 209 ml Output Urine Total 320 ml Hemodialysis 3000 ml Vital Signs Date Time Temp Pulse Resp B/P Pulse Ox O2 Delivery O2 Flow Rate FiO2 06/05/17 10:00 75 06/05/17 08:00 98.8 81 17 132/63 100 06/05/17 08:00 81 06/05/17 07:41 100 Nasal Cannula 4.00 06/05/17 06:23 15 06/05/17 06:00 86 06/05/17 04:00 79 06/05/17 04:00 99.3 79 18 151/64 92 06/05/17 03:40 96 Venturi Mask 6.00 50 06/05/17 02:08 99 BiPAP 06/05/17 02:00 76 06/05/17 00:28 100 50 06/05/17 00:20 78 21 159/70 97 06/05/17 00:00 98.5 78 17 138/63 98 06/05/17 00:00 78 06/04/17 23:41 76 18 130/57 96 06/04/17 23:20 77 17 135/62 96 06/04/17 23:00 80 17 122/56 95 06/04/17 22:40 79 18 120/56 93 06/04/17 22:20 81 17 123/56 95 06/04/17 22:00 82 17 122/58 94 06/04/17 22:00 82 06/04/17 21:40 85 17 113/55 95 06/04/17 21:20 86 19 124/56 95 06/04/17 21:01 86 31 131/53 94 06/04/17 21:00 86 31 95 06/04/17 20:41 85 18 141/61 93 06/04/17 20:20 84 17 147/65 94 06/04/17 20:12 96 Venturi Mask 06/04/17 20:01 84 19 139/61 94 06/04/17 20:00 85 06/04/17 20:00 98.8 85 20 94 06/04/17 19:40 86 17 144/65 96 06/04/17 19:21 86 18 140/63 94 06/04/17 19:01 86 18 137/60 95 06/04/17 19:00 86 23 95 06/04/17 18:00 90 06/04/17 16:00 98.8 90 24 100/55 90 06/04/17 16:00 90 06/04/17 14:00 87 06/04/17 12:00 80 06/04/17 12:00 98.5 93 21 164/79 89 (Vivienne Thomas) -: 06/05/17 0553 06/05/17 0553 Imaging Last 72 hours Impressions Chest X-Ray 06/05/17 0600 Signed Impressions: Service Date/Time: Monday, June 05, 2017 03:51 - CONCLUSION: 1. Persistent left basilar consolidation/effusion with developing atelectatic changes above the right hemidiaphragm. 2. Cardiomegaly with stable postsurgical changes. Isaias Warner MD Chest X-Ray 06/04/17 0600 Signed Impressions: Service Date/Time: May 04:32 - CONCLUSION: Stable left lower lung infiltrates and probable increasing left pleural effusion. Robert Steiner MD Tubes & Lines: Perma-Cath Drip Comment NTG (Vivienne Thomas) Physical Exam General Appearance: Well Developed, No Acute Distress, Comfortable, Obese (Vivienne Thomas) Eyes Eye Remarks bilateral ocular hemorrhage (Vivienne Thomas) Throat Throat Exam: Oral Mucosa [place] & Moist (Vivienne Thomas) Pulmonary Resp Exam: Breath Sounds Equal, No Distress, Crackles, Rhonchi (Vivienne Thomas) Cardiology CV Exam: Regular, Normal Sinus Rhythm (Vivienne Thomas) Gastrointestinal/Abdomen GI Exam: Soft, Non-Tender, Bowel Sounds Present (Vivienne Thomas) Musculoskeletal MS Exam: Joints Intact, Normal Tone, Unable to Ambulate (Vivienne Thomas) Integumentary Skin Exam: Clear, Warm, Dry, Intact (Vivienne Thomas) Extremeties Extremities Exam: Pedal Pulses Palpable, Moderate Edema, Pitting Edema ( Vivienne Thomas) Neurologic Neuro Exam: Alert, Awake, Moving All Extremities (Vivienne Thomas) VTE Prophylaxis Device: SCDs (Vivienne Thomas) Assessment/Plan Discussed Condition With: Patient, Spouse Assessment Summary: Anemia of CKD, End Stage Renal Disease Electrolyte Assessment: Hypocalcemia, Hypokalemia Problem List: (1) ESRD (end stage renal disease) Plan: Typical TTS HD, follows in [facility] Wed for fluid removal; over the past three days he has had 8 liters fluid removal due for regular HD tomorrow repeat K is normal avoid IVF he has permcath for dialysis renally dose medications when appropriate (2) CAD (coronary artery disease) Plan: new NSTEMI, has a very extensive cardiac history started on NTG drip, off of heparin gtt likely will have cardiac catheterization when more stable, possibly thursday (3) Hyperkalemia Plan: now hypokalemic, monitor labs (4) Hypertensive emergency Plan: BP acceptable continue medications as ordered fluid removal with dialysis (5) Anemia Plan: Epogen not required follow Hb (6) Metabolic bone disease Plan: phosphorus level is acceptable (7) DM (diabetes mellitus) Plan: continue insulin therapy, goal 140-180 mg/dL (8) Respiratory failure Plan: s/p extubation monitor respiratory status (Vivienne Thomas) Plan patient was seen and examined. Agree with above assessment and plan. Discussed with patient and his at the bedside. Cardiac cath is planned for Thursday, we may consider dialysis on Thursday after cath if volume control becomes an issue. (Stephen Mixon MD) Problem Qualifiers (1) CAD (coronary artery disease): Qualified Code: I25.110 - Coronary artery disease involving [place] coronary artery of [place] heart with unstable angina pectoris (2) Respiratory failure: Qualified Code: J96.02 - Acute respiratory failure with hypercapnia Vivienne Thomas Jun 05, 2017 11:05 Stephen Mixon MD Jun 05, 2017 20:44
--- NOTE | 2017-06-05 12:54 | HHI.CCPN ---
Subjective Remarks/Hospital Course This is a 71yM with a strong CAD history s/p multiple PCI and CABG who presents with 10/10 chest pain unrelieved by ntg SL. He has a history of ESRD and presents after skipping his dialysis. He states that his chest pain has been going since Thursday, and he skipped HD on thursday because he was afraid IHD would make his chest pain worse. He states this pain feels like his prior heart attacks. he denies any other symptoms of fever, chills, nausea, vomiting, diarrhea. does endorse SOB and orthopnea. In the ED he was severely hypertensive with BP 262/124. He was given NTG without improvement. He was started on NGT drip and his BP was controlled < 200, but again his chest pain persisted. Nephrology was consulted for emergent dialysis. The patient also underwent CT aortogram to rule out acute dissection, formal read pending, but preliminarily negative for acute dissection. He is hypoxic on ventimask with spo2 91%. Critical care medicine is consulted to evaluate and manage his hypertensive emergency and hypoxemia. The remainder of the ROS and history is negative unless otherwise documented. SUBJ 06/03/17: Patient was intubated yesterday for worsening hypercarbic resp failure and encephalopathy. Trop peaked at 4.2, cardiology Dr. Juárez following. More awake, but failed CPAP today 06/04; remains intubated on low-dose fentanyl, wakes up easily follows commands. Tolerating CPAP trial slightly better today. Chest x-ray shows slightly worsening left lower lobe infiltrate effusion 06/05: Chest pain is controlled, currently on nitroglycerin drip at 50 mcg/min- wean to DC as tolerated. IV heparin had to be held due to thrombocytopenia, hit screen sent. Tentatively plan for cardiac catheterization on Thursday. HD yesterday with 3L removed Objective Vital Signs Date Time Temp Pulse Resp B/P Pulse Ox O2 Delivery O2 Flow Rate FiO2 06/05/17 12:00 79 06/05/17 12:00 99.2 17 125/59 98 06/05/17 07:41 Nasal Cannula 4.00 06/05/17 03:40 50 Intake and Output 06/04/17 06/04/17 06/04/17 07:59 15:59 23:59 Intake Total 175 ml 97 ml Output Total 3320 ml Balance 175 ml -3223 ml Result Diagram: 06/05/17 0553 06/05/17 0553 Imaging Last Impressions Chest X-Ray 06/02/17 0336 Signed Impressions: Service Date/Time: Friday, June 02, 2017 03:56 - CONCLUSION: Mild patchy bibasilar infiltrates, right greater than left. Robert Stiener MD Objective Remarks gen: obese elderly male, on NC heent: perrl. mucous membranes moist. neck: large neck circumference prevents accurate assessment of jvd. trachea midline. chest:Air entry equal bilaterally, few basilar crackles. cv: normal rate, regular rhythm. Heparin on hold, nitro gtt at 50 mcg/min abd: obese, soft, nontender, nondistended. no guarding extr: distal pulses 2+. 2+ peripheral edema neuro: Alert awake oriented 3 nonfocal deficits A/P Assessment and Plan Assessment: 71yM with CAD, ESRD who presents with hypertensive emergency, unrelenting chest pain, and Pulmonary edema/CHF exacerbation. Critically ill. continue NGT drip. Emergent dialysis. ruled in for NSTEMI. Cath once stable Neuro: - As needed morphine for pain CVS: ACS/NSTEMI Hypertensive Emergency -- Continue Aspirin. IV Heparin on hold due to thrombocytopenia -- Wean to DC nitro drip -- goal SBP < 160 -- Continue Cozaar, metoprolol -- Cardene drip as needed, prn hydralazine, labetalol -- HD TTS -- Cardiology Dr. Juárez. Cardiac catheterization tentatively on Thursday Resp: Acute hypoxic respiratory failure Acute intravascular volume overload Acute CHF exacerbation, unknown type Acute hypercapnic respiratory failure -- Emergently intubated 06/02, for hypercapnic resp. Extubated 06/04/17 -- Pulmonary Edema, continue HD per nephrology -- 2d echo Nl EF -- wean fio2 for spo2 > 90% -- nebs, pulmonary toilet. -- EzPAP, Acapella GI: - Cardiac and renal diet, protonix ESRD -- HD per nephrology, TTS schedule ID -- Monitor for infection HEME: -- IV heparin on hold due to thrombocytopenia -- PPI Critical Care time: Level 3 Santo Hernandez MD Jun 05, 2017 12:54
[2017-06-05] MEDS: ATORVASTATIN 80 MG TAB PO SCH (20:58)
[2017-06-05] MEDS: PRASUGREL 10 MG TAB PO SCH (20:58)
[2017-06-06] VITALS (24 sets, daily range): BP systolic 118–168; BP diastolic 56–92; PULSE 79–109; RESP 16–39; TEMP 98.2–98.8; O2SAT 92–99
[2017-06-06] MEDS: hydrALAZINE HCL 20 MG/ML VIAL IV PUSH PRN (01:08)
[2017-06-06] MEDS: CHLORHEXIDINE GLUCONATE 2 % 1 PACK (2 CLOTHS) TOP SCH ×2 (03:33→20:28)
[2017-06-06] MEDS: INSULIN NovoLIN REGULAR SUPPLEMENTAL SCALE SQ SCH ×5 (03:33→20:44)
[2017-06-06] MEDS: RESP: ALBUTEROL 2.5 MG/IPRATROPIUM 0.5 MG NEB (SCH) NEB ×5 (04:15→20:52)
--- NOTE | 2017-06-06 04:38 | RADRPT ---
EXAM DATE/TIME: 06/06/2017 03:50 [facility] COMPARISON: CHEST SINGLE AP, June 05, 2017, 3:51. INDICATIONS : Shortness of breath, possible pulmonary disease. MEDICAL HISTORY : Cardiovascular disease. Renal failure, chronic. SURGICAL HISTORY : CABG. Coronary artery stent. ENCOUNTER: Subsequent ACUITY: 1 week PAIN SCORE: Non-responsive. LOCATION: Bilateral chest FINDINGS: Mild basilar airspace disease stable to slightly improved from June 05. Previous nasogastric tube r emoved. Right-sided Vas-Cath tip remains in superior vena cava. Previous median sternotomy. Pacer makayla d unchanged. CONCLUSION: 1. Mild basilar airspace disease stable to slightly improved from June 05. Removal of previous NG t ube. Right vas catheter unchanged. Jayme Carlin MD on June 06, 2017 at 4:36 Board Certified Radiologist. This report was verified electronically.
[2017-06-06] MEDS: CHLORHEXIDINE 0.12% (ORAL KIT) 15 ML CUP MT SCH ×2 (08:00→19:17)
[2017-06-06] MEDS: LOSARTAN 25 MG TAB PO SCH (08:56)
[2017-06-06] MEDS: METOPROLOL TARTRATE 100 MG TAB PO SCH ×2 (08:56→20:28)
[2017-06-06] MEDS: DOCUSATE SODIUM 50 MG/SENNA 8.6 MG TAB PO SCH ×2 (08:56→20:27)
[2017-06-06] MEDS: ASPIRIN 81 MG CHEW TAB CHEW SCH (08:56)
[2017-06-06] MEDS: HEPARIN SODIUM - SQ 10,000 UNITS/ML VIAL SQ SCH (09:00)
--- NOTE | 2017-06-06 10:12 | HHI.CCPN ---
Subjective Remarks/Hospital Course This is a 71yM with a strong CAD history s/p multiple PCI and CABG who presents with 10/10 chest pain unrelieved by ntg SL. He has a history of ESRD and presents after skipping his dialysis. He states that his chest pain has been going since Thursday, and he skipped HD on thursday because he was afraid IHD would make his chest pain worse. He states this pain feels like his prior heart attacks. he denies any other symptoms of fever, chills, nausea, vomiting, diarrhea. does endorse SOB and orthopnea. In the ED he was severely hypertensive with BP 262/124. He was given NTG without improvement. He was started on NGT drip and his BP was controlled < 200, but again his chest pain persisted. Nephrology was consulted for emergent dialysis. The patient also underwent CT aortogram to rule out acute dissection, formal read pending, but preliminarily negative for acute dissection. He is hypoxic on ventimask with spo2 91%. Critical care medicine is consulted to evaluate and manage his hypertensive emergency and hypoxemia. The remainder of the ROS and history is negative unless otherwise documented. 06/03/17: Patient was intubated yesterday for worsening hypercarbic resp failure and encephalopathy. Trop peaked at 4.2, cardiology Dr. Juárez following. More awake, but failed CPAP today 06/04; remains intubated on low-dose fentanyl, wakes up easily follows commands. Tolerating CPAP trial slightly better today. Chest x-ray shows slightly worsening left lower lobe infiltrate effusion 06/05: Chest pain is controlled, currently on nitroglycerin drip at 50 mcg/min- wean to DC as tolerated. IV heparin had to be held due to thrombocytopenia, hit screen sent. Tentatively plan for cardiac catheterization on Thursday. HD yesterday with 3L removed Subjective: 06/06 Denies CP, Remains on low dose nitroglycerin 5mcg/min because he is afraid he will experience chestpain and Dr. Hernández okayed continuation. HIT screen pending. Refusing Bipap at night. Objective Vital Signs Date Time Temp Pulse Resp B/P Pulse Ox O2 Delivery O2 Flow Rate FiO2 06/06/17 06:00 79 06/06/17 04:00 98.8 20 147/65 95 06/05/17 20:17 Nasal Cannula 4.00 06/05/17 03:40 50 Intake and Output 06/05/17 06/05/17 06/05/17 07:59 15:59 23:59 Intake Total 112 ml 104 ml 60 ml Output Total 100 ml 0 ml Balance 112 ml 4 ml 60 ml Result Diagram: 06/05/17 0553 06/05/17 0553 Imaging Last Impressions Chest X-Ray 06/02/17 0336 Signed Impressions: Service Date/Time: Friday, June 02, 2017 03:56 - CONCLUSION: Mild patchy bibasilar infiltrates, right greater than left. Robert Steiner MD Objective Remarks GENERAL: Obese gentleman who is sitting up in bed on nasal cannula. SKIN: Warm and dry. HEAD: Atraumatic. Normocephalic. EYES: Pupils equal and round. No scleral icterus. No injection or drainage. ENT: No nasal bleeding or discharge. Mucous membranes pink and moist. NECK: large neck circumference prevents accurate assessment of jvd CARDIOVASCULAR: Regular rate and rhythm. No murmurs rubs or gallops. RESPIRATORY: Clear to auscultation bilaterally. No wheezes Rales or rhonchi. GASTROINTESTINAL: Abdomen obese, soft soft, non-tender, nondistended. MUSCULOSKELETAL: Extremities without clubbing, cyanosis, 2+ edema of all extremities. No obvious deformities. NEUROLOGICAL: Awake and alert. No obvious cranial nerve deficits. Motor grossly within normal limits. Normal speech. A/P Assessment and Plan Assessment: 71yM with CAD, ESRD who presents with hypertensive emergency, unrelenting chest pain, and Pulmonary edema/CHF exacerbation. Ruled in for NSTEMI. Cath once stable Neuro: - As needed morphine for pain - Request something for sleep. Melatonin 5 mg by mouth daily at bedtime - Resume gabapentin 300 mg by mouth 3 times a day CVS: ACS/NSTEMI Hypertensive Emergency Hyperlipidemia -- Continue Aspirin, Effient 10 by mouth daily at bedtime. IV Heparin on hold due to thrombocytopenia -- On low dose nitro drip -- goal SBP < 160 -- Continue Cozaar 25 daily, metoprolol 100 twice a day --Continue atorvastatin 80 g by mouth daily at bedtime -- Cardene drip as needed, prn hydralazine, labetalol -- HD TTS -- Cardiology Dr. Juárez. Cardiac catheterization tentatively on Thursday Resp: Acute hypoxic respiratory failure Acute intravascular volume overload Acute CHF exacerbation, unknown type Acute hypercapnic respiratory failure -- Emergently intubated 06/02, for hypercapnic resp. Extubated 06/04/17 -- Pulmonary Edema improving, continue HD per nephrology. Lasix 80 mg po -- 2d echo Nl EF -- wean fio2 for spo2 > 90% -- nebs, pulmonary toilet. -- EzPAP, Acapella GI: - Order cardiac and renal diet, protonix ESRD -- HD per nephrology, TTS schedule. Resume renvela. ID -- Monitor for infection HEME: -- IV heparin on hold due to thrombocytopenia -- PPI Out of bed today. and patient updated at bedside. Discussed with Dr. Hernández. requests no transfer yet but can go to [facility] soon from my standpoint. Level 2 Kia Castillo MD Jun 06, 2017 10:12
[2017-06-06] MEDS ORDERED: FUROSEMIDE 80 MG TAB PO ONE (10:45)
--- NOTE | 2017-06-06 11:33 | HHI.NPPN ---
Subjective General Problems: Edema Renal Failure: Chronic, End Stage Renal Disease Additional Remarks No acute complaints, no chest pains today Review of Systems General Constitutional: Fatigue Respiratory Lungs: SOB Objective Data Data 06/05/17 06/06/17 18:59 06:59 Intake Total 104 ml 77 ml Output Total 100 ml 225 ml Balance 4 ml -148 ml IV Total 104 ml 77 ml Output Urine Total 100 ml 225 ml # Bowel Movements 0 Vital Signs Date Time Temp Pulse Resp B/P Pulse Ox O2 Delivery O2 Flow Rate FiO2 06/06/17 06:00 79 06/06/17 04:00 88 06/06/17 04:00 98.8 88 20 147/65 95 06/06/17 02:00 93 06/06/17 00:00 84 06/06/17 00:00 98.4 84 26 150/70 95 06/05/17 22:00 87 06/05/17 20:17 95 Nasal Cannula 4.00 06/05/17 20:00 98.8 90 16 155/70 94 06/05/17 20:00 90 06/05/17 18:00 85 06/05/17 16:00 85 06/05/17 16:00 98.1 85 14 154/66 95 06/05/17 14:00 79 06/05/17 12:00 79 06/05/17 12:00 99.2 79 17 125/59 98 -: 06/05/17 0553 06/05/17 0553 Tubes & Lines: Perma-Cath Drip Comment NTG Physical Exam General Appearance: Well Developed, No Acute Distress, Comfortable, Obese Throat Throat Exam: Oral Mucosa [place] & Moist Pulmonary Resp Exam: Breath Sounds Equal, No Distress, Crackles, Rhonchi Cardiology CV Exam: Regular, Normal Sinus Rhythm Gastrointestinal/Abdomen GI Exam: Soft, Non-Tender, Bowel Sounds Present Musculoskeletal MS Exam: Joints Intact, Normal Tone, Unable to Ambulate Integumentary Skin Exam: Clear, Warm, Dry, Intact Extremeties Extremities Exam: Pedal Pulses Palpable, Moderate Edema, Pitting Edema Neurologic Neuro Exam: Alert, Awake, Moving All Extremities VTE Prophylaxis Device: SCDs Assessment/Plan Discussed Condition With: Patient, Spouse Assessment Summary: Anemia of CKD, End Stage Renal Disease Electrolyte Assessment: Hypocalcemia, Hypokalemia Problem List: (1) ESRD (end stage renal disease) Plan: Typical TTS HD, follows in [facility] Will do HD today. Plan next HD Thursday or Thursday based on volume status post planned cardiac cath Thursday. Volume status stable. Current tunneled HD catheter. Poor development of left arm AV fistula - may further evaluate outpatient (previous revision with Dr. Mireles 12/2016) renally dose medications when appropriate (2) CAD (coronary artery disease) Plan: new NSTEMI, has a very extensive cardiac history started on NTG drip, also on heparin Planned cardiac cath Thursday (3) Hyperkalemia Plan: Improved, continue HD (4) Hypertensive emergency Plan: BP acceptable continue medications as ordered fluid removal with dialysis (5) Anemia Plan: Epogen not required follow Hb (6) Metabolic bone disease Plan: phosphorus level is acceptable (7) DM (diabetes mellitus) Plan: continue insulin therapy, goal 140-180 mg/dL (8) Respiratory failure Plan: s/p extubation monitor respiratory status Problem Qualifiers (1) CAD (coronary artery disease): Qualified Code: I25.110 - Coronary artery disease involving [place] coronary artery of [place] heart with unstable angina pectoris (2) Anemia: Qualified Code: N18.6 - Anemia in chronic kidney disease, on chronic dialysis (3) DM (diabetes mellitus): (4) Respiratory failure: Qualified Code: J96.02 - Acute respiratory failure with hypercapnia Trip Carranza MD Jun 06, 2017 11:33
[2017-06-06] MEDS: SEVELAMER CARBONATE 800 MG TAB PO SCH ×2 (12:06→17:50)
--- NOTE | 2017-06-06 12:53 | PD.CARD.PN ---
Subjective Subjective Remarks No events overnight No chest pain, currently on 5mcg nitro Objective Medications Current Medications Medications (Trade) Dose Ordered Sig/[place] Route Start Time Stop Time Status Last Admin (NS Flush) 2 ml UNSCH PRN IVF 06/02/17 03:45 (D50w (Vial) Inj) 25 ml UNSCH PRN IV PUSH 06/02/17 05:15 06/03/17 07:44 (Zofran Inj) 4 mg Q6H PRN IV 06/02/17 05:15 Miscellaneous Information 1 Q361D XX 06/02/17 05:15 (Chlorhexidine 2% Cloth) 3 pack Taper DAILY@04 TOP 06/03/17 04:00 05/30/18 03:59 06/06/17 03:33 (Chlorhexidine 2% Cloth) 3 pack UNSCH PRN TOP 06/02/17 05:15 Senna/Docusate Sodium 1 tab 1 tab BID PO 06/02/17 09:00 06/06/17 08:56 (Cardene Inj/NS 250 ml Inj) 260 ml @ 0 mls/hr TITRATE IV 06/02/17 06:15 (Trandate Inj) 20 mg Q15M PRN IV PUSH 06/02/17 06:15 06/04/17 12:05 (Apresoline Inj) 10 mg Q30M PRN IV PUSH 06/02/17 06:15 06/06/17 01:08 Morphine Sulfate 2 mg 2 mg Q1H PRN IV PUSH 06/02/17 06:45 06/04/17 11:42 (NS 1000 ml Inj) 1,000 ml @ 0 mls/hr Q0M PRN IV 06/02/17 09:11 06/03/17 18:05 Heparin Sodium (Porcine) 8000 units 8,000 units UNSCH PRN IVF 06/02/17 09:15 Sodium Chloride 1,000 ml @ 200 mls/hr Q5H PRN IV 06/02/17 09:11 (NS 1000 ml Inj) 1,000 ml @ 0 mls/hr Q0M PRN IV 06/02/17 09:11 06/04/17 15:57 (Mannitol Inj) 12.5 gm UNSCH PRN IV 06/02/17 09:15 (Albumin 25% Inj) 25 gm UNSCH PRN IV 06/02/17 09:15 (NS Flush) 5 ml UNSCH PRN IV FLUSH 06/02/17 09:15 06/04/17 15:59 (Heparin Inj) UNSCH PRN .XX 06/02/17 09:15 06/04/17 15:58 (Gentamicin (Dialysis) Inj) 20 mg UNSCH PRN IV 06/02/17 09:15 06/04/17 15:58 (Zofran Inj) 4 mg UNSCH PRN IV 06/02/17 09:15 (Tylenol) 650 mg UNSCH PRN PO 06/02/17 09:15 06/03/17 23:31 (Benadryl) 25 mg UNSCH PRN PO 06/02/17 09:15 (Nitrostat Sl) 0.4 mg UNSCH PRN SL 06/02/17 09:15 06/04/17 12:35 (Catapres) 0.1 mg UNSCH PRN PO 06/02/17 09:15 (Gelfoam 12 Mm/7 Mm Top) 1 foam UNSCH PRN TOP 06/02/17 09:15 (Aspirin Chew) 81 mg DAILY CHEW 06/03/17 09:00 06/06/17 08:56 (Lipitor) 80 mg HS PO 06/02/17 21:00 06/05/17 20:58 (Cozaar) 25 mg DAILY PO 06/03/17 09:00 06/06/17 08:56 (Effient) 10 mg HS PO 06/02/17 21:00 06/05/17 20:58 (Peridex 0.12% Liq) 15 ml BID@08,20 MT 06/02/17 20:00 06/04/17 08:56 (Lopressor) 100 mg Q12HR PO 06/04/17 11:00 06/06/17 08:56 Heparin Sodium (Porcine) 5000 units 5,000 units Q12HR SQ 06/04/17 21:00 06/04/17 20:55 (Nitroglycerin-Dextrose Inj) 250 ml @ 0 mls/hr TITRATE IV 06/04/17 14:30 06/05/17 06:10 (Melatonin) 5 mg HS PO 06/06/17 21:00 (Neurontin) 300 mg TID PO 06/06/17 13:00 06/06/17 12:06 (Renvela) 800 mg TID PO 06/06/17 13:00 06/06/17 12:06 Vital Signs / I&O Vital Signs Date Time Temp Pulse Resp B/P Pulse Ox O2 Delivery O2 Flow Rate FiO2 06/06/17 12:00 83 06/06/17 12:00 98.5 83 23 139/61 95 06/06/17 10:00 80 06/06/17 10:00 81 23 119/59 95 06/06/17 09:00 96 19 167/77 93 06/06/17 08:00 92 06/06/17 08:00 98.4 92 20 168/78 95 06/06/17 07:00 91 16 168/80 95 06/06/17 06:00 79 06/06/17 04:00 88 06/06/17 04:00 98.8 88 20 147/65 95 06/06/17 02:00 93 06/06/17 00:00 84 06/06/17 00:00 98.4 84 26 150/70 95 06/05/17 22:00 87 06/05/17 20:17 95 Nasal Cannula 4.00 06/05/17 20:00 98.8 90 16 155/70 94 06/05/17 20:00 90 06/05/17 18:00 85 06/05/17 16:00 85 06/05/17 16:00 98.1 85 14 154/66 95 06/05/17 14:00 79 I/O 06/05/17 06/05/17 06/05/17 06/06/17 06/06/17 06/06/17 07:00 15:00 23:00 07:00 15:00 23:00 Intake Total 112 ml 104 ml 60 ml 17 ml Output Total 100 ml 0 ml 225 ml Balance 112 ml 4 ml 60 ml -208 ml IV Total 112 ml 104 ml 60 ml 17 ml Output Urine Total 100 ml 0 ml 225 ml # Bowel Movements 0 Physical Exam GENERAL: NAD, AAOx3 SKIN: Warm and dry. HEAD: Atraumatic. Normocephalic. EYES: Pupils equal and round. No scleral icterus. No injection or drainage. ENT: No nasal bleeding or discharge. Mucous membranes pink and moist. NECK: Trachea midline. No JVD. CARDIOVASCULAR: Regular rate and rhythm. RESPIRATORY: No accessory muscle use. Decreased breath sounds bilaterally, specifically RLL GASTROINTESTINAL: Abdomen soft, non-tender, nondistended. Hepatic and splenic margins not palpable. MUSCULOSKELETAL: 1+ edema bilaterally. NEUROLOGICAL: Awake and alert. No obvious cranial nerve deficits. Motor grossly within normal limits. Five out of 5 muscle strength in the arms and legs. Normal speech. PSYCHIATRIC: Appropriate mood and affect; insight and judgment normal. Assessment and Plan Problem List: (1) CAD (coronary artery disease) (2) Hypertensive emergency (3) Respiratory failure (4) NSTEMI (non-ST elevated myocardial infarction) (5) ESRD (end stage renal disease) (6) DM (diabetes mellitus) (7) Hyperlipidemia (8) Hypertension Assessment and Plan 1) NSTEMI with multiple PCI in the past 2) Unstable angina over the past week, concern for in-stent restenosis 3) Patient extubated, cath cancelled for Thursday due to inability to lay flat, will have to see for Thursday 4) Will plan for cardiac catheterization on Thursday tentatively 5) Discussed with patient and his , in agreement 6) Will have to watch platelets, heparin stopped due to Plts 89, will discuss with critical care, plan repeat labs today YANCY panel sent, but not really on heparin long enough usually for YANCY 7) Does not want nitro off, he is concerned the chest pain will reoccur Problem Qualifiers (1) CAD (coronary artery disease): Qualified Code: I25.110 - Coronary artery disease involving [place] coronary artery of [place] heart with unstable angina pectoris (2) Respiratory failure: Qualified Code: J96.02 - Acute respiratory failure with hypercapnia (3) DM (diabetes mellitus): Sunny Hernández DO Jun 06, 2017 12:53
[2017-06-06] MEDS ORDERED: GABAPENTIN 300 MG CAP PO SCH (13:00)
[2017-06-06 14:23] LABS: AUTOMATED NEUTROPHIL # 7.6 TH/MM3 (1.8-7.7); BASOPHIL % 0.2 % (0.0-2.0); EOSINOPHIL # 0.3 TH/MM3 (0-0.4); EOSINOPHIL % 2.6 % (0.0-4.0); HEMATOCRIT 33.6 % (39.0-51.0); LYMPH % 6.4 % (9.0-44.0); LYMPHOCYTE # 0.6 TH/MM3 (1.0-4.8); MEAN CELL VOLUME 98.7 FL (80.0-100.0); MEAN CORPUSCULAR HEMOGLOBIN 31.7 PG (27.0-34.0); MEAN CORPUSCULAR HGB CONC 32.1 % (32.0-36.0); MONO % 13.8 % (0.0-8.0); PLATELET COUNT 97 TH/MM3 (150-450); RED BLOOD COUNT 3.41 MIL/MM3 (4.50-5.90); RED CELL DISTRIBUTION WIDTH 17.5 % (11.6-17.2); WHITE BLOOD COUNT 9.9 TH/MM3 (4.0-11.0)
[2017-06-06 14:25] LABS: HEMO FLAGS AUTO DIFF
[2017-06-06 14:44] LABS: ALT (GPT) 23 U/L (12-78); ANION GAP 11 MEQ/L (5-15); AST (GOT) 38 U/L (15-37); BICARBONATE 32.1 MEQ/L (21.0-32.0); BLOOD UREA NITROGEN 60 MG/DL (7-18); CHLORIDE 95 MEQ/L (98-107); GLOMERULAR FILTRATION RATE 6 ML/MIN (>89); MAGNESIUM 2.2 MG/DL (1.5-2.5); POTASSIUM 4.4 MEQ/L (3.5-5.1); SODIUM (NA) 138 MEQ/L (136-145)
[2017-06-06 14:54] LABS: ALKALINE PHOSPHATASE 75 U/L (45-117); TOTAL BILIRUBIN ADULT 0.6 MG/DL (0.2-1.0)
[2017-06-06 14:55] LABS: SCAN/DIFF AUTO DIFF CONFIRMED
[2017-06-06] MEDS ORDERED: HEPARIN SODIUM - IV 10,000 UNITS/10 ML VIAL IV ONE (15:00)
[2017-06-06 15:08] LABS: HEPARIN AB OD 0.275 O.D. (0.000-0.300); HEPARIN INDUCED PLATELET AB NEGATIVE (NEGATIVE)
[2017-06-06] MEDS: HEPARIN-D5W 25,000 U/250 ML 250 ML IV SCH (15:24)
[2017-06-06] MEDS: GENTAMICIN SULFATE (DIALYSIS USE ONLY) 20 MG/2 ML VIAL IV PRN (15:55)
[2017-06-06] MEDS: HEPARIN SODIUM - IV 10,000 UNITS/10 ML VIAL PRN (15:56)
[2017-06-06] MEDS: SODIUM CHLORIDE 0.9% FLUSH 10 ML FLUSH IV FLUSH PRN (15:57)
[2017-06-06] MEDS: SODIUM CHLOR 0.9% 1000 ML INJ 1,000 ML IV PRN (15:57)
[2017-06-06 17:02] LABS: APTT (PATIENT) 26.8 SEC (24.3-30.1); PROTHROMBIN TIME - PATIENT 10.9 SEC (9.8-11.6)
[2017-06-06] MEDS: MELATONIN 5 MG TAB PO SCH (20:27)
[2017-06-06] MEDS: PRASUGREL 10 MG TAB PO SCH (20:28)
[2017-06-06] MEDS: ATORVASTATIN 80 MG TAB PO SCH (20:28)
[2017-06-06] MEDS: NITROGLYCERIN-D5W 50 MG/250 ML 250 ML IV SCH (20:34)
[2017-06-07] VITALS (15 sets, daily range): BP systolic 125–168; BP diastolic 59–76; PULSE 72–94; RESP 12–28; TEMP 98.7–99.4; O2SAT 94–99
[2017-06-07] MEDS: RESP: ALBUTEROL 2.5 MG/IPRATROPIUM 0.5 MG NEB (SCH) NEB ×7 (00:09→23:20)
[2017-06-07 00:36] LABS: APTT (PATIENT) 37.9 SEC (24.3-30.1)
[2017-06-07] MEDS: INSULIN NovoLIN REGULAR SUPPLEMENTAL SCALE SQ SCH ×5 (02:16→21:00)
[2017-06-07 05:19] LABS: APTT (PATIENT) 44.1 SEC (24.3-30.1)
[2017-06-07 05:23] LABS: HEMATOCRIT 33.8 % (39.0-51.0); MEAN CELL VOLUME 98.3 FL (80.0-100.0); MEAN CORPUSCULAR HEMOGLOBIN 31.5 PG (27.0-34.0); MEAN CORPUSCULAR HGB CONC 32.1 % (32.0-36.0); PLATELET COUNT 91 TH/MM3 (150-450); RED BLOOD COUNT 3.43 MIL/MM3 (4.50-5.90); RED CELL DISTRIBUTION WIDTH 17.5 % (11.6-17.2); WHITE BLOOD COUNT 8.9 TH/MM3 (4.0-11.0)
[2017-06-07 05:27] LABS: REVIEW FLAG FINAL
[2017-06-07] MEDS: ASPIRIN 81 MG CHEW TAB CHEW SCH (07:53)
[2017-06-07] MEDS: GABAPENTIN 300 MG CAP PO SCH (07:53)
[2017-06-07] MEDS: SEVELAMER CARBONATE 800 MG TAB PO SCH ×3 (07:53→18:41)
[2017-06-07] MEDS: LOSARTAN 25 MG TAB PO SCH (07:54)
[2017-06-07] MEDS: METOPROLOL TARTRATE 100 MG TAB PO SCH ×2 (07:54→21:26)
[2017-06-07] MEDS: CHLORHEXIDINE 0.12% (ORAL KIT) 15 ML CUP MT SCH ×2 (07:54→20:00)
[2017-06-07] MEDS: DOCUSATE SODIUM 50 MG/SENNA 8.6 MG TAB PO SCH ×2 (07:55→21:26)
[2017-06-07 11:56] LABS: APTT (PATIENT) 35.3 SEC (24.3-30.1)
--- NOTE | 2017-06-07 15:00 | PD.CARD.PN ---
Subjective Subjective Remarks Patient seen this morning No complaints Breathing better, up to the chair, can lay flat Nitro at 5 mcg Objective Medications Current Medications Medications (Trade) Dose Ordered Sig/[place] Route Start Time Stop Time Status Last Admin (NS Flush) 2 ml UNSCH PRN IVF 06/02/17 03:45 (D50w (Vial) Inj) 25 ml UNSCH PRN IV PUSH 06/02/17 05:15 06/03/17 07:44 (NovoLIN R SUPPLEMENTAL SCALE) 1 ACHS AND 3AM SQ 06/02/17 07:00 06/07/17 11:00 (Zofran Inj) 4 mg Q6H PRN IV 06/02/17 05:15 (Duoneb Neb) 1 ampule Q2HR NEB PRN INH 06/02/17 05:15 Miscellaneous Information 1 Q361D XX 06/02/17 05:15 06/02/17 05:15 (Chlorhexidine 2% Cloth) 3 pack Taper DAILY@04 TOP 06/03/17 04:00 05/30/18 03:59 06/06/17 20:28 (Chlorhexidine 2% Cloth) 3 pack UNSCH PRN TOP 06/02/17 05:15 (Lakesha-Colace) 1 tab BID PO 06/02/17 09:00 06/07/17 07:55 Nicardipine HCl 25 mg/Sodium Chloride 260 ml @ 0 mls/hr TITRATE IV 06/02/17 06:15 (Trandate Inj) 20 mg Q15M PRN IV PUSH 06/02/17 06:15 06/04/17 12:05 (Apresoline Inj) 10 mg Q30M PRN IV PUSH 06/02/17 06:15 06/06/17 01:08 (Morphine Inj) 2 mg Q1H PRN IV PUSH 06/02/17 06:45 06/04/17 11:42 Sodium Chloride 1,000 ml @ 0 mls/hr Q0M PRN IV 06/02/17 09:11 06/03/17 18:05 (Heparin Inj) 8,000 units UNSCH PRN IVF 06/02/17 09:15 Sodium Chloride 1,000 ml @ 200 mls/hr Q5H PRN IV 06/02/17 09:11 Sodium Chloride 1,000 ml @ 0 mls/hr Q0M PRN IV 06/02/17 09:11 06/06/17 15:57 (Mannitol Inj) 12.5 gm UNSCH PRN IV 06/02/17 09:15 (Albumin 25% Inj) 25 gm UNSCH PRN IV 06/02/17 09:15 (NS Flush) 5 ml UNSCH PRN IV FLUSH 06/02/17 09:15 06/06/17 15:57 (Heparin Inj) UNSCH PRN .XX 06/02/17 09:15 06/06/17 15:56 (Gentamicin (Dialysis) Inj) 20 mg UNSCH PRN IV 06/02/17 09:15 06/06/17 15:55 (Zofran Inj) 4 mg UNSCH PRN IV 06/02/17 09:15 (Tylenol) 650 mg UNSCH PRN PO 06/02/17 09:15 06/03/17 23:31 (Benadryl) 25 mg UNSCH PRN PO 06/02/17 09:15 (Nitrostat Sl) 0.4 mg UNSCH PRN SL 06/02/17 09:15 06/04/17 12:35 (Catapres) 0.1 mg UNSCH PRN PO 06/02/17 09:15 (Gelfoam 12 Mm/7 Mm Top) 1 foam UNSCH PRN TOP 06/02/17 09:15 (Aspirin Chew) 81 mg DAILY CHEW 06/03/17 09:00 06/07/17 07:53 (Lipitor) 80 mg HS PO 06/02/17 21:00 06/06/17 20:28 (Cozaar) 25 mg DAILY PO 06/03/17 09:00 06/07/17 07:54 (Effient) 10 mg HS PO 06/02/17 21:00 06/06/17 20:28 (Peridex 0.12% Liq) 15 ml BID@08,20 MT 06/02/17 20:00 06/04/17 08:56 (Lopressor) 100 mg Q12HR PO 06/04/17 11:00 06/07/17 07:54 (Duoneb Neb) 1 ampule Q4HR NEB NEB 06/04/17 12:00 06/07/17 07:27 Nitroglycerin/ Dextrose 250 ml @ 0 mls/hr TITRATE IV 06/04/17 14:30 06/06/17 20:34 (Melatonin) 5 mg HS PO 06/06/17 21:00 06/06/17 20:27 (Renvela) 800 mg TID PO 06/06/17 13:00 06/07/17 13:00 Heparin Sodium/ Dextrose 250 ml @ 0 mls/hr TITRATE IV 06/06/17 15:00 06/06/17 15:24 (Neurontin) 300 mg DAILY PO 06/07/17 09:00 06/07/17 07:53 (Afrin 0.05% [place] M[place]ool) 2 spray BID NASAL 06/07/17 21:00 06/10/17 20:59 Vital Signs / I&O Vital Signs Date Time Temp Pulse Resp B/P (MAP) Pulse Ox O2 Delivery O2 Flow Rate FiO2 06/07/17 12:00 72 06/07/17 12:00 72 132/62 06/07/17 10:00 74 06/07/17 08:00 98.9 86 22 168/76 (106) 97 06/07/17 08:00 86 06/07/17 07:28 95 Nasal Cannula 3.00 06/07/17 06:00 83 06/07/17 04:00 80 06/07/17 04:00 98.7 80 23 134/60 (84) 96 06/07/17 02:00 80 06/07/17 00:09 96 Nasal Cannula 4.00 06/07/17 00:00 78 06/07/17 00:00 98.8 78 24 125/59 (81) 95 06/06/17 22:00 86 06/06/17 20:00 98.3 109 33 139/92 (108) 92 06/06/17 20:00 109 06/06/17 18:00 98 06/06/17 18:00 98 31 124/60 (81) 97 06/06/17 17:48 97 20 132/77 (95) 97 06/06/17 17:30 96 22 99 06/06/17 17:21 96 27 141/60 (87) 98 06/06/17 17:15 97 39 99 06/06/17 17:00 96 23 137/60 (85) 98 06/06/17 16:48 92 18 118/56 (76) 97 06/06/17 16:45 93 28 142/67 (92) 98 06/06/17 16:42 93 22 141/63 (89) 96 06/06/17 16:30 95 23 137/60 (85) 97 06/06/17 16:15 91 23 134/56 (82) 98 06/06/17 16:00 98.2 91 29 124/56 (78) 97 06/06/17 16:00 91 I/O 06/06/17 06/06/17 06/06/17 06/07/17 06/07/17 06/07/17 07:00 15:00 23:00 07:00 15:00 23:00 Intake Total 17 ml 313 ml 499 ml 372 ml Output Total 225 ml 110 ml 2500 ml Balance -208 ml 203 ml -2001 ml 372 ml Intake Oral 300 ml 400 ml 250 ml IV Total 17 ml 13 ml 99 ml 122 ml Output Urine Total 225 ml 110 ml Hemodialysis 2500 ml # Voids 1 1 # Bowel Movements 0 1 Physical Exam GENERAL: NAD, AAOx3 SKIN: Warm and dry. HEAD: Atraumatic. Normocephalic. EYES: Pupils equal and round. No scleral icterus. No injection or drainage. ENT: No nasal bleeding or discharge. Mucous membranes pink and moist. NECK: Trachea midline. No JVD. CARDIOVASCULAR: Regular rate and rhythm. RESPIRATORY: No accessory muscle use. Decreased breath sounds bilaterally, specifically RLL GASTROINTESTINAL: Abdomen soft, non-tender, nondistended. Hepatic and splenic margins not palpable. MUSCULOSKELETAL: 1+ edema bilaterally. NEUROLOGICAL: Awake and alert. No obvious cranial nerve deficits. Motor grossly within normal limits. Five out of 5 muscle strength in the arms and legs. Normal speech. PSYCHIATRIC: Appropriate mood and affect; insight and judgment normal. Laboratory Laboratory Tests Test 06/06/17 15:00 06/06/17 23:23 06/07/17 03:55 06/07/17 03:59 Prothrombin Time 10.9 SEC Prothromb Time International Ratio 1.0 RATIO Activated Partial Thromboplast Time 26.8 SEC 37.9 SEC 44.1 SEC White Blood Count 8.9 TH/MM3 Red Blood Count 3.43 MIL/MM3 Hemoglobin 10.8 GM/DL Hematocrit 33.8 % Mean Corpuscular Volume 98.3 FL Mean Corpuscular Hemoglobin 31.5 PG Mean Corpuscular Hemoglobin Concent 32.1 % Red Cell Distribution Width 17.5 % Platelet Count 91 TH/MM3 Mean Platelet Volume 10.8 FL Blood Urea Nitrogen 45 MG/DL Creatinine 6.93 MG/DL Random Glucose 99 MG/DL Calcium Level 8.2 MG/DL Sodium Level 140 MEQ/L Potassium Level 4.0 MEQ/L Chloride Level 98 MEQ/L Carbon Dioxide Level 30.0 MEQ/L Anion Gap 12 MEQ/L Estimat Glomerular Filtration Rate 8 ML/MIN Test 06/07/17 10:40 Activated Partial Thromboplast Time 35.3 SEC Assessment and Plan Problem List: (1) CAD (coronary artery disease) ICD Codes: I25.10 - Atherosclerotic heart disease of [place] coronary artery without angina pectoris Status: Acute (2) Hypertensive emergency ICD Codes: I16.1 - Hypertensive emergency Status: Acute (3) Respiratory failure ICD Codes: J96.90 - Respiratory failure, unspecified, unspecified whether with hypoxia or hypercapnia Status: Acute (4) NSTEMI (non-ST elevated myocardial infarction) ICD Codes: I21.4 - Non-ST elevation (NSTEMI) myocardial infarction Status: Acute (5) ESRD (end stage renal disease) ICD Codes: N18.6 - End stage renal disease Status: Acute (6) DM (diabetes mellitus) ICD Codes: E11.9 - Type 2 diabetes mellitus without complications Status: Acute (7) Hyperlipidemia ICD Codes: E78.5 - Hyperlipidemia, unspecified Status: Acute (8) Hypertension ICD Codes: I10 - Essential (primary) hypertension Status: Acute Assessment and Plan 1) NSTEMI with multiple PCI in the past 2) Unstable angina over the past week, concern for in-stent restenosis 3) Patient extubated, cath cancelled for Thursday due to inability to lay flat, will plan for tomorrow 4) Discussed with patient and his , in agreement 5) Will have to watch platelets, heparin restarted YANCY panel sent, but not really on heparin long enough usually for YANCY, YANCY negative 6) Does not want nitro off, he is concerned the chest pain will reoccur 7) Plan for catheterization with Dr. Juárez tomorrow Problem Qualifiers (1) CAD (coronary artery disease): (2) Respiratory failure: (3) DM (diabetes mellitus): Sunny Hernández DO Jun 07, 2017 15:00
[2017-06-07] MEDS: HEPARIN-D5W 25,000 U/250 ML 250 ML IV SCH (15:43)
--- NOTE | 2017-06-07 16:09 | HHI.NPPN ---
Subjective General Problems: Edema Renal Failure: Chronic, End Stage Renal Disease Additional Remarks No acute complaints, no chest pains today. Tolerated HD yesterday Review of Systems General Constitutional: Fatigue Respiratory Lungs: SOB Objective Data Data Vital Signs Date Time Temp Pulse Resp B/P (MAP) Pulse Ox O2 Delivery O2 Flow Rate FiO2 06/07/17 12:00 72 06/07/17 12:00 72 132/62 06/07/17 10:00 74 06/07/17 08:00 98.9 86 22 168/76 (106) 97 06/07/17 08:00 86 06/07/17 07:28 95 Nasal Cannula 3.00 06/07/17 06:00 83 06/07/17 04:00 80 06/07/17 04:00 98.7 80 23 134/60 (84) 96 06/07/17 02:00 80 06/07/17 00:09 96 Nasal Cannula 4.00 06/07/17 00:00 78 06/07/17 00:00 98.8 78 24 125/59 (81) 95 06/06/17 22:00 86 06/06/17 20:00 98.3 109 33 139/92 (108) 92 06/06/17 20:00 109 06/06/17 18:00 98 06/06/17 18:00 98 31 124/60 (81) 97 06/06/17 17:48 97 20 132/77 (95) 97 06/06/17 17:30 96 22 99 06/06/17 17:21 96 27 141/60 (87) 98 06/06/17 17:15 97 39 99 06/06/17 17:00 96 23 137/60 (85) 98 06/06/17 16:48 92 18 118/56 (76) 97 06/06/17 16:45 93 28 142/67 (92) 98 06/06/17 16:42 93 22 141/63 (89) 96 06/06/17 16:30 95 23 137/60 (85) 97 06/06/17 16:15 91 23 134/56 (82) 98 -: 06/07/17 0359 06/07/17 0359 Tubes & Lines: Perma-Cath Drip Comment NTG Physical Exam General Appearance: Well Developed, No Acute Distress, Comfortable, Obese Throat Throat Exam: Oral Mucosa [place] & Moist Pulmonary Resp Exam: Breath Sounds Equal, No Distress, Crackles, Rhonchi Cardiology CV Exam: Regular, Normal Sinus Rhythm Gastrointestinal/Abdomen GI Exam: Soft, Non-Tender, Bowel Sounds Present Musculoskeletal MS Exam: Joints Intact, Normal Tone, Unable to Ambulate Integumentary Skin Exam: Clear, Warm, Dry, Intact Extremeties Extremities Exam: Pedal Pulses Palpable, Moderate Edema, Pitting Edema Neurologic Neuro Exam: Alert, Awake, Moving All Extremities VTE Prophylaxis Device: SCDs Assessment/Plan Discussed Condition With: Patient, Spouse Assessment Summary: Anemia of CKD, End Stage Renal Disease Electrolyte Assessment: Hypocalcemia, Hypokalemia Problem List: (1) ESRD (end stage renal disease) ICD Codes: N18.6 - End stage renal disease Status: Acute Plan: Typical TTS HD, follows in HD Done yesterday - 2.5L UF Plan next HD Thursday. Planned cardiac cath Thursday. (If any volume issues post cath may consider for HD afterwards, otherwise plan HD for Thursday) Volume status stable. Current tunneled HD catheter. Poor development of left arm AV fistula - may further evaluate outpatient (previous revision with Dr. Mireles 12/2016) renally dose medications when appropriate (2) CAD (coronary artery disease) ICD Codes: I25.10 - Atherosclerotic heart disease of [place] coronary artery without angina pectoris Status: Acute Plan: new NSTEMI, has a very extensive cardiac history started on NTG drip, also on heparin Planned cardiac cath Thursday (3) Hyperkalemia ICD Codes: E87.5 - Hyperkalemia Status: Acute Plan: Improved, continue HD (4) Hypertensive emergency ICD Codes: I16.1 - Hypertensive emergency Status: Acute Plan: BP acceptable continue medications as ordered fluid removal with dialysis (5) Anemia ICD Codes: D64.9 - Anemia, unspecified Status: Acute Plan: Epogen not required follow Hb (6) Metabolic bone disease ICD Codes: E88.9 - Metabolic disorder, unspecified; M90.80 - Osteopathy in diseases classified elsewhere, unspecified site Status: Acute Plan: phosphorus level is acceptable (7) DM (diabetes mellitus) ICD Codes: E11.9 - Type 2 diabetes mellitus without complications Status: Acute Plan: continue insulin therapy, goal 140-180 mg/dL (8) Respiratory failure ICD Codes: J96.90 - Respiratory failure, unspecified, unspecified whether with hypoxia or hypercapnia Status: Acute Plan: s/p extubation monitor respiratory status Problem Qualifiers (1) CAD (coronary artery disease): (2) Anemia: (3) DM (diabetes mellitus): (4) Respiratory failure: Trip Carranza MD Jun 07, 2017 16:09
--- NOTE | 2017-06-07 17:00 | HHI.CCPN ---
Subjective Remarks/Hospital Course This is a 71yM with a strong CAD history s/p multiple PCI and CABG who presents with 10/10 chest pain unrelieved by ntg SL. He has a history of ESRD and presents after skipping his dialysis. He states that his chest pain has been going since Thursday, and he skipped HD on thursday because he was afraid IHD would make his chest pain worse. He states this pain feels like his prior heart attacks. he denies any other symptoms of fever, chills, nausea, vomiting, diarrhea. does endorse SOB and orthopnea. In the ED he was severely hypertensive with BP 262/124. He was given NTG without improvement. He was started on NGT drip and his BP was controlled < 200, but again his chest pain persisted. Nephrology was consulted for emergent dialysis. The patient also underwent CT aortogram to rule out acute dissection, formal read pending, but preliminarily negative for acute dissection. He is hypoxic on ventimask with spo2 91%. Critical care medicine is consulted to evaluate and manage his hypertensive emergency and hypoxemia. The remainder of the ROS and history is negative unless otherwise documented. 06/03/17: Patient was intubated yesterday for worsening hypercarbic resp failure and encephalopathy. Trop peaked at 4.2, cardiology Dr. Juárez following. More awake, but failed CPAP today 06/04; remains intubated on low-dose fentanyl, wakes up easily follows commands. Tolerating CPAP trial slightly better today. Chest x-ray shows slightly worsening left lower lobe infiltrate effusion 06/05: Chest pain is controlled, currently on nitroglycerin drip at 50 mcg/min- wean to DC as tolerated. IV heparin had to be held due to thrombocytopenia, hit screen sent. Tentatively plan for cardiac catheterization on Thursday. HD yesterday with 3L removed 06/06 Denies CP, Remains on low dose nitroglycerin 5mcg/min because he is afraid he will experience chestpain and Dr. Hernández okayed continuation. HIT screen pending. Refusing Bipap at night. Subjective: 06/07 Denies CP. Heparin drip was resumed. HIT is negative. On NC. Plan for cath in am tomorrow. C/o nasal congestion and requests nasal spray. Objective Vital Signs Date Time Temp Pulse Resp B/P (MAP) Pulse Ox O2 Delivery O2 Flow Rate FiO2 06/07/17 12:00 72 06/07/17 12:00 132/62 06/07/17 08:00 98.9 22 97 06/07/17 07:28 Nasal Cannula 3.00 06/05/17 03:40 50 Intake and Output 06/07/17 06/07/17 06/08/17 08:00 16:00 00:00 Intake Total 372 ml Balance 372 ml Result Diagram: 06/07/17 0359 06/07/17 0359 Imaging Last Impressions Chest X-Ray 06/02/17 0336 Signed Impressions: Service Date/Time: Friday, June 02, 2017 03:56 - CONCLUSION: Mild patchy bibasilar infiltrates, right greater than left. Robert Steiner MD Objective Remarks GENERAL: Obese gentleman who is sitting up in bed on nasal cannula, conversant with his . SKIN: Warm and dry. HEAD: Atraumatic. Normocephalic. EYES: Pupils equal and round. No scleral icterus. No injection or drainage. ENT: No nasal bleeding or discharge. Mucous membranes pink and moist. NECK: large neck circumference prevents accurate assessment of jvd CARDIOVASCULAR: Regular rate and rhythm. No murmurs rubs or gallops. RESPIRATORY: Clear to auscultation bilaterally. No wheezes Rales or rhonchi. GASTROINTESTINAL: Abdomen obese, soft soft, non-tender, nondistended. MUSCULOSKELETAL: Extremities without clubbing, cyanosis, 2+ edema of all extremities. No obvious deformities. NEUROLOGICAL: Awake and alert. No obvious cranial nerve deficits. Motor grossly within normal limits. Normal speech. A/P Assessment and Plan Assessment: 71yM with CAD, ESRD who presents with hypertensive emergency, unrelenting chest pain, and Pulmonary edema/CHF exacerbation. Ruled in for NSTEMI. Cath once stable Neuro: - As needed morphine for pain - Request something for sleep. Melatonin 5 mg by mouth daily at bedtime - Resume gabapentin 300 mg by mouth 3 times a day Nasal congestion Afrin nasal spray bid x3 days CVS: ACS/NSTEMI Hypertensive Emergency Hyperlipidemia -- Continue Aspirin, Effient 10 by mouth daily at bedtime.On IV Heparin -- On low dose nitro drip -- goal SBP < 160 -- Continue Cozaar 25 daily, metoprolol 100 twice a day --Continue atorvastatin 80 g by mouth daily at bedtime -- Cardene drip as needed, prn hydralazine, labetalol -- HD TTS -- Cardiology Dr. Juárez. Cardiac catheterization tentatively on Thursday Resp: Acute hypoxic respiratory failure Acute intravascular volume overload Acute CHF exacerbation, unknown type Acute hypercapnic respiratory failure -- Emergently intubated 06/02, for hypercapnic resp. Extubated 06/04/17 -- Pulmonary Edema improved, continue HD per nephrology. Lasix 80 mg po -- 2d echo Nl EF -- wean fio2 for spo2 > 90% -- nebs, pulmonary toilet. -- EzPAP, Acapella GI: - Continue cardiac and renal diet, protonix ESRD -- HD per nephrology, TTS schedule. Resume renvela. ID -- Monitor for infection HEME: -- IV heparin resumed. HIT Ab negative. -- PPI Continue Out of bed today. and patient updated at bedside. Discussed with Dr. Hernández who states patient will remain in ICU due to unstable angina. Level 2 Kia Castillo MD Jun 07, 2017 16:59
[2017-06-07 19:11] LABS: APTT (PATIENT) 45.5 SEC (24.3-30.1)
[2017-06-07] MEDS ORDERED: ASPIRIN 325 MG TAB PO SCH (20:30)
[2017-06-07] MEDS ORDERED: DIAZEPAM 10 MG TAB PO SCH (20:30)
[2017-06-07] MEDS ORDERED: diphenhydrAMINE HCL 50 MG CAP PO SCH (20:30)
[2017-06-07] MEDS: ATORVASTATIN 80 MG TAB PO SCH (21:25)
[2017-06-07] MEDS: MELATONIN 5 MG TAB PO SCH (21:25)
[2017-06-07] MEDS: OXYMETAZOLINE HCL 0.05% 15 ML NASAL SPRAY NASAL SCH (21:25)
[2017-06-07] MEDS: PRASUGREL 10 MG TAB PO SCH (21:26)
[2017-06-07 23:45] LABS: APTT (PATIENT) 43.4 SEC (24.3-30.1)
[2017-06-08] VITALS (19 sets, daily range): BP systolic 94–135; BP diastolic 48–61; PULSE 63–97; RESP 11–38; TEMP 98.4–98.9; O2SAT 95–100
[2017-06-08] MEDS: MORPHINE SULFATE 4 MG/ML INJ IV PUSH PRN (00:37)
[2017-06-08] MEDS: RESP: ALBUTEROL 2.5 MG/IPRATROPIUM 0.5 MG NEB (SCH) NEB ×3 (02:56→11:15)
[2017-06-08] MEDS: INSULIN NovoLIN REGULAR SUPPLEMENTAL SCALE SQ SCH ×5 (03:00→20:43)
[2017-06-08] MEDS: CHLORHEXIDINE GLUCONATE 2 % 1 PACK (2 CLOTHS) TOP SCH ×2 (04:00→20:37)
[2017-06-08 05:39] LABS: AUTOMATED NEUTROPHIL # 5.8 TH/MM3 (1.8-7.7); BASOPHIL % 0.3 % (0.0-2.0); EOSINOPHIL # 0.5 TH/MM3 (0-0.4); EOSINOPHIL % 5.6 % (0.0-4.0); HEMO FLAGS DIFF FINAL; LYMPH % 12.7 % (9.0-44.0); LYMPHOCYTE # 1.1 TH/MM3 (1.0-4.8); MEAN CORPUSCULAR HEMOGLOBIN 31.9 PG (27.0-34.0); MEAN CORPUSCULAR HGB CONC 32.6 % (32.0-36.0); NEUT % 66.4 % (16.0-70.0); PLATELET COUNT 131 TH/MM3 (150-450); RED BLOOD COUNT 3.27 MIL/MM3 (4.50-5.90); RED CELL DISTRIBUTION WIDTH 17.3 % (11.6-17.2); WHITE BLOOD COUNT 8.8 TH/MM3 (4.0-11.0)
[2017-06-08 06:12] LABS: BICARBONATE 30.2 MEQ/L (21.0-32.0); POTASSIUM 4.5 MEQ/L (3.5-5.1)
[2017-06-08] MEDS ORDERED: HEPARIN-NS/PF INJ 1,000 ML ONE (07:05)
[2017-06-08] MEDS ORDERED: MIDAZOLAM HCL 2 MG/2 ML VIAL ONE (07:05)
[2017-06-08] MEDS: ASPIRIN 81 MG CHEW TAB CHEW SCH (07:13)
[2017-06-08] MEDS: CHLORHEXIDINE 0.12% (ORAL KIT) 15 ML CUP MT SCH ×2 (08:00→20:00)
[2017-06-08] MEDS ORDERED: SODIUM CHLOR 0.9% 1000 ML INJ 1,000 ML IV SCH (08:34)
--- NOTE | 2017-06-08 08:37 | CATHPROC ---
[facility] HIS Report Study Information Study Number Scheduled Start Study Start [id number] 06/08/2017 Jun 08 2017 7:35AM Referring Institution Admit Source Facility Department 1 Other [facility] - Floor Trader Physician and Clinical Staff Initial Julio Wesley Folder Hand Sandra Crews RN Folder Hand Paris Tee,NATASHA Recorder oRb Rivas,RODEO RIDER(BS) Scrub Meera Lawrence,RT(R) Scrub Rebecca Chan,RODEO RIDER TECH2 Procedures Performed Procedure Location (Site) Vessel Name Coronary Angiograms LCA Left Coronary Coronary Angiograms RCA Right Coronary Coronary Angiograms ARMIJO-LAD Left Coronary Coronary Angiograms SVG-PDA Right Coronary L Heart Cath LV Gram-hand inj. LV LV Ventricle Equipment Time Carbon Coating Machine Operator Description Size Mfg Part Number Used/Scraped TRANSDUCER, TRErlyAVE [id number] 07:45 HEMPHILL CREWS * Used W/STOCKCOCK *[id number] *[id number] *[id number] *[id number] 07:45 [employer] INDUSTRIES PACK, CCL CUSTOM * Used *[id number] 07:45 [employer] PACER PEN, SKIN DUAL W/ RULER * Used *[id number] 07:45 [employer] MEDICAL SHEATH, FR6.5 PRELUDE 11CM FR 6.5 038ACT Used *[id number] 07:45 [employer]ikdate WIRE, 3MMJ .035 180CM 180CM Used *[id number] 07:45 NAMIC MANIFOLD, 4 PORT * Used *[id number] 07:45 [employer] OMNIPAQUE, 350 MG, 150ML 150ML [id number] Used [id number] 07:45 [employer] BLANKET,WARM AIR CCL * Used *[id number] History: Current Medications Medication Dosage/Unit Route Frequency Last Date/Time Taken ASA Beta Betsy EFFIENT LIPITOR COZAAR History: Allergies Allergy Reaction No Known Allergies History: Risk Factors Family History of Hypertension Dyslipidemia Previous [place] Previous Heart Failure Premature CAD Yes Yes No Yes No Prior Valve Prior PCI Prior CABG Prior CABGDate Surgery No Yes Yes 10/19/2002 Cerebrovascular 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 Diabetes Disease Disease Disease Yes No No No No History: Stress Tests Stress or Imaging Studies Performed No History: Other Current Smoker No Labs Hgb (g/dl) Hct (%) WBC (l/cumm) Platelets (thousands) 11.60-17.00 35.00-51.00 4.00-11.00 150.00-450.00 10.4 32 8.8 131 Glucose (mg/dl) BUN (mg/dl) Creatinine (mg/dl) BUN:Creatinine (1:x) 74.00-106.00 7.00-18.00 0.50-1.30 10.00-20.00 191 64 8.8 7.3 Na (meq/l) K (meq/l) 136.00-145.00 3.50-5.10 134 4.5 INR (PTT:PT) 0.90-1.10 1 CPK-MB (ng/ML) 0.50-3.60 Not Drawn Medication Medication Total Dose (Bolus/Oral) Medication Total Dosage/Unit 1% XYLOCAINE 20 mL VERSED 2 mg Medications (Bolus/Oral) Medication Time Given Dosage/Unit Administered By Reason VERSED 06/08/2017 7:58:29 AM 2 mg Sandra Crews 2 mg VERSED given in lab by Sandra Crews, NATASHA in Right Forearm via Peripheral IV. Ordered by Julio Montanez. 1% XYLOCAINE 06/08/2017 7:58:46 AM 20 mL Julio Juárez 20 mL 1% XYLOCAINE given in lab by Julio Juárez in Right Groin via Subcutaneous. Ordered by Devon Juárez enn. Medication (Drip) Medication Time Given Dosage/Unit Concentration/Unit Diluent (ml) Solution IV Solutions 06/08/2017 7:36:25 AM 0 mL (IV) 500 NaCl .9 IV Solutions given in lab by Paris Tee, NATASHA in Right Forearm via Peripheral IV. Pump/Drip Flow = 20 ml/hr using NaCl .9. Ordered by Julio Juárez. Initial Case Assessment Cardiovascular HR Rhythm NIBP Chest Pain 78 SR 125/64 0 Edema Present Skin color Skin None Normal Warm Dry Circulatory - Right Pulses Dorsalis Pedis Femoral 1 1 Scale (0,1,2,3,4,d) Circulatory - Left Pulses Dorsalis Pedis Femoral 1 1 Scale (0,1,2,3,4,d) Circulatory - Lower Extremities Color Lower Right Color Lower Left Normal Normal Neurological State Oriented to time-place- Alert Moves all extremities person Respiration - General Respiration Rate SpO2 (%) (B/min) 16 98 Final Case Assessment Cardiovascular HR Rhythm NIBP Chest Pain 78 SR 125/64 0 Edema Present Skin color Skin None Normal Warm Dry Circulatory - Right Pulses Dorsalis Pedis Femoral 1 1 Scale (0,1,2,3,4,d) Circulatory - Left Pulses Dorsalis Pedis Femoral 1 1 Scale (0,1,2,3,4,d) Circulatory - Lower Extremities Color Lower Right Color Lower Left Normal Normal Neurological State Oriented to time-place- Alert Moves all extremities person Respiration - General Respiration Rate SpO2 (%) (B/min) 16 98 Chronological Log Time Study Chronological Log 7:30:19 Patient arrived via Bed. 7:30:20 Patient Name, D.O.B, / Armband Verified By R.N. 7:30:21 Consent signed by the physician and the patient and verified by the Floor Trader staff. 7:30:22 Pre-op and post- op instructions given; patient acknowledges understanding of instructions. Vitals capture started with the following parameters, Patient=Adult, Interval=3 min, Initial Pr vpsifo=135 mmHg, 7:35:15 Deflation Rate=5 mmHg, Cuff placed on Right Arm 7:36:04 FX=892 bpm, FYLC=599/77 mmhg, SpO2=99.0 %, Resp=23 B/min 7:36:18 Patient has been NPO for Less than 6Hrs. 7:36:19 Skin Breakdown- 7:36:21 Patient Warmer Placed on the Table. 7:36:24 A # 20 IV was noted in the Forearm (right). Grade = 0 IV Solutions given in lab by Paris Tee RN in Right Forearm via Peripheral IV. Pump/Drip Flow = 20 ml/hr using 7:36:25 NaCl .9. Ordered by Julio Juárez. 7:36:26 History and physical on the chart or being dictated. Assessment: Initial Case, HR=78 BPM, Rhythm=SR, OYEG=657/64 mmhg, Chest Pain=0, Edema=None, [place] r=Normal, Skin = Warm, Dry Right Pulses: Naif Ped=1, Femoral=1 Left Pulses: Naif Ped=1, Femoral=1 7:36:27 Lower Right Extremities: Color=Normal Lower Left Extremities: Color=Normal Neurological: State=Alert, Ox3, DOS SANTOS Respiration: Resp=16 B/min, SpO2=98 % 7:38:31 HR=89 bpm, ECXQ=400/68 mmhg, SpO2=98.0 %, Resp=20 B/min, Pain=0, Leonora=10, [place]=2 7:41:32 HR=77 bpm, SOTR=549/67 mmhg, SpO2=98.0 %, Resp=18 B/min, Pain=0, Leonora=10, [place]=2 7:44:30 HR=74 bpm, YGTI=964/78 mmhg, SpO2=98.0 %, Resp=22 B/min, Pain=0, Leonora=10, [place]=2 7:47:34 HR=78 bpm, QYFQ=086/70 mmhg, SpO2=99.0 %, Resp=18 B/min, Pain=0, Leonora=10, [place]=2 7:50:30 HR=77 bpm, KFQW=457/64 mmhg, SpO2=99.0 %, Resp=17 B/min, Pain=0, Leonora=10, [place]=2 7:50:41 Pressure channel 1 zeroed. 7:51:23 Reference ECG taken 7:52:38 Right groin prepped with 2% chlorhexidine, and with a 3 min. waiting time. 7:52:39 MD paged 7:52:40 MD responded 7:53:29 HR=77 bpm, JDXL=269/66 mmhg, SpO2=99.0 %, Resp=14 B/min, Pain=0, Leonora=10, Ames=2 7:55:45 MD arrived. 7:56:31 HR=79 bpm, HEUC=478/62 mmhg, SpO2=97.0 %, Resp=19 B/min, Pain=0, Leonora=10, [place]es=2 Time Out. Correct patient, correct procedure,correct physician, power injector not loaded with c ontrast with surgical 7:57:55 team present. Time Out Concurred by , individual staff in procedure 7:57:57 Case Start 7:58:29 2 mg VERSED given in lab by Sandra Crews, RN in Right Forearm via Peripheral IV. Ordere d by Julio Juárez. 7:58:46 20 mL 1% XYLOCAINE given in lab by Julio Juárez in Right Groin via Subcutaneous. Ordered by Julio Juárez. 7:59:33 HR=80 bpm, XAWQ=810/60 mmhg, FgC4=897.0 %, Resp=15 B/min, Pain=0, Leonora=10, [place]=2 8:00:55 Access site was Right Femoral Artery. 8:01:08 A SHEATH, FR6.5 PRELUDE 11CM FR 6.5 was advanced into the Fem Art (right) using the Percutan eous technique. A JL 4.0 INFINITI CATHETER FR 6 was advanced over a wire. OMNIPAQUE, 350 MG, 150ML 150ML was use d for 8:01:14 injections. Recorded Pressure: Ao, HR=78, Condition=Condition 1 8:02:27 (Aorta) Ao 105/57/77 8:02:31 The LCA was injected and visualized at various angles. OMNIPAQUE, 350 MG, 150ML 150ML used. 8:02:33 HR=83 bpm, IEZC=511/62 mmhg, SpO2=96.0 %, Resp=22 B/min, Pain=0, Leonora=10, Ames=2 8:03:17 Catheter was removed A 3DRC INFINITI CATHETER FR 6 was advanced over a wire. OMNIPAQUE, 350 MG, 150ML 150ML was used for 8:03:19 injections. 8:04:59 The RCA was injected and visualized at various angles. OMNIPAQUE, 350 MG, 150ML 150ML used. 8:05:31 HR=80 bpm, LAJT=315/58 mmhg, SpO2=96.0 %, Resp=25 B/min, Pain=0, Leonora=10, Ames=2 8:06:27 The ARMIJO-LAD was injected and visualized at various angles. OMNIPAQUE, 350 MG, 150ML 150ML u sed. 8:07:11 Catheter was removed A MPA-2 INFINITI CATHETER FR 6 was advanced over a wire. OMNIPAQUE, 350 MG, 150ML 150ML was used for 8:08:00 injections. 8:08:30 HR=81 bpm, UNZL=219/59 mmhg, SpO2=96.0 %, Resp=21 B/min, Pain=0, Leonora=10, Ames=2 8:08:58 The SVG-PDA was injected and visualized at various angles. OMNIPAQUE, 350 MG, 150ML 150ML us ed. Recorded Pressure: LV, HR=82, Condition=Condition 1 8:10:06 (Left Ventricle) LV 115/6/24 8:10:13 The LV was manually injected with 8 cc's and visualized. OMNIPAQUE, 350 MG, 150ML 150ML use d. Recorded Pressure: LV, Ao, HR=82, Condition=Condition 1 8:10:33 (Left Ventricle) LV 120/9/28, (Aorta) Ao 111/56/78 8:11:02 Catheter was removed 8:11:30 HR=80 bpm, WQAD=330/62 mmhg, SpO2=96.0 %, Resp=23 B/min, Pain=0, Leonora=10, [place]=2 8:14:32 HR=81 bpm, JWAX=924/60 mmhg, SpO2=96.0 %, Resp=20 B/min, Pain=0, Leonora=10, [place]=2 8:17:32 HR=81 bpm, YLDW=540/61 mmhg, SpO2=97.0 %, Resp=21 B/min, Pain=0, Leonora=10, [place]=2 8:18:52 Case End Assessment: Final Case, HR=78 BPM, Rhythm=SR, TUID=863/64 mmhg, Chest Pain=0, Edema=None, Color =Normal, Skin = Warm, Dry Right Pulses: Naif Ped=1, Femoral=1 Left Pulses: Naif Ped=1, Femoral=1 8:19:09 Lower Right Extremities: Color=Normal Lower Left Extremities: Color=Normal Neurological: State=Alert, Ox3, DOS SANTOS Respiration: Resp=16 B/min, SpO2=98 % 8:20:33 HR=81 bpm, ZLZJ=145/63 mmhg, SpO2=97.0 %, Resp=27 B/min, Pain=0, Leonora=10, Am[place]=2 8:23:33 HR=81 bpm, XRDD=072/67 mmhg, SpO2=98.0 %, Resp=19 B/min, Pain=0, Leonora=10, [place]=2 8:27:00 Activated Clotting Time Drawn 8:28:11 Sheath(s) left in place, will be removed in Holding Area 8:28:15 Sterile dressing applied to site 8:28:15 No case complications noted. 8:28:16 Cine recording checked. 8:28:20 Bedside Report will be given. 8:28:22 Contrast Scanned 8:28:25 A Left Heart Cath was performed. 8:28:40 ACT (Normal Range 90-180) = 174 8:29:00 Patient moved to stretcher End Study - Contrast Media Used In Study Contrast Total Opened (mL) Total Used (mL) Total Wasted (mL) Omnipaque 100 100 0 End Study - Maximum Contrast Load Max Contrast Load (mL) 68.2 End Study - Radiation Exposure Fluoro Time (minutes) 3.0 End Study - Patient Disposition Complications Transferred To No Critical Care Bed
[2017-06-08] MEDS ORDERED: SODIUM CHLOR 0.9% 250 ML INJ 250 ML IV PRN (08:45)
[2017-06-08] MEDS ORDERED: ATROPINE SULFATE 1 MG/ML VIAL IV PRN (08:45)
--- NOTE | 2017-06-08 08:54 | MA ---
cc: KRISTEN SHIRLEY M.D. DATE: 06/08/2017 PROCEDURE Left heart catheterization, selective coronary and graft angiography, left ventriculography. PROCEDURE NOTE The patient was brought to the cardiac catheterization laboratory in a fasting state after having signed informed consent. The right groin was prepped and draped as per policy and anesthetized with 1% lidocaine. Arterial access was obtained via the right femoral artery and a 6-Divehi sheath placed. Coronary arteriography was performed using 6-Divehi Felicity left 4.0 and right progressive catheters. The left internal mammary artery was engaged with the progressive right catheter. The vein graft to the right coronary artery was engaged with a multipurpose catheter which was also used for left ventriculography. There were no apparent immediate complications. Manual pressure was applied to achieve good hemostasis. HEMODYNAMIC DATA Left ventricle 120 with an end-diastolic pressure of 15. Aorta 111/56 with a mean of 78. There was no significant transvalvular aortic gradient on pullback of the pigtail catheter. CORONARY ARTERIOGRAPHY The left main has a stent encompassing its mid to distal portion and into the very proximal left circumflex. This stent is widely patent. The mid left main may have up to 10% stenosis. The left anterior descending is totally occluded proximally. The left circumflex is a relatively large vessel giving rise to medium-sized early branching first obtuse marginal. The more inferior branch of which is totally occluded, the more superior branch of which has 60% ostial stenosis. In the mid left circumflex there are a number of stents and there is severe restenosis in two regions of the mid left circumflex. Also in the proximal left circumflex there is 60-70% stenosis in a region which does not appear to be stented. The right coronary artery is diffusely diseased. It is somewhat difficult to quantify the degree of stenoses. Stents are evident in the ostial to proximal region and in the midvessel. The mid stent has diffuse re-stenosis probably up to 80% severity. GRAFT ANGIOGRAPHY The left internal mammary artery to the LAD is widely patent. There is retrograde filling into what appears to be a relatively small caliber diagonal which has 95% proximal stenosis. The vein graft to the right coronary artery is widely patent. There are diffuse minimal luminal irregularities of this graft. A vein graft to the obtuse marginal is known to be chronically totally occluded. LEFT VENTRICULOGRAPHY Contrast injection of the left ventricle reveals no segmental wall motion abnormalities. Ejection fraction is estimated at 60%. CONCLUSION 1. Severe three-vessel tan[place] coronary artery disease. 2. Patent left internal mammary artery to the LAD and patent vein graft to the right coronary artery, chronically totally occluded vein graft to the obtuse marginal. 3. Normal left ventricular function with estimated ejection fraction of 60%. 4. Recurrent severe restenosis of mid left circumflex stents. DISCUSSION The patient has both Resolute and Promus stents in the left circumflex, both of which have severely restenosed in the past several months. Consideration could be made towards laser therapy of this region or AngioSculpt angioplasty. He also will be considered for possible redo bypass surgery, although target vessels appear to be relatively poor. MD PRASAD Moss/VIVI /8:28 AM /8:39 AM NOMAN
[2017-06-08] MEDS: SEVELAMER CARBONATE 800 MG TAB PO SCH ×3 (09:00→18:00)
[2017-06-08] MEDS: OXYMETAZOLINE HCL 0.05% 15 ML NASAL SPRAY NASAL SCH ×2 (09:00→20:40)
[2017-06-08] MEDS: METOPROLOL TARTRATE 100 MG TAB PO SCH ×2 (10:26→20:36)
[2017-06-08] MEDS: LOSARTAN 25 MG TAB PO SCH (10:26)
[2017-06-08] MEDS: GABAPENTIN 300 MG CAP PO SCH (10:26)
[2017-06-08] MEDS: DOCUSATE SODIUM 50 MG/SENNA 8.6 MG TAB PO SCH ×2 (10:26→20:36)
--- NOTE | 2017-06-08 12:37 | HHI.NPPN ---
Subjective General Problems: Edema Renal Failure: Chronic, End Stage Renal Disease Interval History He had catheterization this morning with no intervention. To have another procedure tomorrow. He is awake, alert. No complaints. (Vivienne Thomas) Review of Systems General Constitutional: Fatigue (Vivienne Thomas) Respiratory Lungs: SOB (Vivienne Thomas) Objective Data Data Vital Signs Date Time Temp Pulse Resp B/P (MAP) Pulse Ox O2 Delivery O2 Flow Rate FiO2 06/08/17 11:16 98 Nasal Cannula 3.00 06/08/17 06:00 72 113/55 06/08/17 04:00 98.9 75 22 113/55 (74) 95 06/08/17 00:00 98.7 97 18 127/57 (80) 95 06/07/17 23:00 94 06/07/17 20:17 98 Nasal Cannula 3.00 06/07/17 20:00 99.1 86 28 145/70 (95) 99 06/07/17 18:00 83 06/07/17 16:00 82 06/07/17 16:00 99.4 82 20 127/60 (82) 94 06/07/17 14:00 74 (Vivienne Thomas) -: 06/08/17 0508 06/08/17 0508 Imaging Last 72 hours Impressions Chest X-Ray 06/06/17 0600 Signed Impressions: Service Date/Time: Tuesday, June 06, 2017 03:50 - CONCLUSION: 1. Mild basilar airspace disease stable to slightly improved from June 05. Removal of previous NG tube. Right vas catheter unchanged. Jayme Carlin MD Tubes & Lines: Perma-Cath (Vivienne Thomas) Physical Exam General Appearance: Well Developed, No Acute Distress, Comfortable, Obese (Vivienne Thomas) Eyes Eye Remarks bilateral ocular hemorrhage (Vivienne Thomas) Throat Throat Exam: Oral Mucosa [place] & Moist (Vivienne Thomas) Pulmonary Resp Exam: Breath Sounds Equal, No Distress, Crackles, Rhonchi (Vivienne Thomas) Cardiology CV Exam: Regular, Normal Sinus Rhythm (William,Vivienne B. OFFAL TRIMMER) Gastrointestinal/Abdomen GI Exam: Soft, Non-Tender, Bowel Sounds Present (Vivienne Thomas OFFAL TRIMMER) Musculoskeletal MS Exam: Joints Intact, Normal Tone, Unable to Ambulate (Vivienne Thomas OFFAL TRIMMER) Integumentary Skin Exam: Clear, Warm, Dry, Intact (Vivienne Thomas. OFFAL TRIMMER) Extremeties Extremities Exam: Pedal Pulses Palpable, Moderate Edema, Pitting Edema (Vivienne Thomas OFFAL TRIMMER) Neurologic Neuro Exam: Alert, Awake, Moving All Extremities (Vivienne Thomas OFFAL TRIMMER) VTE Prophylaxis Device: SCDs (Vivienne Thomas B. OFFAL TRIMMER) Assessment/Plan Discussed Condition With: Patient, Spouse Assessment Summary: Anemia of CKD, End Stage Renal Disease Electrolyte Assessment: Hypocalcemia, Hypokalemia Problem List: (1) ESRD (end stage renal disease) ICD Codes: N18.6 - End stage renal disease Status: Acute Plan: Typical TTS HD, follows in [facility] Due for dialysis tomorrow Volume status is stable. No acute electrolyte concerns Current tunneled HD catheter. Poor development of left arm AV fistula - may further evaluate outpatient ( previous revision with Dr. Mireles 12/2016) continue current plan, avoid IVF renally dose medications when appropriate (2) CAD (coronary artery disease) ICD Codes: I25.10 - Atherosclerotic heart disease of [place] coronary artery without angina pectoris Status: Acute Plan: new NSTEMI, has a very extensive cardiac history off NTG and heparin gtt s/pp cardiac cath, to have additional procedure tomorrow per family monitor clinically (3) Hyperkalemia ICD Codes: E87.5 - Hyperkalemia Status: Acute Plan: Improved, continue HD (4) Hypertensive emergency ICD Codes: I16.1 - Hypertensive emergency Status: Acute Plan: BP acceptable continue medications as ordered fluid removal with dialysis (5) Anemia ICD Codes: D64.9 - Anemia, unspecified Status: Acute Plan: Epogen not required follow Hb (6) Metabolic bone disease ICD Codes: E88.9 - Metabolic disorder, unspecified; M90.80 - Osteopathy in diseases classified elsewhere, unspecified site Status: Acute Plan: phosphorus level is acceptable (7) DM (diabetes mellitus) ICD Codes: E11.9 - Type 2 diabetes mellitus without complications Status: Acute Plan: continue insulin therapy, goal 140-180 mg/dL (8) Respiratory failure ICD Codes: J96.90 - Respiratory failure, unspecified, unspecified whether with hypoxia or hypercapnia Status: Acute Plan: s/p extubation monitor respiratory status (Vivienne Thomas) Plan patient was seen and examined. Agree with above assessment and plan. (Stephen Mixon MD) Problem Qualifiers (1) CAD (coronary artery disease): (2) Anemia: (3) DM (diabetes mellitus): (4) Respiratory failure: Vivienne Thomas Jun 08, 2017 12:36 Stephen Mixon MD Jun 09, 2017 11:12
[2017-06-08] MEDS ORDERED: IOHEXOL 350 MG/ML 50 ML BTL (for Cath Lab) OTHER ONE (13:41)
--- NOTE | 2017-06-08 13:53 | PD.CARD.PN ---
Subjective Subjective Remarks No angina over the weekend. Dyspnea resolved. No dizziness, palpitations. Slept fairly well. Objective Medications Item Value Date Time Nitroglycerin/ 250 ml @ 0 mls/hr 06/04/17 1430 Dextrose TITRATE/IV 06/06/17 2034 Metoprolol 100 mg 06/04/17 1100 Tartrate Q12HR/PO 06/08/17 1026 (Lopressor) Aspirin 81 mg 06/03/17 0900 (Aspirin Chew) DAILY/CHEW 06/08/17 0713 Losartan Potassium 25 mg 06/03/17 0900 (Cozaar) DAILY/PO 06/08/17 1026 Atorvastatin 80 mg 06/02/17 2100 Calcium HS/PO 06/07/17 2125 (Lipitor) Vital Signs / I&O Vital Signs Date Time Temp Pulse Resp B/P (MAP) Pulse Ox O2 Delivery O2 Flow Rate FiO2 06/08/17 11:16 98 Nasal Cannula 3.00 06/08/17 06:00 72 113/55 06/08/17 04:00 98.9 75 22 113/55 (74) 95 06/08/17 00:00 98.7 97 18 127/57 (80) 95 06/07/17 23:00 94 06/07/17 20:17 98 Nasal Cannula 3.00 06/07/17 20:00 99.1 86 28 145/70 (95) 99 06/07/17 18:00 83 06/07/17 16:00 82 06/07/17 16:00 99.4 82 20 127/60 (82) 94 06/07/17 14:00 74 I/O 06/07/17 06/07/17 06/07/17 06/08/17 06/08/17 06/08/17 07:00 15:00 23:00 07:00 15:00 23:00 Intake Total 372 ml 745 ml Output Total 100 ml 100 ml Balance 372 ml 645 ml -100 ml Intake Oral 250 ml 480 ml IV Total 122 ml 265 ml Output Urine Total 100 ml 100 ml # Voids 1 Physical Exam GENERAL: Well developed, well nourished. Intubated. Sedated. HEENT: Jugular venous pressure is hard to assess. CHEST: Lungs clear to auscultation bilaterally. Unlabored respiratory effort. CARDIAC: Regular rate and rhythm without S3, S4. I/ CHASE RUSB. Normal S2. ABDOMEN: Soft, nontender, no hepatosplenomegaly. Bowel sounds present. EXTREMITIES: No clubbing, cyanosis, edema Laboratory Laboratory Tests Test 06/07/17 18:22 06/07/17 23:21 06/08/17 05:08 Activated Partial Thromboplast Time 45.5 SEC 43.4 SEC White Blood Count 8.8 TH/MM3 Red Blood Count 3.27 MIL/MM3 Hemoglobin 10.4 GM/DL Hematocrit 32.0 % Mean Corpuscular Volume 98.0 FL Mean Corpuscular Hemoglobin 31.9 PG Mean Corpuscular Hemoglobin Concent 32.6 % Red Cell Distribution Width 17.3 % Platelet Count 131 TH/MM3 Mean Platelet Volume 9.8 FL Neutrophils (%) (Auto) 66.4 % Lymphocytes (%) (Auto) 12.7 % Monocytes (%) (Auto) 15.0 % Eosinophils (%) (Auto) 5.6 % Basophils (%) (Auto) 0.3 % Neutrophils # (Auto) 5.8 TH/MM3 Lymphocytes # (Auto) 1.1 TH/MM3 Monocytes # (Auto) 1.3 TH/MM3 Eosinophils # (Auto) 0.5 TH/MM3 Basophils # (Auto) 0.0 TH/MM3 CBC Comment DIFF FINAL Differential Comment Blood Urea Nitrogen 64 MG/DL Creatinine 8.80 MG/DL Random Glucose 191 MG/DL Calcium Level 7.8 MG/DL Sodium Level 134 MEQ/L Potassium Level 4.5 MEQ/L Chloride Level 93 MEQ/L Carbon Dioxide Level 30.2 MEQ/L Anion Gap 11 MEQ/L Estimat Glomerular Filtration Rate 6 ML/MIN Assessment and Plan Problem List: (1) CAD (coronary artery disease) ICD Codes: I25.10 - Atherosclerotic heart disease of [place] coronary artery without angina pectoris Status: Acute Plan: Cath today shows severe in-stent restenosis of mid left circumflex in two areas. This region already has Resolute and Promus type drug eluting stents. Will refer patient to Dr. Hernández for laser atherectomy. If in the future he once again experiences left circumflex restenosis, rec consider redo CABG. (2) Hypertensive emergency ICD Codes: I16.1 - Hypertensive emergency Status: Acute Plan: BP's overall better. Continue to monitor. (3) Respiratory failure ICD Codes: J96.90 - Respiratory failure, unspecified, unspecified whether with hypoxia or hypercapnia Status: Acute Plan: Stable s/p extubation last week. Dyspnea essentially resolved. Patient may have had CHF precipitated by acute myocardial ischemia/infarction as well as hypertensive urgency. EF by echo and cath normal. (4) Hyperlipidemia ICD Codes: E78.5 - Hyperlipidemia, unspecified Status: Acute Plan: Continue statin therapy. Code Status full code Discussed Condition With patient and at length Problem Qualifiers (1) CAD (coronary artery disease): (2) Respiratory failure: (3) Hyperlipidemia: Qualified Codes: E78.2 - Mixed hyperlipidemia Julio Juárez MD Jun 08, 2017 13:53
--- NOTE | 2017-06-08 15:28 | PD.TRANSFR ---
Transfer Summary Admission Date Jun 02, 2017 at 05:14 Transfer Date: Jun 08, 2017 Admitting Diagnosis Hypertensive emergency, chest pain Diagnoses: Transfer Summary/Subjective This is a 71yM with a strong CAD history s/p multiple PCI and CABG who presents with 10/10 chest pain unrelieved by ntg SL. He has a history of ESRD and presents after skipping his dialysis. He states that his chest pain has been going since Thursday, and he skipped HD on thursday because he was afraid IHD would make his chest pain worse. He states this pain feels like his prior heart attacks. he denies any other symptoms of fever, chills, nausea, vomiting, diarrhea. does endorse SOB and orthopnea. In the ED he was severely hypertensive with BP 262/124. He was given NTG without improvement. He was started on NGT drip and his BP was controlled < 200, but again his chest pain persisted. Nephrology was consulted for emergent dialysis. The patient also underwent CT aortogram to rule out acute dissection, formal read pending, but preliminarily negative for acute dissection. He is hypoxic on ventimask with spo2 91%. Critical care medicine is consulted to evaluate and manage his hypertensive emergency and hypoxemia. The remainder of the ROS and history is negative unless otherwise documented. 06/03/17: Patient was intubated yesterday for worsening hypercarbic resp failure and encephalopathy. Trop peaked at 4.2, cardiology Dr. Juárez following. More awake, but failed CPAP today 06/04; remains intubated on low-dose fentanyl, wakes up easily follows commands. Tolerating CPAP trial slightly better today. Chest x-ray shows slightly worsening left lower lobe infiltrate effusion 06/05: Chest pain is controlled, currently on nitroglycerin drip at 50 mcg/min- wean to DC as tolerated. IV heparin had to be held due to thrombocytopenia, hit screen sent. Tentatively plan for cardiac catheterization on Thursday. HD yesterday with 3L removed 06/06 Denies CP, Remains on low dose nitroglycerin 5mcg/min because he is afraid he will experience chestpain and Dr. Hernández okayed continuation. HIT screen pending. Refusing Bipap at night. 06/07 Denies CP. Heparin drip was resumed. HIT is negative. On NC. Plan for cath in am tomorrow. Subjective: 06/08 Patient denies chest pain. Cardiac catheterization today with recurrent stenosis of circumflex stents. Dr. Juárez and Edgar planning for laser atherectomy on Thursday. Objective Vital Signs Date Time Temp Pulse Resp B/P (MAP) Pulse Ox O2 Delivery O2 Flow Rate FiO2 06/08/17 11:16 98 Nasal Cannula 3.00 06/08/17 06:00 72 113/55 06/08/17 04:00 98.9 22 06/05/17 03:40 50 Intake and Output 06/08/17 06/08/17 06/09/17 08:00 16:00 00:00 Output Total 100 ml Balance -100 ml Result Diagram: 06/08/17 0508 06/08/17 0508 Imaging Last Impressions Chest X-Ray 06/02/17 0336 Signed Impressions: Service Date/Time: Friday, June 02, 2017 03:56 - CONCLUSION: Mild patchy bibasilar infiltrates, right greater than left. Robert Steiner MD Objective Remarks GENERAL: Obese gentleman who is laying flat in bed post cath on nasal cannula. SKIN: Warm and dry. HEAD: Atraumatic. Normocephalic. EYES: Pupils equal and round. No scleral icterus. No injection or drainage. ENT: No nasal bleeding or discharge. Mucous membranes pink and moist. NECK: large neck circumference prevents accurate assessment of jvd CARDIOVASCULAR: Regular rate and rhythm. No murmurs rubs or gallops. RESPIRATORY: Clear to auscultation bilaterally. No wheezes Rales or rhonchi. GASTROINTESTINAL: Abdomen obese, soft soft, non-tender, nondistended. VASC: Dressing in place right groin. No tenderness. No significant hematoma. Feet are warm with palpable DP pulses bilaterally MUSCULOSKELETAL: Extremities without clubbing, cyanosis,1+ edema of all extremities. No obvious deformities. NEUROLOGICAL: Awake and alert. No obvious cranial nerve deficits. Motor grossly within normal limits. Normal speech. A/P Assessment and Plan Assessment: 71yM with CAD, ESRD who presents with hypertensive emergency, unrelenting chest pain, and Pulmonary edema/CHF exacerbation. Ruled in for NSTEMI. Cath once stable Neuro: - As needed morphine for pain - Requested something for sleep. Melatonin 5 mg by mouth daily at bedtime - Gabapentin 300 mg by mouth daily CVS: ACS/NSTEMI Hypertensive Emergency Hyperlipidemia -- Continue Aspirin daily. Effient on hold, resume per discussion with Dr. Hernández. . Heparin drip off per cardiology -- Off nitro drip -- goal SBP < 160 -- Continue Cozaar 25 daily, metoprolol 100 twice a day --Continue atorvastatin 80 g by mouth daily at bedtime -- Cardene drip as needed, prn hydralazine, labetalol -- Cardiology Dr. Juárez. Cardiac catheterization 06/08 - resstenosis circumflex stent --Referred for laser atherectomy of circ by Dr. Hernández, tentatively Wed 06/10. Resp: Acute hypoxic respiratory failure, resolved. Acute intravascular volume overload, resolved Acute CHF exacerbation, Acute hypercapnic respiratory failure -- Emergently intubated 06/02, for hypercapnic resp. Extubated 06/04/17 -- Pulmonary Edema improving, continue HD per nephrology. Lasix 80 mg po daily. -- 2d echo Nl EF -- wean fio2 for spo2 > 90% -- nebs, pulmonary toilet. -- EzPAP, Acapella GI: - REsume Cardiac and renal diet, protonix ESRD -- HD per nephrology, TTS schedule. Plan for HD tomorrow, 06/09. ID -- Monitor for infection HEME: -- IV heparin on hold due to thrombocytopenia -- PPI Out of bed when taken off of groin precautions. and patient updated at bedside. Discussed with Dr. Hernández, states patient will stay in ICU but states consult hospitalist for medical management. Level 2 Kia Castillo MD Jun 08, 2017 15:28
--- NOTE | 2017-06-08 17:46 | HHI.PR ---
Objective Objective Results - Vital Signs Date Time Temp Pulse Resp B/P (MAP) Pulse Ox O2 Delivery O2 Flow Rate FiO2 06/08/17 11:16 98 Nasal Cannula 3.00 06/08/17 06:00 72 113/55 06/08/17 04:00 98.9 75 22 113/55 (74) 95 06/08/17 00:00 98.7 97 18 127/57 (80) 95 06/07/17 23:00 94 06/07/17 20:17 98 Nasal Cannula 3.00 06/07/17 20:00 99.1 86 28 145/70 (95) 99 06/07/17 18:00 83 I/O 06/07/17 06/07/17 06/07/17 06/08/17 06/08/17 06/08/17 07:00 15:00 23:00 07:00 15:00 23:00 Intake Total 372 ml 745 ml Output Total 100 ml 100 ml Balance 372 ml 645 ml -100 ml Intake Oral 250 ml 480 ml IV Total 122 ml 265 ml Output Urine Total 100 ml 100 ml # Voids 1 Result Diagram: 06/08/17 0508 06/08/17 0508 Other Results Laboratory Tests Test 06/07/17 18:22 06/07/17 23:21 06/08/17 05:08 Activated Partial Thromboplast Time 45.5 43.4 White Blood Count 8.8 Red Blood Count 3.27 Hemoglobin 10.4 Hematocrit 32.0 Mean Corpuscular Volume 98.0 Mean Corpuscular Hemoglobin 31.9 Mean Corpuscular Hemoglobin Concent 32.6 Red Cell Distribution Width 17.3 Platelet Count 131 Mean Platelet Volume 9.8 Neutrophils (%) (Auto) 66.4 Lymphocytes (%) (Auto) 12.7 Monocytes (%) (Auto) 15.0 Eosinophils (%) (Auto) 5.6 Basophils (%) (Auto) 0.3 Neutrophils # (Auto) 5.8 Lymphocytes # (Auto) 1.1 Monocytes # (Auto) 1.3 Eosinophils # (Auto) 0.5 Basophils # (Auto) 0.0 CBC Comment DIFF FINAL Differential Comment Blood Urea Nitrogen 64 Creatinine 8.80 Random Glucose 191 Calcium Level 7.8 Sodium Level 134 Potassium Level 4.5 Chloride Level 93 Carbon Dioxide Level 30.2 Anion Gap 11 Estimat Glomerular Filtration Rate 6 Physical Exam Physical Exam pt is seen & Examined d/w PT & his & daughters at bedside card input appreciated cardiac cath findings noted, for Intervention on thursday cont current tx d/w kyler Consult to follow thu f/u Rafat Stewart MD Jun 08, 2017 17:46
--- NOTE | 2017-06-08 18:06 | HHI.PR ---
Objective Objective Results - Vital Signs Date Time Temp Pulse Resp B/P (MAP) Pulse Ox O2 Delivery O2 Flow Rate FiO2 06/08/17 11:16 98 Nasal Cannula 3.00 06/08/17 06:00 72 113/55 06/08/17 04:00 98.9 75 22 113/55 (74) 95 06/08/17 00:00 98.7 97 18 127/57 (80) 95 06/07/17 23:00 94 06/07/17 20:17 98 Nasal Cannula 3.00 06/07/17 20:00 99.1 86 28 145/70 (95) 99 I/O 06/07/17 06/07/17 06/07/17 06/08/17 06/08/17 06/08/17 07:00 15:00 23:00 07:00 15:00 23:00 Intake Total 372 ml 745 ml Output Total 100 ml 100 ml Balance 372 ml 645 ml -100 ml Intake Oral 250 ml 480 ml IV Total 122 ml 265 ml Output Urine Total 100 ml 100 ml # Voids 1 Result Diagram: 06/08/17 0508 06/08/17 0508 A/P Assessment and Plan [id number] NSTEMI, chest pain ESRD, on HD anemia htn crisis, uncontrolled CAD/CVD Isabella Izaguirre Jun 08, 2017 18:06
[2017-06-08] MEDS: ATORVASTATIN 80 MG TAB PO SCH (20:36)
[2017-06-08] MEDS: MELATONIN 5 MG TAB PO SCH (20:36)
[2017-06-09] VITALS (19 sets, daily range): BP systolic 103–160; BP diastolic 55–74; PULSE 62–81; RESP 12–24; TEMP 98.5–99; O2SAT 88–100
[2017-06-09] MEDS: INSULIN NovoLIN REGULAR SUPPLEMENTAL SCALE SQ SCH ×5 (03:00→22:35)
[2017-06-09 06:06] LABS: HEMATOCRIT 34.1 % (39.0-51.0); MEAN CELL VOLUME 98.7 FL (80.0-100.0); MEAN CORPUSCULAR HEMOGLOBIN 31.5 PG (27.0-34.0); PLATELET COUNT 165 TH/MM3 (150-450); RED BLOOD COUNT 3.46 MIL/MM3 (4.50-5.90); RED CELL DISTRIBUTION WIDTH 16.8 % (11.6-17.2); REVIEW FLAG FINAL; WHITE BLOOD COUNT 8.4 TH/MM3 (4.0-11.0)
[2017-06-09 06:44] LABS: BICARBONATE 28.9 MEQ/L (21.0-32.0); POTASSIUM 4.9 MEQ/L (3.5-5.1)
--- NOTE | 2017-06-09 07:56 | PD.CARD.PN ---
Subjective Subjective Remarks Denies CP, dyspnea, dizziness, groin pain, palpitations. Slept well. Objective Medications Item Value Date Time Heparin Sodium/ 250 ml @ 0 mls/hr 06/06/17 1500 Dextrose TITRATE/IV 06/07/17 1543 Nitroglycerin/ 250 ml @ 0 mls/hr 06/04/17 1430 Dextrose TITRATE/IV 06/06/172033 Metoprolol 100 mg 06/04/17 1100 Tartrate Q12HR/PO 06/08/172035 (Lopressor) Aspirin 81 mg 06/03/17 0900 (Aspirin Chew) DAILY/CHEW 06/08/17 0713 Losartan Potassium 25 mg 06/03/17 0900 (Cozaar) DAILY/PO 06/08/17 1026 Atorvastatin 80 mg 06/02/17 2100 Calcium HS/PO 06/08/172035 (Lipitor) Vital Signs / I&O Vital Signs Date Time Temp Pulse Resp B/P (MAP) Pulse Ox O2 Delivery O2 Flow Rate FiO2 06/09/17 04:00 98.7 68 22 103/59 (74) 100 06/09/17 00:00 62 21 103/55 (71) 99 06/08/17 23:44 100 Nasal Cannula 3.00 06/08/17 23:00 63 06/08/17 20:00 98.4 74 24 107/56 (73) 98 06/08/17 19:00 71 38 98/55 (69) 97 06/08/17 18:00 73 17 127/60 (82) 97 06/08/17 17:00 69 20 125/60 (81) 99 06/08/17 16:00 72 18 133/60 (84) 98 06/08/17 15:00 70 15 95 06/08/17 14:01 69 11 115/56 (75) 98 06/08/17 14:00 69 14 97 06/08/17 13:00 67 21 97/55 (69) 97 06/08/17 12:01 69 17 94/48 (63) 99 06/08/17 12:00 69 19 98 06/08/17 11:20 76 20 135/61 (85) 98 06/08/17 11:16 98 Nasal Cannula 3.00 06/08/17 11:00 75 23 97 06/08/17 10:00 77 22 96 I/O 06/08/17 06/08/17 06/08/17 06/09/17 06/09/17 06/09/17 06:59 14:59 22:59 06:59 14:59 22:59 Intake Total 240 ml 240 ml Output Total 100 ml 125 ml 100 ml Balance -100 ml 115 ml 140 ml Intake Oral 240 ml 240 ml Output Urine Total 100 ml 125 ml 100 ml # Bowel Movements 0 Physical Exam GENERAL: Well developed, well nourished. Intubated. Sedated. HEENT: Jugular venous pressure is hard to assess. CHEST: Lungs clear to auscultation bilaterally. Unlabored respiratory effort. CARDIAC: Regular rate and rhythm without S3, S4. II/ CHASE RUSB. Normal S2. ABDOMEN: Soft, nontender, no hepatosplenomegaly. Bowel sounds present. EXTREMITIES: No clubbing, cyanosis, edema. Right groin nontender, no hematoma. Laboratory Laboratory Tests Test 06/09/17 05:50 White Blood Count 8.4 TH/MM3 Red Blood Count 3.46 MIL/MM3 Hemoglobin 10.9 GM/DL Hematocrit 34.1 % Mean Corpuscular Volume 98.7 FL Mean Corpuscular Hemoglobin 31.5 PG Mean Corpuscular Hemoglobin Concent 32.0 % Red Cell Distribution Width 16.8 % Platelet Count 165 TH/MM3 Mean Platelet Volume 9.3 FL Blood Urea Nitrogen 80 MG/DL Creatinine 10.30 MG/DL Random Glucose 125 MG/DL Calcium Level 8.2 MG/DL Sodium Level 135 MEQ/L Potassium Level 4.9 MEQ/L Chloride Level 95 MEQ/L Carbon Dioxide Level 28.9 MEQ/L Anion Gap 11 MEQ/L Estimat Glomerular Filtration Rate 5 ML/MIN Assessment and Plan Problem List: (1) CAD (coronary artery disease) ICD Codes: I25.10 - Atherosclerotic heart disease of [place] coronary artery without angina pectoris Status: Acute Plan: Cath shows severe in-stent restenosis of mid left circumflex in two areas. This region already has Resolute and Promus type drug eluting stents. Dr. Hernández to do laser atherectomy. If in the future he once again experiences left circumflex restenosis, rec consider redo CABG. Continue current therapy for now. Will resume Effient. (2) Hypertensive emergency ICD Codes: I16.1 - Hypertensive emergency Status: Acute Plan: Normotensive. Continue to monitor. (3) Respiratory failure ICD Codes: J96.90 - Respiratory failure, unspecified, unspecified whether with hypoxia or hypercapnia Status: Acute Plan: Stable s/p extubation last week. Dyspnea essentially resolved. Patient probably had CHF precipitated by acute myocardial ischemia/infarction as well as hypertensive urgency. EF by echo and cath normal. (4) Hyperlipidemia ICD Codes: E78.5 - Hyperlipidemia, unspecified Status: Acute Plan: Continue statin therapy. Code Status full code Discussed Condition With patient and Problem Qualifiers (1) CAD (coronary artery disease): (2) Respiratory failure: (3) Hyperlipidemia: Qualified Codes: E78.2 - Mixed hyperlipidemia Julio Juárez MD Jun 09, 2017 07:55
[2017-06-09] MEDS: CHLORHEXIDINE 0.12% (ORAL KIT) 15 ML CUP MT SCH ×2 (08:00→20:00)
--- NOTE | 2017-06-09 08:28 | MB ---
cc: SRIKANTH STEWART MD DATE OF CONSULTATION 06/08/2017 DATE OF 1945 REASON FOR CONSULTATION Medical management. Travel in the last 30 days, none. HISTORY OF PRESENT ILLNESS The patient came into the hospital with chest pain unrelieved with nitroglycerin. The patient has a significant cardiac history with multiple catheterizations, CABG, PCI. He also has a history of end-stage renal disease and is currently on dialysis. It is noted that he skipped dialysis because he was having chest pain and he was afraid that it would make him worse. Nephrology was consulted for their expert opinion to help manage the patient during his hospital stay. The patient has been managed in the intensive care unit. On admission he denied any fever, chills, nausea, vomiting or diarrhea. Chief complaint is shortness of breath and orthopnea. The patient also needed critical care to help manage his hypertensive urgency and his hypoxemia. The patient is currently now resting in the bed eating some supper. He has multiple family members present. He is alert, oriented, quiet spoken but cooperative. PAST MEDICAL HISTORY Includes: 1. Hypertension. 2. Hyperlipidemia. 3. End-stage renal disease. 4. Diabetes type 2. 5. Morbid obesity. 6. Coronary artery disease. 7. Cardiovascular disease. 8. Chest pain. PAST SURGICAL HISTORY 1. CABG. 2. Heart catheterizations. 3. Dialysis three times a week. 4. Left upper extremity fistula. 5. Vas-cath. 6. Tonsillectomy. ALLERGIES No known. MEDICATIONS Reported medications now being used: 1. Afrin spray. 2. Aspirin. 3. Benadryl. 4. Valium. 5. Neurontin. 6. Melatonin. 7. Heparin IV. 8. Renvela. 9. Nitroglycerin drip. 10. Lopressor. 11. Cozaar. 13. Lipitor. 14. Mannitol p.r.n. with dialysis. 15. Albumin with dialysis. 16. Gentamicin with dialysis. 17. Heparin. 18. Sodium injections with dialysis. 19. Zofran. 20. Tylenol. 21. Nitrostat. 22. Catapres for as needed blood pressure. 23. Bowel regimen including Lakesha-Colace. 24. Insulin Novolin for sliding scale. 25. Labetalol. 26. Apresoline. These are as needed medications for blood pressure. 27. DuoNeb treatments. SOCIAL HISTORY The patient is , currently lives with his . No tobacco, alcohol. No illicit drugs. Currently lives in [place]. REVIEW OF SYSTEMS 12-point review was obtained. Currently denies any chest pain. No shortness of breath. He is post heart cath today. Blood pressure is normal. Rhythm is sinus rhythm. Bowel regimen x2 days ago. Any other systems negative or unremarkable. Voiding without difficulty. Famly History Reviewed & Non contributory to this admission. PHYSICAL EXAMINATION VITAL SIGNS: Temperature is 98.7, pulse 97-72, blood pressure 127/57 and 113/55, O2 sat 98 currently on nasal cannula at 3 liters. GENERAL: This is a morbidly obese male resting in the bed. He is alert, oriented and cooperative. SKIN: [place] mucous membranes. Warm and dry. HEENT: Atraumatic, normocephalic. Pupils equal, round, reactive to light and accommodation. Left eye has some erythema and some broken blood vessels with mild amount of drainage. States that he was coughing initially on admission and with intubation. Denies any other trauma. No urticaria. Mucous membranes, throat is clear, moist. NECK: Short, supple. CARDIOVASCULAR: S1-S2. Rhythm is regular. No audible murmurs or gallops. Heart sounds are distant. LUNGS: [place] are essentially clear anteriorly and posteriorly. He does have some mild decreased breath sounds in his bases but no rhonchi. ABDOMEN: Round, soft, obese, nontender, active bowel sounds. MUSCULOSKELETAL: He moves all extremities with purpose. NEUROLOGIC: His speech is clear. His hand grommet man are equal. PSYCHIATRIC: Mood and affect are quiet but appropriate. DIAGNOSTIC DATA WBC count 8.8, RBC 3.27, hemoglobin 10.4, hematocrit 32, platelet count 131. Sodium 134, potassium 4.5, chloride 93, BUN 64, creatinine 8.8, GFR 6, random glucose 191, calcium 7.8, PT/INR ____. APTT 43.4. MRSA is not detected. Serologies for hepatitis A and B and antibodies are all negative. IMAGING Studies show chest x-ray done today mild basilar airspace disease, stable to slightly improved from June 05. Removal of NG tube is noted. ASSESSMENT/PLAN 1. Chest pain. 2. Non-ST elevation myocardial infarction. 3. Hypertensive emergency, uncontrolled. 4. End-stage renal disease with dialysis. 5. Diabetes mellitus type 2. 6. Anemia. 7. Anemia. Our plan is to monitor his multiple comorbidities which will include his Accu-Cheks a.c. and at bedtime with sliding scale. Cardiothoracic surgeon has been consulted. We will monitor rhythm with ECG monitoring or telemetry. Heart healthy renal ADA diet. The patient has been followed with consults from cardiology. We appreciate his input. Nephrology, critical care team. We are waiting for input from cardiothoracic surgery. The patient is full code, full aggressive care. Thank you very much for this consultation. Dictated by: GRACIELA Pollock MD [employer] [place]/PARAMJIT /5:53 PM /8:25 AM pt is seen & Examined d/w PT & his & daughters at bedside card input appreciated cardiac cath findings noted, for Intervention on thursday cont current tx d/w kyler Consult to follow will f/u Srikanth Stewart MD Jun 08, 2017 17:46 MTDD
[2017-06-09] MEDS: ALBUMIN HUMAN 25% 25 GM/100 ML BAGP IV PRN ×2 (08:51→08:53)
[2017-06-09] MEDS: SODIUM CHLOR 0.9% 1000 ML INJ 1,000 ML IV PRN (08:52)
[2017-06-09] MEDS: HEPARIN SODIUM - IV 10,000 UNITS/10 ML VIAL PRN (08:53)
[2017-06-09] MEDS: GENTAMICIN SULFATE (DIALYSIS USE ONLY) 20 MG/2 ML VIAL IV PRN (08:53)
--- NOTE | 2017-06-09 09:47 | HHI.NPPN ---
Subjective General Problems: Edema Renal Failure: Chronic, End Stage Renal Disease Interval History Seen during bedside dialysis. To have laser arthrectomy tomorrow. No new concerns. (Vivienne Thomas) Review of Systems General Constitutional: Fatigue (Vivienne Thomas) Respiratory Lungs: SOB (Vivienne Thomas) Objective Data Data Vital Signs Date Time Temp Pulse Resp B/P (MAP) Pulse Ox O2 Delivery O2 Flow Rate FiO2 06/09/17 04:00 98.7 68 22 103/59 (74) 100 06/09/17 00:00 62 21 103/55 (71) 99 06/08/17 23:44 100 Nasal Cannula 3.00 06/08/17 23:00 63 06/08/17 20:00 98.4 74 24 107/56 (73) 98 06/08/17 19:00 71 38 98/55 (69) 97 06/08/17 18:00 73 17 127/60 (82) 97 06/08/17 17:00 69 20 125/60 (81) 99 06/08/17 16:00 72 18 133/60 (84) 98 06/08/17 15:00 70 15 95 06/08/17 14:01 69 11 115/56 (75) 98 06/08/17 14:00 69 14 97 06/08/17 13:00 67 21 97/55 (69) 97 06/08/17 12:01 69 17 94/48 (63) 99 06/08/17 12:00 69 19 98 06/08/17 11:20 76 20 135/61 (85) 98 06/08/17 11:16 98 Nasal Cannula 3.00 06/08/17 11:00 75 23 97 06/08/17 10:00 77 22 96 (Vivienne Thomas) -: 06/09/17 0550 06/09/17 0550 Imaging Last Impressions Chest X-Ray 06/06/17 0600 Signed Impressions: Service Date/Time: Tuesday, June 06, 2017 03:50 - CONCLUSION: 1. Mild basilar airspace disease stable to slightly improved from June 05. Removal of previous NG tube. Right vas catheter unchanged. Jayme Carlin MD Aorta CTA 06/02/17 0507 Signed Impressions: Service Date/Time: Friday, June 02, 2017 05:48 - CONCLUSION: 1. No evidence of aortic aneurysm or dissection. 2. Patchy basilar pulmonary infiltrates and small pleural effusions. 3. Bilateral hydroceles for a Robert Steiner MD Tubes & Lines: Perma-Cath (Vivienne ThomasP) Physical Exam General Appearance: Well Developed, Well Nourished, No Acute Distress, Comfortable, Sleeping, Obese (Vivienne Thomas TECHNICAL ILLUSTRATIONS MAP INKER) Eyes Eye Remarks bilateral ocular hemorrhage (Vivienne Thomas BPrashant TECHNICAL ILLUSTRATIONS MAP INKER) Throat Throat Exam: Oral Mucosa [place] & Moist (Vivienne Thomas B. TECHNICAL ILLUSTRATIONS MAP INKER) Pulmonary Resp Exam: Breath Sounds Equal, No Distress, Crackles, Rhonchi (Vivienne Thomas B. TECHNICAL ILLUSTRATIONS MAP INKER) Cardiology CV Exam: Regular, Normal Sinus Rhythm (Vivienne Thomas B. TECHNICAL ILLUSTRATIONS MAP INKER) Gastrointestinal/Abdomen GI Exam: Soft, Non-Tender, Bowel Sounds Present (Vivienne Thomas TECHNICAL ILLUSTRATIONS MAP INKER) Musculoskeletal MS Exam: Joints Intact, Normal Tone, Good Strength (Vivienne Thomas B. TECHNICAL ILLUSTRATIONS MAP INKER) Integumentary Skin Exam: Clear, Warm, Dry, Intact (Vivienne Thomas B. TECHNICAL ILLUSTRATIONS MAP INKER) Extremeties Extremities Exam: Pedal Pulses Palpable, Moderate Edema (Vivienne Thomas BPrashant TECHNICAL ILLUSTRATIONS MAP INKER) Neurologic Neuro Exam: Alert, Awake, Oriented, Speech Clear, Moving All Extremities (Vivienne Thomas B. TECHNICAL ILLUSTRATIONS MAP INKER) Psychiatric Psych Exam: Appropriate Responses (Vivienne Thomas BPrashant SANTILLANP) VTE Prophylaxis Device: SCDs (Vivienne Thomas BPrashant SANTILLANP) Assessment/Plan Discussed Condition With: Patient, Spouse Assessment Summary: Anemia of CKD, End Stage Renal Disease Electrolyte Assessment: Hypocalcemia, Hypokalemia Problem List: (1) ESRD (end stage renal disease) ICD Codes: N18.6 - End stage renal disease Status: Acute Plan: Typical TTS HD, follows in [facility] Seen during dialysis today on a 2K, 300 BFR, goal 2500 ml No electrolyte concerns Volume status is stable. Adjust UF with dialysis. He did require additional treatment for fluid removal this admission. Current tunneled HD catheter. Poor development of left arm AV fistula - may further evaluate outpatient ( previous revision with Dr. Mireles 12/2016) continue current plan, avoid IVF renally dose medications when appropriate (2) CAD (coronary artery disease) ICD Codes: I25.10 - Atherosclerotic heart disease of [place] coronary artery without angina pectoris Status: Acute Plan: new NSTEMI, has a very extensive cardiac history off NTG and heparin gtt s/p cardiac cath, plan for laser arthrectomy possibly tomorrow monitor clinically (3) Hyperkalemia ICD Codes: E87.5 - Hyperkalemia Status: Acute Plan: Improved, continue HD (4) Hypertensive emergency ICD Codes: I16.1 - Hypertensive emergency Status: Acute Plan: BP acceptable continue medications as ordered fluid removal with dialysis (5) Anemia ICD Codes: D64.9 - Anemia, unspecified Status: Acute Plan: Epogen not required follow Hb (6) Metabolic bone disease ICD Codes: E88.9 - Metabolic disorder, unspecified; M90.80 - Osteopathy in diseases classified elsewhere, unspecified site Status: Acute Plan: phosphorus level is acceptable (7) DM (diabetes mellitus) ICD Codes: E11.9 - Type 2 diabetes mellitus without complications Status: Acute Plan: continue insulin therapy, goal 140-180 mg/dL (8) Respiratory failure ICD Codes: J96.90 - Respiratory failure, unspecified, unspecified whether with hypoxia or hypercapnia Status: Acute Plan: s/p extubation monitor respiratory status (Vivienne Thomas) Plan patient was seen and examined. Cardiac procedure is to be done tomorrow. Dialysis done today. (Stephen Mixon MD) Problem Qualifiers (1) CAD (coronary artery disease): (2) Anemia: (3) DM (diabetes mellitus): (4) Respiratory failure: Vivienne Thomas Jun 09, 2017 09:47 Stephen Mixon MD Jun 09, 2017 15:52
[2017-06-09] MEDS: LOSARTAN 25 MG TAB PO SCH (11:00)
[2017-06-09] MEDS: GABAPENTIN 300 MG CAP PO SCH (11:00)
[2017-06-09] MEDS: METOPROLOL TARTRATE 100 MG TAB PO SCH ×2 (11:00→22:28)
[2017-06-09] MEDS: SEVELAMER CARBONATE 800 MG TAB PO SCH ×3 (11:00→18:25)
[2017-06-09] MEDS: ASPIRIN 81 MG CHEW TAB CHEW SCH (11:01)
[2017-06-09] MEDS: OXYMETAZOLINE HCL 0.05% 15 ML NASAL SPRAY NASAL SCH ×2 (11:01→22:29)
[2017-06-09] MEDS: DOCUSATE SODIUM 50 MG/SENNA 8.6 MG TAB PO SCH ×2 (11:01→21:00)
[2017-06-09] MEDS ORDERED: niCARdipine INJ 25 MG in SODIUM CHLOR 0.9% 250 ML INJ 250 ML IV PRN (15:30)
[2017-06-09] MEDS ORDERED: NITROGLYCERIN-D5W 50 MG/250 ML 250 ML IV PRN (15:30)
--- NOTE | 2017-06-09 16:51 | HHI.PR ---
Subjective History of Present Illness Sitting up in chair "Just little tired" Was dialyzed today Denies chest pain No shortness of breath No cough or sputum production No nausea or vomiting Good Appetite Offers no other complaints and daughter are at bedside Vitals/Results Intake & Output 06/09/17 06/09/17 06/10/17 15:00 23:00 07:00 Output Total 2500 ml Balance -2500 ml Hemodialysis 2500 ml Vital Signs Vital Signs Date Time Temp Pulse Resp B/P (MAP) Pulse Ox O2 Delivery O2 Flow Rate FiO2 06/09/17 12:00 98.8 74 20 138/68 (91) 95 06/09/17 11:00 80 18 132/63 (86) 95 06/09/17 10:00 79 23 109/56 (73) 94 06/09/17 09:00 76 21 121/58 (79) 96 06/09/17 08:00 98.5 75 22 149/66 (93) 98 06/09/17 07:01 74 24 135/63 (87) 97 06/09/17 04:00 98.7 68 22 103/59 (74) 100 06/09/17 00:00 62 21 103/55 (71) 99 06/08/17 23:44 100 Nasal Cannula 3.00 06/08/17 23:00 63 06/08/17 20:00 98.4 74 24 107/56 (73) 98 06/08/17 19:00 71 38 98/55 (69) 97 06/08/17 18:00 73 17 127/60 (82) 97 06/08/17 17:00 69 20 125/60 (81) 99 CBC/BMP: 06/09/17 0550 06/09/17 0550 Lab Results Laboratory Tests Test 06/09/17 05:50 White Blood Count 8.4 TH/MM3 Red Blood Count 3.46 MIL/MM3 Hemoglobin 10.9 GM/DL Hematocrit 34.1 % Mean Corpuscular Volume 98.7 FL Mean Corpuscular Hemoglobin 31.5 PG Mean Corpuscular Hemoglobin Concent 32.0 % Red Cell Distribution Width 16.8 % Platelet Count 165 TH/MM3 Mean Platelet Volume 9.3 FL Blood Urea Nitrogen 80 MG/DL Creatinine 10.30 MG/DL Random Glucose 125 MG/DL Calcium Level 8.2 MG/DL Sodium Level 135 MEQ/L Potassium Level 4.9 MEQ/L Chloride Level 95 MEQ/L Carbon Dioxide Level 28.9 MEQ/L Anion Gap 11 MEQ/L Estimat Glomerular Filtration Rate 5 ML/MIN Physical Exam General General Appearance: Well Developed, Well Nourished, No Acute Distress, Comfortable, Sleeping, Obese Eyes Eye Exam: Pupils Equal, Sclera White Ears & Nose Ears & Nose Exam: Nasal Mucosa [place] Throat Throat Exam: Oral Mucosa [place] & Moist Neck Neck Exam: Neck Supple, Trachea Midline Pulmonary Resp Exam: Breath Sounds Equal, No Distress, Crackles Cardiology CV Exam: Regular, Normal Sinus Rhythm Gastrointestinal/Abdomen GI Exam: Soft, Non-Tender, Bowel Sounds Present Integumentary Skin Exam: Clear, Warm, Dry, Intact Extremeties Extremities Exam: Pedal Pulses Palpable, Trace Edema Neurologic Neuro Exam: Alert, Awake, Oriented, Speech Clear, Moving All Extremities Psychiatric Psych Exam: Appropriate Responses VTE Prophylaxis VTE Prophylaxis Device: SCDs VTE Prophylaxis Meds: Heparin Assessment/Plan Assessment/Plan ASSESSMENT/PLAN . Status post Chest pain/ Non-ST elevation myocardial infarction. . Multivessel coronary artery disease status post CABG, status post graft occlusive disease with multiple stent, . Hypertensive emergency, uncontrolled. . Status post hypercapnic respiratory failure, multifactorial partly due to fluid overload, they may be an element of sleep apnea . End-stage renal disease with dialysis. . Diabetes mellitus type 2. . Morbid obesity . Anemia of chronic disease Plan Status post cardiac catheterization, showing in-stent restenosis of left circumflex artery, Dr. Juárez have consulted Dr. Sanchez for laser atherectomy Oxygen Aerosol treatment Continue aspirin Continue Effient Continue beta jacki Continue statin Blood pressure control Diabetic diet Accu-Chek monitoring was seen daily at bedtime sliding scale coverage Nothing by mouth after midnight in anticipation of possible cardiac intervention tomorrow Hemodialysis per nephrology Pepcid for GI protection A.m. labs Discussed patient and his family Will follow Rafat Stewart MD Jun 09, 2017 16:51
[2017-06-09] MEDS: MELATONIN 5 MG TAB PO SCH (22:28)
[2017-06-09] MEDS: PRASUGREL 10 MG TAB PO SCH (22:28)
[2017-06-09] MEDS: ATORVASTATIN 80 MG TAB PO SCH (22:28)
[2017-06-10] VITALS (16 sets, daily range): BP systolic 115–150; BP diastolic 55–81; PULSE 65–84; RESP 13–23; TEMP 98–99.5; O2SAT 92–98
[2017-06-10] MEDS: INSULIN NovoLIN REGULAR SUPPLEMENTAL SCALE SQ SCH ×5 (03:00→21:00)
[2017-06-10] MEDS: CHLORHEXIDINE GLUCONATE 2 % 1 PACK (2 CLOTHS) TOP SCH (04:00)
[2017-06-10 05:34] LABS: AUTOMATED NEUTROPHIL # 5.6 TH/MM3 (1.8-7.7); BASOPHIL % 0.3 % (0.0-2.0); EOSINOPHIL # 0.5 TH/MM3 (0-0.4); EOSINOPHIL % 6.6 % (0.0-4.0); HEMATOCRIT 33.8 % (39.0-51.0); HEMO FLAGS DIFF FINAL; LYMPH % 12.9 % (9.0-44.0); LYMPHOCYTE # 1.1 TH/MM3 (1.0-4.8); MEAN CELL VOLUME 99.1 FL (80.0-100.0); MEAN CORPUSCULAR HGB CONC 31.2 % (32.0-36.0); MONO % 13.1 % (0.0-8.0); NEUT % 67.1 % (16.0-70.0); PLATELET COUNT 172 TH/MM3 (150-450); RED BLOOD COUNT 3.41 MIL/MM3 (4.50-5.90); RED CELL DISTRIBUTION WIDTH 17.3 % (11.6-17.2); WHITE BLOOD COUNT 8.4 TH/MM3 (4.0-11.0)
[2017-06-10 05:59] LABS: BICARBONATE 28.1 MEQ/L (21.0-32.0); POTASSIUM 4.4 MEQ/L (3.5-5.1)
[2017-06-10] MEDS: CHLORHEXIDINE 0.12% (ORAL KIT) 15 ML CUP MT SCH ×2 (08:00→20:00)
[2017-06-10] MEDS: ASPIRIN 81 MG CHEW TAB CHEW SCH (08:06)
[2017-06-10] MEDS: DOCUSATE SODIUM 50 MG/SENNA 8.6 MG TAB PO SCH ×2 (08:06→20:36)
[2017-06-10] MEDS: LOSARTAN 25 MG TAB PO SCH (08:06)
[2017-06-10] MEDS: SEVELAMER CARBONATE 800 MG TAB PO SCH ×3 (08:06→17:03)
[2017-06-10] MEDS: GABAPENTIN 300 MG CAP PO SCH (08:06)
[2017-06-10] MEDS: METOPROLOL TARTRATE 100 MG TAB PO SCH ×2 (08:06→20:35)
[2017-06-10] MEDS: OXYMETAZOLINE HCL 0.05% 15 ML NASAL SPRAY NASAL SCH (08:07)
--- NOTE | 2017-06-10 10:19 | HHI.NPPN ---
Subjective General Problems: Edema Renal Failure: Chronic, End Stage Renal Disease Interval History Family at bedside. He has no new concerns. To have laser arthrectomy today. No reports of chest pain. (Vivienne Thomas) Review of Systems General Constitutional: Fatigue (Vivienne Thomas) Respiratory Lungs: SOB (Vivienne Thomas) Objective Data Data Vital Signs Date Time Temp Pulse Resp B/P (MAP) Pulse Ox O2 Delivery O2 Flow Rate FiO2 06/10/17 08:00 99.1 68 20 123/60 (81) 94 06/10/17 08:00 68 06/10/17 07:58 94 Nasal Cannula 2.00 06/10/17 06:00 68 06/10/17 04:00 98.6 65 23 115/55 (75) 97 06/10/17 04:00 65 06/10/17 02:00 66 06/10/17 00:00 98.7 70 13 134/62 (86) 96 06/10/17 00:00 70 06/09/17 22:00 75 06/09/17 21:01 92 Nasal Cannula 2.00 06/09/17 20:00 99.0 81 23 160/74 (102) 88 06/09/17 20:00 81 06/09/17 18:00 67 23 94 06/09/17 17:00 68 24 93 06/09/17 16:01 68 23 112/57 (75) 92 06/09/17 16:00 69 23 92 06/09/17 15:00 74 12 95 06/09/17 14:00 75 14 94 06/09/17 13:00 72 12 94 06/09/17 12:41 75 22 127/58 (81) 95 06/09/17 12:00 98.8 74 20 138/68 (91) 95 06/09/17 12:00 74 20 138/68 (91) 95 06/09/17 11:00 80 18 132/63 (86) 95 (Vivienne Thomas) -: 06/10/17 0436 06/10/17 0436 Imaging Last Impressions Chest X-Ray 06/06/17 0600 Signed Impressions: Service Date/Time: Tuesday, June 06, 2017 03:50 - CONCLUSION: 1. Mild basilar airspace disease stable to slightly improved from June 05. Removal of previous NG tube. Right vas catheter unchanged. Jayme Carlin MD Aorta CTA 06/02/17 0507 Signed Impressions: Service Date/Time: Friday, June 02, 2017 05:48 - CONCLUSION: 1. No evidence of aortic aneurysm or dissection. 2. Patchy basilar pulmonary infiltrates and small pleural effusions. 3. Bilateral hydroceles for a Robert Steiner MD Tubes & Lines: Perma-Cath (Vivienne Thomas B. GEOCHEMIST) Physical Exam General Appearance: Well Developed, Well Nourished, No Acute Distress, Comfortable, Obese (Nathanael Thomason B. GEOCHEMIST) Eyes Eye Exam: Pupils Equal, Sclera White Eye Remarks bilateral ocular hemorrhage (Vivienne Thomas B. GEOCHEMIST) Ears & Nose Ears & Nose Exam: Nasal Mucosa [place] (Nathanael Thomason B. GEOCHEMIST) Throat Throat Exam: Oral Mucosa [place] & Moist (Vivienne Thomas B. GEOCHEMIST) Neck Neck Exam: Neck Supple, Trachea Midline (Nathanael Thomason B. GEOCHEMIST) Pulmonary Resp Exam: Breath Sounds Equal, No Distress, Crackles (WilliamVivienne B. GEOCHEMIST) Cardiology CV Exam: Regular, Normal Sinus Rhythm (Nathanael Thomason B. GEOCHEMIST) Gastrointestinal/Abdomen GI Exam: Soft, Non-Tender, Bowel Sounds Present (WilliamVivienne B. GEOCHEMIST) Integumentary Skin Exam: Clear, Warm, Dry, Intact (Vivienne Thomas B. GEOCHEMIST) Extremeties Extremities Exam: Pedal Pulses Palpable, Trace Edema (Vivienne Thomas B. GEOCHEMIST) Neurologic Neuro Exam: Alert, Awake, Oriented, Speech Clear, Moving All Extremities (Vivienne Thomas B. GEOCHEMIST) Psychiatric Psych Exam: Appropriate Responses (Vivienne Thomas B. GEOCHEMIST) VTE Prophylaxis Device: SCDs (WilliamVivienne B. GEOCHEMIST) Assessment/Plan Discussed Condition With: Patient, Spouse Assessment Summary: Anemia of CKD, End Stage Renal Disease Electrolyte Assessment: Hypocalcemia, Hypokalemia Problem List: (1) ESRD (end stage renal disease) ICD Codes: N18.6 - End stage renal disease Status: Acute Plan: Typical TTS HD, follows in [facility] Due for dialysis tomorrow No electrolyte concerns Volume status is stable. Adjust UF with dialysis. Current tunneled HD catheter. continue current plan, avoid IVF renally dose medications when appropriate he is cleared for discharge tomorrow after dialysis assuming no new developments (2) CAD (coronary artery disease) ICD Codes: I25.10 - Atherosclerotic heart disease of [place] coronary artery without angina pectoris Status: Acute Plan: new NSTEMI, has a very extensive cardiac history s/p cardiac cath, plan for laser arthrectomy today monitor clinically (3) Hyperkalemia ICD Codes: E87.5 - Hyperkalemia Status: Acute Plan: Improved, continue HD (4) Hypertensive emergency ICD Codes: I16.1 - Hypertensive emergency Status: Acute Plan: BP acceptable continue medications as ordered fluid removal with dialysis (5) Anemia ICD Codes: D64.9 - Anemia, unspecified Status: Acute Plan: Epogen not required follow Hb (6) Metabolic bone disease ICD Codes: E88.9 - Metabolic disorder, unspecified; M90.80 - Osteopathy in diseases classified elsewhere, unspecified site Status: Acute Plan: phosphorus level is acceptable (7) DM (diabetes mellitus) ICD Codes: E11.9 - Type 2 diabetes mellitus without complications Status: Acute Plan: continue insulin therapy, goal 140-180 mg/dL (8) Respiratory failure ICD Codes: J96.90 - Respiratory failure, unspecified, unspecified whether with hypoxia or hypercapnia Status: Acute Plan: s/p extubation monitor respiratory status (Vivienne Thomas) Plan patient was seen and examined. Agree with above assessment and plan. (Stephen Mixon MD) Problem Qualifiers (1) CAD (coronary artery disease): (2) Anemia: (3) DM (diabetes mellitus): (4) Respiratory failure: Vivienne Thomas Jun 10, 2017 10:19 Stephen Mixon MD Jun 10, 2017 20:13
--- NOTE | 2017-06-10 11:00 | HHI.PR ---
Subjective Subjective Remarks no cp no sob no fever NPO going for thrombectomy today no acute changes overnight at bsd Review of Systems Constitutional Constitutional Remarks 12 point ros completed, negative except as noted above Vitals/Results Vital Signs Vital Signs Date Time Temp Pulse Resp B/P (MAP) Pulse Ox O2 Delivery O2 Flow Rate FiO2 06/10/17 08:00 99.1 68 20 123/60 (81) 94 06/10/17 08:00 68 06/10/17 07:58 94 Nasal Cannula 2.00 06/10/17 06:00 68 06/10/17 04:00 98.6 65 23 115/55 (75) 97 06/10/17 04:00 65 06/10/17 02:00 66 06/10/17 00:00 98.7 70 13 134/62 (86) 96 06/10/17 00:00 70 06/09/17 22:00 75 06/09/17 21:01 92 Nasal Cannula 2.00 06/09/17 20:00 99.0 81 23 160/74 (102) 88 06/09/17 20:00 81 06/09/17 18:00 67 23 94 06/09/17 17:00 68 24 93 06/09/17 16:01 68 23 112/57 (75) 92 06/09/17 16:00 69 23 92 06/09/17 15:00 74 12 95 06/09/17 14:00 75 14 94 06/09/17 13:00 72 12 94 06/09/17 12:41 75 22 127/58 (81) 95 06/09/17 12:00 98.8 74 20 138/68 (91) 95 06/09/17 12:00 74 20 138/68 (91) 95 CBC/BMP: 06/10/17 0436 06/10/17 0436 Lab Results Laboratory Tests Test 06/10/17 04:36 White Blood Count 8.4 TH/MM3 Red Blood Count 3.41 MIL/MM3 Hemoglobin 10.5 GM/DL Hematocrit 33.8 % Mean Corpuscular Volume 99.1 FL Mean Corpuscular Hemoglobin 31.0 PG Mean Corpuscular Hemoglobin Concent 31.2 % Red Cell Distribution Width 17.3 % Platelet Count 172 TH/MM3 Mean Platelet Volume 9.0 FL Neutrophils (%) (Auto) 67.1 % Lymphocytes (%) (Auto) 12.9 % Monocytes (%) (Auto) 13.1 % Eosinophils (%) (Auto) 6.6 % Basophils (%) (Auto) 0.3 % Neutrophils # (Auto) 5.6 TH/MM3 Lymphocytes # (Auto) 1.1 TH/MM3 Monocytes # (Auto) 1.1 TH/MM3 Eosinophils # (Auto) 0.5 TH/MM3 Basophils # (Auto) 0.0 TH/MM3 CBC Comment DIFF FINAL Differential Comment Blood Urea Nitrogen 60 MG/DL Creatinine 8.93 MG/DL Random Glucose 107 MG/DL Calcium Level 8.4 MG/DL Sodium Level 138 MEQ/L Potassium Level 4.4 MEQ/L Chloride Level 98 MEQ/L Carbon Dioxide Level 28.1 MEQ/L Anion Gap 12 MEQ/L Estimat Glomerular Filtration Rate 6 ML/MIN Physical Exam General General Appearance: Well Developed, Well Nourished, No Acute Distress, Comfortable, Obese Eyes Eye Exam: Pupils Equal, Pupils Reactive, Sclera White Ears & Nose Ears & Nose Exam: Nasal Mucosa [place] Throat Throat Exam: Oral Mucosa [place] & Moist Neck Neck Exam: Neck Supple, Trachea Midline Pulmonary Resp Exam: Breath Sounds Equal, No Distress, Crackles (faint ) Cardiology CV Exam: Regular, Normal Sinus Rhythm Gastrointestinal/Abdomen GI Exam: Soft, Non-Tender, Bowel Sounds Present, Non-Distended Musculoskeletal MS Exam: Joints Intact Integumentary Skin Exam: Clear, Warm, Dry, Intact Extremeties Extremities Exam: Pedal Pulses Palpable, Trace Edema Neurologic Neuro Exam: Alert, Awake, Oriented, Speech Clear, Moving All Extremities, No Focal Deficits Psychiatric Psych Exam: Appropriate Responses VTE Prophylaxis VTE Prophylaxis Device: SCDs VTE Prophylaxis Meds: Heparin Assessment/Plan Assessment/Plan ASSESSMENT/PLAN . Status post Chest pain/ Non-ST elevation myocardial infarction. . Multivessel coronary artery disease status post CABG, status post graft occlusive disease with multiple stent, . Hypertensive emergency, uncontrolled. . Status post hypercapnic respiratory failure, multifactorial partly due to fluid overload, they may be an element of sleep apnea . End-stage renal disease with dialysis. . Diabetes mellitus type 2. . Morbid obesity . Anemia of chronic disease Plan 06/08 Status post cardiac catheterization, showing in-stent restenosis of left circumflex artery, Dr. Juárez have consulted Dr. Sanchez for laser atherectomy For Atherectomy today continue with aspirin, Effient, BB, statin Diabetic diet Accu-Chek monitoring was seen daily at bedtime sliding scale coverage continue oxygen PRN Duonebs PRN Hemodialysis per nephrology Pepcid for GI protection SCDs for DVT prophylaxis for atherectomy today Labs reviewed D/W Dr. Stewart D/W pt and This patient was seen by myself and Dr. Stewart, this note is written on his behalf Saida Peterson Jun 10, 2017 11:00
[2017-06-10] MEDS ORDERED: HEPARIN-NS/PF INJ 1,000 ML ONE (13:52)
[2017-06-10] MEDS ORDERED: HEPARIN SODIUM - IV 10,000 UNITS/10 ML VIAL ONE ×2 (13:52→15:13)
[2017-06-10] MEDS ORDERED: MIDAZOLAM HCL 2 MG/2 ML VIAL ONE (13:52)
--- NOTE | 2017-06-10 16:25 | CATHPROC ---
DueProps HIS Report Study Information Study Number Admission Scheduled Start Study Start [id number] Jun 02 2017 5:14AM 06/09/2017 Jun 10 2017 1:44PM [facility] Cardiac Catheterization Admit Source Facility Department Emergency department [facility] - Card Sorter Physician and Clinical Staff Initial Sunny Calvillo Insole And Outsole Preparer Paris Tee RN Insole And Outsole Preparer Vivienne Stewart RN Other cathlab, cathlab Recorder Charbel Anne,RT(R) Recorder Jacquelin Henry,LIZ TECH2 Scrub Rob Rivas RCIS(BS) Scrub Meera Lawrence,RT(R) Procedures Performed Procedure Location (Site) Vessel Name Coronary Angiograms LCA Left Coronary Drug Eluting Inflatio CIRC Prox CIRC L Heart Cath PTCA CIRC Mid CIRC PTCA CIRC Prox CIRC Wire insertion Fem Art (right) Femoral Art Equipment Time Protection Specialist Description Size Mfg Part Number Used/Scraped WIRE, BALANCE MIDDLEWEIGHT [id number] 14:07 [employer] 190CM Used 190CM *[id number] TRANSDUCER, TRUWAVE [id number] 13:47 [place] * Used W/[employer] *[id number] 14:40 [employer] BALLOON, 2.0 12MM EMERGE MR 2.0 12MM Used *[id number] 15:23 [employer] BALLOON, 3.0 8MM EMERGE MR 3.0 8MM Used *[id number] 13:47 [employer], CCL CUSTOM * Used *[id number] BALLOON, 3.0 X 12MM NC [id number] 15:26 MEDTRONIC 12MM Used EUPHORA *[id number] BALLOON, 3.25 X 8MM NC [id number] 15:41 [employer]TRONIC 8MM Used EUPHORA *[id number] BALLOON, 3.25 X 8MM NC [id number] 15:41 MEDTRONIC 8MM Used EUPHORA *[id number] STENT, 3.0 12 RESOLUTE [id number] 15:36 MEDTRONIC 3.0 12 Used INTEGRITY RX *[id number] 14:07 MEDTRONIC/AVE EBU 3.5 Z2 GUIDE CATHETER FR 6 Used *[id number] 14:43 [employer] 30 RAO INDEFLATOR Used *[id number] 13:47 [employer] WIRE, EXCHANGE 260CM 3MMJ 260CM Used *[id number] 13:47 NAMIC MANIFOLD, 4 PORT * Used *[id number] 13:47 NYCOMED OMNIPAQUE, 350 MG, 150ML 150ML [id number] Used [id number] 13:47 [employer] BLANKET,WARM AIR CCL * Used *[id number] BALLOON, 3.0 15MM [id number] 15:05 [employer] 3.0 15MM Used ANGIOSCULPT 155CM BTK *[id number] 110-004 14:07 [employer] CATHETER, ELCA 0.9MM X-80 150CM Used *[id number] 14:26 TERUMO [employer] SHEATH, FR6 TERUMO (10CM) FR 6 Used *[id number] Equipment Model, Serial, Lot Number and Expiration Data Description Model Number Serial Number Lot Number Expiration Date BALLOON, 3.0 15MM ANGIOSCULPT [id number] 07-02-2018 155CM BTK CATHETER, ELCA 0.9MM X-80 [id number] 01-21-2019 STENT, 3.0 12 RESOLUTE [id number] 02-17-2019 INTEGRITY RX History: Current Medications Medication Dosage/Unit Route Frequency Last Date/Time Taken ASA Beta Betsy EFFIENT LIPITOR COZAAR History: Allergies Allergy Reaction No Known Allergies History: Risk Factors Family History of Hypertension Dyslipidemia Previous [place] Previous Heart Failure Premature CAD Yes Yes No Yes No Prior Valve Prior PCI Prior PCIDate Prior CABG Prior CABGDate Surgery No Yes 01/17/2017 Yes 10/19/2002 Cerebrovascular 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 Diabetes Disease Disease Disease Yes No No No No History: Symptoms/Diagnosis Selection Items Chest pain History: CV Disease Selection Items Known CAD History: Stress Tests Stress or Imaging Studies Performed No History: Other Disease Selection Items CAD HTN History: Other Current Smoker No Labs Hgb (g/dl) Hct (%) RBC (MIL/MM3) WBC (l/cumm) Platelets (thousands) 11.60-17.00 35.00-51.00 4.00-5.90 4.00-11.00 150.00-450.00 10.8 33.6 3.4 8.8 172 Glucose (mg/dl) BUN (mg/dl) Creatinine (mg/dl) BUN:Creatinine (1:x) 74.00-106.00 7.00-18.00 0.50-1.30 10.00-20.00 107 60 8.9 6.7 Na (meq/l) K (meq/l) Cl (meq/l) CO2 (mmol/L) Ca (mg/dl) 136.00-145.00 3.50-5.10 98.00-107.00 21.00-32.00 8.50-10.10 138 4.4 98 28.1 8.4 PT (sec) PTT (sec) INR (PTT:PT) 9.80-11.60 24.30-30.10 0.90-1.10 10.9 43.4 1 Troponin I (ng/ml) Troponin T (ng/ml) CPK (u/l) CPK-MB (ng/ML) 0.02-0.05 0.40-2.10 26.00-308.00 0.50-3.60 1.78 2.36 204 1.4 Medication Medication Total Dose (Bolus/Oral) Medication Total Dosage/Unit 1% XYLOCAINE 20 mL FENTANYL 50 mcg HEPARIN 96066 units NTG (IC) 200 mcg VERSED 1 mg Medications (Bolus/Oral) Medication Time Given Dosage/Unit Administered By Reason VERSED 06/10/2017 2:10:16 PM 1 mg Vivienne Stewart 1 mg VERSED given in lab by Vivienne Stewart RN in Right Wrist via Peripheral IV. FENTANYL 06/10/2017 2:11:15 PM 50 mcg Vivienne Stewart 50 mcg FENTANYL given in lab by Vivienne Stewart, NATASHA in Right Wrist via Peripheral IV. 1% XYLOCAINE 06/10/2017 2:20:28 PM 20 mL Sunny Hernández 20 mL 1% XYLOCAINE given in lab by Sunny Hernández in Right Wrist via Subcutaneous. HEPARIN 06/10/2017 2:27:03 PM 8100 units Paris Tee 8100 units HEPARIN given in lab by Paris Tee, NATASHA in Right Wrist via Peripheral IV. HEPARIN 06/10/2017 3:14:42 PM 3000 units Paris Tee 3000 units HEPARIN given in lab by Paris Tee, RN in Right Wrist via Peripheral IV. NTG (IC) 06/10/2017 3:47:04 PM 200 mcg Sunny Hernández 200 mcg NTG (IC) given in lab by Sunny Hernández via Intra-coronary. Medication (Drip) Medication Time Given Dosage/Unit Concentration/Unit Diluent (ml) Solution IV Solutions 06/10/2017 2:15:20 PM 0 mL (IV) 500 NaCl .9 IV Solutions given in lab by Vivienne Stewart RN in Right Wrist via Peripheral IV. Pump/Drip Flow = 20 ml/hr using NaCl .9. Initial Case Assessment Cardiovascular HR Rhythm NIBP Chest Pain 72 Sinus 159/76 0 Edema Present Skin color Skin None Normal Warm Dry Circulatory - Right Pulses Dorsalis Pedis Femoral 2 2 Scale (0,1,2,3,4,d) Circulatory - Left Pulses Dorsalis Pedis Femoral 2 2 Scale (0,1,2,3,4,d) Neurological State Oriented to time-place- Alert Moves all extremities person Respiration - General Respiration Rate SpO2 (%) O2 (lpm) (B/min) 20 93 0 Final Case Assessment Cardiovascular HR Rhythm NIBP Chest Pain 74 Sinus 139/78 0 Edema Present Skin color Skin None Normal Warm Dry Circulatory - Right Pulses Dorsalis Pedis Femoral 2 2 Scale (0,1,2,3,4,d) Circulatory - Left Pulses Dorsalis Pedis Femoral 2 2 Scale (0,1,2,3,4,d) Neurological State Oriented to time-place- Alert Moves all extremities person Respiration - General Respiration Rate SpO2 (%) O2 (lpm) (B/min) 16 98 2 Chronological Log Time Study Chronological Log 13:43:00 Patient arrived via Bed. 13:45:49 Analilia Prominences Protected 13:45:49 Patient arrived via Bed. 13:45:50 Patient Name, D.O.B, / Armband Verified By R.N. 13:45:51 Consent signed by the physician and the patient and verified by the Card Sorter staff. 13:45:52 Pre-op and post- op instructions given; patient acknowledges understanding of instructions. 13:45:54 Patient has been NPO for More than 6Hrs. 13:45:56 Skin Breakdown- none per patient. 13:45:58 Patient Warmer Placed on the Table. 13:50:10 A # 20 IV was noted in the Wrist (right). Grade = 0 Vitals capture started with the following parameters, Patient=Adult, Interval=5 min, Initial Pr irelzj=216 mmHg, 13:52:14 Deflation Rate=5 mmHg, Cuff placed on Right Arm 13:53:36 HR=71 bpm, ARGE=614/84 mmhg, SpO2=94.0 %, Resp=18 B/min, Pain=0, Leonora=10, Ames=2 13:57:25 Reference ECG taken 13:57:59 HR=71 bpm, DPYP=976/83 mmhg, SpO2=95.0 %, Resp=16 B/min, Pain=0, Leonora=10, Ames=2 14:00:40 History and physical on the chart or being dictated. 14:03:02 HR=82 bpm, SAXC=091/83 mmhg, SpO2=93.0 %, Resp=17 B/min, Pain=0, Leonora=10, Ames=2 14:04:56 Pressure channel 1 zeroed. 14:05:58 Bilateral groins prepped with 2% chlorhexidine, and with a 3 min. waiting time. 14:07:59 HR=72 bpm, BTJN=186/76 mmhg, SpO2=92.0 %, Resp=20 B/min, Pain=0, Leonora=10, Ames=2 14:08:49 MD arrived. Assessment: Initial Case, HR=72 BPM, Rhythm=Sinus, NUFR=755/76 mmhg, Chest Pain=0, Edema=None, Color=Normal, Skin = Warm, Dry Right Pulses: Naif Ped=2, Femoral=2 14:08:50 Left Pulses: Naif Ped=2, Femoral=2 Neurological: State=Alert, Ox3, DOS SANTOS Respiration: Resp=20 B/min, SpO2=93 %, O2=0 lpm 14:10:16 1 mg VERSED given in lab by Vivienne Stewart, RN in Right Wrist via Peripheral IV. 14:11:15 50 mcg FENTANYL given in lab by Vivienne Stewart, RN in Right Wrist via Peripheral IV. 14:12:56 HR=73 bpm, NGHZ=198/86 mmhg, SpO2=90.0 %, Resp=22 B/min, Pain=0, Leonora=10, Ames=2 IV Solutions given in lab by Vivienne Stewart, RN in Right Wrist via Peripheral IV. Pump/Drip Cb w = 20 ml/hr using NaCl 14:15:20 .9. 14:18:01 HR=70 bpm, BFHV=071/74 mmhg, SpO2=96.0 %, Resp=18 B/min, Pain=0, Leonora=10, Ames=2 Time Out. Correct patient, correct procedure,correct physician, power injector not loaded with contrast with surgical 14:18:18 team present. Time Out Concurred by , individual staff in procedure 14:19:00 Case Start 14:20:28 20 mL 1% XYLOCAINE given in lab by Sunny Hernández in Right Wrist via Subcutaneous. 14:22:17 Access site was Right Femoral Artery. 14:22:56 HR=70 bpm, ZAJE=556/81 mmhg, SpO2=97.0 %, Resp=19 B/min, Pain=0, Leonora=10, Ames=2 14:24:53 A SHEATH, FR6 TERUMO (10CM) FR 6 was advanced into the Fem Art (right) using the Percutaneo us technique. 14:26:29 An injection in the Fem Art (right) was made through the SHEATH, FR6 TERUMO (10CM) FR 6. 14:27:03 8100 units HEPARIN given in lab by Paris Tee, NATASHA in Right Wrist via Peripheral IV. 14:27:57 HR=71 bpm, IVBW=933/76 mmhg, SpO2=97.0 %, Resp=18 B/min, Pain=0, Leonora=10, Ames=2 A EBU 3.5 Z2 GUIDE CATHETER FR 6 was advanced over a wire. OMNIPAQUE, 350 MG, 150ML 150ML was u sed for 14:28:35 injections. 14:30:42 The LCA was injected and visualized at various angles. OMNIPAQUE, 350 MG, 150ML 150ML used . 14:32:53 A WIRE, BALANCE MIDDLEWEIGHT 190CM 190CM was inserted via Fem Art (right). 14:33:00 HR=73 bpm, OSDC=798/78 mmhg, SpO2=97.0 %, Resp=18 B/min, Pain=0, Leonora=10, Ames=2 14:35:59 Interventional wire has crossed the lesion 14:37:57 HR=73 bpm, BRXO=123/77 mmhg, SpO2=98.0 %, Resp=17 B/min, Pain=0, Leonora=10, Ames=2 14:38:51 Activated Clotting Time Drawn A BALLOON, 2.0 12MM EMERGE MR 2.0 12MM over a WIRE, BALANCE MIDDLEWEIGHT 190CM 190CM in the CIR C Mid 14:42:18 was inflated using a 30 RAO INDEFLATOR at 12 rao for 20 sec. A BALLOON, 2.0 12MM EMERGE MR 2.0 12MM over a WIRE, BALANCE MIDDLEWEIGHT 190CM 190CM in the CIR C Mid 14:42:54 was inflated using a 30 RAO INDEFLATOR at 14 rao for 25 sec. 14:43:00 HR=74 bpm, JQOV=357/79 mmhg, SpO2=98.0 %, Resp=18 B/min, Pain=0, Leonora=10, Ames=2 A BALLOON, 2.0 12MM EMERGE MR 2.0 12MM over a WIRE, BALANCE MIDDLEWEIGHT 190CM 190CM in the CIR C Mid 14:43:21 was inflated using a 30 RAO INDEFLATOR at 12 rao for 15 sec. 14:43:50 Balloon Removed. 14:44:15 ACT (Normal Range 90-180) = 304 14:44:45 Balloon Removed. 14:48:01 HR=73 bpm, IWAS=523/76 mmhg, SpO2=98.0 %, Resp=19 B/min, Pain=0, Leonora=10, Ames=2 14:53:00 HR=73 bpm, ZWHE=294/84 mmhg, SpO2=98.0 %, Resp=20 B/min, Pain=0, Leonora=10, Ames=2 14:54:45 A CATHETER, ELCA 0.9MM X-80 150CM was advanced over a wire. contrast was used for injection s. 14:58:03 HR=75 bpm, BRDV=751/85 mmhg, SpO2=98.0 %, Resp=19 B/min, Pain=0, Leonora=10, Ames=2 14:59:46 Lazer athrectomy in progress. 15:03:04 HR=74 bpm, CDNJ=203/77 mmhg, SpO2=99.0 %, Resp=19 B/min, Pain=0, Leonora=10, Ames=2 15:06:43 Catheter was removed. Peteyer catheter. 15:07:18 The LCA was injected and visualized at various angles. OMNIPAQUE, 350 MG, 150ML 150ML used . 15:08:01 HR=74 bpm, YDFY=687/81 mmhg, SpO2=99.0 %, Resp=16 B/min, Pain=0, Leonora=10, Ames=2 A BALLOON, 3.0 15MM ANGIOSCULPT 155CM BTK 3.0 15MM was inserted over WIRE, BALANCE MIDDLEWEIGHT 15:11:57 190CM 190CM via the CIRC Mid. A BALLOON, 3.0 15MM ANGIOSCULPT 155CM BTK 3.0 15MM over a WIRE, BALANCE MIDDLEWEIGHT 190CM 190C M in 15:12:09 the CIRC Mid was inflated using a 30 RAO INDEFLATOR at 10 rao for 40 sec. A BALLOON, 3.0 15MM ANGIOSCULPT 155CM BTK 3.0 15MM over a WIRE, BALANCE MIDDLEWEIGHT 190CM 190C M in 15:12:56 the CIRC Mid was inflated using a 30 RAO INDEFLATOR at 10 rao for 20 sec. 15:13:02 HR=73 bpm, YORE=005/83 mmhg, SpO2=98.0 %, Resp=17 B/min, Pain=0, Leonora=10, Ames=2 15:14:42 3000 units HEPARIN given in lab by Paris Tee RN in Right Wrist via Peripheral IV. A BALLOON, 3.0 15MM ANGIOSCULPT 155CM BTK 3.0 15MM over a WIRE, BALANCE MIDDLEWEIGHT 190CM 190C M in 15:15:12 the CIRC Mid was inflated using a 30 RAO INDEFLATOR at 10 rao for 30 sec. A BALLOON, 3.0 15MM ANGIOSCULPT 155CM BTK 3.0 15MM over a WIRE, BALANCE MIDDLEWEIGHT 190CM 190C M in 15:16:24 the CIRC Mid was inflated using a 30 RAO INDEFLATOR at 10 rao for 20 sec. A BALLOON, 3.0 15MM ANGIOSCULPT 155CM BTK 3.0 15MM over a WIRE, BALANCE MIDDLEWEIGHT 190CM 190C M in 15:17:39 the CIRC Mid was inflated using a 30 RAO INDEFLATOR at 10 rao for 20 sec. 15:18:01 HR=75 bpm, TWOZ=419/85 mmhg, SpO2=98.0 %, Resp=19 B/min, Pain=0, Leonora=10, Ames=2 A BALLOON, 3.0 15MM ANGIOSCULPT 155CM BTK 3.0 15MM over a WIRE, BALANCE MIDDLEWEIGHT 190CM 190C M in 15:19:21 the CIRC Mid was inflated using a 30 RAO INDEFLATOR at 10 rao for 20 sec. 15:20:37 Balloon Removed. 15:23:05 HR=73 bpm, AGQM=070/78 mmhg, SpO2=97.0 %, Resp=24 B/min, Pain=0, Leonora=10, Ames=2 15:23:34 Activated Clotting Time Drawn A BALLOON, 3.0 8MM EMERGE MR 3.0 8MM was inserted over WIRE, BALANCE MIDDLEWEIGHT 190CM 190CM v ia the 15:23:50 CIRC Mid. A BALLOON, 3.0 8MM EMERGE MR 3.0 8MM over a WIRE, BALANCE MIDDLEWEIGHT 190CM 190CM in the CIRC Mid was 15:24:17 inflated using a 30 RAO INDEFLATOR at 10 rao for 30 sec. 15:25:04 Balloon Removed. A BALLOON, 3.0 X 12MM NC EUPHORA 12MM was inserted over WIRE, BALANCE MIDDLEWEIGHT 190CM 190CM via 15:27:18 the CIRC Mid. 15:28:04 HR=73 bpm, VKMO=290/77 mmhg, SpO2=97.0 %, Resp=18 B/min, Pain=0, Leonora=10, Ames=2 A BALLOON, 3.0 X 12MM NC EUPHORA 12MM over a WIRE, BALANCE MIDDLEWEIGHT 190CM 190CM in the CIRC Mid 15:28:34 was inflated using a 30 RAO INDEFLATOR at 14 rao for 18 sec. A BALLOON, 3.0 X 12MM NC EUPHORA 12MM over a WIRE, BALANCE MIDDLEWEIGHT 190CM 190CM in the CIRC Mid 15:29:15 was inflated using a 30 RAO INDEFLATOR at 12 rao for 20 sec. 15:29:51 ACT (Normal Range 90-180) = 379 15:30:10 Activated Clotting Time Drawn A BALLOON, 3.0 X 12MM NC EUPHORA 12MM over a WIRE, BALANCE MIDDLEWEIGHT 190CM 190CM in the CIRC Mid 15:30:56 was inflated using a 30 RAO INDEFLATOR at 14 rao for 25 sec. A BALLOON, 3.0 X 12MM NC EUPHORA 12MM over a WIRE, BALANCE MIDDLEWEIGHT 190CM 190CM in the CIRC Mid 15:31:52 was inflated using a 30 RAO INDEFLATOR at 12 rao for 20 sec. 15:33:05 HR=74 bpm, IYRD=697/80 mmhg, SpO2=98.0 %, Resp=18 B/min, Pain=0, Leonora=10, Ames=2 A BALLOON, 3.0 X 12MM NC EUPHORA 12MM over a WIRE, BALANCE MIDDLEWEIGHT 190CM 190CM in the CIRC Prox 15:33:08 was inflated using a 30 RAO INDEFLATOR at 12 rao for 20 sec. 15:33:49 Balloon Removed. 15:35:47 ACT (Normal Range 90-180) = 335 A STENT, 3.0 12 RESOLUTE INTEGRITY RX 3.0 12 was advanced through a EBU 3.5 Z2 GUIDE CATHETER F R 6 over a 15:37:01 WIRE, BALANCE MIDDLEWEIGHT 190CM 190CM. A STENT, 3.0 12 RESOLUTE INTEGRITY RX 3.0 12 was deployed using a 30 RAO INDEFLATOR at 14 atmos pheres for 15:37:32 25 seconds in the CIRC Prox. A STENT, 3.0 12 RESOLUTE INTEGRITY RX 3.0 12 was deployed using a 30 RAO INDEFLATOR at 12 atmos pheres for 15:38:25 15 seconds in the CIRC Prox. 15:38:38 HR=75 bpm, JIUA=158/83 mmhg, SpO2=97.0 %, Resp=26 B/min, Pain=0, Leonora=10, Ames=2 15:39:43 Delivery device removed A BALLOON, 3.25 X 8MM NC EUPHORA 8MM was inserted over WIRE, BALANCE MIDDLEWEIGHT 190CM 190CM v ia the 15:42:51 CIRC Prox. 15:43:03 HR=74 bpm, NGTR=808/78 mmhg, SpO2=98.0 %, Resp=18 B/min, Pain=0, Leonora=10, Ames=2 A BALLOON, 3.25 X 8MM NC EUPHORA 8MM over a WIRE, BALANCE MIDDLEWEIGHT 190CM 190CM in the CIRC Prox 15:44:01 was inflated using a 30 RAO INDEFLATOR at 12 rao for 20 sec. A BALLOON, 3.25 X 8MM NC EUPHORA 8MM over a WIRE, BALANCE MIDDLEWEIGHT 190CM 190CM in the CIRC Prox 15:45:19 was inflated using a 30 RAO INDEFLATOR at 15 rao for 25 sec. A BALLOON, 3.25 X 8MM NC EUPHORA 8MM over a WIRE, BALANCE MIDDLEWEIGHT 190CM 190CM in the CIRC Prox 15:45:42 was inflated using a 30 RAO INDEFLATOR at 15 rao for 12 sec. 15:46:41 Balloon Removed. 15:47:04 200 mcg NTG (IC) given in lab by Sunny Hernández via Intra-coronary. 15:47:51 The LCA was injected and visualized at various angles. OMNIPAQUE, 350 MG, 150ML 150ML used . 15:48:06 HR=76 bpm, UOCJ=772/74 mmhg, SpO2=97.0 %, Resp=20 B/min, Pain=0, Leonora=10, Ames=2 15:52:38 A WIRE, EXCHANGE 260CM 3MMJ 260CM was inserted via Fem Art (right). 15:52:46 Catheter was removed 15:52:47 Wire removed 15:52:54 Case End 15:53:01 HR=73 bpm, DFMA=207/81 mmhg, SpO2=95.0 %, Resp=19 B/min, Pain=0, Leonora=10, Ames=2 15:56:27 In the Fem Art (right) the SHEATH, FR6 TERUMO (10CM) FR [address] by Sunny Hernández. 15:56:47 No case complications noted. 15:56:49 Cine recording checked. 15:57:30 Bedside Report will be given. 15:57:33 A Left Heart Cath was performed. Assessment: Final Case, HR=74 BPM, Rhythm=Sinus, OPCT=423/78 mmhg, Chest Pain=0, Edema=None, Color=Normal, Skin = Warm, Dry Right Pulses: Naif Ped=2, Femoral=2 15:57:43 Left Pulses: Naif Ped=2, Femoral=2 Neurological: State=Alert, Ox3, DOS SANTOS Respiration: Resp=16 B/min, SpO2=98 %, O2=2 lpm 15:58:04 HR=74 bpm, FPAW=854/78 mmhg, SpO2=98.0 %, Resp=16 B/min, Pain=0, Leonora=10, Ames=2 16:01:06 Sterile dressing applied to site 16:03:00 Vitals capture stopped. 16:13:37 Patient moved to stretcher End Study - Contrast Media Used In Study Contrast Total Opened (mL) Total Used (mL) Total Wasted (mL) Omnipaque 300 150 150 End Study - Maximum Contrast Load Max Contrast Load (mL) 65.2 End Study - Radiation Exposure Fluoro Time (minutes) 20.0 End Study - Patient Disposition Complications Transferred To Interventional Outcome No Telemetry Bed successful
[2017-06-10] MEDS ORDERED: MISC INFORMATION XX ONE (16:30)
[2017-06-10] MEDS ORDERED: IOHEXOL 350 MG/ML 50 ML BTL (for Cath Lab) OTHER ONE (16:57)
[2017-06-10] MEDS ORDERED: IOHEXOL 350 MG/ML 100 ML BTL (for Cath Lab) OTHER ONE (16:57)
--- NOTE | 2017-06-10 17:50 | PD.CARD.PN ---
Subjective Subjective Remarks Post-cath Doing well No chest pain/SOB Objective Medications Current Medications Medications (Trade) Dose Ordered Sig/Maddison Route Start Time Stop Time Status Last Admin (NS Flush) 2 ml UNSCH PRN IVF 06/02/17 03:45 06/09/17 22:29 (D50w (Vial) Inj) 25 ml UNSCH PRN IV PUSH 06/02/17 05:15 06/03/17 07:44 (NovoLIN R SUPPLEMENTAL SCALE) 1 ACHS AND 3AM SQ 06/02/17 07:00 06/09/17 22:35 (Zofran Inj) 4 mg Q6H PRN IV 06/02/17 05:15 (Duoneb Neb) 1 ampule Q2HR NEB PRN INH 06/02/17 05:15 Miscellaneous Information 1 Q361D XX 06/02/17 05:15 06/02/17 05:15 (Chlorhexidine 2% Cloth) Taper DAILY@04 TOP 06/03/17 04:00 05/30/18 03:59 06/10/17 04:00 (Chlorhexidine 2% Cloth) 3 pack UNSCH PRN TOP 06/02/17 05:15 (Lakesha-Colace) 1 tab BID PO 06/02/17 09:00 06/10/17 08:06 (Trandate Inj) 20 mg Q15M PRN IV PUSH 06/02/17 06:15 06/04/17 12:05 (Apresoline Inj) 10 mg Q30M PRN IV PUSH 06/02/17 06:15 06/06/17 01:08 (Morphine Inj) 2 mg Q1H PRN IV PUSH 06/02/17 06:45 06/08/17 00:37 Sodium Chloride 1,000 ml @ 0 mls/hr Q0M PRN IV 06/02/17 09:11 06/09/17 08:52 (Heparin Inj) 8,000 units UNSCH PRN IVF 06/02/17 09:15 Sodium Chloride 1,000 ml @ 200 mls/hr Q5H PRN IV 06/02/17 09:11 Sodium Chloride 1,000 ml @ 0 mls/hr Q0M PRN IV 06/02/17 09:11 06/06/17 15:57 (Mannitol Inj) 12.5 gm UNSCH PRN IV 06/02/17 09:15 (Albumin 25% Inj) 25 gm UNSCH PRN IV 06/02/17 09:15 06/09/17 08:53 (NS Flush) 5 ml UNSCH PRN IV FLUSH 06/02/17 09:15 06/06/17 15:57 (Heparin Inj) UNSCH PRN .XX 06/02/17 09:15 06/09/17 08:53 (Gentamicin (Dialysis) Inj) 20 mg UNSCH PRN IV 06/02/17 09:15 06/09/17 08:53 (Zofran Inj) 4 mg UNSCH PRN IV 06/02/17 09:15 (Tylenol) 650 mg UNSCH PRN PO 06/02/17 09:15 06/03/17 23:31 (Benadryl) 25 mg UNSCH PRN PO 06/02/17 09:15 (Nitrostat Sl) 0.4 mg UNSCH PRN SL 06/02/17 09:15 06/04/17 12:35 (Catapres) 0.1 mg UNSCH PRN PO 06/02/17 09:15 (Gelfoam 12 Mm/7 Mm Top) 1 foam UNSCH PRN TOP 06/02/17 09:15 (Aspirin Chew) 81 mg DAILY CHEW 06/03/17 09:00 06/10/17 08:06 (Lipitor) 80 mg HS PO 06/02/17 21:00 06/09/17 22:28 (Cozaar) 25 mg DAILY PO 06/03/17 09:00 06/10/17 08:06 (Effient) 10 mg HS PO 06/02/17 21:00 Future hold 06/09/17 22:28 (Peridex 0.12% Liq) 15 ml BID@08,20 MT 06/02/17 20:00 06/04/17 08:56 (Lopressor) 100 mg Q12HR PO 06/04/17 11:00 06/10/17 08:06 (Melatonin) 5 mg HS PO 06/06/17 21:00 06/09/17 22:28 (Renvela) 800 mg TID PO 06/06/17 13:00 06/10/17 17:03 (Neurontin) 300 mg DAILY PO 06/07/17 09:00 06/10/17 08:06 (Afrin 0.05% Toro Gladwin) 2 spray BID NASAL 06/07/17 21:00 06/10/17 20:59 06/10/17 08:07 (Aspirin) 325 mg HOUSEKEEPING MANAGER PO 06/07/17 20:30 06/11/17 20:29 (Benadryl) 50 mg HOUSEKEEPING MANAGER PO 06/07/17 20:30 06/11/17 20:29 (Valium) 10 mg HOUSEKEEPING MANAGER PO 06/07/17 20:30 06/11/17 20:29 (Atropine Inj) 0.5 mg UNSCH PRN IV 06/08/17 08:45 Nicardipine HCl 25 mg/Sodium Chloride 260 ml @ 52 mls/hr TITRATE PRN IV 06/09/17 15:30 Nitroglycerin/ Dextrose 250 ml @ 1.5 mls/hr TITRATE PRN IV 06/09/17 15:30 (Heparin Inj) 5,000 units Q8H SQ 06/11/17 11:00 Vital Signs / I&O Vital Signs Date Time Temp Pulse Resp B/P (MAP) Pulse Ox O2 Delivery O2 Flow Rate FiO2 06/10/17 17:00 70 06/10/17 16:30 73 06/10/17 16:30 74 18 146/81 (102) 93 06/10/17 12:00 66 06/10/17 12:00 99.5 66 18 148/64 (92) 92 06/10/17 10:00 66 06/10/17 08:00 99.1 68 20 123/60 (81) 94 06/10/17 08:00 68 06/10/17 07:58 94 Nasal Cannula 2.00 06/10/17 06:00 68 06/10/17 04:00 98.6 65 23 115/55 (75) 97 06/10/17 04:00 65 06/10/17 02:00 66 06/10/17 00:00 98.7 70 13 134/62 (86) 96 06/10/17 00:00 70 06/09/17 22:00 75 06/09/17 21:01 92 Nasal Cannula 2.00 06/09/17 20:00 99.0 81 23 160/74 (102) 88 06/09/17 20:00 81 06/09/17 18:00 67 23 94 I/O 06/09/17 06/09/17 06/09/17 06/10/17 06/10/17 06/10/17 06:59 14:59 22:59 06:59 14:59 22:59 Intake Total 240 ml 480 ml 50 ml Output Total 100 ml 2500 ml 0 ml Balance 140 ml -2500 ml 480 ml 50 ml Intake Oral 240 ml 480 ml 50 ml Output Urine Total 100 ml 0 ml Hemodialysis 2500 ml # Voids 1 # Bowel Movements 0 2 Physical Exam GENERAL: NAD, AAOx3 SKIN: Warm and dry. HEAD: Atraumatic. Normocephalic. EYES: Pupils equal and round. No scleral icterus. No injection or drainage. ENT: No nasal bleeding or discharge. Mucous membranes pink and moist. NECK: Trachea midline. No JVD. CARDIOVASCULAR: Regular rate and rhythm. RESPIRATORY: No accessory muscle use. Decreased breath sounds bilaterally, specifically RLL GASTROINTESTINAL: Abdomen soft, non-tender, nondistended. Hepatic and splenic margins not palpable. MUSCULOSKELETAL: 1+ edema bilaterally. NEUROLOGICAL: Awake and alert. No obvious cranial nerve deficits. Motor grossly within normal limits. Five out of 5 muscle strength in the arms and legs. Normal speech. PSYCHIATRIC: Appropriate mood and affect; insight and judgment normal. Laboratory Laboratory Tests Test 06/10/17 04:36 White Blood Count 8.4 TH/MM3 Red Blood Count 3.41 MIL/MM3 Hemoglobin 10.5 GM/DL Hematocrit 33.8 % Mean Corpuscular Volume 99.1 FL Mean Corpuscular Hemoglobin 31.0 PG Mean Corpuscular Hemoglobin Concent 31.2 % Red Cell Distribution Width 17.3 % Platelet Count 172 TH/MM3 Mean Platelet Volume 9.0 FL Neutrophils (%) (Auto) 67.1 % Lymphocytes (%) (Auto) 12.9 % Monocytes (%) (Auto) 13.1 % Eosinophils (%) (Auto) 6.6 % Basophils (%) (Auto) 0.3 % Neutrophils # (Auto) 5.6 TH/MM3 Lymphocytes # (Auto) 1.1 TH/MM3 Monocytes # (Auto) 1.1 TH/MM3 Eosinophils # (Auto) 0.5 TH/MM3 Basophils # (Auto) 0.0 TH/MM3 CBC Comment DIFF FINAL Differential Comment Blood Urea Nitrogen 60 MG/DL Creatinine 8.93 MG/DL Random Glucose 107 MG/DL Calcium Level 8.4 MG/DL Sodium Level 138 MEQ/L Potassium Level 4.4 MEQ/L Chloride Level 98 MEQ/L Carbon Dioxide Level 28.1 MEQ/L Anion Gap 12 MEQ/L Estimat Glomerular Filtration Rate 6 ML/MIN Assessment and Plan Problem List: (1) CAD (coronary artery disease) ICD Codes: I25.10 - Atherosclerotic heart disease of [place] coronary artery without angina pectoris Status: Acute (2) Hypertensive emergency ICD Codes: I16.1 - Hypertensive emergency Status: Acute (3) Respiratory failure ICD Codes: J96.90 - Respiratory failure, unspecified, unspecified whether with hypoxia or hypercapnia Status: Acute (4) Hyperlipidemia ICD Codes: E78.5 - Hyperlipidemia, unspecified Status: Acute Assessment and Plan 1) NSTEMI with multiple PCI in the past 2) Unstable angina over the past week, concern for in-stent restenosis 3) S/P PCI of LCx LACY to prox LCx Laser atherectomy/cutting balloon to mid LCx in-stent restenosis 4) Plan for possible discharge tomorrow if stable 5) Follow up with Dr. Juárez on discharge 6) ASA/Effient Problem Qualifiers (1) CAD (coronary artery disease): (2) Respiratory failure: (3) Hyperlipidemia: Qualified Codes: E78.2 - Mixed hyperlipidemia Sunny Hernández DO Jun 10, 2017 17:50
[2017-06-10] MEDS: hydrALAZINE HCL 20 MG/ML VIAL IV PUSH PRN ×2 (18:18→19:15)
[2017-06-10] MEDS: PRASUGREL 10 MG TAB PO SCH (20:35)
[2017-06-10] MEDS: ATORVASTATIN 80 MG TAB PO SCH (20:36)
[2017-06-10] MEDS: MELATONIN 5 MG TAB PO SCH (20:36)
[2017-06-11] VITALS (20 sets, daily range): BP systolic 129–139; BP diastolic 59–82; PULSE 60–76; RESP 18–20; TEMP 97.6–99.3; O2SAT 95–96
[2017-06-11] MEDS: INSULIN NovoLIN REGULAR SUPPLEMENTAL SCALE SQ SCH ×3 (03:00→12:38)
[2017-06-11] MEDS: CHLORHEXIDINE GLUCONATE 2 % 1 PACK (2 CLOTHS) TOP SCH (04:00)
[2017-06-11 06:10] LABS: AUTOMATED NEUTROPHIL # 6.4 TH/MM3 (1.8-7.7); BASOPHIL # 0.1 TH/MM3 (0-0.2); BASOPHIL % 0.7 % (0.0-2.0); EOSINOPHIL # 0.5 TH/MM3 (0-0.4); EOSINOPHIL % 5.9 % (0.0-4.0); HEMATOCRIT 32.2 % (39.0-51.0); HEMO FLAGS DIFF FINAL; LYMPH % 10.7 % (9.0-44.0); LYMPHOCYTE # 0.9 TH/MM3 (1.0-4.8); MEAN CELL VOLUME 97.9 FL (80.0-100.0); MEAN CORPUSCULAR HEMOGLOBIN 31.6 PG (27.0-34.0); MEAN CORPUSCULAR HGB CONC 32.3 % (32.0-36.0); MONO % 11.1 % (0.0-8.0); NEUT % 71.6 % (16.0-70.0); PLATELET COUNT 193 TH/MM3 (150-450); RED BLOOD COUNT 3.29 MIL/MM3 (4.50-5.90); RED CELL DISTRIBUTION WIDTH 17.3 % (11.6-17.2); WHITE BLOOD COUNT 8.9 TH/MM3 (4.0-11.0)
[2017-06-11 06:47] LABS: BICARBONATE 26.8 MEQ/L (21.0-32.0); POTASSIUM 4.5 MEQ/L (3.5-5.1)
[2017-06-11] MEDS: CHLORHEXIDINE 0.12% (ORAL KIT) 15 ML CUP MT SCH (08:00)
[2017-06-11] MEDS: METOPROLOL TARTRATE 100 MG TAB PO SCH (08:34)
[2017-06-11] MEDS: GABAPENTIN 300 MG CAP PO SCH (08:34)
[2017-06-11] MEDS: SEVELAMER CARBONATE 800 MG TAB PO SCH ×2 (08:34→09:00)
[2017-06-11] MEDS: ASPIRIN 81 MG CHEW TAB CHEW SCH (08:34)
[2017-06-11] MEDS: LOSARTAN 25 MG TAB PO SCH (08:34)
[2017-06-11] MEDS: DOCUSATE SODIUM 50 MG/SENNA 8.6 MG TAB PO SCH (09:00)
--- NOTE | 2017-06-11 10:04 | MA ---
cc: SUNNY MAZARIEGOS DO DATE June 10, 2017 PROCEDURE Coronary angiogram, laser atherectomy and AngioSculpt balloon angioplasty of in-stent restenosis of left circumflex, Resolute drug-eluting stent (3 x 12) to the proximal left circumflex, complex case, moderate sedation 100 minutes. MEDICATIONS 1. Versed 1 mg. 2. Fentanyl 50 mcg. 3. Heparin 11,100 units. CONTRAST USED 150 cc. FLUOROSCOPY 20 minutes. MODERATE SEDATION 100 minutes. ESTIMATED BLOOD LOSS 30 cc. PROCEDURAL SUMMARY Tony Keith is a pleasant 71-year-old male who sees my partner Dr. Juárez in the office who presented to [facility] on June 02, 2017, and was found to have an NSTEMI. He underwent cardiac catheterization by Dr. Juárez which showed significant in-stent restenosis of his previous drug-eluting stents placed in January. These stents were placed due to previous in-stent restenosis from July. Dr. Juárez and I had discussed how to further manage this and planned on consideration of laser atherectomy in an attempt to avoid a second opening of his chest for coronary artery bypass grafting. This was discussed with the patient including risks, benefits and alternatives and he consented as such. He was brought to the lab and prepped in the usual sterile fashion. The right femoral artery was accessed using a modified Seldinger technique with a micropuncture needle and placement of a 6-[place] sheath. This was easily aspirated and flushed. An EBU 3.5 guide catheter was advanced over a J-wire to the ascending aorta and engaged into the left main. Heparin was used as the anticoagulant. A BMW wire was advanced distally through the multiple lesions. A Compliant balloon (2 x 12) was then used to predilate all three lesions. A laser catheter (0.9) was then used on the proximal lesion which is a [place] vessel at 40/40 for one run. The laser catheter was then advanced and used on the second and third lesions which are in-stent restenosis at 60/60 and then 80/80. Laser catheter was removed. An AngioSculpt balloon (3 x 15) was used on the second and third lesion of in-stent restenosis. This was then exchanged for a Compliant balloon (3 x 8) which was used on the proximal/chitimacha coronary lesion. A Non-Compliant balloon (3 x 12) was then used on all three lesions. A Resolute drug-eluting stent (3 x 12) was placed with overlap from the left main into the left circumflex stent proximally to cover the lesion. A Non-Compliant balloon (3.25 x 8) was then advanced and inflated over the new stent and into the overlap with the left main into left circumflex stent. At this time the wire was removed. Post-angiography shots show a well-opposed stent with 5-10% residual stenosis and RACHEL-3 flow distally. Previous obtuse marginals and AV groove circ with no disruption to their flow in comparison to the original angiogram. The patient is currently on aspirin and Effient daily. The patient left the Lead Electrician cardiovascularly stable. FINDINGS LEFT CIRCUMFLEX: 70% proximal, status post Resolute drug-eluting stent (3 x 12) with proximal overlap from left main to left circumflex stent. OBTUSE MARGINAL: Two areas of in-stent restenosis where it appears there has already been two layers of stent placed status post laser atherectomy and AngioSculpt angioplasty. IMPRESSIONS 1. NSTEMI secondary to significant left circumflex/OM disease. 2. Extensive PCI history with multiple stents and multiple restenosis. 3. Status post Resolute drug-eluting stent (3 x 12) to the proximal left circumflex, status post laser atherectomy and AngioSculpt angioplasty of in-stent restenosis at two points in his obtuse marginal. RECOMMENDATIONS 1. Mr. Keith underwent complex PCI as above in an attempt to keep him from having a second sternotomy. He understands that these may re-stenose and he may end up with a sternotomy at some point anyway. 2. He is on aspirin and Effient and these will be continued. 3. He is to have dialysis in the morning. 4. After dialysis, if stable, most likely he can be discharged. 5. Upon discharge he will follow up with Dr. Juárez. Thank you for allowing me to see Baldo Keith. If there are any questions, please do not hesitate to call. Sunny Mazariegos DO VGP/SSB /9:55 PM /9:42 AM
--- NOTE | 2017-06-11 10:19 | PD.CARD.PN ---
Subjective Subjective Remarks No events overnight Doing well, no CP/SOB Objective Medications Current Medications Medications (Trade) Dose Ordered Sig/Maddison Route Start Time Stop Time Status Last Admin (NS Flush) 2 ml UNSCH PRN IVF 06/02/17 03:45 06/09/17 22:29 (D50w (Vial) Inj) 25 ml UNSCH PRN IV PUSH 06/02/17 05:15 06/03/17 07:44 (NovoLIN R SUPPLEMENTAL SCALE) 1 ACHS AND 3AM SQ 06/02/17 07:00 06/11/17 06:25 (Zofran Inj) 4 mg Q6H PRN IV 06/02/17 05:15 (Duoneb Neb) 1 ampule Q2HR NEB PRN INH 06/02/17 05:15 Miscellaneous Information 1 Q361D XX 06/02/17 05:15 06/02/17 05:15 (Chlorhexidine 2% Cloth) Taper DAILY@04 TOP 06/03/17 04:00 05/30/18 03:59 06/10/17 04:00 (Chlorhexidine 2% Cloth) 3 pack UNSCH PRN TOP 06/02/17 05:15 (Lakesha-Colace) 1 tab BID PO 06/02/17 09:00 06/10/17 20:36 (Trandate Inj) 20 mg Q15M PRN IV PUSH 06/02/17 06:15 06/04/17 12:05 (Apresoline Inj) 10 mg Q30M PRN IV PUSH 06/02/17 06:15 06/10/17 19:15 (Morphine Inj) 2 mg Q1H PRN IV PUSH 06/02/17 06:45 06/08/17 00:37 Sodium Chloride 1,000 ml @ 0 mls/hr Q0M PRN IV 06/02/17 09:11 06/09/17 08:52 (Heparin Inj) 8,000 units UNSCH PRN IVF 06/02/17 09:15 Sodium Chloride 1,000 ml @ 200 mls/hr Q5H PRN IV 06/02/17 09:11 Sodium Chloride 1,000 ml @ 0 mls/hr Q0M PRN IV 06/02/17 09:11 06/06/17 15:57 (Mannitol Inj) 12.5 gm UNSCH PRN IV 06/02/17 09:15 (Albumin 25% Inj) 25 gm UNSCH PRN IV 06/02/17 09:15 06/09/17 08:53 (NS Flush) 5 ml UNSCH PRN IV FLUSH 06/02/17 09:15 06/06/17 15:57 (Heparin Inj) UNSCH PRN .XX 06/02/17 09:15 06/09/17 08:53 (Gentamicin (Dialysis) Inj) 20 mg UNSCH PRN IV 06/02/17 09:15 06/09/17 08:53 (Zofran Inj) 4 mg UNSCH PRN IV 06/02/17 09:15 (Tylenol) 650 mg UNSCH PRN PO 06/02/17 09:15 06/03/17 23:31 (Benadryl) 25 mg UNSCH PRN PO 06/02/17 09:15 (Nitrostat Sl) 0.4 mg UNSCH PRN SL 06/02/17 09:15 06/04/17 12:35 (Catapres) 0.1 mg UNSCH PRN PO 06/02/17 09:15 (Gelfoam 12 Mm/7 Mm Top) 1 foam UNSCH PRN TOP 06/02/17 09:15 (Aspirin Chew) 81 mg DAILY CHEW 06/03/17 09:00 06/11/17 08:34 (Lipitor) 80 mg HS PO 06/02/17 21:00 06/10/17 20:36 (Cozaar) 25 mg DAILY PO 06/03/17 09:00 06/11/17 08:34 (Effient) 10 mg HS PO 06/02/17 21:00 Future hold 06/10/17 20:35 (Peridex 0.12% Liq) 15 ml BID@08,20 MT 06/02/17 20:00 06/04/17 08:56 (Lopressor) 100 mg Q12HR PO 06/04/17 11:00 06/11/17 08:34 (Melatonin) 5 mg HS PO 06/06/17 21:00 06/10/17 20:36 (Renvela) 800 mg TID PO 06/06/17 13:00 06/11/17 08:34 (Neurontin) 300 mg DAILY PO 06/07/17 09:00 06/11/17 08:34 (Aspirin) 325 mg ENGRAVINGS POLISHER PO 06/07/17 20:30 06/11/17 20:29 (Benadryl) 50 mg ENGRAVINGS POLISHER PO 06/07/17 20:30 06/11/17 20:29 (Valium) 10 mg ENGRAVINGS POLISHER PO 06/07/17 20:30 06/11/17 20:29 (Atropine Inj) 0.5 mg UNSCH PRN IV 06/08/17 08:45 Nicardipine HCl 25 mg/Sodium Chloride 260 ml @ 52 mls/hr TITRATE PRN IV 06/09/17 15:30 Nitroglycerin/ Dextrose 250 ml @ 1.5 mls/hr TITRATE PRN IV 06/09/17 15:30 (Heparin Inj) 5,000 units Q8H SQ 06/11/17 11:00 Vital Signs / I&O Vital Signs Date Time Temp Pulse Resp B/P (MAP) Pulse Ox O2 Delivery O2 Flow Rate FiO2 06/11/17 09:34 70 06/11/17 07:35 98.6 74 20 131/59 (83) 95 06/11/17 06:15 69 06/11/17 05:08 69 06/11/17 04:00 70 06/11/17 03:20 98.2 73 19 130/66 (87) 95 06/11/17 03:20 71 06/11/17 02:28 74 06/11/17 01:20 73 06/11/17 00:27 71 06/10/17 23:40 98.2 72 18 129/65 (86) 98 06/10/17 23:40 72 06/10/17 22:00 75 06/10/17 21:00 84 06/10/17 20:00 84 06/10/17 19:50 98.0 80 19 150/68 (95) 96 06/10/17 19:50 83 06/10/17 18:00 76 06/10/17 17:00 70 06/10/17 16:30 73 06/10/17 16:30 74 18 146/81 (102) 93 06/10/17 12:00 66 06/10/17 12:00 99.5 66 18 148/64 (92) 92 I/O 06/10/17 06/10/17 06/10/17 06/11/17 06/11/17 06/11/17 07:00 15:00 23:00 07:00 15:00 23:00 Intake Total 50 ml 690 ml Output Total 100 ml Balance 50 ml 590 ml Intake Oral 50 ml 690 ml Output Urine Total 100 ml # Voids 1 # Bowel Movements 2 1 Physical Exam GENERAL: NAD, AAOx3 SKIN: Warm and dry. HEAD: Atraumatic. Normocephalic. EYES: Pupils equal and round. No scleral icterus. No injection or drainage. ENT: No nasal bleeding or discharge. Mucous membranes pink and moist. NECK: Trachea midline. No JVD. CARDIOVASCULAR: Regular rate and rhythm. RESPIRATORY: No accessory muscle use. CTA B/L GASTROINTESTINAL: Abdomen soft, non-tender, nondistended. Hepatic and splenic margins not palpable. MUSCULOSKELETAL: Right femoral no hematoma/bruit, distal pulses intact NEUROLOGICAL: Awake and alert. No obvious cranial nerve deficits. Motor grossly within normal limits. Five out of 5 muscle strength in the arms and legs. Normal speech. PSYCHIATRIC: Appropriate mood and affect; insight and judgment normal. Laboratory Laboratory Tests Test 06/11/17 05:35 White Blood Count 8.9 TH/MM3 Red Blood Count 3.29 MIL/MM3 Hemoglobin 10.4 GM/DL Hematocrit 32.2 % Mean Corpuscular Volume 97.9 FL Mean Corpuscular Hemoglobin 31.6 PG Mean Corpuscular Hemoglobin Concent 32.3 % Red Cell Distribution Width 17.3 % Platelet Count 193 TH/MM3 Mean Platelet Volume 9.4 FL Neutrophils (%) (Auto) 71.6 % Lymphocytes (%) (Auto) 10.7 % Monocytes (%) (Auto) 11.1 % Eosinophils (%) (Auto) 5.9 % Basophils (%) (Auto) 0.7 % Neutrophils # (Auto) 6.4 TH/MM3 Lymphocytes # (Auto) 0.9 TH/MM3 Monocytes # (Auto) 1.0 TH/MM3 Eosinophils # (Auto) 0.5 TH/MM3 Basophils # (Auto) 0.1 TH/MM3 CBC Comment DIFF FINAL Differential Comment Blood Urea Nitrogen 73 MG/DL Creatinine 10.82 MG/DL Random Glucose 156 MG/DL Calcium Level 8.6 MG/DL Sodium Level 135 MEQ/L Potassium Level 4.5 MEQ/L Chloride Level 95 MEQ/L Carbon Dioxide Level 26.8 MEQ/L Anion Gap 13 MEQ/L Estimat Glomerular Filtration Rate 5 ML/MIN Assessment and Plan Problem List: (1) CAD (coronary artery disease) ICD Codes: I25.10 - Atherosclerotic heart disease of [place] coronary artery without angina pectoris Status: Acute (2) Hypertensive emergency ICD Codes: I16.1 - Hypertensive emergency Status: Acute (3) Respiratory failure ICD Codes: J96.90 - Respiratory failure, unspecified, unspecified whether with hypoxia or hypercapnia Status: Acute (4) Hyperlipidemia ICD Codes: E78.5 - Hyperlipidemia, unspecified Status: Acute Assessment and Plan 1) NSTEMI with multiple PCI in the past 2) Unstable angina over the past week prior to arrival 3) S/P PCI of LCx LACY to prox LCx Laser atherectomy/cutting balloon to mid LCx in-stent restenosis 4) Cardiovascularly stable for discharge today 5) Follow up with Dr. Juárez on discharge in 2-4 weeks 6) ASA/Effient/Statin/BB Problem Qualifiers (1) CAD (coronary artery disease): (2) Respiratory failure: (3) Hyperlipidemia: Qualified Codes: E78.2 - Mixed hyperlipidemia Sunny Hernández DO Jun 11, 2017 10:19
[2017-06-11] MEDS: GENTAMICIN SULFATE (DIALYSIS USE ONLY) 20 MG/2 ML VIAL IV PRN (10:59)
[2017-06-11] MEDS: HEPARIN SODIUM - IV 10,000 UNITS/10 ML VIAL PRN (11:01)
[2017-06-11] MEDS: SODIUM CHLORIDE 0.9% FLUSH 10 ML FLUSH IV FLUSH PRN (11:02)
[2017-06-11] MEDS: HEPARIN SODIUM - SQ 10,000 UNITS/ML VIAL SQ SCH ×2 (12:35→12:40)
--- NOTE | 2017-06-11 14:57 | HHI.PR ---
Subjective Subjective Remarks had HD today no cp no sob anxious to go home cleared by Dr. Juárez left eye with small amount of blood, similar as yesterday no blurry vision Review of Systems Constitutional Constitutional Remarks 12 point ros completed, negative except as noted above Vitals/Results Intake & Output 06/11/17 06/11/17 06/12/17 14:59 22:59 06:59 Output Total 2000 ml Balance -2000 ml Hemodialysis 2000 ml Vital Signs Vital Signs Date Time Temp Pulse Resp B/P (MAP) Pulse Ox O2 Delivery O2 Flow Rate FiO2 06/11/17 14:00 73 06/11/17 13:00 74 06/11/17 12:44 99.3 70 18 136/59 (84) 96 06/11/17 12:00 72 06/11/17 11:00 70 06/11/17 10:00 72 06/11/17 09:00 72 06/11/17 08:00 74 06/11/17 07:35 98.6 74 20 131/59 (83) 95 06/11/17 07:00 71 06/11/17 06:15 69 06/11/17 05:08 69 06/11/17 04:00 70 06/11/17 03:20 98.2 73 19 130/66 (87) 95 06/11/17 03:20 71 06/11/17 02:28 74 06/11/17 01:20 73 06/11/17 00:27 71 06/10/17 23:40 98.2 72 18 129/65 (86) 98 06/10/17 23:40 72 06/10/17 22:00 75 06/10/17 21:00 84 06/10/17 20:00 84 06/10/17 19:50 98.0 80 19 150/68 (95) 96 06/10/17 19:50 83 06/10/17 18:00 76 06/10/17 17:00 70 06/10/17 16:30 73 06/10/17 16:30 74 18 146/81 (102) 93 CBC/BMP: 06/11/17 0535 06/11/17 0535 Lab Results Laboratory Tests Test 06/11/17 05:35 White Blood Count 8.9 TH/MM3 Red Blood Count 3.29 MIL/MM3 Hemoglobin 10.4 GM/DL Hematocrit 32.2 % Mean Corpuscular Volume 97.9 FL Mean Corpuscular Hemoglobin 31.6 PG Mean Corpuscular Hemoglobin Concent 32.3 % Red Cell Distribution Width 17.3 % Platelet Count 193 TH/MM3 Mean Platelet Volume 9.4 FL Neutrophils (%) (Auto) 71.6 % Lymphocytes (%) (Auto) 10.7 % Monocytes (%) (Auto) 11.1 % Eosinophils (%) (Auto) 5.9 % Basophils (%) (Auto) 0.7 % Neutrophils # (Auto) 6.4 TH/MM3 Lymphocytes # (Auto) 0.9 TH/MM3 Monocytes # (Auto) 1.0 TH/MM3 Eosinophils # (Auto) 0.5 TH/MM3 Basophils # (Auto) 0.1 TH/MM3 CBC Comment DIFF FINAL Differential Comment Blood Urea Nitrogen 73 MG/DL Creatinine 10.82 MG/DL Random Glucose 156 MG/DL Calcium Level 8.6 MG/DL Sodium Level 135 MEQ/L Potassium Level 4.5 MEQ/L Chloride Level 95 MEQ/L Carbon Dioxide Level 26.8 MEQ/L Anion Gap 13 MEQ/L Estimat Glomerular Filtration Rate 5 ML/MIN Physical Exam General General Appearance: Well Developed, Well Nourished, No Acute Distress, Comfortable, Obese Eyes Eye Exam: Pupils Equal, Pupils Reactive Eye Remarks left eye with small amount of hemorrhage Ears & Nose Ears & Nose Exam: Nasal Mucosa Rembrandt Throat Throat Exam: Oral Mucosa Rembrandt & Moist Neck Neck Exam: Neck Supple, Trachea Midline Pulmonary Resp Exam: Breath Sounds Equal, No Distress Cardiology CV Exam: Regular, Normal Sinus Rhythm Gastrointestinal/Abdomen GI Exam: Soft, Non-Tender, Bowel Sounds Present, Non-Distended Musculoskeletal MS Exam: Joints Intact Integumentary Skin Exam: Clear, Warm, Dry, Intact Extremeties Extremities Exam: Pedal Pulses Palpable, Trace Edema Neurologic Neuro Exam: Alert, Awake, Oriented, Speech Clear, Moving All Extremities, No Focal Deficits Psychiatric Psych Exam: Appropriate Responses VTE Prophylaxis VTE Prophylaxis Device: SCDs VTE Prophylaxis Meds: Heparin Assessment/Plan Assessment/Plan ASSESSMENT/PLAN . Status post Chest pain/ Non-ST elevation myocardial infarction. . Multivessel coronary artery disease status post CABG, status post graft occlusive disease with multiple stent, . Hypertensive emergency, uncontrolled. . Status post hypercapnic respiratory failure, multifactorial partly due to fluid overload, they may be an element of sleep apnea . End-stage renal disease with dialysis. . Diabetes mellitus type 2. . Morbid obesity . Anemia of chronic disease Plan 06/08 Status post cardiac catheterization, showing in-stent restenosis of left circumflex artery, Dr. Juárez have consulted Dr. Sanchez for laser atherectomy 06/10 S/P cath with Resolute drug-eluting stent (3 x 12) to the proximal left circumflex, status post laser atherectomy and AngioSculpt angioplasty of in- stent restenosis at two points in his obtuse marginal. continue with aspirin, Effient, BB, statin cleared for discharge Diabetic diet Accu-Chek monitoring was seen daily at bedtime sliding scale coverage continue oxygen PRN Duonebs PRN Hemodialysis per nephrology Pepcid for GI protection SCDs for DVT prophylaxis Left eye with small amount of hemorrhage f/u with ophthalmology Dr. Vazquez in [facility] cleared for dc had HD today no cp, no sob Discharge home today f/u Dr. Juárez 2-4 weeks Diet-cardiac Activity-as tolerated D/W Dr. Stewart D/W pt and D/W RN This patient was seen by myself and Dr. Steawrt, this note is written on his behalf Discharge Minutes: 45 Saida Peterson Jun 11, 2017 14:57
--- NOTE | 2017-06-11 14:59 | HHI.DCPOC ---
Discharge Care Plan Diagnosis: (1) Unstable angina (2) NSTEMI (non-ST elevated myocardial infarction) Your Health Problems Are: Chest Pain Goals to Promote Your Health * To prevent worsening of your condition and complications * To maintain your health at the optimal level Directions to Meet Your Goals Take your medications as prescribed Follow your dietary instruction Follow activity as directed Keep your appointments as scheduled Take your immunizations and boosters as scheduled If your symptoms worsen call your PCP, if no PCP go to Urgent Care Center or Emergency Room Smoking is Dangerous to Your Health. Avoid second hand smoke Call the 24-hour hour crisis hotline for domestic abuse at Saida Peterson. [facility] Jun 11, 2017 14:59
--- NOTE | 2017-06-14 00:50 | HHI.DS ---
Discharge Summary Admission Date Jun 02, 2017 at 05:14 Discharge Date: Jun 11, 2017 Admitting Diagnosis Hypertensive emergency, chest pain (1) Hypertensive emergency ICD Codes: I16.1 - Hypertensive emergency Status: Acute (2) Unstable angina ICD Codes: I20.0 - Unstable angina Status: Acute (3) NSTEMI (non-ST elevated myocardial infarction) ICD Codes: I21.4 - Non-ST elevation (NSTEMI) myocardial infarction Status: Acute (4) Hypertension ICD Codes: I10 - Essential (primary) hypertension Status: Acute (5) Hyperlipidemia ICD Codes: E78.5 - Hyperlipidemia, unspecified Status: Acute (6) DM (diabetes mellitus) ICD Codes: E11.9 - Type 2 diabetes mellitus without complications Status: Acute (7) ESRD (end stage renal disease) ICD Codes: N18.6 - End stage renal disease Status: Acute (8) CAD (coronary artery disease) ICD Codes: I25.10 - Atherosclerotic heart disease of [place] coronary artery without angina pectoris Status: Acute (9) Respiratory failure ICD Codes: J96.90 - Respiratory failure, unspecified, unspecified whether with hypoxia or hypercapnia Status: Acute Procedures On 821, had cardiac catheter findings of recurrent stenosis or circumflex stents. Dr. Pisano in [place] discussed, the plan was for laser atherectomy later. On 06/10 S/P cath with Resolute drug-eluting stent (3 x 12) to the proximal left circumflex, status post laser atherectomy and AngioSculpt angioplasty of in -stent restenosis at two points in his obtuse marginal. CBC/BMP: 06/11/17 0535 06/11/17 0535 Significant Findings Laboratory Tests Test 06/11/17 05:35 Red Blood Count 3.29 MIL/MM3 (4.50-5.90) Hemoglobin 10.4 GM/DL (13.0-17.0) Hematocrit 32.2 % (39.0-51.0) Red Cell Distribution Width 17.3 % (11.6-17.2) Neutrophils (%) (Auto) 71.6 % (16.0-70.0) Monocytes (%) (Auto) 11.1 % (0.0-8.0) Eosinophils (%) (Auto) 5.9 % (0.0-4.0) Lymphocytes # (Auto) 0.9 TH/MM3 (1.0-4.8) Monocytes # (Auto) 1.0 TH/MM3 (0-0.9) Eosinophils # (Auto) 0.5 TH/MM3 (0-0.4) Blood Urea Nitrogen 73 MG/DL (7-18) Creatinine 10.82 MG/DL (0.60-1.30) Random Glucose 156 MG/DL (74-106) Sodium Level 135 MEQ/L (136-145) Chloride Level 95 MEQ/L (98-107) Estimat Glomerular Filtration Rate 5 ML/MIN (>89) Imaging Last Impressions Chest X-Ray 06/06/17 0600 Signed Impressions: Service Date/Time: Tuesday, June 06, 2017 03:50 - CONCLUSION: 1. Mild basilar airspace disease stable to slightly improved from June 05. Removal of previous NG tube. Right vas catheter unchanged. Jayme Carlin MD Aorta CTA 06/02/17 0507 Signed Impressions: Service Date/Time: Friday, June 02, 2017 05:48 - CONCLUSION: 1. No evidence of aortic aneurysm or dissection. 2. Patchy basilar pulmonary infiltrates and small pleural effusions. 3. Bilateral hydroceles for a Robert Steiner MD Hospital Course This is a 71yM with a strong CAD history s/p multiple PCI and CABG who presented with 10/10 chest pain unrelieved by ntg SL. He has a history of ESRD and presented after skipping his dialysis. He stated that his chest pain had been going since Thursday, and he skipped HD on thursday because he was afraid IHD would make his chest pain worse. He stated this pain feels like his prior heart attacks. he denied any other symptoms of fever, chills, nausea, vomiting, diarrhea. did endorse SOB and orthopnea. In the ED he was severely hypertensive with BP 262/124. He was given NTG without improvement. He was started on NGT drip and his BP was controlled < 200, but again his chest pain persisted. Nephrology was consulted for emergent dialysis. The patient also underwent CT aortogram to rule out acute dissection, formal read pending, but preliminarily negative for acute dissection. He is hypoxic on ventimask with spo2 91%. Critical care medicine is consulted to evaluate and manage his hypertensive emergency and hypoxemia. The remainder of the ROS and history was negative unless otherwise documented. Pt. was admitted to ICU, initially admitted to [facility]. Cardiology and nephrology were consulted. On 06/02/17: Patient was intubated for worsening hypercarbic resp failure and encephalopathy. Trop peaked at 4.2, cardiology Dr. Juárez followed. Patient was More awake, but failed CPAP. Patient remained intubated on low-dose fentanyl, woke up easily followed commands. Tolerating CPAP trial slightly better today. Chest x-ray shows slightly worsening left lower lobe infiltrate effusion Chest pain controlled, put on nitroglycerin drip at 50 mcg/min. Was put on IV heparin but was held due to thrombocytopenia, hit screen sent. Tentatively plan for cardiac cath. Had HD per renal recommendations. Thursday. HD yesterday with 3L removed Patient extubated. Denied chest pain. Weaned off nitroglycerin. On , had cardiac catheter findings of recurrent stenosis or circumflex stents. Dr. Pisano in [place] discussed, the plan was for laser atherectomy later. On 06/10 S/P cath with Resolute drug-eluting stent (3 x 12) to the proximal left circumflex, status post laser atherectomy and AngioSculpt angioplasty of in -stent restenosis at two points in his obtuse marginal. continued with aspirin, Effient, BB, statin Tolerated procedure well, chest pain-free. Was cleared for discharge by cardiology. Was noted with Left eye with small amount of hemorrhage Instructed to f/u with ophthalmology Dr. Vazquez in [facility] Pt. had HD after second cath. Pt. chest pain free, ambulatory, stable. No resp distress. Discharged home in stable condition. Instructed to: f/u Dr. Juárez 2-4 weeks Diet-cardiac Activity-as tolerated Pt Condition on Discharge: Stable Discharge Disposition: Discharge Home Discharge Instructions DIET: Follow Instructions for: Heart Healthy Diet, Diabetic Diet Activities you can perform: Weight Bearing as Jenni Follow up Referrals: Cardiology - 2 Weeks with Julio Juárez MD Nephrology - 1 Month PCP Follow-up - 3-5 Days Continued Medications: Allopurinol (Allopurinol) 300 Mg Tab 300 MG PO DAILY for Gout, #30 TAB 0 Refills Aspirin (Aspirin) 81 Mg Chew 81 MG CHEW DAILY, TAB 0 Refills Atorvastatin (Atorvastatin) 80 Mg Tab 80 MG PO HS for Cholesterol Management, #30 TAB 0 Refills Ezetimibe (Zetia) 10 Mg Tab 10 MG PO HS, #30 TAB 0 Refills Furosemide (Furosemide) 40 Mg Tab 80 MG PO DAILY PRN for swelling, #30 TAB 0 Refills Gabapentin (Gabapentin) 300 Mg Cap 300 MG PO TID for Pain Management, #30 CAP 0 Refills Glimepiride (Glimepiride) 1 Mg Tab 0 PO DAILY for Blood Sugar Management, #30 TAB 0 Refills Take with breakfast or first main meal Insulin Glargine Inj (Lantus Solostar Pen Inj) 300 Unit/3 Ml Pen 2-3 UNITS SQ DAILY for Blood Sugar Management, PEN 0 Refills Losartan (Losartan) 25 Mg Tab 25 MG PO DAILY for Blood Pressure Management, #30 TAB 0 Refills Metoprolol Succinate ER 24 HR (Metoprolol Succinate ER 24 HR) 100 Mg Tab 100 MG PO BID, #30 TAB 0 Refills Multiple Vitamins W/ Minerals (Prorenal Qd) 1 Cap Cap Multiple Vitamins W/ Minerals (Centrum) 1 Chew 1 TAB CHEW DAILY for Nutritional Supplement, TAB 0 Refills Prasugrel (Effient) 10 Mg Tab 10 MG PO HS for Blood Clot Prevention, #30 TAB 0 Refills Sevelamer Carbonate (Renvela) 800 Mg Tab 800 MG PO TID for Control phosphorous levels, #90 TAB 0 Refills Sitagliptin (Januvia) 25 Mg Tab 50 MG PO DAILY for Blood Sugar Management, #30 TAB 0 Refills Saida Peterson Jun 14, 2017 00:50
== END 2017-06-11 16:24 | disposition home or self-care (01) | DRG 246 ==
LOC: NEPC 03:24 → NEDA 05:14 → HIMN 07:50 → HCIS 06-10 15:36 → HCIN 06-10 16:27
PROVIDERS: ADMIT Internal Medicine Critical Care Medicine; ATTEND Internal Medicine Critical Care Medicine
PROC: 5A09357 Assistance with Respiratory Ventilation, Less than 24 Consecutive Hours, Continuous Positive Airway Pressure (ICD-10-PCS; 2017-06-02)
PROC: 5A1D60Z (ICD-10-PCS; 2017-06-02)
PROC: 5A1935Z Respiratory Ventilation, Less than 24 Consecutive Hours (ICD-10-PCS; 2017-06-03)
PROC: 0BH17EZ Insertion of Endotracheal Airway into Trachea, Via Natural or Artificial Opening (ICD-10-PCS; 2017-06-03)
PROC: 4A023N7 Measurement of Cardiac Sampling and Pressure, Left Heart, Percutaneous Approach (ICD-10-PCS; 2017-06-08)
PROC: B2111ZZ Fluoroscopy of Multiple Coronary Arteries using Low Osmolar Contrast (ICD-10-PCS; 2017-06-08)
PROC: B2151ZZ Fluoroscopy of Left Heart using Low Osmolar Contrast (ICD-10-PCS; 2017-06-08)
PROC: B2131ZZ Fluoroscopy of Multiple Coronary Artery Bypass Grafts using Low Osmolar Contrast (ICD-10-PCS; 2017-06-08)
PROC: B2181ZZ Fluoroscopy of Left Internal Mammary Bypass Graft using Low Osmolar Contrast (ICD-10-PCS; 2017-06-08)
PROC: 0270346 Dilation of Coronary Artery, One Artery, Bifurcation, with Drug-eluting Intraluminal Device, Percutaneous Approach (ICD-10-PCS; 2017-06-10)
PROC: 02703ZZ Dilation of Coronary Artery, One Artery, Percutaneous Approach (ICD-10-PCS; 2017-06-10)
PROC: B2111ZZ Fluoroscopy of Multiple Coronary Arteries using Low Osmolar Contrast (ICD-10-PCS; 2017-06-10)
PROC: 4A023N7 Measurement of Cardiac Sampling and Pressure, Left Heart, Percutaneous Approach (ICD-10-PCS; 2017-06-10)
PROC: 02C03ZZ Extirpation of Matter from Coronary Artery, One Artery, Percutaneous Approach (ICD-10-PCS; principal; 2017-06-10 13:45)
DX: I21.4 Non-ST elevation (NSTEMI) myocardial infarction (principal); N18.6 End stage renal disease; I13.2 Hypertensive heart and chronic kidney disease with heart failure and with stage 5 chronic kidney disease, or end stage renal disease; G93.40 Encephalopathy, unspecified; J96.01 Acute respiratory failure with hypoxia; E11.22 Type 2 diabetes mellitus with diabetic chronic kidney disease; D69.6 Thrombocytopenia, unspecified; J96.02 Acute respiratory failure with hypercapnia; Z68.41 Body mass index [BMI] 40.0-44.9, adult; E87.70 Fluid overload, unspecified; I16.1 Hypertensive emergency; T82.855A Stenosis of coronary artery stent, initial encounter; I25.810 Atherosclerosis of coronary artery bypass graft(s) without angina pectoris; I50.9 Heart failure, unspecified; N25.0 Renal osteodystrophy; E87.5 Hyperkalemia; D63.1 Anemia in chronic kidney disease; E66.01 Morbid (severe) obesity due to excess calories; E78.2 Mixed hyperlipidemia; E83.51 Hypocalcemia; E87.6 Hypokalemia; I25.110 Atherosclerotic heart disease of native coronary artery with unstable angina pectoris; M10.9 Gout, unspecified; Y83.1 Surgical operation with implant of artificial internal device as the cause of abnormal reaction of the patient, or of later complication, without mention of misadventure at the time of the procedure; I25.2 Old myocardial infarction; Z79.82 Long term (current) use of aspirin; Z79.84 Long term (current) use of oral hypoglycemic drugs; Z99.2 Dependence on renal dialysis; Z79.4 Long term (current) use of insulin; Z79.01 Long term (current) use of anticoagulants
CPT/HCPCS: 31500; 36600; 71010; 71275; 74174; 76937; 80048; 80053; 80074; 82550; 82552; 82805; 82948; 83690; 83735; 83880; 84100; 84155; 84484; 85002; 85007; 85025; 85027; 85347; 85610; 85730; 86022; 87641; 90935; 92924; 92929; 93005; 93306; 93454; 93458; 94002; 94003; 94150; 94640; 94667; 94668; 96365; 96374; 96375; C1725; C1769; C1885; C1887; C1893; J0360; J1170; J1580; J1644; J1940; J2250; J2270; J2405; J3010; J7030; P9047; Q9967

== ENCOUNTER 2017-10-13 07:38 | Day surgery (SDC) | payer MEDICARE, BC, OTHER ==
[~2017-10-13] VITALS: Ht 162.6 cm; Wt 120.0 kg
[2017-10-13] VITALS (9 sets, daily range): BP systolic 129–188; BP diastolic 71–88; PULSE 58–70; RESP 18–20; TEMP 97.6–98.6; O2SAT 94–97
[~2017-10-13 07:38] MED LIST changes: +ASPI-516 CHEW; -ASPI81CH CHEW; -ATOR1TAB18 PO; +ATOR80TA45 PO; -BRIL90TA PO; +CENTCHW4 CHEW; -CENTTAB PO; +EZET10 PO; +GLIM1TAB PO; -GLYB5TAB3 PO; -METO100T9 PO; +METO1TAB43 PO; +PRAS10TA PO; -ZETI10TA5 PO
[2017-10-13] MEDS ORDERED: IOHEXOL 350 MG/ML 100 ML BTL (for Cath Lab) OTHER ONE (07:39)
[2017-10-13] MEDS ORDERED: IOHEXOL 350 MG/ML 50 ML BTL (for Cath Lab) OTHER ONE (07:39)
[2017-10-13] MEDS ORDERED: NITR0.4S SL (08:25)
[2017-10-13] MEDS ORDERED: CINA30 PO (08:25)
[2017-10-13] MEDS ORDERED: HUMALOG SQ (08:25)
[2017-10-13] MEDS ORDERED: SODIUM CHLOR 0.9% 1000 ML INJ 1,000 ML IV SCH (09:00)
[2017-10-13 09:23] LABS: AUTOMATED NEUTROPHIL # 5.1 TH/MM3 (1.8-7.7); BASOPHIL % 0.5 % (0.0-2.0); EOSINOPHIL # 0.4 TH/MM3 (0-0.4); EOSINOPHIL % 5.5 % (0.0-4.0); HEMATOCRIT 36.2 % (39.0-51.0); HEMO FLAGS DIFF FINAL; LYMPH % 16.6 % (9.0-44.0); LYMPHOCYTE # 1.3 TH/MM3 (1.0-4.8); MEAN CELL VOLUME 100.1 FL (80.0-100.0); MEAN CORPUSCULAR HEMOGLOBIN 31.3 PG (27.0-34.0); MEAN CORPUSCULAR HGB CONC 31.3 % (32.0-36.0); MONO % 11.2 % (0.0-8.0); NEUT % 66.2 % (16.0-70.0); PLATELET COUNT 128 TH/MM3 (150-450); RED BLOOD COUNT 3.61 MIL/MM3 (4.50-5.90); RED CELL DISTRIBUTION WIDTH 17.6 % (11.6-17.2); WHITE BLOOD COUNT 7.7 TH/MM3 (4.0-11.0)
[2017-10-13 09:31] LABS: APTT (PATIENT) 23.8 SEC (24.3-30.1); PROTHROMBIN TIME - PATIENT 10.5 SEC (9.8-11.6)
[2017-10-13 09:35] LABS: BICARBONATE 21.8 MEQ/L (21.0-32.0); POTASSIUM 5.2 MEQ/L (3.5-5.1)
[2017-10-13] MEDS ORDERED: MIDAZOLAM HCL 2 MG/2 ML VIAL ONE (09:58)
[2017-10-13] MEDS ORDERED: HEPARIN-NS/PF INJ 1,000 ML ONE (09:58)
[2017-10-13] MEDS ORDERED: HEPARIN SODIUM - IV 10,000 UNITS/10 ML VIAL ONE (10:36)
[2017-10-13] MEDS ORDERED: ASPIRIN 81 MG CHEW TAB ONE (11:17)
[2017-10-13] MEDS ORDERED: PRASUGREL 10 MG TAB ONE (11:17)
--- NOTE | 2017-10-13 11:40 | CATHPROC ---
[employer] HIS Report Study Information Study Number Admission Scheduled Start Study Start [id number] Oct 13 2017 7:38AM 10/13/2017 Oct 13 2017 9:15AM Scott Service Cardiac Catheterization Admit Source Facility Department Other [facility] - Insurance Claims Supervisor Physician and Clinical Staff Initial Sunny Calvillo High Pressure CleanerAlena Tobar,RN Alverto Gilliland RN, Douglas RecordVivienne Rodriguez,RT(R) Scrub Rebecca Chan,LABOR RELATIONS WORKER TECH2 Procedures Performed Procedure Location (Site) Vessel Name Coronary Angiograms RCA Right Coronary Coronary Angiograms ARMIJO-LAD Left Coronary Coronary Angiograms SVG-RCA Right Coronary Coronary Angiograms CIRC Mid CIRC PTCA CIRC Mid CIRC PTCA OM2 Prox CIRC PTCA ADD ON'S Restenosis SVG-LCX CIRC Wire insertion Fem Art (right) Femoral Art Equipment Time Transfer Coordinator Description Size Mfg Part Number Used/Scraped WIRE, BALANCE MIDDLEWEIGHT [id number] 10:36 [employer] 190CM Used 190CM *[id number] TRANSDUCER, TRUWAVE [id number] 10:22 [employer]cher * Used W/Chroma EnergyCK *[id number] *[id number] 10:22 [employer] PACK, CCL CUSTOM * Used *[id number] 10:43 [employer] BALLOON, 2.0 X 12MM EUPHORA 12MM Used *[id number] BALLOON, 3.25 X 15MM NC [id number] 11:05 [employer] 15MM Used EUPHORA *[id number] 10:32 [employer] JL 4.0 DXTERITY CATHETER FR 5 Used *[id number] 10:32 [employer] JL 4.0 DXTERITY CATHETER FR 5 Used *[id number] 10:39 [employer]/AVE EBU 3.5 Z2 GUIDE CATHETER FR 6 Used *[id number] 10:35 [employer] 30 RAO INDEFLATOR Used *[id number] 10:23 [employer] SHEATH, FR5.5 PRELUDE 11CM FR 5 [id number] 10:22 [employer] SHEATH, FR6.5 PRELUDE 11CM FR 6.5 038ACT Used *[id number] 10:22 [employer] WIRE, 3MMJ .035 180CM 180CM Used *[id number] 10:22 NAMIC MANIFOLD, 4 PORT * Used *[id number] 10:22 [employer] OMNIPAQUE, 350 MG, 150ML 150ML [id number] Used 10:38 [employer] OMNIPAQUE, 350 MG, 150ML 150ML [id number] Used 10:35 [employer] OMNIPAQUE, 350 MG, 50ML 50ML [id number] Used [id number] 10:22 [employer] BLANKET,WARM AIR CCL * Used *[id number] BALLOON, 3.0 15MM [id number] 11:00 [employer] 3.0 15MM Used ANGIOSCULPT 155CM BTK *[id number] 110-004 10:51 [employer] CATHETER, ELCA 0.9MM X-80 150CM Used *[id number] 10:35 [employer] SHEATH, FR6 TERUMO (10CM) FR 6 Used *[id number] Equipment Model, Serial, Lot Number and Expiration Data Description Model Number Serial Number Lot Number Expiration Date BALLOON, 3.0 15MM ANGIOSCULPT [id number] 07-22-2020 155CM BTK BALLOON, 3.25 X 15MM IN [id number] 06-06-2019 EUPHORA JL 4.0 DXTERITY CATHETER [id number] 05-12-2020 History: Current Medications Medication Dosage/Unit Route Frequency Last Date/Time Taken Beta Betsy EFFIENT ASA Statins (any) Allopurinol Insulin LOPRESSOR Zieta History: Allergies Allergy Reaction No Known Allergies History: Risk Factors Family History of Hypertension Dyslipidemia Previous NV Previous Heart Failure Premature CAD Yes Yes Yes Yes No Prior Valve Prior PCI Prior PCIDate Prior CABG Prior CABGDate Surgery No Yes 06/10/2017 Yes 10/19/1997 Cerebrovascular 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 Diabetes Diabetes Therapy Disease Disease Disease Yes No No No Yes Insulin History: Symptoms/Diagnosis Selection Items Chest pain History: Stress Tests Stress or Imaging Studies Performed Yes Standard Exercise Stress Test No Stress Echo No Stress Test SPECT Stress Test SPECT Result Stress Test SPECT Ischemia Risk/Extent Yes Positive Intermediate Stress Test CMR No Cardiac CTA Coronary Calcium Score No No History: Other Disease Selection Items CAD HTN Labs Hgb (g/dl) Hct (%) WBC (l/cumm) Platelets (thousands) 11.60-17.00 35.00-51.00 4.00-11.00 150.00-450.00 11.3 36.2 7.7 128 Glucose (mg/dl) BUN (mg/dl) Creatinine (mg/dl) BUN:Creatinine (1:x) 74.00-106.00 7.00-18.00 0.50-1.30 10.00-20.00 210 60 8.9 6.7 Na (meq/l) K (meq/l) 136.00-145.00 3.50-5.10 139 5.2 INR (PTT:PT) 0.90-1.10 1 CPK-MB (ng/ML) 0.50-3.60 Not Drawn Medication Medication Total Dose (Bolus/Oral) Medication Total Dosage/Unit 1% XYLOCAINE 20 mL ASPIRIN 80 mg EFFIENT 10 mg FENTANYL 150 mcg HEPARIN 8400 units NTG (IC) 300 mcg VERSED 1 mg Medications (Bolus/Oral) Medication Time Given Dosage/Unit Administered By Reason 10/13/2017 10:19:29 FENTANYL 25 mcg Douglas Gilliland RN, AM 25 mcg FENTANYL given in lab by Douglas Gilliland RN via Peripheral IV. 10/13/2017 10:19:29 1% XYLOCAINE 20 mL Sunny Hernández AM 20 mL 1% XYLOCAINE given in lab by Sunny Hernández in Right Groin via Subcutaneous. 10/13/2017 10:20:41 VERSED 0.5 mg Douglas Gilliland RN, AM 0.5 mg VERSED given in lab by Douglas Gilliland RN via Peripheral IV. 10/13/2017 10:37:29 HEPARIN 8400 units Douglas Gilliland RN, AM 8400 units HEPARIN given in lab by Douglas Gilliland RN via Peripheral IV. 10/13/2017 10:49:56 VERSED 0.5 mg Douglas Gilliland RN, AM 0.5 mg VERSED given in lab by Douglas Gilliland RN via Peripheral IV. 10/13/2017 10:50:13 FENTANYL 25 mcg Douglas Gilliland RN, AM 25 mcg FENTANYL given in lab by Douglas Gilliland RN via Peripheral IV. 10/13/2017 10:57:42 NTG (IC) 100 mcg Sunny Hernández AM 100 mcg NTG (IC) given in lab by Sunny Hernández via Intra-coronary. 10/13/2017 10:59:18 FENTANYL 50 mcg Sunny Hernández AM 50 mcg FENTANYL given in lab by Sunny Hernández via Peripheral IV. 10/13/2017 11:09:39 NTG (IC) 200 mcg Sunny Hernández AM 200 mcg NTG (IC) given in lab by Sunny Hernández via Intra-coronary. 10/13/2017 11:13:41 FENTANYL 50 mcg Sunny Hernández AM 50 mcg FENTANYL given in lab by Sunny Hernández via Peripheral IV. 10/13/2017 11:20:35 ASPIRIN 80 mg Douglas Gilliland RN, AM 80 mg ASPIRIN given in lab by Douglas Gilliland RN via Subcutaneous. 10/13/2017 11:20:45 EFFIENT 10 mg Douglas Gilliland RN, AM 10 mg EFFIENT given in lab by Douglas Gilliland RN via Oral. Medication (Drip) Medication Time Given Dosage/Unit Concentration/Unit Diluent (ml) Solutio n 10/13/2017 10:03:08 IV Solutions 0 mL (IV) 500 NaCl .9 AM Patient arrived on IV Solutions in Right Wrist via Peripheral IV. Pump/Drip Flow = 15 ml/hr using NaC l .9. Initial Case Assessment Cardiovascular HR Rhythm NIBP 68 reg 147/76 Edema Present Skin color Skin Severe Normal Warm Circulatory - Right Pulses Dorsalis Pedis Femoral 3 3 Scale (0,1,2,3,4,d) Circulatory - Left Pulses Dorsalis Pedis Femoral 3 3 Scale (0,1,2,3,4,d) Circulatory - Lower Extremities Color Lower Right Color Lower Left Normal Normal Neurological State Oriented to time-place- Alert Moves all extremities person Respiration - General Respiration Rate SpO2 (%) (B/min) 14 97 Final Case Assessment Cardiovascular HR Rhythm NIBP Chest Pain 68 reg 147/73 0 Edema Present Skin color Skin None Normal Warm Circulatory - Right Pulses Dorsalis Pedis Femoral 3 3 Scale (0,1,2,3,4,d) Circulatory - Left Pulses Dorsalis Pedis Femoral 3 3 Scale (0,1,2,3,4,d) Circulatory - Lower Extremities Color Lower Right Color Lower Left Normal Normal Neurological State Oriented to time-place- Alert Moves all extremities person Respiration - General Respiration Rate SpO2 (%) (B/min) 20 96 Chronological Log Time Study Chronological Log 9:50:00 Patient arrived via Bed. 9:50:01 Patient Name, D.O.B, / Armband Verified By R.N. 9:50:02 Consent signed by the physician and the patient and verified by the Insurance Claims Supervisor staff. 9:50:03 Pre-op and post- op instructions given; patient acknowledges understanding of instructions. Vitals capture started with the following parameters, Patient=Adult, Interval=5 min, Initial Pr lzgnar=775 mmHg, 9:55:48 Deflation Rate=5 mmHg, Cuff placed on Left Arm 9:57:13 HR=70 bpm, PWWR=061/82 mmhg, SpO2=99 %, Resp=12 B/min, Pain=0, Leonora=10, Ames=2 10:01:33 HR=70 bpm, RXVE=969/76 mmhg, SpO2=95.0 %, Resp=16 B/min, Pain=0, Leonora=10, Ames=2 10:01:46 Reference ECG taken 10:02:35 Skin Breakdown-none 10:02:51 Patient Warmer Placed on the Table. 10:02:58 A # 22 IV was noted in the Wrist (right). Grade = 0 10:03:08 Patient arrived on IV Solutions in Right Wrist via Peripheral IV. Pump/Drip Flow = 15 ml/hr using NaCl .9. 10:03:28 History and physical on the chart or being dictated. Assessment: Initial Case, HR=68 BPM, Rhythm=reg, HPVD=211/76 mmhg, Edema=Severe, Color=Normal, Skin = Warm Right Pulses: Naif Ped=3, Femoral=3 Left Pulses: Naif Ped=3, Femoral=3 10:03:30 Lower Right Extremities: Color=Normal Lower Left Extremities: Color=Normal Neurological: State=Alert, Ox3, DOS SANTOS Respiration: Resp=14 B/min, SpO2=97 % 10:04:19 Bilateral groins prepped with 2% chlorhexidine, and draped after a 3 minute waiting time. 10:06:37 HR=68 bpm, NIUO=627/77 mmhg, SpO2=96.0 %, Resp=16 B/min, Pain=0, Leonora=10, Ames=2 10:07:51 MD arrived. 10:10:43 Pressure channel 1 zeroed. 10:11:38 HR=68 bpm, LKAK=783/78 mmhg, SpO2=94.0 %, Resp=18 B/min, Pain=0, Leonora=10, Ames=2 10:16:39 HR=66 bpm, BXQW=882/81 mmhg, SpO2=94.0 %, Resp=18 B/min, Pain=0, Leonora=10, Ames=2 Time Out. Correct patient, correct procedure, correct physician, power injector not loaded with contrast with surgical 10:18:02 team present. Time Out Concurred by MD and individual staff in procedure. 10:18:12 Case Start 10:18:13 Verbal Stimulation=2 Physical Stimulation=2 Airway=2 Respiration=2 TOTAL=8. (0=absent, 1=li mited, 2=present) 10:19:29 25 mcg FENTANYL given in lab by Douglas Gilliland RN via Peripheral IV. 10::29 20 mL 1% XYLOCAINE given in lab by Sunny Hernández in Right Groin via Subcutaneous. 10:20:41 0.5 mg VERSED given in lab by Douglas Gilliland RN via Peripheral IV. 10:20:58 Access site was Right Femoral Artery. with mp kit 10:21:14 A wire was inserted via Fem Art (right). 10:21:15 A SHEATH, FR5.5 PRELUDE 11CM FR 5 was advanced into the Fem Art (right) using the Percutane ous technique. 10:21:40 HR=68 bpm, OBYR=169/82 mmhg, SpO2=94.0 %, Resp=18 B/min, Pain=0, Leonora=10, Ames=2 Recorded Pressure: Ao, HR=68, Condition=Condition 1 10:23:04 (Aorta) Ao 149/65/96 10:23:22 An injection in the Fem Art (right) was made through the SHEATH, FR5.5 PRELUDE 11CM FR 5. A JR 4.0 INFINITI CATHETER FR 5 was advanced over a wire. OMNIPAQUE, 350 MG, 150ML 150ML was us ed for 10:24:22 injections. 10:26:37 HR=67 bpm, FQTI=682/79 mmhg, SpO2=95.0 %, Resp=16 B/min, Pain=0, Leonora=10, Ames=2 10:26:53 The ARMIJO-LAD was injected and visualized at various angles. OMNIPAQUE, 350 MG, 150ML 150ML used. Recorded Pressure: LV, HR=69, Condition=Condition 1 10:28:42 (Left Ventricle) LV 130/13/24 Recorded Pressure: LV, Ao, HR=67, Condition=Condition 1 10:28:54 (Left Ventricle) LV 142/15/25, (Aorta) Ao 139/67/97 10:29:29 The RCA was injected and visualized at various angles. OMNIPAQUE, 350 MG, 150ML 150ML used . 10:30:15 The SVG-RCA was injected and visualized at various angles. OMNIPAQUE, 350 MG, 150ML 150ML u sed. After removing the current catheter a JL 4.0 DXTERITY CATHETER FR 5 was advanced over a WIRE, 3 MMJ .035 180CM 10:31:11 180CM. 10:31:38 HR=69 bpm, YQDJ=654/73 mmhg, SpO2=94.0 %, Resp=17 B/min, Pain=0, Leonora=10, Ames=2 10:34:37 Catheter was removed A SHEATH, FR6.5 PRELUDE 11CM FR 6.5 was exchanged in the Fem Art (right). This was necessary in order to 10:34:44 accomodate a larger catheter. 10:34:54 OMNIPAQUE, 350 MG, 50ML 50ML and 30 RAO INDEFLATOR added. 10:35:36 SVG-LCX Restenosed. 10:36:41 HR=69 bpm, KVPS=400/74 mmhg, SpO2=94 %, Resp=16 B/min, Pain=0, Leonora=10, Ames=2 10:37:29 8400 units HEPARIN given in lab by Douglas Gilliland RN via Peripheral IV. A EBU 3.5 Z2 GUIDE CATHETER FR 6 was advanced over a wire. OMNIPAQUE, 350 MG, 150ML 150ML was u sed for 10:38:36 injections. 10:39:33 A WIRE, BALANCE MIDDLEWEIGHT 190CM 190CM was inserted via Fem Art (right). 10:41:40 HR=67 bpm, CXUI=732/69 mmhg, SpO2=94.0 %, Resp=18 B/min, Pain=0, Leonora=10, Ames=2 10:42:43 Interventional wire has crossed the lesion 10:44:04 Activated Clotting Time Drawn A BALLOON, 2.0 X 12MM EUPHORA 12MM was inserted over WIRE, BALANCE MIDDLEWEIGHT 190CM 190CM via the 10:44:51 OM2 Prox. A BALLOON, 2.0 X 12MM EUPHORA 12MM over a WIRE, BALANCE MIDDLEWEIGHT 190CM 190CM in the OM2 Pro x was 10:45:29 inflated using a 30 RAO INDEFLATOR at 14 rao for 14 sec. A BALLOON, 2.0 X 12MM EUPHORA 12MM over a WIRE, BALANCE MIDDLEWEIGHT 190CM 190CM in the OM2 Pro x was 10:46:19 inflated using a 30 RAO INDEFLATOR at 14 rao for 10 sec. A BALLOON, 2.0 X 12MM EUPHORA 12MM over a WIRE, BALANCE MIDDLEWEIGHT 190CM 190CM in the CIRC Mi d was 10:46:42 inflated using a 30 RAO INDEFLATOR at 14 rao for 10 sec. A BALLOON, 2.0 X 12MM EUPHORA 12MM over a WIRE, BALANCE MIDDLEWEIGHT 190CM 190CM in the CIRC Mi d was 10:47:17 inflated using a 30 RAO INDEFLATOR at 14 rao for 6 sec. 10:47:26 HR=68 bpm, AAJO=909/81 mmhg, SpO2=93.0 %, Resp=18 B/min, Pain=0, Leonora=10, Ames=2 10:47:32 Balloon Removed. 10:49:56 0.5 mg VERSED given in lab by Douglas Gilliland RN via Peripheral IV. 10:50:13 25 mcg FENTANYL given in lab by Douglas Gilliland RN via Peripheral IV. 10:51:20 ACT (Normal Range 90-180) = 322 A CATHETER, ELCA 0.9MM X-80 150CM was advanced over a wire. OMNIPAQUE, 350 MG, 150ML 150ML was used for 10:51:30 injections. 10:51:44 HR=67 bpm, HFFN=143/81 mmhg, SpO2=93.0 %, Resp=20 B/min, Pain=0, Leonora=10, Ames=2 10:52:39 laser in progress mid to distal 10:56:27 laser Catheter was removed 10:56:45 HR=70 bpm, UIHQ=590/83 mmhg, SpO2=91.0 %, Resp=17 B/min, Pain=0, Leonora=10, Ames=2 10:57:42 100 mcg NTG (IC) given in lab by Sunny Hernández via Intra-coronary. 10:58:48 The CIRC Mid was injected and visualized at various angles. OMNIPAQUE, 350 MG, 150ML 150ML used. 10:59:18 50 mcg FENTANYL given in lab by Sunny Hernández via Peripheral IV. A BALLOON, 3.0 15MM ANGIOSCULPT 155CM BTK 3.0 15MM was inserted over WIRE, BALANCE MIDDLEWEIGHT 11:00:06 190CM 190CM via the OM2 Prox. 11:01:44 HR=67 bpm, QSMD=965/77 mmhg, SpO2=90.0 %, Resp=17 B/min, Pain=0, Leonora=10, Ames=2 A BALLOON, 3.0 15MM ANGIOSCULPT 155CM BTK 3.0 15MM over a WIRE, BALANCE MIDDLEWEIGHT 190CM 190C M in 11:01:55 the OM2 Prox was inflated using a 30 RAO INDEFLATOR at 14 rao for 60 sec. A BALLOON, 3.0 15MM ANGIOSCULPT 155CM BTK 3.0 15MM over a WIRE, BALANCE MIDDLEWEIGHT 190CM 190C M in 11:03:25 the CIRC Mid was inflated using a 30 RAO INDEFLATOR at 10 rao for 30 sec. 11:04:14 cutting Balloon Removed. A BALLOON, 3.25 X 15MM NC EUPHORA 15MM was inserted over WIRE, BALANCE MIDDLEWEIGHT 190CM 190CM via 11:05:21 the OM2 Prox. 11:06:47 HR=67 bpm, NAAC=660/79 mmhg, SpO2=90.0 %, Resp=16 B/min, Pain=0, Leonora=10, Ames=2 A BALLOON, 3.25 X 15MM NC EUPHORA 15MM over a WIRE, BALANCE MIDDLEWEIGHT 190CM 190CM in the OM2 Prox 11:07:04 was inflated using a 30 RAO INDEFLATOR at 16 rao for 25 sec. A BALLOON, 3.25 X 15MM NC EUPHORA 15MM over a WIRE, BALANCE MIDDLEWEIGHT 190CM 190CM in the CIR C Mid 11:07:51 was inflated using a 30 RAO INDEFLATOR at 16 rao for 18 sec. A BALLOON, 3.25 X 15MM NC EUPHORA 15MM over a WIRE, BALANCE MIDDLEWEIGHT 190CM 190CM in the CIR C Mid 11:08:30 was inflated using a 30 RAO INDEFLATOR at 16 rao for 12 sec. 11:08:49 Balloon Removed. 11:09:39 200 mcg NTG (IC) given in lab by Sunny Hernández via Intra-coronary. 11:10:46 The CIRC Mid was injected and visualized at various angles. OMNIPAQUE, 350 MG, 150ML 150ML used. 11:11:42 HR=69 bpm, WIKF=779/81 mmhg, SpO2=96.0 %, Resp=15 B/min, Pain=0, Leonora=10, Ames=2 11:13:41 50 mcg FENTANYL given in lab by Sunny Hernández via Peripheral IV. 11:14:32 bmw Wire removed 11:16:43 HR=67 bpm, BUSW=708/73 mmhg, SpO2=96.0 %, Resp=12 B/min, Pain=0, Leonora=10, Ames=2 11:16:47 guide Catheter was removed 11:17:35 Case End Assessment: Final Case, HR=68 BPM, Rhythm=reg, TBJY=790/73 mmhg, Chest Pain=0, Edema=None, Col or=Normal, Skin = Warm Right Pulses: Naif Ped=3, Femoral=3 Left Pulses: Naif Ped=3, Femoral=3 11:17:38 Lower Right Extremities: Color=Normal Lower Left Extremities: Color=Normal Neurological: State=Alert, Ox3, DOS SANTOS Respiration: Resp=20 B/min, SpO2=96 % 11:20:20 Catheter(s) removed without difficulty 11:20:21 In the Fem Art (right) the SHEATH, FR6 TERUMO (10CM) FR [address] by Sunny Hernández. 11:20:35 80 mg ASPIRIN given in lab by Douglas Gilliland RN via Subcutaneous. 11:20:45 10 mg EFFIENT given in lab by Douglas Gilliland RN via Oral. 11:21:06 Sterile dressing applied to site 11:21:07 No case complications noted. 11:21:44 HR=68 bpm, CUNC=063/75 mmhg, SpO2=96.0 %, Resp=15 B/min, Pain=0, Leonora=10, Ames=2 11:25:07 Vitals capture stopped. End Study - Contrast Media Used In Study Contrast Total Opened (mL) Total Used (mL) Total Wasted (mL) Omnipaque 140 140 0 End Study - Maximum Contrast Load Max Contrast Load (mL) 67.4 End Study - Radiation Exposure Fluoro Time (minutes) 12.8 End Study - Patient Disposition Complications Transferred To Interventional Outcome No Outpatient Bed successful
[2017-10-13] MEDS ORDERED: MORPHINE SULFATE 4 MG/ML INJ IV PUSH PRN (11:45)
[2017-10-13] MEDS ORDERED: ONDANSETRON HCL 4 MG/2 ML VIAL IV PUSH PRN (11:45)
[2017-10-13] MEDS ORDERED: FUROSEMIDE 40 MG TAB PO PRN (11:45)
[2017-10-13] MEDS ORDERED: oxyCODONE/ACETAMINOPHEN 10 MG/325 MG TAB PO PRN (11:45)
[2017-10-13] MEDS ORDERED: ATROPINE SULFATE 1 MG/ML VIAL IV PUSH PRN (11:45)
[2017-10-13] MEDS ORDERED: MISC INFORMATION XX ONE (11:45)
[2017-10-13] MEDS ORDERED: oxyCODONE/ACETAMINOPHEN 5 MG/325 MG TAB PO PRN (11:45)
[2017-10-13] MEDS ORDERED: SODIUM CHLOR 0.9% 250 ML INJ 250 ML IV PRN (11:45)
[2017-10-13] MEDS: ACETAMINOPHEN 325 MG TAB PO PRN ×2 (12:33→21:52)
[2017-10-13] MEDS: GABAPENTIN 300 MG CAP PO SCH ×2 (15:28→17:44)
[2017-10-13] MEDS: SEVELAMER CARBONATE 800 MG TAB PO SCH ×2 (15:28→17:44)
--- NOTE | 2017-10-13 17:23 | EKG ---
Date Performed: 10/13/2017 Time Performed: 08:39:50 PTAGE: 72 years EKG: Sinus rhythm . Possible left ventricular hypertrophy Lateral ST-T changes are probably due to ventricular hypertro phy Since previous tracing, no significant change noted Abnormal ECG PREVIOUS TRACING : 06/04/2017 14.18 DOCTOR: Trudy Hudson Interpretating Date/Time 10/13/2017 17:21:26
--- NOTE | 2017-10-13 17:23 | MA ---
cc: DANIELA MAZARIEGOS DO DATE: 10/13/2017 PROCEDURE Left heart catheterization, coronary angiogram, bypass angiogram, laser atherectomy / angioscope / POBA to the left circumflex / obtuse marginal for in-stent restenosis, moderate sedation 60 minutes. PREPROCEDURE DIAGNOSIS Unstable angina (Hong Konger anginal class III), abnormal stress test. 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 MEDICATIONS 1. Versed 1 mg. 2. Fentanyl 125 mcg. 3. Heparin 8400 units. 4. Aspirin 81 milligrams. 5. Effient 10 mg. CONTRAST USED 140 mL. FLUOROSCOPY 12.8 minutes ANESTHESIA Moderate sedation 60 minutes ESTIMATED BLOOD LOSS 10 mL PROCEDURAL SUMMARY Tony Keith is a pleasant 72-year-old male who sees my partner Dr. Juárez in the office and has had multiple stents placed in his left circumflex and restenosis of these stents multiple times. He started having chest pain and underwent stress testing which showed severe ischemia of the inferior lateral territory. Because of this he was recommended cardiac catheterization. I discussed this case with Dr. Juárez before scheduling him and the thought of attempting to re-laser atherectomy and balloon angioplasty trying to avoid redo bypass of this area. Risks, benefits and alternatives were explained to the patient and he consented as such. He was brought to lab and prepped in the usual sterile fashion. Right femoral artery was accessed using a modified Seldinger technique and placement of a 5-Surinamese sheath. This was easily aspirated and flushed. The JR-4 was advanced up the left subclavian and used to engage the ARMIJO to LAD. This was then advanced into the ascending aorta and across the aortic valve for measurement of left ventricular pressure. JR-4 was then used for selective angiography of the right coronary artery as well as the SVG to the right coronary artery. This was exchanged out for a JL-4 which was used for selective angiography of the left coronary artery system. Intervention. Because of the significance of the disease in previous stents placed in left circumflex the patient was given heparin as the anticoagulant. A 5-Surinamese sheath was exchanged for a 6-Surinamese sheath. An EBU 3.5 catheter was then engaged into the left main. A BMW wire was advanced down the obtuse marginal distally. A compliant balloon (2 x 12) was then used to predilate the tandem lesions. A laser atherectomy catheter was then used multiple runs on the in-stent restenosis at 80/80. An angioscope balloon (3x 15) was then used on the lesions as well as a noncompliant balloon (3.25 x 15). Final angiography shows patent stents with good flow down the obtuse marginals. BMW wire and guide were removed. Sheath was sutured in place with a plan to remove once ACT values were in acceptable range. The patient left the lab animal technologist cardiovascularly stable. FINDINGS Left main 10% disease. Previous left main into left circumflex stent is patent. LAD 99% disease in the proximal portion. 100% disease just distal to this. Left circumflex. Multiple stents throughout. Previous stent placed last time is patent. Two areas of in-stent restenosis one in the midportion after the takeoff of the first obtuse marginal and the second in the [id number] portion after the takeoff of the AV groove circ. RCA 90% disease in the midportion with competitive flow noted distally. ARMIJO to LAD overall tortuous but patent. It supplies both antegrade as well as retrograde to the LAD as well as one of the diagonals. It also supplies collaterals to the distal obtuse marginals. SVG to RCA patent with antegrade as well as retrograde flow to fill the mid RCA and the RV branch. SVG to obtuse marginal known occluded before. LVEDP 25. IMPRESSION 1. Unstable angina (Hong Konger anginal class III on antianginals) with abnormal stress test. 2. Severe in-stent restenosis of left circumflex / obtuse marginal status post laser atherectomy / angioscope / POBA. 3. History of CABG x3 (2/3 grafts patent). 4. End-stage renal disease on hemodialysis. RECOMMENDATIONS 1. Mr. Keith underwent laser atherectomy and balloon angioplasty of previous in-stent restenosis. He will continue on aspirin and Effient. 2. We will plan to attempt to discharge him today so that he can follow up for dialysis in the morning. 3. He will follow up with Dr. Juárez as previously scheduled. 4. If he continues to have trouble in these areas we can attempt further laser atherectomy and stenting or consideration of possible bypass of his obtuse marginals although this would be a redo bypass. 5. I also spoke to him about his diet as apparently his daughter told me that they have been eating fried food multiple times per week. Thank you for allowing me to see Baldo Keith. If there are any questions please do not hesitate to call. Daniela Mazariegos DO VGP/KK /4:23 PM /4:43 PM
[2017-10-13] MEDS ORDERED: ATORVASTATIN 80 MG TAB PO SCH (21:00)
[2017-10-13] MEDS ORDERED: METOPROLOL SUCCINATE 50 MG EXTENDED RELEASE TAB PO SCH (21:00)
[2017-10-13] MEDS ORDERED: PRASUGREL 10 MG TAB PO SCH (21:00)
[2017-10-13] MEDS ORDERED: EZETIMIBE 10 MG TAB PO SCH (21:00)
[2017-10-14] MEDS ORDERED: LOSARTAN 25 MG TAB PO SCH (09:00)
[2017-10-14] MEDS ORDERED: ASPIRIN 81 MG CHEW TAB CHEW SCH (09:00)
[2017-10-14] MEDS ORDERED: CINACALCET HYDROCHLORIDE 30 MG TAB PO SCH (09:00)
[2017-10-14] MEDS ORDERED: ALLOPURINOL 300 MG TAB PO SCH (09:00)
== END 2017-10-13 23:02 | disposition home or self-care (01) ==
LOC: HDOC 07:38 → HDIC 07:40 → HDOC 23:02
PROVIDERS: ATTEND Nuclear Medicine Nuclear Cardiology
DX: I25.110 Atherosclerotic heart disease of native coronary artery with unstable angina pectoris (principal); I12.0 Hypertensive chronic kidney disease with stage 5 chronic kidney disease or end stage renal disease; N18.6 End stage renal disease; E78.5 Hyperlipidemia, unspecified; Z99.2 Dependence on renal dialysis; Z95.1 Presence of aortocoronary bypass graft
CPT/HCPCS: 80048; 85002; 85025; 85347; 85610; 85730; 92924; 93005; 93459; 99152; 99153; C1725; C1769; C1885; C1887; C1893; J1644; J2250; J2270; J3010; C1760; C1876; Q9967

== ENCOUNTER 2018-01-27 08:00 | Day surgery (SDC) | payer MEDICARE, BC, OTHER ==
[2018-01-27] VITALS (11 sets, daily range): BP systolic 136–152; BP diastolic 67–78; PULSE 58–65; RESP 14–21; TEMP 98.2–99.2; O2SAT 95–96
[~2018-01-27] VITALS: Ht 162.6 cm; Wt 122.5 kg
[~2018-01-27 08:00] MED LIST changes: +CINA30 PO; -GLIM1TAB PO; +HUMALOG SQ; -LANTINJ SQ; +NITR0.4S SL
[2018-01-27] MEDS: NS 1000P @30 MLS/HR (KVO) IV SCH (08:45)
[2018-01-27] MEDS ORDERED: GLIM4TAB PO (08:58)
[2018-01-27 09:44] LABS: AUTOMATED NEUTROPHIL # 5.4 TH/MM3 (1.8-7.7); BASOPHIL % 0.5 % (0.0-2.0); EOSINOPHIL # 0.3 TH/MM3 (0-0.4); EOSINOPHIL % 3.7 % (0.0-4.0); HEMATOCRIT 28.4 % (39.0-51.0); HEMOGLOBIN 9.3 GM/DL (13.0-17.0); LYMPH % 19.3 % (9.0-44.0); LYMPHOCYTE # 1.5 TH/MM3 (1.0-4.8); MEAN CORPUSCULAR HEMOGLOBIN 32.2 PG (27.0-34.0); MEAN CORPUSCULAR HGB CONC 32.8 % (32.0-36.0); MEAN PLATELET VOLUME 9.6 FL (7.0-11.0); MONO % 8.9 % (0.0-8.0); MONOCYTE # 0.7 TH/MM3 (0-0.9); NEUT % 67.6 % (16.0-70.0); PLATELET COUNT 129 TH/MM3 (150-450); RED CELL DISTRIBUTION WIDTH 14.6 % (11.6-17.2); WHITE BLOOD COUNT 7.9 TH/MM3 (4.0-11.0)
[2018-01-27 09:55] LABS: INTERNATIONAL NORMALIZED RATIO 1.1 RATIO; PROTHROMBIN TIME - PATIENT 11.1 SEC (9.8-11.6)
[2018-01-27] MEDS ORDERED: MIDAZOLAM HCL 2 MG/2 ML VIAL ONE (09:56)
[2018-01-27] MEDS ORDERED: NITROGLYCERIN INJ 5 ML ONE (09:56)
[2018-01-27] MEDS ORDERED: HEPARIN SODIUM - IV 10,000 UNITS/10 ML VIAL ONE (09:56)
[2018-01-27] MEDS ORDERED: HEPARIN-NS/PF FLUSH BAG 2,000 ML IV FLUSH ONE (09:56)
[2018-01-27 09:57] LABS: BICARBONATE 28.6 MEQ/L (21.0-32.0); CALCIUM 8.3 MG/DL (8.5-10.1); CREATININE 6.88 MG/DL (0.60-1.30)
--- NOTE | 2018-01-27 11:40 | CATHPROC ---
DianDian HIS Report Study Information Study Number Admission Scheduled Start Study Start [id number] Jan 27 2018 8:00AM 01/27/2018 Jan 27 2018 9:58AM [facility] Cardiac Catheterization Admit Source Facility Department Other [facility] - Investment Officer Physician and Clinical Staff Initial Sunny Calvillo Air Quality Manager Alena Saleem,NATASHA Recorder Vivienne Lui,RT(R) Scrub Ba EsparzaRT(R) Procedures Performed Procedure Location (Site) Vessel Name Coronary Angiograms LCA Left Coronary Coronary Angiograms RCA Right Coronary Coronary Angiograms ARMIJO-LAD Left Coronary Coronary Angiograms SVG-RCA Right Coronary L Heart Cath PTCA CIRC Dist CIRC PTCA CIRC Mid CIRC PTCA CIRC Prox CIRC PTCA ADD ON'S Wire insertion Fem Art (right) Femoral Art Equipment Time Medical Dir Description Size Mfg Part Number Used/Scraped WIRE, BALANCE MIDDLEWEIGHT [id number] 10:47 [employer] 190CM Used 190CM *[id number] TRANSDUCER, TRUWAVE [id number] 10:00 [place] * Used W/STOCKCOCK *[id number] BALLOON, 3.25 6MM FLEXTOME [id number] 11:01 [employer] 3.25 6MM Used CUTTING *[id number] [id number] *[id number] [id number] *[id number] 11:19 DAIG/[facility] [employer] ANGIOSEAL, FR6 VIP FR 6 Used *[id number] WIRE, AMPLATZ SUPER STIFF 10:30 DianDian 180CM [id number] Used 3MMJ [id number] 10:00 [employer] PACK, CCL CUSTOM * Used *[id number] BALLOON, 3.25 X 8MM NM [id number] 11:03 [employer] 8MM Used EUPHORA *[id number] 10:45 [employer]/AVE EBU 3.5 Z2 GUIDE CATHETER FR 6 Used *[id number] 10:46 [employer] MEDICAL 30 RAO INDEFLATOR Used *[id number] 10:00 [employer] MEDICAL SHEATH, FR6.5 PRELUDE 11CM FR 6.5 038ACT Used *[id number] 10:00 [employer] MEDICAL WIRE, 3MMJ .035 180CM 180CM Used *[id number] 10:00 [facility] MANIFOLD, 4 PORT * Used *[id number] 10:00 [employer]COMED OMNIPAQUE, 350 MG, 150ML 150ML [id number] Used 10:46 [employer]COMED OMNIPAQUE, 350 MG, 150ML 150ML [id number] Used 10:47 [employer]COMED OMNIPAQUE, 350 MG, 150ML 150ML [id number] Used [id number] 10:00 [employer]IM[employer] MEDICAL BLANKET,WARM AIR CCL * Used *[id number] 110-004 10:45 [employer] CATHETER, ELCA 0.9MM X-80 150CM Used *[id number] Equipment Model, Serial, Lot Number and Expiration Data Description Model Number Serial Number Lot Number Expiration Date ANGIOSEAL, FR6 VIP [id number] 09-17-2018 BALLOON, 3.25 X 8MM NC [id number] 06-06-2019 EUPHORA BALLOON, 3.25 6MM FLEXTOME [id number] 10-31-2018 CUTTING CATHETER, ELCA 0.9MM X-80 [id number] 09-07-2019 WIRE, AMPLATZ SUPER STIFF 3MMJ [id number] 11-09-2020 History: Current Medications Medication Dosage/Unit Route Frequency Last Date/Time Taken Insulin Statins (any) 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 LASIX LIPITOR History: Risk Factors Family History of Hypertension Dyslipidemia Previous [place] Previous Heart Failure Premature CAD Yes Yes No No No Prior Valve Prior PCI Prior PCIDate Prior CABG Prior CABGDate Surgery No Yes 10/13/2017 Yes 10/19/2002 Cerebrovascular 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 Diabetes Diabetes Therapy Disease Disease Disease Yes No No No Yes Oral History: Symptoms/Diagnosis Selection Items Chest pain History: CV Disease Selection Items Known CAD Labs Hgb (g/dl) Hct (%) RBC (MIL/MM3) WBC (l/cumm) Platelets (thousands) 11.60-17.00 35.00-51.00 4.00-5.90 4.00-11.00 150.00-450.00 9.3 28.4 2.9 7.9 129 Glucose (mg/dl) BUN (mg/dl) Creatinine (mg/dl) BUN:Creatinine (1:x) 74.00-106.00 7.00-18.00 0.50-1.30 10.00-20.00 152 43 6.8 6.3 Na (meq/l) K (meq/l) Cl (meq/l) CO2 (mmol/L) Ca (mg/dl) 136.00-145.00 3.50-5.10 98.00-107.00 21.00-32.00 8.50-10.10 139 3.3 102 28.6 8.3 PT (sec) PTT (sec) INR (PTT:PT) 9.80-11.60 24.30-30.10 0.90-1.10 11.1 24.9 1.1 CPK-MB (ng/ML) 0.50-3.60 Not Drawn Medication Medication Total Dose (Bolus/Oral) Medication Total Dosage/Unit 1% XYLOCAINE 20 mL FENTANYL 75 mcg HEPARIN 8000 units NTG (IC) 200 mcg VERSED 0.5 mg Medications (Bolus/Oral) Medication Time Given Dosage/Unit Administered By Reason VERSED 01/27/2018 10:22:42 AM 0.5 mg Alena Saleem 0.5 mg VERSED given by Alena Saleem RN via Peripheral IV. 1% XYLOCAINE 01/27/2018 10:23:00 AM 20 mL Sunny Hernández 20 mL 1% XYLOCAINE given in lab by Sunny Hernández in Right Groin via Subcutaneous. FENTANYL 01/27/2018 10:23:47 AM 25 mcg Alena Saleem 25 mcg FENTANYL given by Alena Saleem RN via Peripheral IV. HEPARIN 01/27/2018 10:45:56 AM 8000 units Alena Saleem 8000 units HEPARIN given in lab by Alena Saleem RN via Peripheral IV. NTG (IC) 01/27/2018 11:14:40 AM 200 mcg Sunny Hernández 200 mcg NTG (IC) given in lab by Sunny Hernández via Intra-coronary. FENTANYL 01/27/2018 11:19:53 AM 50 mcg Alena Saleem 50 mcg FENTANYL given in lab by Alena Saleem RN via Peripheral IV. Medication (Drip) Medication Time Given Dosage/Unit Concentration/Unit Diluent (ml) Solution IV Solutions 01/27/2018 10:07:52 AM 0 mL (IV) 500 NaCl .9 IV Solutions given by Alena Saleem RN in Right Forearm via Peripheral IV. Pump/Drip Flow = 20 ml/ hr using NaCl .9. Initial Case Assessment Cardiovascular HR Rhythm NIBP Chest Pain 58 reg 139/69 0 Edema Present Skin color Skin None Normal Warm Circulatory - Right Pulses Dorsalis Pedis Femoral 2 2 Scale (0,1,2,3,4,d) Circulatory - Left Pulses Dorsalis Pedis Femoral 2 2 Scale (0,1,2,3,4,d) Circulatory - Lower Extremities Color Lower Right Color Lower Left Normal Normal Neurological State Oriented to time-place- Alert Moves all extremities person Respiration - General Respiration Rate SpO2 (%) (B/min) 20 95 Final Case Assessment Cardiovascular HR Rhythm NIBP Chest Pain 61 reg 132/70 0 Edema Present Skin color Skin None Normal Warm Circulatory - Right Pulses Dorsalis Pedis Femoral 2 2 Scale (0,1,2,3,4,d) Circulatory - Left Pulses Dorsalis Pedis Femoral 2 2 Scale (0,1,2,3,4,d) Circulatory - Lower Extremities Color Lower Right Color Lower Left Normal Normal Neurological State Oriented to time-place- Alert Moves all extremities person Respiration - General Respiration Rate SpO2 (%) (B/min) 20 95 Chronological Log Time Study Chronological Log 9:48:49 Patient arrived via Bed. 9:49:58 Patient Name, D.O.B, / Armband Verified By R.N. 9:50:30 Consent signed by the physician and the patient and verified by the Investment Officer staff. 9:51:40 Pre-op and post- op instructions given; patient acknowledges understanding of instructions. Vitals capture started with the following parameters, Patient=Adult, Interval=5 min, Initial Pr nebada=817 mmHg, 9:58:17 Deflation Rate=5 mmHg, Cuff placed on rt arm 9:58:27 Reference ECG taken 9:59:20 HR=68 bpm, WPAR=664/84 mmhg, SpO2=95.0 %, Resp=16 B/min, Pain=0, Leonora=10, Ames=2 10:00:37 Verbal Stimulation=2 Physical Stimulation=2 Airway=2 Respiration=2 TOTAL=8. (0=absent, 1=li mited, 2=present) 10:00:48 Patient has been NPO for More than 6Hrs. 10:00:49 Skin Breakdown-none 10:04:17 HR=61 bpm, ELLG=136/74 mmhg, SpO2=95.0 %, Resp=16 B/min, Pain=0, Leonora=10, Ames=2 10:04:59 Pressure channel 1 zeroed. 10:07:45 A # 20 IV was noted in the Forearm (right). Grade = 0 IV Solutions given by Alena Saleem RN in Right Forearm via Peripheral IV. Pump/Drip Flow = 20 ml/hr using NaCl 10:07:52 .9. 10:08:10 MD paged 10:08:20 History and physical on the chart or being dictated. Assessment: Initial Case, HR=58 BPM, Rhythm=reg, ABZL=083/69 mmhg, Chest Pain=0, Edema=None, Co ashwini=Normal, Skin = Warm Right Pulses: Naif Ped=2, Femoral=2 Left Pulses: Naif Ped=2, Femoral=2 10:08:21 Lower Right Extremities: Color=Normal Lower Left Extremities: Color=Normal Neurological: State=Alert, Ox3, DOS SANTOS Respiration: Resp=20 B/min, SpO2=95 % 10:09:16 HR=62 bpm, TPWQ=087/69 mmhg, SpO2=95.0 %, Resp=16 B/min, Pain=0, Leonora=10, Ames=2 10:10:14 Bilateral groins prepped with 2% chlorhexidine, and draped after a 3 minute waiting time. 10:14:15 HR=56 bpm, ZQLF=321/67 mmhg, SpO2=95.0 %, Resp=16 B/min, Pain=0, Leonora=10, Ames=2 10:17:07 MD arrived. 10:19:18 HR=59 bpm, HXIF=356/59 mmhg, SpO2=95 %, Resp=17 B/min, Pain=0, Leonora=10, Ames=2 Time Out. Correct patient, correct procedure, correct physician, power injector not loaded with contrast with surgical 10:21:29 team present. Time Out Concurred by MD and individual staff in procedure. 10:22:12 Case Start 10:22:42 0.5 mg VERSED given by Alena Saleem, NATASHA via Peripheral IV. 10:23:00 20 mL 1% XYLOCAINE given in lab by Sunny Hernández in Right Groin via Subcutaneous. 10:23:47 25 mcg FENTANYL given by Alena Saleem RN via Peripheral IV. 10:24:15 HR=60 bpm, SHLG=179/77 mmhg, SpO2=95.0 %, Resp=18 B/min, Pain=0, Leonora=10, Ames=2 10:26:29 Access site was Right Femoral Artery with mp kit 10:26:47 A wire was inserted via Fem Art (right). 10:29:21 HR=65 bpm, ECIC=263/73 mmhg, SpO2=93.0 %, Resp=20 B/min, Pain=0, Leonora=10, Ames=2 10:30:43 The previous wire was exchanged for a WIRE, AMPLATZ SUPER STIFF 3MMJ 180CM. 10:31:50 A SHEATH, FR6.5 PRELUDE 11CM FR 6.5 was advanced into the Fem Art (right) using the Percuta neous technique. 10:32:03 Wire removed 10:32:22 An injection in the Fem Art (right) was made through the SHEATH, FR6.5 PRELUDE 11CM FR 6.5. Recorded Pressure: Ao, HR=56, Condition=Condition 1 10:32:47 (Aorta) Ao 156/65/97 A JR 4.0 INFINITI CATHETER FR 5 was advanced over a wire. OMNIPAQUE, 350 MG, 150ML 150ML was us ed for 10:34:03 injections. 10:34:18 HR=60 bpm, DKJP=467/70 mmhg, SpO2=96.0 %, Resp=14 B/min, Pain=0, Leonora=10, Ames=2 10:35:57 The ARMIJO-LAD was injected and visualized at various angles. OMNIPAQUE, 350 MG, 150ML 150ML used. Recorded Pressure: LV, HR=63, Condition=Condition 1 10:38:35 (Left Ventricle) LV 149/17/31 Recorded Pressure: LV, Ao, HR=59, Condition=Condition 1 10:38:47 (Left Ventricle) LV 147/16/32, (Aorta) Ao 150/61/101 10:39:12 HR=58 bpm, RGXC=148/71 mmhg, SpO2=94.0 %, Resp=17 B/min, Pain=0, Leonora=10, Ames=2 10:39:25 The RCA was injected and visualized at various angles. OMNIPAQUE, 350 MG, 150ML 150ML used . 10:40:00 The SVG-RCA was injected and visualized at various angles. OMNIPAQUE, 350 MG, 150ML 150ML u sed. After removing the current catheter a JL 4.0 INFINITI CATHETER FR 5 was advanced over a WIRE, 3 MMJ .035 180CM 10:40:55 180CM. 10:42:52 The LCA was injected and visualized at various angles. OMNIPAQUE, 350 MG, 150ML 150ML used . 10:44:18 HR=69 bpm, NTMC=065/70 mmhg, SpO2=94.0 %, Resp=14 B/min, Pain=0, Leonora=10, Ames=2 After removing the current catheter a EBU 3.5 Z2 GUIDE CATHETER FR 6 was advanced over a WIRE, 3MMJ .035 10:44:56 180CM 180CM. 10:45:56 8000 units HEPARIN given in lab by Alena Saleem, NATASHA via Peripheral IV. 10:46:12 OMNIPAQUE, 350 MG, 150ML 150ML and 30 RAO INDEFLATOR added. 10:47:22 A WIRE, BALANCE MIDDLEWEIGHT 190CM 190CM was inserted via Fem Art (right). 10:48:48 Interventional wire has crossed the lesion 10:49:25 HR=62 bpm, VRDS=328/66 mmhg, SpO2=94.0 %, Resp=15 B/min, Pain=0, Leonora=10, Ames=2 10:50:41 Activated Clotting Time Drawn 10:52:31 A CATHETER, ELCA 0.9MM X-80 150CM was advanced over a wire. contrast was used for injection s. 10:54:18 HR=62 bpm, CFQW=289/68 mmhg, SpO2=94.0 %, Resp=17 B/min, Pain=0, Leonora=10, Ames=2 10:54:59 laser in progress 10:59:39 ACT (Normal Range 90-180) = 430 10:59:47 laser Catheter was removed 11:00:16 HR=63 bpm, SXQU=938/75 mmhg, SpO2=93.0 %, Resp=15 B/min, Pain=0, Leonora=10, Ames=2 11:00:38 Activated Clotting Time Drawn A BALLOON, 3.25 6MM FLEXTOME CUTTING 3.25 6MM was inserted over WIRE, BALANCE MIDDLEWEIGHT 190C M : 190CM via the CIRC Dist. A BALLOON, 3.25 6MM FLEXTOME CUTTING 3.25 6MM over a WIRE, BALANCE MIDDLEWEIGHT 190CM 190CM in the CIRC Dist was inflated using a 30 RAO INDEFLATOR at 8 rao for 30 sec. A BALLOON, 3.25 6MM FLEXTOME CUTTING 3.25 6MM over a WIRE, BALANCE MIDDLEWEIGHT 190CM 190CM in the CIRC Dist was inflated using a 30 RAO INDEFLATOR at 8 rao for 20 sec. A BALLOON, 3.25 6MM FLEXTOME CUTTING 3.25 6MM over a WIRE, BALANCE MIDDLEWEIGHT 190CM 190CM in the CIRC Dist was inflated using a 30 RAO INDEFLATOR at 8 rao for 20 sec. HR=64 bpm, HBOC=088/82 mmhg, SpO2=94.0 %, Resp=22 B/min, Pain=0, Leonora=10, Ames=2 A BALLOON, 3.25 6MM FLEXTOME CUTTING 3.25 6MM over a WIRE, BALANCE MIDDLEWEIGHT 190CM 190CM in the CIRC Dist was inflated using a 30 RAO INDEFLATOR at 8 rao for 15 sec. A BALLOON, 3.25 6MM FLEXTOME CUTTING 3.25 6MM over a WIRE, BALANCE MIDDLEWEIGHT 190CM 190CM in the CIRC Dist was inflated using a 30 RAO INDEFLATOR at 8 rao for 15 sec. A BALLOON, 3.25 6MM FLEXTOME CUTTING 3.25 6MM over a WIRE, BALANCE MIDDLEWEIGHT 190CM 190CM in the CIRC Mid was inflated using a 30 RAO INDEFLATOR at 8 rao for 15 sec. A BALLOON, 3.25 6MM FLEXTOME CUTTING 3.25 6MM over a WIRE, BALANCE MIDDLEWEIGHT 190CM 190CM in the CIRC Mid was inflated using a 30 RAO INDEFLATOR at 8 rao for 15 sec. A BALLOON, 3.25 6MM FLEXTOME CUTTING 3.25 6MM over a WIRE, BALANCE MIDDLEWEIGHT 190CM 190CM in the CIRC Mid was inflated using a 30 RAO INDEFLATOR at 12 rao for 20 sec. ACT (Normal Range 90-180) = 248 A BALLOON, 3.25 6MM FLEXTOME CUTTING 3.25 6MM over a WIRE, BALANCE MIDDLEWEIGHT 190CM 190CM in the CIRC Mid was inflated using a 30 RAO INDEFLATOR at 8 rao for 10 sec. A BALLOON, 3.25 6MM FLEXTOME CUTTING 3.25 6MM over a WIRE, BALANCE MIDDLEWEIGHT 190CM 190CM in the CIRC Prox was inflated using a 30 RAO INDEFLATOR at 10 aro for 15 sec. A BALLOON, 3.25 6MM FLEXTOME CUTTING 3.25 6MM over a WIRE, BALANCE MIDDLEWEIGHT 190CM 190CM in the CIRC Prox was inflated using a 30 ARO INDEFLATOR at 10 rao for 20 sec. : Balloon Removed. : HR=63 bpm, MECE=729/82 mmhg, SpO2=96.0 %, Resp=21 B/min, Pain=0, Leonora=10, Ames=2 A BALLOON, 3.25 X 8MM NC EUPHORA 8MM was inserted over WIRE, BALANCE MIDDLEWEIGHT 190CM 190CM v ia the : CIRC Dist. A BALLOON, 3.25 X 8MM NC EUPHORA 8MM over a WIRE, BALANCE MIDDLEWEIGHT 190CM 190CM in the CIRC Dist :: was inflated using a 30 RAO INDEFLATOR at 16 rao for 12 sec. A BALLOON, 3.25 X 8MM NC EUPHORA 8MM over a WIRE, BALANCE MIDDLEWEIGHT 190CM 190CM in the CIRC Dist :45 was inflated using a 30 RAO INDEFLATOR at 18 rao for 12 sec. A BALLOON, 3.25 X 8MM NC EUPHORA 8MM over a WIRE, BALANCE MIDDLEWEIGHT 190CM 190CM in the CIRC Mid was inflated using a 30 RAO INDEFLATOR at 14 rao for 10 sec. A BALLOON, 3.25 X 8MM NC EUPHORA 8MM over a WIRE, BALANCE MIDDLEWEIGHT 190CM 190CM in the CIRC Mid : was inflated using a 30 RAO INDEFLATOR at 18 rao for 10 sec. A BALLOON, 3.25 X 8MM NC EUPHORA 8MM over a WIRE, BALANCE MIDDLEWEIGHT 190CM 190CM in the CIRC Prox 11:12:13 was inflated using a 30 RAO INDEFLATOR at 18 rao for 10 sec. A BALLOON, 3.25 X 8MM NC EUPHORA 8MM over a WIRE, BALANCE MIDDLEWEIGHT 190CM 190CM in the CIRC Prox 11:12:45 was inflated using a 30 RAO INDEFLATOR at 18 rao for 10 sec. A BALLOON, 3.25 X 8MM NC EUPHORA 8MM over a WIRE, BALANCE MIDDLEWEIGHT 190CM 190CM in the CIRC Prox 11:13:17 was inflated using a 30 RAO INDEFLATOR at 18 rao for 10 sec. 11:14:11 Balloon Removed. 11:14:24 HR=62 bpm, DREU=155/74 mmhg, SpO2=95.0 %, Resp=22 B/min, Pain=0, Leonora=10, Ames=2 11:14:40 200 mcg NTG (IC) given in lab by Sunny Hernández via Intra-coronary. 11:15:56 The LCA was injected and visualized at various angles. OMNIPAQUE, 350 MG, 150ML 150ML used . 11:18:11 Wire removed 11:18:13 Catheter was removed Assessment: Final Case, HR=61 BPM, Rhythm=reg, QVHV=635/70 mmhg, Chest Pain=0, Edema=None, Boyers r=Normal, Skin = Warm Right Pulses: Naif Ped=2, Femoral=2 Left Pulses: Naif Ped=2, Femoral=2 11:18:21 Lower Right Extremities: Color=Normal Lower Left Extremities: Color=Normal Neurological: State=Alert, Ox3, DOS SANTOS Respiration: Resp=20 B/min, SpO2=95 % 11:19:25 HR=60 bpm, XPDV=804/70 mmhg, SpO2=93.0 %, Resp=19 B/min, Pain=0, Leonora=10, Ames=2 11:19:53 50 mcg FENTANYL given in lab by Alena Saleem RN via Peripheral IV. 11:21:18 ANGIOSEAL, FR6 VIP FR 6 placement in the Fem Art (right) 11:24:22 HR=70 bpm, TLPL=320/64 mmhg, SpO2=93.0 %, Resp=19 B/min, Pain=0, Leonora=10, Ames=2 11:29:21 HR=60 bpm, QDXX=619/69 mmhg, SpO2=95.0 %, Resp=17 B/min, Pain=0, Leonora=10, Ames=2 11:30:13 Case End 11:34:26 HR=60 bpm, NFUJ=674/59 mmhg, SpO2=95 %, Resp=22 B/min, Pain=0, Leonora=10, Ames=2 11:35:13 Sterile dressing applied to site 11:35:15 No case complications noted. 11:35:18 Cine recording checked. 11:35:25 Bedside Report will be given. 11:35:26 Implantable Device card placed in patient's chart. 11:35:32 A Left Heart Cath was performed. 11:35:35 Patient moved to stretcher 11:35:36 Clinical correlaton risk stratification. 11:39:21 HR=62 bpm, XLOD=590/66 mmhg, SpO2=94.0 %, Resp=13 B/min, Pain=0, Leonora=10, Ames=2 11:39:44 Vitals capture stopped. End Study - Contrast Media Used In Study Contrast Total Opened (mL) Total Used (mL) Total Wasted (mL) Omnipaque 125 125 0 End Study - Maximum Contrast Load Max Contrast Load (mL) 90.2 End Study - Radiation Exposure Fluoro Time (minutes) 12.8 End Study - Sheaths Sheaths Pulled By Sheath Hold Time (min) Sunny Hernández End Study - Patient Disposition Complications Transferred To Interventional Outcome No Outpatient Bed successful
[2018-01-27] MEDS ORDERED: MISC INFORMATION XX ONE (11:45)
[2018-01-27] MEDS ORDERED: GLUCAGON 1 MG/ML VIAL OTHER PRN (11:45)
[2018-01-27] MEDS ORDERED: MORPHINE SULFATE 2 MG/ML SYRINGE IV PUSH PRN (11:45)
[2018-01-27] MEDS ORDERED: ACETAMINOPHEN 325 MG TAB PO PRN (11:45)
[2018-01-27] MEDS ORDERED: oxyCODONE/ACETAMINOPHEN 10 MG/325 MG TAB PO PRN (11:45)
[2018-01-27] MEDS ORDERED: oxyCODONE/ACETAMINOPHEN 5 MG/325 MG TAB PO PRN (11:45)
[2018-01-27] MEDS ORDERED: DEXTROSE 50% IN WATER 50 ML VIAL(D50) IV PUSH PRN (11:45)
[2018-01-27] MEDS: INSULIN NovoLIN REGULAR SUPPLEMENTAL SCALE SQ SCH ×3 (12:00→21:41)
[2018-01-27] MEDS: GABAPENTIN 300 MG CAP PO SCH ×2 (13:00→17:55)
[2018-01-27] MEDS: SEVELAMER CARBONATE 800 MG TAB PO SCH ×2 (13:00→17:55)
[2018-01-27] MEDS: GLIMEPIRIDE 4 MG TAB PO SCH (17:27)
--- NOTE | 2018-01-27 20:49 | EKG ---
Date Performed: 01/27/2018 Time Performed: 09:41:58 PTAGE: 72 years EKG: Sinus bradycardia with borderline 1st degree A-V block. Lateral ST-T changes are nonspecifi c Borderline ECG PREVIOUS TRACING : 10/13/2017 08.39 Since the previous tracing, no significant change noted DOCTOR: Jeff Thomas Interpretating Date/Time 01/27/2018 20:47:42
[2018-01-27] MEDS ORDERED: ATORVASTATIN 80 MG TAB PO SCH (21:00)
[2018-01-27] MEDS ORDERED: PRASUGREL 10 MG TAB PO SCH (21:00)
[2018-01-27] MEDS ORDERED: EZETIMIBE 10 MG TAB PO SCH (21:00)
[2018-01-27] MEDS: METOPROLOL SUCCINATE 50 MG EXTENDED RELEASE TAB PO SCH (21:42)
[2018-01-28] VITALS (18 sets, daily range): BP systolic 124–158; BP diastolic 66–77; PULSE 58–69; RESP 16–20; TEMP 97.8–98.5; O2SAT 94–95
--- NOTE | 2018-01-28 00:52 | MA ---
cc: Sunny Hernández DO DATE: 01/27/2018 PROCEDURE: Left heart catheterization, coronary angiogram, bypass angiogram, moderate sedation 60 minutes, laser atherectomy/cutting balloon/balloon angioplasty of in-stent restenosis of left circumflex/obtuse marginal, Angio-Seal femoral closure. PREPROCEDURE DIAGONOSES: Unstable angina on antianginals, coronary artery disease, history of coronary artery bypass graft. 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 MEDICATIONS: Versed 0.5 mg, fentanyl 27 mcg, heparin 5000 units, nitroglycerin 200 mcg. CONTRAST USED: 120 mL FLUOROSCOPY: 2.8 minutes. MODERATE SEDATION: 60 minutes. ____ SCORE: 3. ESTIMATED BLOOD LOSS: 10 mL. PROCEDURAL SUMMARY: Baldo Keith is a pleasant 72-year-old male who sees my partner, Dr. Kapadia in the office and was noted to have significant chest pain. He has had multiple interventions of his left circumflex and obtuse marginal and had pain similar to when he needed this intervened on before. Because of this, he was recommended cardiac catheterization. Risks, benefits and alternatives were explained to him and he consented to such. He was brought to the lab and prepped in the usual sterile fashion. The right femoral artery was accessed using a modified Seldinger technique and placement of a 6-Cypriot sheath. This was easily aspirated and flushed. A JR4 was advanced over a J wire and used for selective angiography of the ARMIJO to the LAD. JR4 was then advanced into the left ventricle for measurement of left ventricular pressure. This was pulled back across the aortic valve showing no significant gradient of aortic stenosis. JR4 was then used for selective angiography of the huslia right as well as the saphenous vein graft to the RCA. This is exchanged out for a JL4 which was used for selective angiography of the left coronary artery system. Please see notes below for intervention. FINDINGS: LEFT MAIN: Normal size vessel with stent noted, which is patent, into the left circumflex. Left main bifurcates into an LAD and circumflex. LEFT ANTERIOR DESCENDIN% disease noted at the proximal portion. Distal to this competitive flow is noted. LEFT CIRCUMFLEX: Multiple stents noted throughout with a 90% lesion in the proximal portion. A 90% lesion in the midportion at the takeoff of the first obtuse marginal and a 90% lesion in the distal portion leading into the second major obtuse marginal. RIGHT CORONARY ARTERY: 100% occluded in the mid portion. LEFT INTERNAL MAMMARY ARTERY TO LEFT ANTERIOR DESCENDING: Patent with significant tortuosity. It fills the LAD both antegrade and retrograde as well as a diagonal and supplies collaterals to obtuse marginals. SAPHENOUS VEIN GRAFT TO OBTUSE MARGINAL: Known to be occluded. SAPHENOUS VEIN GRAFT TO RIGHT CORONARY ARTERY: Patent and fills both antegrade as well as retrograde. LEFT VENTRICULAR END DIASTOLIC PRESSURE: 30. INTERVENTION: Because of the significant disease noted in the left circumflex and obtuse marginal, as well as the patient's unstable angina it was felt reasonable to intervene on this. An EBU 3.5 guide was engaged in the left main. A BMW wire was advanced into the distal portion. A laser atherectomy catheter was used at 60/60 and 80/80 for all 3 lesions. A Flextome cutting balloon (3.25 x 6) was then inflated over each individual lesion. A noncompliant balloon (3.25 x 8) was then used over all 3 lesions as well. Final angiogram shows well opposed stents with no perforations or dissections. The wire and guide were removed. An Angio-Seal femoral closure was used on the arteriotomy site. The patient left the slabber cardiovascularly stable. INTERVENTIONAL DATA: Lesion 1 proximal left circumflex, lesion length 6, pre-RACHEL 3, post-RACHEL 3, post-stenosis 0. Lesion 2 mid left circumflex, lesion length 10, pre-RACHEL 3, post-RACHEL 3, post-stenosis 0. Lesion 3 distal left circumflex, lesion length 10, pre-RACHEL 3, post-RACHEL 3, post-stenosis 0. IMPRESSIONS: 1. Unstable angina, status post laser atherectomy/cutting balloon/balloon angioplasty of in-stent restenosis of the left circumflex on multiple lesions. 2. History of coronary artery bypass graft x 3 (2/3 grafts patent). RECOMMENDATIONS: 1. Mr. Keith again had problems with his left circumflex and obtuse marginal and underwent intervention as above. 2. He will continue on aspirin, Effient, statin, beta jacki and ARB therapy. 3. He will be watched overnight and if stable, discharged home in the morning. 4. He does home dialysis and this will be done tomorrow after being discharged. Thank you for allowing me to see Baldo Keith. If there are any questions please do not hesitate to call. Sunny Hernández DO VGP/rt , 12:22 AM , 12:51 AM
[2018-01-28] MEDS: NS 1000P @30 MLS/HR (KVO) IV SCH (08:45)
[2018-01-28] MEDS: GLIMEPIRIDE 4 MG TAB PO SCH (08:52)
[2018-01-28] MEDS: METOPROLOL SUCCINATE 50 MG EXTENDED RELEASE TAB PO SCH (08:53)
[2018-01-28] MEDS: GABAPENTIN 300 MG CAP PO SCH ×2 (08:53→13:00)
[2018-01-28] MEDS: INSULIN NovoLIN REGULAR SUPPLEMENTAL SCALE SQ SCH ×2 (08:54→13:27)
[2018-01-28] MEDS: SEVELAMER CARBONATE 800 MG TAB PO SCH ×2 (08:54→13:00)
[2018-01-28] MEDS ORDERED: ALLOPURINOL 300 MG TAB PO SCH (09:00)
[2018-01-28] MEDS ORDERED: MULTIVITAMINS/MINERALS THERAPEUTIC TAB PO SCH (09:00)
[2018-01-28] MEDS ORDERED: ASPIRIN 81 MG CHEW TAB CHEW SCH (09:00)
[2018-01-28] MEDS ORDERED: LOSARTAN 25 MG TAB PO SCH (09:00)
--- NOTE | 2018-01-28 22:43 | PD.CARD.PN ---
Subjective Subjective Remarks Patient was seen earlier today, late entry note Doing well overnight No chest pain Objective Vital Signs / I&O Vital Signs Date Time Temp Pulse Resp B/P (MAP) Pulse Ox O2 Delivery O2 Flow Rate FiO2 01/28/18 14:00 68 01/28/18 13:00 67 01/28/18 12:00 64 01/28/18 11:00 69 01/28/18 11:00 97.8 67 16 139/73 (95) 94 01/28/18 10:00 64 01/28/18 09:00 64 01/28/18 08:00 60 01/28/18 07:15 98.5 61 18 158/77 (104) 94 01/28/18 07:00 63 01/28/18 06:16 69 01/28/18 05:09 61 01/28/18 04:25 62 01/28/18 03:36 98.4 63 20 124/66 (85) 95 01/28/18 03:00 58 01/28/18 02:10 62 01/28/18 01:11 58 01/28/18 00:44 59 01/28/18 00:10 98.4 63 20 132/71 (91) 94 01/27/18 23:00 63 I/O 01/27/18 01/27/18 01/27/18 01/28/18 01/28/18 01/28/18 07:00 15:00 23:00 07:00 15:00 23:00 Intake Total 480 ml 840 ml Output Total 50 ml 50 ml Balance 430 ml 790 ml Intake Oral 480 ml 840 ml Output Urine Total 50 ml 50 ml Physical Exam GENERAL: NAD, AAOx3 SKIN: Warm and dry. HEAD: Atraumatic. Normocephalic. EYES: Pupils equal and round. No scleral icterus. No injection or drainage. ENT: No nasal bleeding or discharge. Mucous membranes pink and moist. NECK: Trachea midline. No JVD. CARDIOVASCULAR: Regular rate and rhythm. RESPIRATORY: No accessory muscle use. Clear to auscultation. Breath sounds equal bilaterally. GASTROINTESTINAL: Abdomen soft, non-tender, nondistended. Hepatic and splenic margins not palpable. MUSCULOSKELETAL: Extremities without clubbing, cyanosis, or edema. No obvious deformities. Right femoral no hematoma NEUROLOGICAL: Awake and alert. No obvious cranial nerve deficits. Motor grossly within normal limits. Five out of 5 muscle strength in the arms and legs. Normal speech. PSYCHIATRIC: Appropriate mood and affect; insight and judgment normal. Assessment and Plan Problem List: (1) Unstable angina ICD Codes: I20.0 - Unstable angina Status: Acute (2) Hypertension ICD Codes: I10 - Essential (primary) hypertension Status: Acute (3) Hyperlipidemia ICD Codes: E78.5 - Hyperlipidemia, unspecified Status: Acute (4) ESRD (end stage renal disease) ICD Codes: N18.6 - End stage renal disease Status: Acute (5) CAD (coronary artery disease) ICD Codes: I25.10 - Atherosclerotic heart disease of [place] coronary artery without angina pectoris Status: Acute Assessment and Plan 1) CAD/USA s/p laser atherectomy/cutting balloon/POBA of LCx/OM ISR ASA/Effient 2) Cardiovascularly stable for discharge Follow up with Sunny Price DO Jan 28, 2018 22:43
== END 2018-01-28 14:34 | disposition home or self-care (01) ==
LOC: HDIC 08:00 → HDOC 08:00 → HCIS 14:40 → HDOC 01-28 14:34
PROVIDERS: ATTEND Nuclear Medicine Nuclear Cardiology
DX: I25.110 Atherosclerotic heart disease of native coronary artery with unstable angina pectoris (principal); I12.0 Hypertensive chronic kidney disease with stage 5 chronic kidney disease or end stage renal disease; N18.6 End stage renal disease; E11.9 Type 2 diabetes mellitus without complications; Z79.4 Long term (current) use of insulin; Z79.01 Long term (current) use of anticoagulants; Z99.2 Dependence on renal dialysis
CPT/HCPCS: 80048; 82948; 85002; 85025; 85610; 85730; 92924; 93005; 93459; 99152; 99153; C1725; C1760; C1769; C1885; C1887; C1893; G0269; J1644; J2250; J3010

== ENCOUNTER 2018-05-03 20:02 | Inpatient (IN) ==
[2018-05-03] MEDS ORDERED: Nitroglycerin Drip Premix 50 MG/250 ML BOTTLE IV.CONT PRN (20:40)
[2018-05-03] MEDS ORDERED: Heparin Drip 25,000 UNIT/250 ML BAG IV.CONT PRN (20:47)
[2018-05-03 21:30] LABS: Baso % (Auto) 0.4 % (0.0-2.0); Eos # (Auto) 0.3 th/mm3 (0.0-0.4); Eos % (Auto) 2.7 % (0.0-4.0); Hematocrit 31.3 % (39.0-51.0); Hemoglobin 10.3 gm/dL (13.0-17.0); Lymph # (Auto) 1.6 th/mm3 (1.0-4.8); Lymph % (Auto) 15.6 % (9.0-44.0); Mean Corpuscular HGB Conc 32.8 % (32.0-36.0); Mean Corpuscular Hemoglobin 32.6 pg (27.0-34.0); Mean Corpuscular Volume 99.5 fL (80.0-100.0); Mean Platelet Volume 9.7 fL (7.0-11.0); Mono # (Auto) 1.2 th/mm3 (0.0-0.9); Mono % (Auto) 11.4 % (0.0-8.0); Neut # (Auto) 7.1 th/mm3 (1.8-7.7); Neut % (Auto) 69.9 % (16.0-70.0); Platelet Count 192 th/mm3 (150-450); Red Blood Count 3.15 mil/mm3 (4.50-5.90); Red Cell Distribution Width 14.8 % (11.6-17.2); White Blood Count 10.2 th/mm3 (4.0-11.0)
--- NOTE | 2018-05-03 21:31 | ED ---
HPI General Chief Complaint: Chest Pain Stated Complaint: Chest pain Time Seen by Provider: 05/03/18 20:32 Source: patient History of Present Illness HPI narrative: Patient is a 72-year-old male who presents the emergency room with complaints of crushing chest pain. Patient reports that since 2 PM this afternoon, he has been having chest pain. Patient reports that he was finishing eating his lunch when the chest pain began. Patient reports that the chest pain is located to his left breast, reports that it does radiate down his left arm. Patient reports that pain feels sharp and stabbing in nature. Patient reports shortness of breath with this chest pain, reports that the pain feels similar to his previous chest pain episodes. Patient reports that he does see Dr. Julio Juárez in the office as well as Dr. Hernández. Reports that he has had multiple interventions to his left circumflex as well as obtuse marginal arteries. He has over 10 coronary artery stents in place. Reports that he was recently placed on another medication to help with his symptoms - he did receive it this week and recently started it this week. Patient reports that he is due for another cardiac cath at this time. Patient has not taken his aspirin today. Complete Quality Measures for STEMI Alert Patients Related Data Home Medications Medication Instructions Recorded Confirmed allopurinol 300 mg PO HS 05/03/18 05/03/18 aspirin [Aspir-Low] 81 mg PO DAILY 05/03/18 05/03/18 atorvastatin 80 mg PO DAILY 05/03/18 05/03/18 clonidine HCl 0.1 mg PO DAILY PRN 05/03/18 05/03/18 ezetimibe [Zetia] 10 mg PO DAILY 05/03/18 05/03/18 gabapentin 300 mg PO TID 05/03/18 05/03/18 glimepiride 4 mg PO BID 05/03/18 05/03/18 insulin lispro [Humalog U-100 1 sliding scale dose SUB-Q UD 05/03/18 05/03/18 Insulin] losartan 100 mg PO DAILY 05/03/18 05/03/18 metoprolol tartrate 100 mg PO BID 05/03/18 05/03/18 [id number] 05/03/18 [ProRenal QD] prasugrel [Effient] 10 mg PO DAILY 05/03/18 05/03/18 sitagliptin [Januvia] 50 mg PO DAILY 05/03/18 05/03/18 sucroferric oxyhydroxide [Velphoro] 500 mg PO TID 05/03/18 05/03/18 Allergies Allergy/AdvReac Type Severity Reaction Status Date / Time No Known Allergies Allergy Verified 05/03/18 20:11 Review of Systems Except as stated in HPI: all other systems reviewed are negative [facility] Medical History Medical History Diabetes (Acute) Dialysis patient (Acute) Myocardial infarction (Acute) Surgical History Surgical History Hx of CABG (Acute) Social History Social History Substance History: No History of Abuse Second Hand Smoke Exposure: No Smoking Status: Never smoker How Often Do You Have a Drink Containing Alcohol: Monthly or less Recent Travel in [facility] within the Last 8 Weeks: No Recent Out of Country Travel within the Last 8 Weeks: No Immunization History Tetanus Immunization: >5 Years Hx Influenza Vaccine This Season: No Exam Narrative Exam Narrative: GENERAL: Moderate distress SKIN: Focused skin assessment warm/dry. HEAD: Atraumatic. Normocephalic. EYES: Pupils equal and round. No scleral icterus. No injection or drainage. ENT: No nasal bleeding or discharge. Mucous membranes pink and moist. NECK: Trachea midline. No JVD. CARDIOVASCULAR: Regular rate and rhythm. No murmur appreciated. RESPIRATORY: No accessory muscle use. Clear to auscultation. Breath sounds equal bilaterally. GASTROINTESTINAL: Abdomen soft, non-tender, nondistended. Hepatic and splenic margins not palpable. MUSCULOSKELETAL: No obvious deformities. No clubbing. No cyanosis. No edema. NEUROLOGICAL: Awake and alert. No obvious cranial nerve deficits. Motor grossly within normal limits. Normal speech. PSYCHIATRIC: Appropriate mood and affect; insight and judgment normal. Course Initial Documented Vital Signs Temperature 98.6 F 05/03/18 20:07 Pulse Rate 78 05/03/18 20:07 Respiratory Rate 20 05/03/18 20:07 Blood Pressure 174/74 H 05/03/18 20:07 Pulse Oximetry 98 05/03/18 20:07 Last Documented Vital Signs Temperature 98.1 F 05/03/18 20:11 Pulse Rate 75 05/03/18 22:35 Respiratory Rate 18 05/03/18 22:35 Blood Pressure 138/64 05/03/18 22:35 Pulse Oximetry 100 05/03/18 22:35 Critical Care Time Critical Care Time: Yes Total Critical Care Time: 30 Attestation: Aggregate critical care time was 30 minutes. Time to perform other separately billable procedures was not included in the critical care time. My time did not include minutes spent treating any other patients simultaneously or on activities that did not directly contribute to the patient's treatment. The services I provided to this patient were to treat and/or prevent clinically significant deterioration that could result in: , decompensation, deterioration I provided critical care services requiring my management, as noted below: Chart data review, documentation time, medication orders and management, vital sign assessments/reviewing monitor data, ordering and reviewing lab tests, ordering and interpreting/reviewing x-rays and diagnostic studies, care of the patient and discussion of the patient with the admitting physicians. Medical Decision Making MDM Narrative Medical decision making narrative: During the course of the patients emergency department visit, the patients history, examination, and differential diagnosis were reviewed with the patient. The patient was placed on a rn cardiac rehab with oximetry and frequent blood pressure monitoring. The patient had an IV access obtained and blood work sent for analysis. EKG shows ST depression with t wave inversions The patient was initially provided heparin drip as well as nitro drip After nitro drip was initiated, patient had relief of pain trop 1.[address] Juárez - agrees with nitro and heparin drip will admit to medicine service for treatment of unstable angina Please note, patient did not start the ranexa, he picked up the script this weekend but read the side effects of the medication and wanted to talk to someone prior to starting this medication Differential Diagnosis Differential Diagnosis: ACS, arrhythmia, electrolyte abnormality, unstable angina Medical Records Medical records reviewed: Yes I reviewed the patient's medical records. Lab Data Result diagrams: 05/03/18 20:49 05/03/18 20:49 Lab Results 05/03/18 05/03/18 05/03/18 Range/Units 20:49 20:49 20:49 WBC 10.2 (4.0-11.0) th/mm3 RBC 3.15 L (4.50-5.90) mil/mm3 Hgb 10.3 L (13.0-17.0) gm/dL Hct 31.3 L (39.0-51.0) % MCV 99.5 (80.0-100.0) fL MCH 32.6 (27.0-34.0) pg MCHC 32.8 (32.0-36.0) % RDW 14.8 (11.6-17.2) % Plt Count 192 (150-450) th/mm3 MPV 9.7 (7.0-11.0) fL Neut % (Auto) 69.9 (16.0-70.0) % Lymph % (Auto) 15.6 (9.0-44.0) % Glynn % (Auto) 11.4 H (0.0-8.0) % Eos % (Auto) 2.7 (0.0-4.0) % Baso % (Auto) 0.4 (0.0-2.0) % Neut # (Auto) 7.1 (1.8-7.7) th/mm3 Lymph # (Auto) 1.6 (1.0-4.8) th/mm3 Glynn # (Auto) 1.2 H (0.0-0.9) th/mm3 Eos # (Auto) 0.3 (0.0-0.4) th/mm3 Baso # (Auto) 0.0 (0.0-0.2) th/mm3 WBC Differential . Differential Comment Auto diff final PT 10.3 (9.8-11.6) sec INR 1.0 Ratio APTT 22.2 L (24.3-30.1) sec Sodium 134 L (136-145) meq/L Potassium 4.1 (3.5-5.1) meq/L Chloride 95 L (98-107) meq/L Carbon Dioxide 24.6 (21.0-32.0) meq/L Anion Gap 14 (5-15) meq/L BUN 48 H (7-18) mg/dL Creatinine 8.61 H (0.60-1.30) mg/dL Estimated GFR 6 L (>89) mL/min Random Glucose 289 H (74-106) mg/dL Calcium 9.8 (8.5-10.1) mg/dL Magnesium 2.4 (1.5-2.5) mg/dL Total Bilirubin 0.2 (0.2-1.0) mg/dL AST 23 (15-37) U/L ALT 23 (12-78) U/L Alkaline Phosphatase 118 H (45-117) U/L Total Creatine Kinase 215 (39-308) U/L CK-MB (CK-2) 5.2 H (0.5-3.6) ng/mL Troponin I 1.70 H* (0.02-0.05) ng/mL B-Natriuretic Peptide (0-100) pg/mL Total Protein 7.7 (6.4-8.2) g/dL Albumin 3.4 (3.4-5.0) g/dL 05/03/18 Range/Units 20:49 WBC (4.0-11.0) th/mm3 RBC (4.50-5.90) mil/mm3 Hgb (13.0-17.0) gm/dL Hct (39.0-51.0) % MCV (80.0-100.0) fL MCH (27.0-34.0) pg MCHC (32.0-36.0) % RDW (11.6-17.2) % Plt Count (150-450) th/mm3 MPV (7.0-11.0) fL Neut % (Auto) (16.0-70.0) % Lymph % (Auto) (9.0-44.0) % Glynn % (Auto) (0.0-8.0) % Eos % (Auto) (0.0-4.0) % Baso % (Auto) (0.0-2.0) % Neut # (Auto) (1.8-7.7) th/mm3 Lymph # (Auto) (1.0-4.8) th/mm3 Glynn # (Auto) (0.0-0.9) th/mm3 Eos # (Auto) (0.0-0.4) th/mm3 Baso # (Auto) (0.0-0.2) th/mm3 WBC Differential Differential Comment PT (9.8-11.6) sec INR Ratio APTT (24.3-30.1) sec Sodium (136-145) meq/L Potassium (3.5-5.1) meq/L Chloride (98-107) meq/L Carbon Dioxide (21.0-32.0) meq/L Anion Gap (5-15) meq/L BUN (7-18) mg/dL Creatinine (0.60-1.30) mg/dL Estimated GFR (>89) mL/min Random Glucose (74-106) mg/dL Calcium (8.5-10.1) mg/dL Magnesium (1.5-2.5) mg/dL Total Bilirubin (0.2-1.0) mg/dL AST (15-37) U/L ALT (12-78) U/L Alkaline Phosphatase (45-117) U/L Total Creatine Kinase (39-308) U/L CK-MB (CK-2) (0.5-3.6) ng/mL Troponin I (0.02-0.05) ng/mL B-Natriuretic Peptide 155 H (0-100) pg/mL Total Protein (6.4-8.2) g/dL Albumin (3.4-5.0) g/dL Imaging Data Attestation: I personally reviewed and interpreted this imaging study as follows : Radiologist's impression: Chest X-Ray 05/03/18 20:40 CONCLUSION: Increasing nonconsolidative airspace opacities in the left lower lung. Discharge Plan Discharge Disposition Patient Disposition: 30 Still Patient Physicians Team ED Provider: Alena Espana Primary Care Provider: Brittany Rutledge Rxs /Orders / Referrals /Forms Prescriptions: No Action atorvastatin 80 mg Tablet 80 mg PO DAILY RF: 0 clonidine HCl 0.1 mg Tablet 0.1 mg PO DAILY PRN (Reason: Hypertension) RF: 0 metoprolol tartrate 100 mg Tablet 100 mg PO BID RF: 0 aspirin [Aspir-Low] 81 mg Tablet,Delayed Release (Dr/Ec) 81 mg PO DAILY RF: 0 glimepiride 4 mg Tablet 4 mg PO BID RF: 0 gabapentin 300 mg Capsule 300 mg PO TID RF: 0 allopurinol 300 mg Tablet 300 mg PO HS RF: 0 insulin lispro [Humalog U-100 Insulin] 100 unit/mL Solution 1 sliding scale dose SUB-Q UD RF: 0 losartan 100 mg Tablet 100 mg PO DAILY RF: 0 ezetimibe [Zetia] 10 mg Tablet 10 mg PO DAILY RF: 0 sitagliptin [Januvia] 50 mg Tablet 50 mg PO DAILY RF: 0 prasugrel [Effient] 10 mg Tablet 10 mg PO DAILY RF: 0 [id number],[id number] [ProRenal QD] 400-500 mcg-unit Capsule RF: 0 sucroferric oxyhydroxide [Velphoro] 500 mg Tablet,Chewable 500 mg PO TID RF: 0 Discharge Instructions Patient Printed Instructions: Chest Pain (ED) Status ED Status: With Doctor
--- NOTE | 2018-05-03 21:38 | XR ---
EXAM DATE: 05/03/2018 9:20 PM EDT AGE/SEX: 72 years / Male INDICATIONS: . Chest pain. CLINICAL DATA: This is the patient's initial encounter. Patient reports that signs and symptoms have been present for 1 day and indicates a pain score of 10/10. MEDICAL/SURGICAL HISTORY: . Cardiovascular disease. Renal failure, chronic. . CABG. Coronary artery stent. COMPARISON: . FINDINGS: There is increasing nonconsolidative opacity in the left lower lung causing loss of delineation of th e left heart border and portions of the left hemidiaphragm and stop the right lung is clear. The hear t is enlarged. Double-lumen central line tip projects over the distal superior vena cava. Stable card iomegaly. CONCLUSION: Increasing nonconsolidative airspace opacities in the left lower lung. Electronically signed by: Robert Steiner MD 05/03/2018 9:37 PM EDT
[2018-05-03 21:45] LABS: Albumin 3.4 g/dL (3.4-5.0); Anion Gap 14 meq/L (5-15); Aspartate Aminotransferase 23 U/L (15-37); Blood Urea Nitrogen 48 mg/dL (7-18); Calcium 9.8 mg/dL (8.5-10.1); Carbon Dioxide 24.6 meq/L (21.0-32.0); Chloride 95 meq/L (98-107); Glomerular Filtration Rate 6 mL/min (>89); Glucose,Random 289 mg/dL (74-106); Magnesium 2.4 mg/dL (1.5-2.5); Potassium 4.1 meq/L (3.5-5.1); Sodium 134 meq/L (136-145)
[2018-05-03 21:46] LABS: Alanine Aminotransferase 23 U/L (12-78)
[2018-05-03 21:49] LABS: Alkaline Phosphatase 118 U/L (45-117); Creatine Kinase 215 U/L (39-308); Total Protein 7.7 g/dL (6.4-8.2)
[2018-05-03 21:50] LABS: Activated Partial Thrombo Time 22.2 sec (24.3-30.1); Prothrombin Time 10.3 sec (9.8-11.6)
[2018-05-03 22:15] LABS: Creatine Kinase MB 5.2 ng/mL (0.5-3.6)
--- NOTE | 2018-05-03 23:40 | P.HPIM ---
History of Present Illness Primary Care Physician: Brittany Rutledge DO Chief Complaint: Chest pain History of Present Illness: 72-year-old male with a history of hypertension, hyperlipidemia, end-stage renal disease, diabetes and CAD status post bypass in 2012 with multiple stent placements presented to the ED with ongoing chest pain. Patient states his chest pain begins about every 3 months and around April 21, 2018 he began to have intermittent chest pain, 6/10, with radiation down his right arm with associated shortness of breath. Patient states he does dialysis at home Thursday , Thursday, , Thursday and he states after dialysis he notices his chest pain is worse. He denies any nausea, vomiting, dizziness, fever or chills. Patient was last admitted in January 2018 in which he underwent a laser atherectomy/Cutting Balloon by Dr. Hernández. He also states he has been compliant with all medications. Inpatient Certification: I certify that the inpatient services were ordered in accordance with Medicare regulations governing the order. This includes certification that hospital inpatient services are reasonable and necessary and in the case of services not specified as inpatient-only under 42 CFR 419.22(n), that they are appropriately provided as inpatient services in accordance to with the 2-midnight benchmark under 43 CFR 412.3(e) Estimated Total Length of Stay (Days): 2 Plans for Post Hospital Care: Home Review of Systems All other systems reviewed negative except as stated in HPI PMFSH - History History Provided By: Patient - Medical History Medical History: Medical History (Last Updated 05/04/18 @ 12:50 by GRACIELA Souza) AVF (arteriovenous fistula) Diabetes Dialysis patient Gout Hyperlipidemia Hypertension Myocardial infarction - Surgical History Surgical History: Surgical History (Last Reviewed 05/03/18 @ 21:33 by Alena Espana) Hx of CABG - Tobacco History Second Hand Smoke Exposure: No Tobacco Use In Past 30 Days: No Smoking Status: Never smoker - Alcohol History How Often Do You Have a Drink Containing Alcohol: Monthly or less - Substance Use History Substance History: No History of Abuse - Travel History Recent Travel in the [place] Within the Last 8 Weeks: No Recent Travel Out of the Country Within the Last 8 Weeks: No - Immunization History Tetanus Immunization: >5 Years Hx Influenza Vaccine This Season: No Medications and Allergies Active Medications: Active Medications Nitroglycerin/Dextrose (Nitroglycerin Drip Premix) 50 mg in 250 mls @ 1.5 mls/ hr IV.CONT TITRATE PRN; Protocol PRN Reason: See Protocol Last Admin: 05/03/18 21:07 Dose: 5 mcg/min, 1.5 mls/hr Heparin Sodium/Dextrose (Heparin/D5w 25,000 U/250 Ml) 25,000 unit in 250 mls @ 0 mls/hr IV.CONT TITRATE PRN; Protocol PRN Reason: Per Protocol Last Admin: 05/03/18 22:30 Dose: 1,000 units/hr, 10 mls/hr Senna/Docusate Sodium (Lakesha-Colace) 1 tab PO BID DC Sodium Chloride (Ns Flush) 2 ml IV.FLUSH UNSCH PRN PRN Reason: FLUSH AFTER USING IV ACCESS Allergies Allergy/AdvReac Type Severity Reaction Status Date / Time No Known Allergies Allergy Verified 05/03/18 20:11 Home Medications Medication Instructions Recorded Confirmed Type allopurinol 300 mg PO HS 05/03/18 05/03/18 History aspirin [Aspir-Low] 81 mg PO DAILY 05/03/18 05/03/18 History atorvastatin 80 mg PO DAILY 05/03/18 05/03/18 History clonidine HCl 0.1 mg PO DAILY PRN 05/03/18 05/03/18 History ezetimibe [Zetia] 10 mg PO DAILY 05/03/18 05/03/18 History gabapentin 300 mg PO TID 05/03/18 05/03/18 History glimepiride 4 mg PO BID 05/03/18 05/03/18 History insulin lispro [Humalog U-100 1 sliding scale dose SUB-Q UD 05/03/18 05/03/18 History Insulin] losartan 100 mg PO DAILY 05/03/18 05/03/18 History metoprolol tartrate 100 mg PO BID 05/03/18 05/03/18 History mv,[id number] 05/03/18 History [ProRenal QD] prasugrel [Effient] 10 mg PO DAILY 05/03/18 05/03/18 History sitagliptin [Januvia] 50 mg PO DAILY 05/03/18 05/03/18 History sucroferric oxyhydroxide [Velphoro] 500 mg PO TID 05/03/18 05/03/18 History Exam Vital signs: Vital Signs 05/03/18 20:07 05/03/18 20:11 05/03/18 20:49 Temperature 98.6 F 98.1 F Pulse Rate 78 79 79 Respiratory Rate 20 22 Blood Pressure 174/74 H 159/73 H Pulse Oximetry 98 98 05/03/18 20:50 05/03/18 20:51 05/03/18 20:59 Temperature Pulse Rate 79 81 Respiratory Rate 22 22 Blood Pressure 201/91 H Pulse Oximetry 100 100 100 05/03/18 21:11 05/03/18 21:22 05/03/18 21:36 Temperature Pulse Rate 79 Respiratory Rate 18 18 18 Blood Pressure 160/58 H Pulse Oximetry 100 05/03/18 21:37 05/03/18 22:35 Temperature Pulse Rate 77 75 Respiratory Rate 18 18 Blood Pressure 154/67 H 138/64 Pulse Oximetry 100 100 Intake & Output 05/03/18 05/03/18 05/04/18 06:59 18:59 06:59 Weight 120.202 kg - Constitutional mild distress, obese - Routine HEENT Exam Head: Present: normocephalic Eye: Present: EOMI, PERRL - Routine Neck Exam Present: supple, full ROM. Absent: JVD - Routine Respiratory Exam Absent: accessory muscle use, rales, stridor, wheezes - Routine Cardiovascular Exam Present: RRR. Absent: murmur, gallop, rubs - Routine Abdominal Exam Present: soft. Absent: tenderness, distended - Routine Extremities Exam Present: edema, pulses intact, normal capillary refill - Routine Skin Exam Present: intact, warm. Absent: cyanosis - Routine Neurological Exam Present: alert, oriented X3 Results - Labs CBC & Chem 7: 05/04/18 08:12 05/04/18 08:12 Labs: Short CBC 05/03/18 Range/Units 20:49 WBC 10.2 (4.0-11.0) th/mm3 Hgb 10.3 L (13.0-17.0) gm/dL Hct 31.3 L (39.0-51.0) % Plt Count 192 (150-450) th/mm3 BMP 05/03/18 20:49 Sodium 134 L Potassium 4.1 Chloride 95 L Carbon Dioxide 24.6 BUN 48 H Creatinine 8.61 H Calcium 9.8 Cardiac Enzymes 07/16/18 Range/Units 20:49 Total Creatine Kinase 215 (39-308) U/L CK-MB (CK-2) 5.2 H (0.5-3.6) ng/mL Troponin I 1.70 H* (0.02-0.05) ng/mL Liver Function 05/03/18 Range/Units 20:49 Total Bilirubin 0.2 (0.2-1.0) mg/dL AST 23 (15-37) U/L ALT 23 (12-78) U/L Alkaline Phosphatase 118 H (45-117) U/L Albumin 3.4 (3.4-5.0) g/dL - Imaging Impressions Chest X-Ray 05/03/18 20:40 CONCLUSION: Increasing nonconsolidative airspace opacities in the left lower lung. Caprini VTE Risk Assessment Caprini VTE Risk Assessment: Moderate/High Risk (score >= 2) Caprini Risk Assessment Model: Point Value = 1 Point Value = 2 Point Value = 3 Point Value = 5 Age 41-60 Minor surgery BMI > 25 kg/m2 Swollen legs Varicose veins or History of unexplained or recurrent spontaneous Oral contraceptives or hormone replacement Sepsis (< 1 month) Serious lung disease, including pneumonia (< 1 month) Abnormal pulmonary function Acute myocardial infarction Congestive heart failure (< 1 month) History of inflammatory bowel disease Medical patient at bed rest Age 61-74 Arthroscopic surgery Major open surgery (> 45 min) Laparoscopic surgery (> 45 min) Malignancy Confined to bed (> 72 hours) Immobilizing plaster cast Central venous access Age >= 75 History of VTE Family history of VTE Factor V Leiden Prothrombin [id number] Lupus anticoagulant Anticardiolipin antibodies Elevated serum homocysteine Heparin-induced thrombocytopenia Other congenital or acquired thrombophilia Stroke (< 1 month) Elective arthroplasty Hip, pelvis, or leg fracture Acute spinal cord injury (< 1 month) Prophylaxis Regimen: Total Risk Factor Score Risk Level Prophylaxis Regimen 0-1 Low Early ambulation 2 Moderate Order ONE of the following: *Sequential Compression Device (SCD) *Heparin 5000 units SQ BID 3-4 Higher Order ONE of the following medications: *Heparin 5000 units SQ TID *Enoxaparin/Lovenox 40 mg SQ daily (WT < 150 kg, CrCl > 30 mL/min) *Enoxaparin/Lovenox 30 mg SQ daily (WT < 150 kg, CrCl > 10-29 mL/min) *Enoxaparin/Lovenox 30 mg SQ BID (WT < 150 kg, CrCl > 30 mL/min) AND/OR *Sequential Compression Device (SCD) 5 or more Highest Order ONE of the following medications: *Heparin 5000 units SQ TID (Preferred with Epidurals) *Enoxaparin/Lovenox 40 mg SQ daily (WT < 150 kg, CrCl > 30 mL/min) *Enoxaparin/Lovenox 30 mg SQ daily (WT < 150 kg, CrCl > 10-29 mL/min) *Enoxaparin/Lovenox 30 mg SQ BID (WT < 150 kg, CrCl > 30 mL/min) AND *Sequential Compression Device (SCD) Assessment and Plan - Plan Unstable angina, r/o acs Troponin I 0.7 -Heparin drip and nitroglycerin drip ordered -Serial troponin and EKGs -Monitor telemetry -Consult cardiology for recommendations -Resume his Effient and aspirin End-stage renal disease, creatinine 8.6 around baseline -Patient is a dialysis patient on hemodialysis at home Thursday, Thursday, and Thursday -Consult nephrology, patient's facilities painter is Dr. Cisneros in [place] -Trend creatinine Diabetes, chronic -Hold home p.o. medications for now -Accu-Cheks with sliding scale insulin ordered DVT prophylaxis: Heparin Discussed Condition With: Patient and RN
[2018-05-04] MEDS ORDERED: Dextrose 50% in Water 50 ML Vial IV.PUSH PRN (01:50)
[2018-05-04 01:58] LABS: Creatine Kinase 231 U/L (39-308)
[2018-05-04 05:21] LABS: Creatine Kinase MB 9.4 ng/mL (0.5-3.6)
[2018-05-04] MEDS ORDERED: SUCROFERRIC OXYHYDROXIDE 500 MG PO SCH (08:00)
[2018-05-04] MEDS: Insulin NovoLOG Aspart Correctional Sugar Inj SQ SCH ×4 (08:21→21:23)
[2018-05-04] MEDS: Metoprolol Tartrate 100 MG Tablet PO SCH ×2 (08:23→21:22)
[2018-05-04] MEDS: Ezetimibe 10 MG Tablet PO SCH (08:24)
[2018-05-04] MEDS: Gabapentin 300 MG Capsule PO SCH (08:25)
[2018-05-04] MEDS: Senna/Docusate Sodium 8.6/50 MG Tablet PO SCH ×2 (08:27→21:25)
[2018-05-04 08:36] LABS: Baso % (Auto) 0.4 % (0.0-2.0); Eos # (Auto) 0.3 th/mm3 (0.0-0.4); Eos % (Auto) 3.4 % (0.0-4.0); Hematocrit 32.2 % (39.0-51.0); Hemoglobin 10.6 gm/dL (13.0-17.0); Lymph # (Auto) 1.6 th/mm3 (1.0-4.8); Lymph % (Auto) 18.9 % (9.0-44.0); Mean Corpuscular HGB Conc 32.9 % (32.0-36.0); Mean Corpuscular Hemoglobin 33.1 pg (27.0-34.0); Mean Corpuscular Volume 100.7 fL (80.0-100.0); Mean Platelet Volume 9.6 fL (7.0-11.0); Mono # (Auto) 0.8 th/mm3 (0.0-0.9); Mono % (Auto) 9.2 % (0.0-8.0); Neut # (Auto) 5.7 th/mm3 (1.8-7.7); Neut % (Auto) 68.1 % (16.0-70.0); Platelet Count 169 th/mm3 (150-450); Red Blood Count 3.19 mil/mm3 (4.50-5.90); Red Cell Distribution Width 14.8 % (11.6-17.2); White Blood Count 8.4 th/mm3 (4.0-11.0)
[2018-05-04 08:45] LABS: INR 1.1 Ratio; Prothrombin Time 10.8 sec (9.8-11.6)
[2018-05-04 09:10] LABS: Anion Gap 16 meq/L (5-15); Blood Urea Nitrogen 51 mg/dL (7-18); Calcium 9.1 mg/dL (8.5-10.1); Chloride 97 meq/L (98-107); Creatine Kinase 229 U/L (39-308); Glomerular Filtration Rate 5 mL/min (>89); Glucose,Random 169 mg/dL (74-106); Potassium 4.2 meq/L (3.5-5.1); Sodium 137 meq/L (136-145)
[2018-05-04] MEDS ORDERED: Sod Chloride 0.9% Inj 1,000 ML IV.CONT SCH (09:15)
[2018-05-04] MEDS ORDERED: fentaNYL Citrate Inj 100 MCG/2 ML Ampul IV.PUSH SCH (09:15)
[2018-05-04 09:22] LABS: Troponin I 4.72 ng/mL (0.02-0.05)
[2018-05-04] MEDS ORDERED: Heparin 10,000 UNITS/10 ML Vial (for IV use) OTHER PRN (09:35)
[2018-05-04] MEDS ORDERED: Heparin 10,000 UNITS/10 ML Vial (for IV use) IV.FLUSH PRN (09:35)
[2018-05-04] MEDS ORDERED: Sod Chloride 0.9% Inj 1,000 ML OTHER PRN ×2 (09:35)
[2018-05-04] MEDS ORDERED: Albumin Human 25% Inj 100 ML IV.SIG PRN (09:35)
[2018-05-04] MEDS ORDERED: Acetaminophen 325 MG Tablet PO PRN (09:35)
[2018-05-04] MEDS ORDERED: Sod Chloride 0.9% Inj 1,000 ML IV.CONT PRN (09:35)
[2018-05-04] MEDS ORDERED: Gelatin 12 MM/7 MM Topical Foam TOPICAL PRN (09:35)
--- NOTE | 2018-05-04 09:39 | P.PN ---
Physical Exam Vital signs: Vital Signs 05/03/18 20:07 05/03/18 20:11 05/03/18 20:49 Temperature 98.6 F 98.1 F Pulse Rate 78 79 79 Respiratory Rate 20 22 Blood Pressure 174/74 H 159/73 H Pulse Oximetry 98 98 05/03/18 20:50 05/03/18 20:51 05/03/18 20:59 Temperature Pulse Rate 79 81 Respiratory Rate 22 22 Blood Pressure 201/91 H Pulse Oximetry 100 100 100 05/03/18 21:11 05/03/18 21:22 05/03/18 21:36 Temperature Pulse Rate 79 Respiratory Rate 18 18 18 Blood Pressure 160/58 H Pulse Oximetry 100 05/03/18 21:37 05/03/18 22:35 05/03/18 23:34 Temperature Pulse Rate 77 75 70 Respiratory Rate 18 18 18 Blood Pressure 154/67 H 138/64 123/60 Pulse Oximetry 100 100 98 05/04/18 03:18 05/04/18 04:00 Temperature 98.5 F Pulse Rate 70 70 Respiratory Rate 20 18 Blood Pressure 131/70 142/76 H Pulse Oximetry 99 98 Intake & Output 05/03/18 05/04/18 05/04/18 18:59 06:59 18:59 Intake Total 0 / 0 Output Total 0 / 0 Balance 0 / 0 Weight 120.2 kg Intake: Oral 0 / 0 Output: Urine 0 / 0 Other: Date of Last Bowel Movement 05/03/18 Weight On Admission 120.2 kg Narrative: Subjective : In nad. The patient is in the chair. He still complains of pressure in his chest however improved since yesterday. His at bedside very supportive. Patient had cardiac cath before. Plan to go for cardiac cath in the afternoon today. He denies any shortness of breath at this time. No palpitations lightheadedness or nausea. No diaphoresis. Physical exam: GENERAL: 72 yo male, appear sin nad. SKIN: Warm and dry. HEAD: Normocephalic. EYES: No scleral icterus. No injection or drainage. NECK: Supple, trachea midline. No JVD or lymphadenopathy. CARDIOVASCULAR: Regular rate and rhythm without murmurs, gallops, or rubs. RESPIRATORY: Breath sounds equal bilaterally. No accessory muscle use. GASTROINTESTINAL: Abdomen soft, non-tender, nondistended. MUSCULOSKELETAL: No cyanosis, or edema. BACK: Nontender without obvious deformity. No CVA tenderness. Assessment and Plan Unstable angina, r/o acs Troponin I 0.7 on admission -Heparin drip and nitroglycerin drip ordered -Serial troponin and EKGs -Monitor telemetry -Consult cardiology for recommendations -Resume his Effient and aspirin - Plan for cardiac cath - Will have HD after the cardiac cath per nephro ff End-stage renal disease, creatinine 8.6 around baseline -Patient is a dialysis patient on hemodialysis at home Thursday, Thursday, and Thursday -Consult nephrology, patient's cardiology technologist is Dr. Cisneros in [place] -Trend creatinine - Plan for HD after cardiac cath -CI gadolinium Diabetes, chronic -Hold home p.o. medications for now -Accu-Cheks with sliding scale insulin ordered DVT prophylaxis: Heparin Discussed Condition With: Patient, nurse, family at bedside Results - Labs CBC & Chem 7: 05/04/18 08:12 05/04/18 08:12 Laboratory Results - last 24 hr 05/03/18 05/03/18 05/03/18 20:49 20:49 20:49 WBC 10.2 RBC 3.15 L Hgb 10.3 L Hct 31.3 L MCV 99.5 MCH 32.6 MCHC 32.8 RDW 14.8 Plt Count 192 MPV 9.7 Neut % (Auto) 69.9 Lymph % (Auto) 15.6 [place] % (Auto) 11.4 H Eos % (Auto) 2.7 Baso % (Auto) 0.4 Neut # (Auto) 7.1 Lymph # (Auto) 1.6 [place] # (Auto) 1.2 H Eos # (Auto) 0.3 Baso # (Auto) 0.0 WBC Differential . Differential Comment Auto diff final PT 10.3 INR 1.0 APTT 22.2 L Sodium 134 L Potassium 4.1 Chloride 95 L Carbon Dioxide 24.6 Anion Gap 14 BUN 48 H Creatinine 8.61 H Estimated GFR 6 L POC Glucose Random Glucose 289 H Calcium 9.8 Magnesium 2.4 Total Bilirubin 0.2 AST 23 ALT 23 Alkaline Phosphatase 118 H Total Creatine Kinase 215 CK-MB (CK-2) 5.2 H Troponin I 1.70 H* B-Natriuretic Peptide Total Protein 7.7 Albumin 3.4 05/03/18 05/04/1805/04/18 20:49 00:05 01:26 WBC RBC Hgb Hct MCV MCH MCHC RDW Plt Count MPV Neut % (Auto) Lymph % (Auto) [place] % (Auto) Eos % (Auto) Baso % (Auto) Neut # (Auto) Lymph # (Auto) [place] # (Auto) Eos # (Auto) Baso # (Auto) WBC Differential Differential Comment PT INR APTT Sodium Potassium Chloride Carbon Dioxide Anion Gap BUN Creatinine Estimated GFR POC Glucose 240 H Random Glucose Calcium Magnesium Total Bilirubin AST ALT Alkaline Phosphatase Total Creatine Kinase 231 CK-MB (CK-2) 9.4 H Troponin I B-Natriuretic Peptide 155 H Total Protein Albumin 05/04/18 05/04/18 05/04/18 07:31 08:12 08:12 WBC 8.4 RBC 3.19 L Hgb 10.6 L Hct 32.2 L MCV 100.7 H MCH 33.1 MCHC 32.9 RDW 14.8 Plt Count 169 MPV 9.6 Neut % (Auto) 68.1 Lymph % (Auto) 18.9 [place] % (Auto) 9.2 H Eos % (Auto) 3.4 Baso % (Auto) 0.4 Neut # (Auto) 5.7 Lymph # (Auto) 1.6 [place] # (Auto) 0.8 Eos # (Auto) 0.3 Baso # (Auto) 0.0 WBC Differential . Differential Comment Auto diff final PT INR APTT Sodium 137 Potassium 4.2 Chloride 97 L Carbon Dioxide 24.0 Anion Gap 16 H BUN 51 H Creatinine 9.70 H Estimated GFR 5 L POC Glucose 180 H Random Glucose 169 H D Calcium 9.1 Magnesium Total Bilirubin AST ALT Alkaline Phosphatase Total Creatine Kinase 229 CK-MB (CK-2) Troponin I 4.72 H* B-Natriuretic Peptide Total Protein Albumin 05/04/18 05/04/18 08:12 08:12 WBC RBC Hgb Hct MCV MCH MCHC RDW Plt Count MPV Neut % (Auto) Lymph % (Auto) [place] % (Auto) Eos % (Auto) Baso % (Auto) Neut # (Auto) Lymph # (Auto) [place] # (Auto) Eos # (Auto) Baso # (Auto) WBC Differential Differential Comment PT 10.8 INR 1.1 APTT 36.2 H D Sodium Potassium Chloride Carbon Dioxide Anion Gap BUN Creatinine Estimated GFR POC Glucose Random Glucose Calcium Magnesium Total Bilirubin AST ALT Alkaline Phosphatase Total Creatine Kinase CK-MB (CK-2) Troponin I B-Natriuretic Peptide Total Protein Albumin - Imaging Impressions Chest X-Ray 05/03/18 20:40 CONCLUSION: Increasing nonconsolidative airspace opacities in the left lower lung.
[2018-05-04 09:40] LABS: Creatine Kinase MB 9.9 ng/mL (0.5-3.6)
--- NOTE | 2018-05-04 09:41 | MB ---
cc: Julio Juárez MD DATE: 05/04/2018 REASON FOR CONSULTATION: Unstable angina. HISTORY OF PRESENT ILLNESS: The patient is a 72-year-old white male with an extensive history of coronary artery disease, diabetes, end-stage renal disease, hypertension, who for the past 3 weeks has been having intermittent episodes of anginal-like chest discomfort. The chest discomfort is left-sided in location, described as a "pressure", without associated shortness of breath, nausea or diaphoresis. Up until yesterday evening, the chest discomforts would generally last less than 10-15 minutes. However, yesterday evening, the chest discomfort persisted in a fairly constant fashion for about 4 hours with no definite relief from sublingual nitroglycerin. He states the symptoms are exactly like his previous angina. He denies pleurisy, lightheadedness, syncope, near syncope, palpitations, pedal edema, and paroxysmal nocturnal dyspnea. PAST MEDICAL HISTORY: 1. Diabetes. 2. End-stage renal disease. 3. Hyperlipidemia. 4. Hypertension. 5. Coronary artery disease with a highlights as follows: A. Myocardial infarction and 3 stents in [place] in 1997. B. 3-vessel bypass surgery in 2002. By 2005, only a left internal mammary artery to the LAD and vein graft to the right coronary artery were patent. C. Rotablator and stent of the distal left main and ostial left circumflex 03/11/2012. D. Repeat stent of the distal left main and ostium of the left circumflex using a 3.5 mm Resolute stent 11/23/2012. E. At [facility], stent of the distal left main using a 4.0 mm Promus, stent of the distal left circumflex with 2 overlapping 3.0 and 2.75 mm Promus stents 07/21/2016. F. Repeat stent to the left circumflex with two 3.0 mm Resolute stents for 08/04/2017. G. Laser atherectomy, AngioSculpt angioplasty of the left circumflex stents and placement of a more proximal left circumflex stent with a 3.0 mm Resolute 06/08/2017. H. Repeat laser and AngioSculpt angioplasty of the left circumflex due to severe restenosis within previously placed stents 10/13/2017. I. Recurrent, severe restenosis of the left circumflex necessitating laser atherectomy and cutting balloon angioplasty at 3 sites in the left circumflex 01/27/2018. Of note, the last 3 procedures were done by Dr. Sunny Hernández. CARDIAC MEDICATIONS AT HOME: 1. Clonidine 0.1 mg daily p.r.n. 2. Zetia 10 mg daily. 3. Metoprolol tartrate 100 mg b.i.d. 4. Losartan 100 mg daily. 5. Effient 10 mg daily. 6. Atorvastatin 80 mg at bedtime. 7. Aspirin 81 mg daily. ALLERGIES: NO KNOWN DRUG ALLERGIES. FAMILY HISTORY: Noncontributory. SOCIAL HISTORY: The patient has never smoked cigarettes. He drinks occasional alcohol. REVIEW OF SYSTEMS: As in the history of present illness, otherwise negative or noncontributory. He also denies headache, abdominal pain, melena, dyspepsia, and bright red blood per rectum. PHYSICAL EXAMINATION: VITAL SIGNS: Blood pressure 142/76 with a pulse of 70, respirations 18. GENERAL: He is a well-developed, well-nourished white male, in no acute distress. NECK: Jugular venous pressure is normal. Carotid pulses are 2+ bilaterally and without bruits. CHEST: Reveals clear lungs espitia. CARDIAC: He has a regular rhythm and rate without S3 or S4. There is a grade II/ systolic ejection murmur heard at the base of the heart. The S2 heart sound is normal. ABDOMEN: He has a soft, obese, nontender abdomen. Bowel sounds are present. There is no definite hepatosplenomegaly. EXTREMITIES: Reveals no clubbing, cyanosis or edema. Peripheral pulses are normal throughout. LABORATORY DATA: Includes WBC 8.4, hemoglobin 10.6, platelets 169. Potassium 4.1, BUN 48, creatinine 8.61. Troponin 1.70. CK 231. EKG shows sinus rhythm, nonspecific ST abnormalities. Chest x-ray shows no acute disease. IMPRESSION: Unstable angina, possible non-ST elevation myocardial infarction in this 72-year-old white male with extensive history of coronary artery disease, diabetes, end-stage renal disease, hypertension, hyperlipidemia. Most likely, he has once again restenosed his left circumflex. Therapeutic options are fairly limited at this point, including repeat percutaneous coronary intervention, consideration of single vessel bypass surgery to the distal left circumflex. Treatment options were discussed at length with the patient. The stents in the left main and left circumflex are Resolute and Promus stents. Conceivably, we could try placement of a Synergy stent(s). The patient is extremely reluctant to undergo single vessel bypass surgery. The patient has been chest discomfort free overnight. RECOMMENDATIONS: 1. Cardiac catheterization later today. 2. Continue heparin drip and his usual home cardiac medications. MD PRASAD Moss/JOSE JUAN , 09:14 AM , 09:40 AM [email or web address]
--- NOTE | 2018-05-04 13:07 | P.CONNP ---
<Vivienne Thomas - Last Filed: 05/04/18 12:48> History of Present Illness Service: Nephrology Consult date: 05/04/18 Reason for Consult: ESRD on HD Primary Care Provider: Brittany Rutledge DO Family Provider: Brittany Rutledge DO Chief Complaint: Chest pain History of Present Illness: This is a 72 y/o [facility] patient who as had recurrent angina for several months. He has extensive hx of CAD, has had CABG and multiple stents placed in the past. Other PMH includes ESRD, where he is maintained on home HD where he has treatment 4 times weekly, anemia, HTN, hyperlipidemia, DM II, and gout. 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 He came here as he is a patient of Dr. Chavis. Plan is for cardiac catheterization later this afternoon, HD will be after. We were consulted for management of his dialysis. is present in the room. He is n NTG infusion, denies active chest pain at present. Review of Systems Cardiovascular: Reports chest pain, Reports chest pain with activity, Denies fast heart rate, Denies leg swelling Respiratory: Reports shortness of breath with activity, Denies shortness of breath Neurologic: Denies dizziness, Denies frequent falls PMFSH - History History Provided By: Patient, Significant Other - Medical History Medical History: Medical History (Last Updated 05/04/18 @ 12:50 by Vivienne Thomas [facility]) AVF (arteriovenous fistula) Diabetes Dialysis patient Gout Hyperlipidemia Hypertension Myocardial infarction - Surgical History Surgical History: Surgical History (Last Reviewed 05/03/18 @ 21:33 by Alena Espana) Hx of CABG - Tobacco History Second Hand Smoke Exposure: No Tobacco Use In Past 30 Days: No Smoking Status: Never smoker - Alcohol History How Often Do You Have a Drink Containing Alcohol: Monthly or less - Substance Use History Substance History: No History of Abuse - Travel History Recent Travel in the [place] Within the Last 8 Weeks: No Recent Travel Out of the Country Within the Last 8 Weeks: No - Immunization History Tetanus Immunization: >5 Years Hx Influenza Vaccine This Season: No Medications and Allergies Allergies Allergy/AdvReac Type Severity Reaction Status Date / Time No Known Allergies Allergy Verified 05/03/18 20:11 Home Medications Medication Instructions Recorded Confirmed Type allopurinol 300 mg PO HS 05/03/18 05/03/18 History aspirin [Aspir-Low] 81 mg PO DAILY 05/03/18 05/03/18 History atorvastatin 80 mg PO DAILY 05/03/18 05/03/18 History clonidine HCl 0.1 mg PO DAILY PRN 05/03/18 05/03/18 History ezetimibe [Zetia] 10 mg PO DAILY 05/03/18 05/03/18 History gabapentin 300 mg PO TID 05/03/18 05/03/18 History glimepiride 4 mg PO BID 05/03/18 05/03/18 History insulin lispro [Humalog U-100 1 sliding scale dose SUB-Q UD 05/03/18 05/03/18 History Insulin] losartan 100 mg PO DAILY 05/03/18 05/03/18 History metoprolol tartrate 100 mg PO BID 05/03/18 05/03/18 History [id number] 05/03/18 History [ProRenal QD] prasugrel [Effient] 10 mg PO DAILY 05/03/18 05/03/18 History sitagliptin [Januvia] 50 mg PO DAILY 05/03/18 05/03/18 History sucroferric oxyhydroxide [Velphoro] 500 mg PO TID 05/03/18 05/03/18 History Active Medications: Active Medications Acetaminophen (Tylenol) 650 mg PO UNSCH PRN PRN Reason: SEE LABEL COMMENTS Allopurinol (Zyloprim) 100 mg PO [facility] Aspirin (Ecotrin) 81 mg PO DAILY [facility] Last Admin: 05/04/18 08:26 Dose: 81 mg Atorvastatin Calcium (Lipitor) 80 mg PO DAILY [facility] Last Admin: 05/04/18 08:25 Dose: 80 mg Clonidine HCl (Catapres) 0.1 mg PO UNSCH PRN PRN Reason: SEE LABEL COMMENTS Dextrose (D50w Vial) 50 ml IV.PUSH UNSCH PRN PRN Reason: PER HYPOGLYCEMIA PROTOCOL Diphenhydramine HCl (Benadryl) 50 mg PO CAR TOP BOLTER [facility] Stop: 05/08/18 09:14 Diphenhydramine HCl (Benadryl) 25 mg PO UNSCH PRN PRN Reason: SEE LABEL COMMENTS Ezetimibe (Zetia) 10 mg PO DAILY [facility] Last Admin: 05/04/18 08:24 Dose: 10 mg Epoetin Chris (Epogen Inj) 5,000 unit IV.PUSH UNSCH PRN PRN Reason: SEE LABEL COMMENTS Fentanyl Citrate (Fentanyl Inj) 50 mcg IV.PUSH CAR TOP BOLTER [facility] Stop: 05/08/18 09:14 Gabapentin (Neurontin) 300 mg PO DAILY [facility] Last Admin: 05/04/18 08:25 Dose: Not Given Gelatin (Gelfoam 12 Mm/7 Mm Topical) 1 foam TOPICAL PRN PRN PRN Reason: help stop bleeding from site Gentamicin Sulfate (Gentamicin Inj) 20 mg OTHER WITH DIALYSIS PRN PRN Reason: Dwell Gentamycin Lock Glucagon (Glucagon Inj) 1 mg OTHER PRN PRN PRN Reason: for Hypoglycemia Protocol Heparin Sodium (Porcine) (Heparin Inj) 8,000 units IV.FLUSH WITH DIALYSIS PRN PRN Reason: for machine prime Heparin Sodium (Porcine) (Heparin Inj) 1,000 units OTHER WITH DIALYSIS PRN PRN Reason: Dwell Heparin to Fill Catheter Nitroglycerin/Dextrose (Nitroglycerin Drip Premix) 50 mg in 250 mls @ 1.5 mls/ hr IV.CONT TITRATE PRN; Protocol PRN Reason: See Protocol Last Titration: 05/04/18 05:19 Dose: 30 mcg/min, 9 mls/hr Heparin Sodium/Dextrose (Heparin/D5w 25,000 U/250 Ml) 25,000 unit in 250 mls @ 0 mls/hr IV.CONT TITRATE PRN; Protocol PRN Reason: Per Protocol Last Titration: 05/04/18 09:59 Dose: 1,100 units/hr, 11 mls/hr Sodium Chloride (Ns Inj) 1,000 mls @ 30 mls/hr IV.CONT .Q24H [facility] Stop: 05/05/18 09:14 Last Admin: 05/04/18 10:29 Dose: 30 mls/hr Albumin Human (Flexbumin 25% Inj) 100 mls @ 60 mls/hr IV.SIG WITH DIALYSIS PRN PRN Reason: hypotension / volume replace Sodium Chloride (Ns Inj) 1,000 mls @ 200 mls/hr OTHER .Q5H PRN PRN Reason: for dialyzer flush PRN Sodium Chloride (Ns Inj) 1,000 mls @ 0 mls/hr IV.CONT .Q0M PRN PRN Reason: hypotension / volume replace Sodium Chloride (Ns Inj) 1,000 mls @ 0 mls/hr OTHER .Q0M PRN PRN Reason: for prime and rinse back Insulin Aspart (Novolog Insulin Correctional Sugar Inj) 0 unit SQ ACHS [facility]; Protocol Last Admin: 05/04/18 08:21 Dose: Not Given Losartan Potassium (Cozaar) 100 mg PO DAILY [facility] Last Admin: 05/04/18 08:24 Dose: 100 mg Mannitol (Mannitol Inj) 12.5 gm IV.PUSH PRN PRN PRN Reason: hypotension / volume replace Metoprolol Tartrate (Lopressor) 100 mg PO BID [facility] Last Admin: 05/04/18 08:23 Dose: 100 mg Midazolam HCl (Versed Inj) 1 mg IV.PUSH CAR TOP BOLTER [facility] Stop: 05/08/18 09:14 Nitroglycerin (Nitrostat Sl) 0.4 mg SL Q5M PRN PRN Reason: CHEST PAIN Ondansetron HCl (Zofran Inj) 4 mg IV.PUSH UNSCH PRN PRN Reason: NAUSEA OR VOMITING Pt Own: Sucroferric Oxyhydroxide [ Velphoro] 500mg Chewable Tablet 0 each PO TIDAC [facility] Prasugrel (Effient) 10 mg PO DAILY [facility] Last Admin: 05/04/18 08:26 Dose: 10 mg Senna/Docusate Sodium (Lakesha-Colace) 1 tab PO BID [facility] Last Admin: 05/04/18 08:27 Dose: Not Given Sodium Chloride (Ns Flush) 2 ml IV.FLUSH UNSCH PRN PRN Reason: FLUSH AFTER USING IV ACCESS Sodium Chloride (Ns Flush) 5 ml IV.FLUSH PRN PRN PRN Reason: flush each lumen during HD Exam Vital signs: Vital Signs 05/03/18 20:07 05/03/18 20:11 05/03/18 20:49 Temperature 98.6 F 98.1 F Pulse Rate 78 79 79 Respiratory Rate 20 22 Blood Pressure 174/74 H 159/73 H Blood Pressure [Left Arm] Blood Pressure [Right Arm] Pulse Oximetry 98 98 05/03/18 20:50 05/03/18 20:51 05/03/18 20:59 Temperature Pulse Rate 79 81 Respiratory Rate 22 22 Blood Pressure 201/91 H Blood Pressure [Left Arm] Blood Pressure [Right Arm] Pulse Oximetry 100 100 100 05/03/18 21:11 05/03/18 21:22 05/03/18 21:36 Temperature Pulse Rate 79 Respiratory Rate 18 18 18 Blood Pressure 160/58 H Blood Pressure [Left Arm] Blood Pressure [Right Arm] Pulse Oximetry 100 05/03/18 21:37 05/03/18 22:35 05/03/18 23:34 Temperature Pulse Rate 77 75 70 Respiratory Rate 18 18 18 Blood Pressure 154/67 H 138/64 123/60 Blood Pressure [Left Arm] Blood Pressure [Right Arm] Pulse Oximetry 100 100 98 05/04/18 03:18 05/04/18 04:00 05/04/18 08:00 Temperature 98.5 F 98.3 F Pulse Rate 70 70 69 Respiratory Rate 20 18 20 Blood Pressure 131/70 142/76 H 137/63 Blood Pressure [Left Arm] Blood Pressure [Right Arm] Pulse Oximetry 99 98 96 05/04/18 11:00 05/04/18 11:35 05/04/18 12:00 Temperature 98.2 F 98.2 F Pulse Rate 64 Respiratory Rate 18 18 Blood Pressure 117/63 Blood Pressure [Left Arm] 116/50 L Blood Pressure [Right Arm] 117/63 Pulse Oximetry 97 96 97 Intake & Output 05/03/18 05/04/18 05/04/18 18:59 06:59 18:59 Intake Total 0 / 0 Output Total 0 / 0 Balance 0 / 0 Weight 120.2 kg 120.9 kg Intake: Oral 0 / 0 Output: Urine 0 / 0 Other: Date of Last Bowel Movement 05/03/18 05/03/18 Weight On Admission 120.2 kg - Constitutional no acute distress, morbidly obese - Routine HEENT Exam Head: Present: normocephalic Eye: Present: EOMI ENT: Present: mucous membranes moist - Routine Neck Exam Present: supple, full ROM. Absent: JVD, carotid bruit - Routine Chest/Breast/Axilla Exam Chest wall: Absent: tenderness, pacemaker - Routine Respiratory Exam Present: CTA bilaterally. Absent: accessory muscle use - Routine Cardiovascular Exam Present: RRR, S1, S2. Absent: murmur, tachycardia - Routine Abdominal Exam Present: soft, normoactive bowel sounds - Routine Extremities Exam Present: full ROM, pulses intact, AV fistula. Absent: edema - Routine Skin Exam Present: intact, warm - Routine Neurological Exam Present: alert, oriented X3 Results - Lab Results 05/04/18 08:12 05/04/18 08:12 Most recent lab results Calcium 9.1 mg/dL (8.5-10.1) 05/04/18 08:12 Magnesium 2.4 mg/dL (1.5-2.5) 05/03/18 20:49 Assessment and Plan - Assessment (1) ESRD (end stage renal disease) on dialysis Code(s): N18.6 - End stage renal disease; Z99.2 - Dependence on renal dialysis Status: Acute Plan: He normally does home HD 4 times weekly for 2 hr each treatment. We will dialyze the patient after the cardiac cath. Electrolytes are unremarkable. Repeat labs tomorrow AM. Avoid excess IVF administration, gadolinium is contraindicated. AVF for HD use. If he stays in the hospital, we will continue HD on TTS schedule. High protein diet if no longer NPO. (2) Anemia in chronic kidney disease, on chronic dialysis Code(s): N18.6 - End stage renal disease; D63.1 - Anemia in chronic kidney disease; Z99.2 - Dependence on renal dialysis Status: Acute Plan: Epogen ordered with dialysis. (3) HTN (hypertension) Code(s): I10 - Essential (primary) hypertension Status: Acute Plan: Resume home medications. Titrate as needed. Currently on NTG infusion. (4) Chest pain due to CAD Code(s): R07.9 - Chest pain, unspecified; I25.10 - Atherosclerotic heart disease of [place] coronary artery without angina pectoris Status: Acute Plan: Cardiology following. Hx of stents and CABG. Plan for cath today. Appreciate further recommendations. On statin therapy. (5) DM (diabetes mellitus) type II controlled with renal manifestation Code(s): E11.29 - Type 2 diabetes mellitus with other diabetic kidney complication Status: Acute Plan: Maintain glucose 140-180 mg/dL whiel admitted. <Stephen Mixon - Last Filed: 05/04/18 19:34> History of Present Illness Primary Care Provider: Brittany Rutledge DO Family Provider: Brittany Rutledge DO [facility] - Medical History Medical History: Medical History (Last Updated 05/04/18 @ 12:50 by Vivienne Thomas [employer]) AVF (arteriovenous fistula) Diabetes Dialysis patient Gout Hyperlipidemia Hypertension Myocardial infarction - Surgical History Surgical History: Surgical History (Last Reviewed 05/03/18 @ 21:33 by Alena Espana) Hx of CABG Medications and Allergies Active Medications: Active Medications Acetaminophen (Tylenol) 650 mg PO UNSCH PRN PRN Reason: SEE LABEL COMMENTS Allopurinol (Zyloprim) 100 mg PO HS [facility] Aspirin (Ecotrin) 81 mg PO DAILY [facility] Last Admin: 05/04/18 08:26 Dose: 81 mg Atorvastatin Calcium (Lipitor) 80 mg PO DAILY [facility] Last Admin: 05/04/18 08:25 Dose: 80 mg Atropine Sulfate (Atropine Inj) 0.5 mg IV.PUSH UNSCH PRN PRN Reason: VAGAL REPONSE Clonidine HCl (Catapres) 0.1 mg PO UNSCH PRN PRN Reason: SEE LABEL COMMENTS Dextrose (D50w Vial) 50 ml IV.PUSH UNSCH PRN PRN Reason: PER HYPOGLYCEMIA PROTOCOL Diphenhydramine HCl (Benadryl) 50 mg PO CAR TOP BOLTER [facility] Stop: 05/08/18 09:14 Last Admin: 05/04/18 14:06 Dose: 50 mg Diphenhydramine HCl (Benadryl) 25 mg PO UNSCH PRN PRN Reason: SEE LABEL COMMENTS Ezetimibe (Zetia) 10 mg PO DAILY [facility] Last Admin: 05/04/18 08:24 Dose: 10 mg Epoetin Chris (Epogen Inj) 5,000 unit IV.PUSH UNSCH PRN PRN Reason: SEE LABEL COMMENTS Fentanyl Citrate (Fentanyl Inj) 50 mcg IV.PUSH CAR TOP BOLTER [facility] Stop: 05/08/18 09:14 Gabapentin (Neurontin) 300 mg PO DAILY [facility] Last Admin: 05/04/18 08:25 Dose: Not Given Gelatin (Gelfoam 12 Mm/7 Mm Topical) 1 foam TOPICAL PRN PRN PRN Reason: help stop bleeding from site Gentamicin Sulfate (Gentamicin Inj) 20 mg OTHER WITH DIALYSIS PRN PRN Reason: Dwell Gentamycin Lock Glucagon (Glucagon Inj) 1 mg OTHER PRN PRN PRN Reason: for Hypoglycemia Protocol Heparin Sodium (Porcine) (Heparin Inj) 8,000 units IV.FLUSH WITH DIALYSIS PRN PRN Reason: for machine prime Heparin Sodium (Porcine) (Heparin Inj) 1,000 units OTHER WITH DIALYSIS PRN PRN Reason: Dwell Heparin to Fill Catheter Nitroglycerin/Dextrose (Nitroglycerin Drip Premix) 50 mg in 250 mls @ 1.5 mls/ hr IV.CONT TITRATE PRN; Protocol PRN Reason: See Protocol Last Titration: 05/04/18 05:19 Dose: 30 mcg/min, 9 mls/hr Heparin Sodium/Dextrose (Heparin/D5w 25,000 U/250 Ml) 25,000 unit in 250 mls @ 0 mls/hr IV.CONT TITRATE PRN; Protocol PRN Reason: Per Protocol Last Titration: 05/04/18 09:59 Dose: 1,100 units/hr, 11 mls/hr Sodium Chloride (Ns Inj) 1,000 mls @ 30 mls/hr IV.CONT .Q24H [facility] Stop: 05/05/18 09:14 Last Admin: 05/04/18 10:29 Dose: 30 mls/hr Albumin Human (Flexbumin 25% Inj) 100 mls @ 60 mls/hr IV.SIG WITH DIALYSIS PRN PRN Reason: hypotension / volume replace Sodium Chloride (Ns Inj) 1,000 mls @ 200 mls/hr OTHER .Q5H PRN PRN Reason: for dialyzer flush PRN Sodium Chloride (Ns Inj) 1,000 mls @ 0 mls/hr IV.CONT .Q0M PRN PRN Reason: hypotension / volume replace Sodium Chloride (Ns Inj) 1,000 mls @ 0 mls/hr OTHER .Q0M PRN PRN Reason: for prime and rinse back Insulin Aspart (Novolog Insulin Correctional Sugar Inj) 0 unit SQ ACHS [facility]; Protocol Last Admin: 05/04/18 19:31 Dose: Not Given Lidocaine HCl (Xylocaine 1% Inj (50 Ml)) 10 ml INFILTRATN UNSCH PRN PRN Reason: SHEATH REMOVAL Stop: 05/05/18 16:36 Lorazepam (Ativan Inj) 0.5 mg IV.PUSH UNSCH PRN PRN Reason: ANXIETY Stop: 05/05/18 16:36 Losartan Potassium (Cozaar) 100 mg PO DAILY [facility] Last Admin: 05/04/18 08:24 Dose: 100 mg Mannitol (Mannitol Inj) 12.5 gm IV.PUSH PRN PRN PRN Reason: hypotension / volume replace Metoprolol Tartrate (Lopressor) 100 mg PO BID [facility] Last Admin: 05/04/18 08:23 Dose: 100 mg Midazolam HCl (Versed Inj) 1 mg IV.PUSH CAR TOP BOLTER [facility] Stop: 05/08/18 09:14 Nitroglycerin (Nitrostat Sl) 0.4 mg SL Q5M PRN PRN Reason: CHEST PAIN Ondansetron HCl (Zofran Inj) 4 mg IV.PUSH UNSCH PRN PRN Reason: NAUSEA OR VOMITING Pt Own: Sucroferric Oxyhydroxide [ Velphoro] 500mg Chewable Tablet 0 each PO TIDAC [facility] Prasugrel (Effient) 10 mg PO DAILY [facility] Last Admin: 05/04/18 08:26 Dose: 10 mg Senna/Docusate Sodium (Lakesha-Colace) 1 tab PO BID [facility] Last Admin: 05/04/18 08:27 Dose: Not Given Sodium Chloride (Ns Flush) 2 ml IV.FLUSH UNSCH PRN PRN Reason: FLUSH AFTER USING IV ACCESS Sodium Chloride (Ns Flush) 5 ml IV.FLUSH PRN PRN PRN Reason: flush each lumen during HD Sodium Chloride (Ns Flush) 2 ml IV.FLUSH BID [facility] Sodium Chloride (Ns Flush) 2 ml IV.FLUSH PRN PRN PRN Reason: FLUSH AFTER USING IV ACCESS Exam Vital signs: Vital Signs 05/03/18 20:07 05/03/18 20:11 05/03/18 20:49 Temperature 98.6 F 98.1 F Pulse Rate 78 79 79 Respiratory Rate 20 22 Blood Pressure 174/74 H 159/73 H Blood Pressure [Left Arm] Blood Pressure [Right Arm] Pulse Oximetry 98 98 05/03/18 20:50 05/03/18 20:51 05/03/18 20:59 Temperature Pulse Rate 79 81 Respiratory Rate 22 22 Blood Pressure 201/91 H Blood Pressure [Left Arm] Blood Pressure [Right Arm] Pulse Oximetry 100 100 100 05/03/18 21:11 05/03/18 21:22 05/03/18 21:36 Temperature Pulse Rate 79 Respiratory Rate 18 18 18 Blood Pressure 160/58 H Blood Pressure [Left Arm] Blood Pressure [Right Arm] Pulse Oximetry 100 05/03/18 21:37 05/03/18 22:35 05/03/18 23:34 Temperature Pulse Rate 77 75 70 Respiratory Rate 18 18 18 Blood Pressure 154/67 H 138/64 123/60 Blood Pressure [Left Arm] Blood Pressure [Right Arm] Pulse Oximetry 100 100 98 05/04/18 03:18 05/04/18 04:00 05/04/18 07:00 Temperature 98.5 F Pulse Rate 70 70 67 Respiratory Rate 20 18 Blood Pressure 131/70 142/76 H Blood Pressure [Left Arm] Blood Pressure [Right Arm] Pulse Oximetry 99 98 05/04/18 08:00 05/04/18 09:00 05/04/18 10:00 Temperature 98.3 F Pulse Rate 68 66 66 Respiratory Rate 20 Blood Pressure 137/63 Blood Pressure [Left Arm] Blood Pressure [Right Arm] Pulse Oximetry 96 05/04/18 11:00 05/04/18 11:35 05/04/18 12:00 Temperature 98.2 F 98.2 F Pulse Rate 64 58 L Respiratory Rate 18 18 Blood Pressure 117/63 Blood Pressure [Left Arm] 116/50 L Blood Pressure [Right Arm] 117/63 Pulse Oximetry 97 96 97 05/04/18 13:00 05/04/18 14:00 05/04/18 15:00 Temperature Pulse Rate 62 58 L 59 L Respiratory Rate Blood Pressure Blood Pressure [Left Arm] Blood Pressure [Right Arm] Pulse Oximetry 05/04/18 17:34 05/04/18 17:40 05/04/18 18:00 Temperature Pulse Rate 59 L 61 Respiratory Rate 20 Blood Pressure 153/62 H Blood Pressure [Left Arm] Blood Pressure [Right Arm] Pulse Oximetry 98 98 Intake & Output 05/04/18 05/04/18 05/05/18 06:59 18:59 06:59 Intake Total 0 / 0 0 / 0 Output Total 0 / 0 100 / 100 Balance 0 / 0 -100 / -100 Weight 120.2 kg 120.9 kg Intake: Oral 0 / 0 0 / 0 Output: Urine 0 / 0 100 / 100 Other: Date of Last Bowel Movement 05/03/18 05/04/18 Weight On Admission 120.2 kg Results - Lab Results 05/04/18 08:12 05/04/18 08:12 Most recent lab results Calcium 9.1 mg/dL (8.5-10.1) 05/04/18 08:12 Magnesium 2.4 mg/dL (1.5-2.5) 05/03/18 20:49 Assessment and Plan - Assessment (1) ESRD (end stage renal disease) on dialysis Code(s): N18.6 - End stage renal disease; Z99.2 - Dependence on renal dialysis Status: Acute (2) Anemia in chronic kidney disease, on chronic dialysis Code(s): N18.6 - End stage renal disease; D63.1 - Anemia in chronic kidney disease; Z99.2 - Dependence on renal dialysis Status: Acute (3) HTN (hypertension) Code(s): I10 - Essential (primary) hypertension Status: Acute (4) Chest pain due to CAD Code(s): R07.9 - Chest pain, unspecified; I25.10 - Atherosclerotic heart disease of [place] coronary artery without angina pectoris Status: Acute (5) DM (diabetes mellitus) type II controlled with renal manifestation Code(s): E11.29 - Type 2 diabetes mellitus with other diabetic kidney complication Status: Acute - Attending Attestation patient was seen and examined. Patient of Dr. Juárez. TEMI. Cath is planned. He is on HHD, 4 days a week, each time for about 3.5 hours. Dialysis today. <Vivienne Thomas - Last Filed: 05/04/18 12:48> (3) HTN (hypertension) Qualifiers: Hypertension type: secondary to other renal disorders Qualified Code(s): I15.1 - Hypertension secondary to other renal disorders; N28.89 - Other specified disorders of kidney and ureter <Stephen Mixon - Last Filed: 05/04/18 19:34> (3) HTN (hypertension) Qualifiers: Hypertension type: secondary to other renal disorders Qualified Code(s): I15.1 - Hypertension secondary to other renal disorders; N28.89 - Other specified disorders of kidney and ureter
[2018-05-04] MEDS ORDERED: Heparin/NS PF Inj 1,000 ML ONE (14:58)
[2018-05-04 15:13] LABS: Hepatitits B Surface Antigen Nonreactive (Nonreactive)
[2018-05-04] MEDS ORDERED: Heparin 10,000 UNITS/10 ML Vial (for IV use) ONE (15:22)
[2018-05-04] MEDS ORDERED: Misc Info for Pharmacy OTHER STA (16:37)
[2018-05-04] MEDS ORDERED: Lidocaine 1% Inj 50 ML Vial INFILTRATN PRN (16:37)
[2018-05-04] MEDS ORDERED: Atropine Inj 1 MG/ML Vial IV.PUSH PRN (16:37)
--- NOTE | 2018-05-04 16:39 | CATHPROC ---
[employer] HIS Report Study Information Study Number Admission Scheduled Start Study Start [id number] May 03 2018 10:49PM 05/04/2018 May 04 2018 2:57PM [facility] Service Cath Endovascular Study Admit Source Facility Department Other [facility] [employer] Physician and Clinical Staff Initial Julio Wesley Automobile Mechanic Supervisor Santi Pettit,NATASHA Automobile Mechanic Supervisor Vivienne Stewart RN Recorder Sarah Sahu,RT(R) (BS) Scrub Kenyon Prabhakar RCIS(BS) Procedures Performed Procedure Location (Site) Vessel Name Coronary Angiograms LCA Left Coronary Coronary Angiograms RCA Right Coronary Coronary Angiograms ARMIJO-LAD Left Coronary Coronary Angiograms SVG-RCA Right Coronary Drug Eluting Inflatio CIRC Mid CIRC Drug Eluting Inflatio CIRC Prox CIRC IVUS Fem Art (right) Femoral Art L Heart Cath LV Gram-hand inj. LV LV Ventricle PTCA CIRC Mid CIRC Wire insertion Fem Art (right) Femoral Art Equipment Time Industry Analyst Description Size Mfg Part Number Used/Scraped [id number] 15:23 [employer] WIRE, ASAHI PROWATER 180CM 180CM Used *[id number] WIRE, BALANCE MIDDLEWEIGHT [id number] 15:38 [employer] 190CM Used 190CM *[id number] TRANSDUCER, TRUWAVE [id number] 15:04 [place] * Used W/STOCKCOCK *[id number] BALLOON, 3.5 [place] [id number] 15:56 BOSTON SCIENTIFIC 3.5 20MM Used QUANTUM APEX MR *[id number] 15:48 BOSTON SCIENTIFIC STENT, SYNERGY 3.5 X 20MM Used *[id number] 15:52 BOSTON SCIENTIFIC STENT, SYNERGY 3.5 X 20MM Used *[id number] 15:54 BOSTON SCI[employer]IFIC STENT, SYNERGY 3.5 X12MM Used *[id number] [id number] *[id number] [id number] *[id number] [id number] *[id number] *[id number] 15:04 Arynga BLANKET,WARM AIR CCL * Used *[id number] 15:04 Arynga PACK, CCL CUSTOM * Used *[id number] [id number] 15:04 Dynamixyz PACER PEN, SKIN DUAL W/ RULER * Used *[id number] 15:37 MEDTRONIC BALLOON, 3.0 X 20MM EUPHORA 20MM Used *[id number] BALLOON, 3.75 X 27MM NC [id number] 16:10 MEDTRONIC 27MM Used EUPHORA *[id number] 15:41 OBMedical MEDICAL 30 RAO INDEFLATOR Used *3450989 [id number] 15:04 OBMedical MEDICAL SHEATH, FR6.5 PRELUDE 11CM FR 6.5 038ACT Used *[id number] [id number] 15:04 Shop[employer]iq WIRE, 3MMJ .035 180CM 180CM Used *[id number] [id number] 15:04 NAMIC MANIFOLD, 4 PORT * Used *[id number] 15:04 NYCOMED OMNIPAQUE, 350 MG, 150ML 150ML [id number] Used CATHETER, [place] [employer] [employer] [id number] 15:21 VOLCANO Used IMAGING *[id number] Equipment Model, Serial, Lot Number and Expiration Data Description Model Number Serial Number Lot Number Expiration Date BALLOON, 3.5 20MM NC QUANTUM [id number] 12-21-2020 APEX MR BALLOON, 3.75 X 27MM NC [id number] 06-20-2018 EUPHORA STENT, SYNERGY [id number] 06-11-2018 STENT, SYNERGY [id number] 06-11-2018 STENT, SYNERGY [id number] 09-03-2018 History: Current Medications Medication Dosage/Unit Route Frequency Last Date/Time Taken Statins (any) ASA Beta Betsy EFFIENT History: Allergies Allergy Reaction No Known Allergies History: Risk Factors Family History of Hypertension Dyslipidemia Previous PR Previous Heart Failure Premature CAD Yes Yes No No No Prior Valve Prior PCI Prior PCIDate Prior CABG Prior CABGDate Surgery No Yes 10/13/2017 Yes 10/19/2002 Cerebrovascular 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 Diabetes Diabetes Therapy Disease Disease Disease Yes No No No Yes Insulin History: CV Disease Selection Items Known CAD History: Stress Tests Stress or Imaging Studies Performed No History: Other Current Smoker No Labs Hgb (g/dl) Hct (%) WBC (l/cumm) Platelets (thousands) 11.60-17.00 35.00-51.00 4.00-11.00 150.00-450.00 10.6 32.2 8.4 169 Glucose (mg/dl) BUN (mg/dl) Creatinine (mg/dl) BUN:Creatinine (1:x) 74.00-106.00 7.00-18.00 0.50-1.30 10.00-20.00 169 51 9.7 5.3 Na (meq/l) K (meq/l) 136.00-145.00 3.50-5.10 137 4.2 INR (PTT:PT) 0.90-1.10 1.1 Troponin I (ng/ml) CPK-MB (ng/ML) 0.02-0.05 0.50-3.60 4.72 9.9 Medication Medication Total Dose (Bolus/Oral) Medication Total Dosage/Unit 1% XYLOCAINE 20 mL HEPARIN 3000 units NTG (IC) 100 mcg REOPRO BOLUS 15 mL VERSED 4 mg Medications (Bolus/Oral) Medication Time Given Dosage/Unit Administered By Reason VERSED 05/04/2018 3:17:23 PM 2 mg Vivienne tSewart 2 mg VERSED given in lab by Vivienne Stewart RN in Right Antecubital via Peripheral IV. 1% XYLOCAINE 05/04/2018 3:17:42 PM 20 mL Julio Juárez 20 mL 1% XYLOCAINE given in lab by Julio Juárez in Right Groin via Subcutaneous. HEPARIN 05/04/2018 3:25:27 PM 2000 units Vivienne Stewart 2000 units HEPARIN given in lab by Vivienne Stewart RN in Right Antecubital via Peripheral IV. HEPARIN 05/04/2018 3:36:26 PM 1000 units Vivienne Stewart 1000 units HEPARIN given in lab by Vivienne Stewart RN in Right Antecubital via Peripheral IV. VERSED 05/04/2018 3:42:54 PM 2 mg Terry Vivienne 2 mg VERSED given in lab by Vivienne Stewart RN in Right Antecubital via Peripheral IV. NTG (IC) 05/04/2018 4:13:03 PM 100 mcg Julio Juárez 100 mcg NTG (IC) given in lab by Julio Juárez in Right Groin via Intra-coronary. Ordered by Devon Juárezn. REOPRO BOLUS 05/04/2018 4:13:52 PM 15 mL Vivienne Stewart 15 mL REOPRO BOLUS given in lab by Vivienne Stewart RN in Right Antecubital via Peripheral IV. Ordered by Julio Juárez. Medication (Drip) Medication Time Given Dosage/Unit Concentration/Unit Diluent (ml) Solution HEPARIN DRIP STOPPED 05/04/2018 2:50:00 PM 0 units/hr 0 Patient arrived on 0 units/hr HEPARIN DRIP STOPPED. Pump/Drip Flow = 0 ml/hr using [Solution Name]. IV Solutions 05/04/2018 2:52:41 PM 50 mL (IV) 1000 NaCl .9 IV Solutions given in lab by Vivienne Stewart, NATASHA via Peripheral IV. Pump/Drip Flow using NaCl .9. REOPRO DRIP 05/04/2018 4:12:12 PM 0.612 mL/hr 9 mL 250 D5W 0.612 mL/hr REOPRO DRIP given in lab by Vivienne Stewart, NATASHA in Right Antecubital via Peripheral IV. Pu mp/Drip Flow = 17 ml/hr using D5W with a concentration of 9 mL in 250 ml. Ordered by Julio Juárez. Initial Case Assessment Cardiovascular HR Rhythm NIBP 58 reg 149/63 Edema Present Skin color Skin None Normal Warm Dry Circulatory - Right Pulses Dorsalis Pedis Femoral 2 2 Scale (0,1,2,3,4,d) Circulatory - Left Pulses Dorsalis Pedis Femoral 2 2 Scale (0,1,2,3,4,d) Circulatory - Lower Extremities Color Lower Right Color Lower Left Normal Normal Neurological State Oriented to time-place- Alert Moves all extremities person Respiration - General Respiration Rate SpO2 (%) O2 (lpm) (B/min) 16 100 2 Chronological Log Time Study Chronological Log 14:50:00 Patient arrived on 0 units/hr HEPARIN DRIP STOPPED. Pump/Drip Flow = 0 ml/hr using [Solutio n Name]. 14:52:17 Patient arrived via Bed. 14:52:20 Patient Name, D.O.B, / Armband Verified By R.N. 14:52:41 IV Solutions given in lab by Vivienne Stewart, NATASHA via Peripheral IV. Pump/Drip Flow using NaC l .9. Vitals capture started with the following parameters, Patient=Adult, Interval=5 min, Initial Pr nkfucl=597 mmHg, 14:57:14 Deflation Rate=5 mmHg, Cuff placed on Right Arm 14:57:23 Consent signed by the physician and the patient and verified by the [employer] staff. 14:57:24 Pre-op and post- op instructions given; patient acknowledges understanding of instructions. 14:57:28 Presedation assessment performed by [employer] RN. 14:57:34 Patient has been NPO for More than 6Hrs. 14:57:35 Skin Breakdown none per pt 14:57:35 Patient Warmer Placed on the Table. 14:57:38 Analilia Prominences Protected 14:57:41 A # 20 IV was noted in the Antecubital (right). Grade = 0 14:57:42 History and physical on the chart or being dictated. Assessment: Initial Case, HR=58 BPM, Rhythm=reg, HCYH=355/63 mmhg, Edema=None, Color=Normal, Sk in = Warm, Dry Right Pulses: Naif Ped=2, Femoral=2 Left Pulses: Naif Ped=2, Femoral=2 14:57:43 Lower Right Extremities: Color=Normal Lower Left Extremities: Color=Normal Neurological: State=Alert, Ox3, DOS SANTOS Respiration: Resp=16 B/min, DzB2=439 %, O2=2 lpm 14:57:54 HR=62 bpm, LRHP=798/70 mmhg, SpO2=99.0 %, Pain=0, Leonora=10, Ames=2 15:01:43 Bilateral groins prepped with 2% chlorhexidine, and draped after a 3 minute waiting time. 15:02:53 HR=60 bpm, DSSV=452/63 mmhg, SpO2=91.0 %, Pain=0, Leonora=10, Ames=2 15:04:32 MD paged 15:08:27 HR=63 bpm, CRHO=726/57 mmhg, HwV7=802.0 %, Pain=0, Leonora=10, Ames=2 15:09:13 Pressure channel 1 zeroed. 15:10:28 MD responded 15:12:02 Reference ECG taken 15:12:56 HR=59 bpm, QLOM=958/57 mmhg, SpO2=99.0 %, Pain=0, Leonora=10, Ames=2 Time Out. Correct patient, correct procedure, correct physician, labs, allergies, and equipment verified with lab rn 15:16:50 team present. Fire risk assesment completed (see hard stop sheet for coding). Time Out Conc urred by MD and individual staff in procedure. 15:17:14 Case Start 15:17:23 2 mg VERSED given in lab by Vivienne Stewart RN in Right Antecubital via Peripheral IV. 15:17:42 20 mL 1% XYLOCAINE given in lab by Julio Juárez in Right Groin via Subcutaneous. 15:17:53 HR=61 bpm, REXE=270/66 mmhg, XxF0=947.0 %, Pain=0, Leonora=10, Ames=2 15:19:59 Access site was Right Femoral Artery. 15:20:03 A SHEATH, FR6.5 PRELUDE 11CM FR 6.5 was advanced into the Fem Art (right) using the Percuta neous technique. 15:20:18 Activated Clotting Time Drawn A JL 4.0 INFINITI CATHETER FR 6 was advanced over a wire. OMNIPAQUE, 350 MG, 150ML 150ML was us ed for 15:20:25 injections. 15:21:28 The LCA was injected and visualized at various angles. OMNIPAQUE, 350 MG, 150ML 150ML used . Recorded Pressure: Ao, HR=66, Condition=Condition 1 15:21:43 (Aorta) Ao 103/50/73 15:22:47 Catheter was removed 15:22:58 HR=65 bpm, JTOP=723/53 mmhg, SpO2=97.0 %, Pain=0, Leonora=10, Ames=2 A 3DRC INFINITI CATHETER FR 6 was advanced over a wire. OMNIPAQUE, 350 MG, 150ML 150ML was used for 15:23:43 injections. 15:23:55 ACT (Normal Range 90-180) = 204 15:25:02 The RCA was injected and visualized at various angles. OMNIPAQUE, 350 MG, 150ML 150ML used . 15:25:27 2000 units HEPARIN given in lab by Vivienne Stewart, NATASHA in Right Antecubital via Peripheral I V. 15:27:55 HR=65 bpm, ERQJ=341/54 mmhg, Pain=0, Leonora=10, Ames=2 15:28:09 The ARMIJO-LAD was injected and visualized at various angles. OMNIPAQUE, 350 MG, 150ML 150ML used. 15:28:30 Catheter was removed A MPA-2 INFINITI CATHETER FR 6 was advanced over a wire. OMNIPAQUE, 350 MG, 150ML 150ML was use d for 15:28:33 injections. 15:30:03 The SVG-RCA was injected and visualized at various angles. OMNIPAQUE, 350 MG, 150ML 150ML u sed. 15:30:40 Catheter was removed 15:31:45 Activated Clotting Time Drawn A XB 3.5 GUIDE CATHETER FR 6 was advanced over a wire. OMNIPAQUE, 350 MG, 150ML 150ML was used for 15:31:53 injections. 15:32:52 HR=67 bpm, GDFD=829/60 mmhg, SpO2=98.0 %, Pain=0, Leonora=10, Ames=2 15:33:43 A WIRE, ASAG.ho.st PROWATER 180CM 180CM was inserted via Fem Art (right). 15:35:25 A WIRE, BALANCE MIDDLEWEIGHT 190CM 190CM was inserted via Fem Art (right). 15:36:26 1000 units HEPARIN given in lab by Vivienne Stewart, NATASHA in Right Antecubital via Peripheral I V. A BALLOON, 3.0 X 20MM EUPHORA 20MM was inserted over WIRE, BALANCE MIDDLEWEIGHT 190CM 190CM via the 15:38:08 Fem Art (right). 15:38:34 HR=69 bpm, TRSC=973/63 mmhg, SpO2=97.0 %, Pain=0, Leonora=10, Ames=2 A BALLOON, 3.0 X 20MM EUPHORA 20MM over a WIRE, BALANCE MIDDLEWEIGHT 190CM 190CM in the CIRC Mi d was 15:40:37 inflated using a 30 RAO INDEFLATOR at 14 rao for 30 sec. A BALLOON, 3.0 X 20MM EUPHORA 20MM over a WIRE, BALANCE MIDDLEWEIGHT 190CM 190CM in the CIRC Mi d was 15:42:27 inflated using a 30 RAO INDEFLATOR at 14 rao for 30 sec. 15:42:54 2 mg VERSED given in lab by Vivienne Stewart, NATASHA in Right Antecubital via Peripheral IV. 15:43:33 HR=72 bpm, DJMB=999/58 mmhg, SpO2=98.0 %, Pain=0, Leonora=10, Ames=2 15:44:22 Balloon Removed. 15:47:57 HR=68 bpm, KENN=302/60 mmhg, SpO2=96.0 %, Pain=0, Leonora=10, Ames=2 A STENT, SYNERGY 3.5 X 20MM was advanced through a XB 3.5 GUIDE CATHETER FR 6 over a WIRE, [facility] I 15:49:08 PROWATER 180CM 180CM. A STENT, SYNERGY 3.5 X 20MM was deployed using a 30 RAO INDEFLATOR at 13 atmospheres for 30 sec onds in the 15:49:42 CIRC Mid. 15:49:56 Delivery device removed 15:53:33 HR=71 bpm, BMEA=898/74 mmhg, SpO2=97.0 %, Pain=0, Leonora=10, Ames=2 A STENT, SYNERGY 3.5 X 20MM was advanced through a XB 3.5 GUIDE CATHETER FR 6 over a WIRE, [facility] 15:54:39 PROWATER 180CM 180CM. A STENT, SYNERGY 3.5 X 20MM was deployed using a 30 RAO INDEFLATOR at 16 atmospheres for 40 sec onds in the 15:55:04 CIRC Mid. 15:57:05 Delivery device removed A STENT, SYNERGY 3.5 X12MM was advanced through a XB 3.5 GUIDE CATHETER FR 6 over a WIRE, [facility] 15:57:15 PROWATER 180CM 180CM. A STENT, SYNERGY 3.5 X12MM was deployed using a 30 RAO INDEFLATOR at 16 atmospheres for 30 seco nds in the 15:57:31 CIRC Prox. 15:57:55 HR=68 bpm, RDNJ=592/62 mmhg, SpO2=97.0 %, Pain=0, Leonora=10, Ames=2 A STENT, SYNERGY 3.5 X12MM was deployed using a 30 RAO INDEFLATOR at 18 atmospheres for 30 seco nds in the 15:58:30 CIRC Mid. A STENT, SYNERGY 3.5 X12MM was deployed using a 30 RAO INDEFLATOR at 20 atmospheres for 30 seco nds in the 15:59:10 CIRC Mid. A STENT, SYNERGY 3.5 X12MM was deployed using a 30 RAO INDEFLATOR at 20 atmospheres for 30 seco nds in the 15:59:27 CIRC Mid. 16:00:45 Delivery device removed 16:02:37 An CATHETER, [employer] [place] [employer]AG[employer] was advanced through the lesion. Images saved o nto IVUS hard drive 16:02:58 HR=67 bpm, STAC=723/52 mmhg, SpO2=95.0 %, Pain=0, Leonora=10, Ames=2 16:03:43 IVUS in progress using CATHETER, [employer] [place] IMAGING Mean Luminal Area measured 3.6 16:07:55 HR=64 bpm, SSVK=220/55 mmhg, SpO2=97.0 %, Pain=0, Leonora=10, Ames=2 A BALLOON, 3.75 X 27MM NC EUPHORA 27MM was inserted over WIRE, ASAHI PROWATER 180CM 180CM via t he Fem 16:09:07 Art (right). A BALLOON, 3.75 X 27MM NC EUPHORA 27MM over a WIRE, ASAHI PROWATER 180CM 180CM in the CIRC Mid was 16:10:23 inflated using a 30 RAO INDEFLATOR at 16 rao for 50 sec. A BALLOON, 3.75 X 27MM NC EUPHORA 27MM over a WIRE, ASAHI PROWATER 180CM 180CM in the CIRC Mid was 16:10:51 inflated using a 30 RAO INDEFLATOR at 16 rao for 30 sec. A BALLOON, 3.75 X 27MM NC EUPHORA 27MM over a WIRE, ASAHI PROWATER 180CM 180CM in the CIRC Mid was 16:11:46 inflated using a 30 RAO INDEFLATOR at 18 rao for 30 sec. 0.612 mL/hr REOPRO DRIP given in lab by Vivienne Stewart RN in Right Antecubital via Peripheral IV. Pump/Drip Flow = 16:12:12 17 ml/hr using D5W with a concentration of 9 mL in 250 ml. Ordered by Julio Juárez. 16:12:56 HR=66 bpm, YQCT=536/63 mmhg, CvT0=566.0 %, Pain=0, Leonora=10, Ames=2 16:13:03 100 mcg NTG (IC) given in lab by Julio Juárez in Right Groin via Intra-coronary. Ordered by Julio Juárez. 16:13:27 Wire removed 16:13:31 Catheter was removed 15 mL REOPRO BOLUS given in lab by Vivienne Stewart, NATASHA in Right Antecubital via Peripheral IV. O rdered by Franck 16:13: Julio. A MPA-2 INFINITI CATHETER FR 6 was advanced over a wire. OMNIPAQUE, 350 MG, 150ML 150ML was use d for 16:13:58 injections. Recorded Pressure: LV, HR=73, Condition=Condition 1 16:15:03 (Left Ventricle) LV 116/19/37 16:15:16 The LV was manually injected with 10 cc's and visualized. OMNIPAQUE, 350 MG, 150ML 150ML us ed. Recorded Pressure: LV, Ao, HR=66, Condition=Condition 1 16:15:27 (Left Ventricle) LV 132/13/41, (Aorta) Ao 101/50/75 16:15:42 Catheter was removed 16:15:45 Case End (Physician broke scrub) 16:17:45 In the Fem Art (right) the SHEATH, FR6.5 PRELUDE 11CM FR 6.[address] by Julio Juárez. 16:17:51 Sterile dressing applied to site 16:17:51 No case complications noted. 16:17:52 Cine recording checked. 16:17:59 Bedside Report will be given. 16:18:00 Implantable Device card placed in patient's chart. 16:18:01 HR=70 bpm, EPDH=716/57 mmhg, SpO2=96.0 %, Resp=14 B/min, Pain=0, Leonora=10, Ames=2 16:18:03 Report called to floor. 16:18:04 A Left Heart Cath was performed. 16:29:04 Patient moved to stretcher 16:34:43 CIC called. Spoke to Rosalie. Advised that lab rn will make a-line. End Study - Contrast Media Used In Study Contrast Total Opened (mL) Total Used (mL) Total Wasted (mL) Omnipaque 150 150 0 End Study - Maximum Contrast Load Max Contrast Load (mL) 61.9 End Study - Radiation Exposure Fluoro Time (minutes) 18.5 End Study - Patient Disposition Complications Transferred To Interventional Outcome No Telemetry Bed successful
[2018-05-04] MEDS ORDERED: Iohexol 350 MG/ML 50 ML Vial (for Cath Lab) IV.SIG ONE (16:59)
[2018-05-04] MEDS ORDERED: Iohexol 350 MG/ML 100 ML Vial (for Cath Lab) IV.SIG ONE (16:59)
--- NOTE | 2018-05-04 17:01 | MA ---
cc: Julio Juárez MD DATE: 05/04/2018 PROCEDURE: Left heart catheterization, selective coronary and graft angiography, left ventriculography, intravascular ultrasound imaging of the left circumflex, stent x 3 of the proximal and mid to distal left circumflex. PROCEDURE NOTES: The patient was brought to the cardiac catheterization laboratory in a fasting state after having signed informed consent. The right groin was prepped and draped as per policy and anesthetized with 1% lidocaine. Arterial access was obtained via the right femoral artery and a 6-Dominican sheath placed. Coronary arteriography was performed using 6-Dominican Felicity, left 4.0 and right progressive catheters. Left ventriculography was done using a multipurpose catheter. The vein graft to the right coronary was engaged with a multipurpose catheter. The left internal mammary artery to the LAD was engaged with the progressive right catheter. Percutaneous coronary intervention was done as described below. There were no apparent, immediate complications. HEMODYNAMIC DATA: Left ventricle 130 with an end-diastolic pressure of 13. Aorta 120/70 with a mean of 94. There was no significant transvalvular aortic gradient on pullback of the pigtail catheter. CORONARY ARTERIOGRAPHY: The left main demonstrates a stent with minimal restenosis. The left anterior descending has severe ostial disease which likely results in up to 80-90% stenosis. The LAD is then totally occluded proximally. The left circumflex is a large vessel giving rise to a small to medium-sized, tortuous branching obtuse marginal. The more inferior branch of this obtuse marginal is totally occluded proximally. The more superior branch has up to 70-75% proximal stenosis. The caliber of this obtuse marginal branch is approximately 2.0 mm. A number of stents are evident in the left circumflex and in the left main. The left main stent is widely patent. The proximal left circumflex stent has somewhat eccentric 60-70% restenosis. The mid-left circumflex stent has a severe ulcerated, probably up to 95% restenosis. Another more distal region, within previously placed stents, is also probably up to 95% restenosed. The right coronary artery is totally occluded in its mid-portion. GRAFT ANGIOGRAPHY: The left internal mammary artery to the LAD is tortuous and appears to be widely patent. The [place] LAD distal to the anastomosis site has minimal luminal irregularities. There is retrograde filling into a proximal diagonal, which is medium sized, and which has 95% proximal stenosis. The vein graft to the right coronary artery is widely patent. There are minimal luminal irregularities throughout the graft. LEFT VENTRICULOGRAPHY: Contrast injection of the left ventricle revealed no definite segmental wall motion abnormalities. Ejection fraction estimated at 60%. PERCUTANEOUS CORONARY INTERVENTION DESCRIPTION: ReoPro was given as per protocol. Adequate heparin was given during the procedure to achieve an ACT greater than 250 seconds. Using a 6-Dominican XB 3.5 guiding catheter, the ostium of the left main was reengaged. Using a 0.014 Prowater guidewire, the multiple diseased sites in the left circumflex were crossed without difficulty and the tip of the wire positioned distally. A balanced middleweight guidewire was also positioned in the tortuous obtuse marginal. Predilation of the disease was done using a 3.0 mm Euphora balloon catheter. Stenting was then done using two overlapping 3.5 x 20 mm Synergy stents which were deployed at 13 atmospheres for 30 seconds. Stenting of the proximal disease was done using a 3.5 x 12 mm Synergy stent, which was deployed at 15-16 atmospheres for 40 seconds. Post-dilation of the stents in the mid to distal portion was done using a 3.5 mm Non-Compliant Quantum balloon catheter, which was inflated to as high as 17 atmospheres along the lengths of the stents. At this point, it was decided to perform intravascular ultrasound imaging given the repeated problems with stent restenosis. An intravascular ultrasound imaging catheter was introduced and easily positioned distally. It was slowly withdrawn. There is diffuse mild to moderately calcified disease of the left circumflex. Within the most distal stent there is a region which is apparently under-deployed, measuring only 2.5 mm in diameter. The rest of the stented areas do appear to be symmetrical and fully apposed. However, despite the 3.5 mm size of these stents, the luminal diameter appears to be only 3.0 mm. It was decided to further post-dilate the mid to distal stents using a 3.75 mm Non-Compliant Euphora balloon catheter which was inflated to as high as 18 atmospheres along the lengths of the stents. There does appear to be angiographic improvement in the vessel diameter. Final angiography shows overall good results with reduction of the diffuse disease to roughly 0-10% residual stenosis with no definite evidence for dissection or distal embolization. The patient tolerated the procedure well. There were no apparent, immediate complications. He did develop severe chest pain with balloon inflations, relieved by balloon deflations, as well as multiple administrations of intracoronary nitroglycerin. CONCLUSIONS: 1. Severe three-vessel [place] coronary artery disease. 2. Patent left internal mammary artery to the left anterior descending and patent vein graft to the right coronary artery, chronically totally occluded vein graft to the obtuse marginal. 3. Normal left ventricular function with estimated ejection fraction of 60 percent. 4. Status post intravascular ultrasound imaging and stent x 3 of the [place] left circumflex. DISCUSSION: Should the patient once again develop restenosis in his left circumflex system, consideration could be made towards re-do bypass surgery. It may be possible to graft the obtuse marginal, distal left circumflex, and what appears to be an adequate-sized diagonal. MD PRASAD Moss/SHAQUILLE , 04:30 PM , 04:59 PM NOMAN
--- NOTE | 2018-05-04 20:54 | ECG ---
Date Performed: 05/03/2018 Time Performed: 20:24:42 PTAGE: 72 years EKG: Sinus rhythm POSSIBLE LEFT ATRIAL ENLARGEMENT MODERATE ST DEPRESSION ABNORMAL ECG NO PREVIOUS TRACING No significant change when compared with previous DOCTOR: Dot Fields Interpretating Date/Time 05/04/2018 20:53:02
[2018-05-04] MEDS ORDERED: Allopurinol 100 MG Tablet PO SCH (21:00)
[2018-05-04 21:16] LABS: Hepatitis A IgM Antibody Nonreactive (Nonreactive)
[2018-05-04 21:25] LABS: Chol/HDL Ratio 1.81 Ratio; HDL Cholesterol 50.7 mg/dL (40.0-60.0)
[2018-05-05 05:36] LABS: Baso % (Auto) 0.4 % (0.0-2.0); Eos # (Auto) 0.2 th/mm3 (0.0-0.4); Eos % (Auto) 3.3 % (0.0-4.0); Hematocrit 30.4 % (39.0-51.0); Hemoglobin 10.1 gm/dL (13.0-17.0); Lymph # (Auto) 1.1 th/mm3 (1.0-4.8); Lymph % (Auto) 17.4 % (9.0-44.0); Mean Corpuscular HGB Conc 33.1 % (32.0-36.0); Mean Corpuscular Hemoglobin 33.2 pg (27.0-34.0); Mean Corpuscular Volume 100.2 fL (80.0-100.0); Mean Platelet Volume 9.6 fL (7.0-11.0); Mono # (Auto) 0.7 th/mm3 (0.0-0.9); Mono % (Auto) 11.4 % (0.0-8.0); Neut # (Auto) 4.2 th/mm3 (1.8-7.7); Neut % (Auto) 67.5 % (16.0-70.0); Platelet Count 180 th/mm3 (150-450); Red Blood Count 3.04 mil/mm3 (4.50-5.90); Red Cell Distribution Width 14.7 % (11.6-17.2); White Blood Count 6.3 th/mm3 (4.0-11.0)
[2018-05-05 06:24] LABS: Calcium 7.9 mg/dL (8.5-10.1); Carbon Dioxide 30.2 meq/L (21.0-32.0); Chol/HDL Ratio 2.88 Ratio; Potassium 3.9 meq/L (3.5-5.1)
[2018-05-05 06:43] LABS: CKMB Percent 0.6 % (0.0-4.0); Creatine Kinase MB 6.1 ng/mL (0.5-3.6)
--- NOTE | 2018-05-05 08:17 | P.PNCA ---
Subjective Interval history: No CP, groin pain, dyspnea, dizziness. Feels "great". Physical Exam Vital signs: Vital Signs 05/04/18 09:00 05/04/18 10:00 05/04/18 11:00 Temperature 98.2 F Pulse Rate 66 66 64 Respiratory Rate 18 Blood Pressure Blood Pressure [Left Arm] 116/50 L Blood Pressure [Right Arm] 117/63 Pulse Oximetry 97 05/04/18 11:35 05/04/18 12:00 05/04/18 13:00 Temperature 98.2 F Pulse Rate 58 L 62 Respiratory Rate 18 Blood Pressure 117/63 Blood Pressure [Left Arm] Blood Pressure [Right Arm] Pulse Oximetry 96 97 05/04/18 14:00 05/04/18 15:00 05/04/18 17:34 Temperature Pulse Rate 58 L 59 L 59 L Respiratory Rate 20 Blood Pressure 153/62 H Blood Pressure [Left Arm] Blood Pressure [Right Arm] Pulse Oximetry 98 05/04/18 17:40 05/04/18 18:00 05/04/18 19:00 Temperature 98.4 F Pulse Rate 61 62 Respiratory Rate 20 Blood Pressure 110/52 L Blood Pressure [Left Arm] Blood Pressure [Right Arm] Pulse Oximetry 98 98 05/04/18 20:00 05/04/18 21:00 05/04/18 22:00 Temperature Pulse Rate 70 72 68 Respiratory Rate Blood Pressure Blood Pressure [Left Arm] Blood Pressure [Right Arm] Pulse Oximetry 98 05/04/18 23:00 05/05/18 00:00 05/05/18 01:00 Temperature 98.5 F Pulse Rate 68 68 75 Respiratory Rate 18 Blood Pressure 113/44 L Blood Pressure [Left Arm] Blood Pressure [Right Arm] Pulse Oximetry 97 05/05/18 02:00 05/05/18 03:00 05/05/18 04:00 Temperature 98.3 F Pulse Rate 67 69 69 Respiratory Rate 20 Blood Pressure 112/53 L Blood Pressure [Left Arm] Blood Pressure [Right Arm] Pulse Oximetry 99 05/05/18 05:00 05/05/18 06:00 05/05/18 07:00 Temperature Pulse Rate 65 70 68 Respiratory Rate Blood Pressure Blood Pressure [Left Arm] Blood Pressure [Right Arm] Pulse Oximetry 05/05/18 07:55 Temperature 98.8 F Pulse Rate 73 Respiratory Rate 15 Blood Pressure 95/48 L Blood Pressure [Left Arm] Blood Pressure [Right Arm] Pulse Oximetry 96 Intake & Output 05/04/18 05/05/18 05/05/18 18:59 06:59 18:59 Intake Total 0 / 0 620 / 620 Output Total 100 / 100 1999 Balance -100 / -100 -1380 / -1380 Weight 120.9 kg 124.1 kg Intake: Oral 0 / 0 620 / 620 Output: Urine 100 / 100 0 / 0 Hemodialysis Amount 1999 Other: Date of Last Bowel Movement 05/04/18 05/03/18 - Constitutional no acute distress - Routine Neck Exam Absent: JVD - Routine Respiratory Exam Present: CTA bilaterally - Routine Cardiovascular Exam Present: RRR, S1, S2. Absent: gallop Comments: II/ [place] with normal S2 - Routine Abdominal Exam Present: soft, normoactive bowel sounds. Absent: tenderness, organomegaly - Routine Extremities Exam Absent: cyanosis, clubbing, edema Comments: Right femoral arteriotomy site stable, no hematoma or tenderness. Assessment and Plan - Assessment (1) Coronary artery disease Code(s): I25.10 - Atherosclerotic heart disease of [place] coronary artery without angina pectoris Status: Chronic Plan: Status post NSTEMI. Status post repeat PCI of [place] left circumflex using 3 bioabsorbable Synergy stents. Doing very well. No further angina. No CHF/ arrhythmias. Groin stable. OK to discharge home today, same home medications. (2) Dyslipidemia Code(s): E78.5 - Hyperlipidemia, unspecified Status: Chronic Plan: Unusual discrepancies in 2 lipid profiles drawn this admission. In any case LDL level optimal. Continue statin therapy. (3) HTN (hypertension) Code(s): I10 - Essential (primary) hypertension Status: Chronic Plan: Stable. Normotensive. - Plan Code Status: full code Discussed Condition With: patient and , at length (1) Coronary artery disease Qualifiers: Coronary Disease-Associated Artery/Lesion type: [place] artery Tribe vs. transplanted heart: [place] heart Associated angina: with unstable angina Qualified Code(s): I25.110 - Atherosclerotic heart disease of [place] coronary artery with unstable angina pectoris (3) HTN (hypertension) Qualifiers: Hypertension type: essential hypertension Qualified Code(s): I10 - Essential (primary) hypertension
[2018-05-05] MEDS: Senna/Docusate Sodium 8.6/50 MG Tablet PO SCH (09:10)
[2018-05-05] MEDS: Insulin NovoLOG Aspart Correctional Sugar Inj SQ SCH (09:15)
[2018-05-05] MEDS: Gabapentin 300 MG Capsule PO SCH (09:16)
[2018-05-05] MEDS: Ezetimibe 10 MG Tablet PO SCH (09:26)
[2018-05-05] MEDS: Metoprolol Tartrate 100 MG Tablet PO SCH (10:51)
--- NOTE | 2018-05-05 10:53 | P.DS ---
Date of admission: 05/03/18 22:49 Primary care physician: Brittany Rutledge DO Brief History from admission: 72-year-old male with a history of hypertension, hyperlipidemia, end-stage renal disease, diabetes and CAD status post bypass in 2012 with multiple stent placements presented to the ED with ongoing chest pain. Patient states his chest pain begins about every 3 months and around April 21, 2018 he began to have intermittent chest pain, 6/10, with radiation down his right arm with associated shortness of breath. Patient states he does dialysis at home Thursday , Thursday, , Thursday and he states after dialysis he notices his chest pain is worse. He denies any nausea, vomiting, dizziness, fever or chills. Patient was last admitted in January 2018 in which he underwent a laser atherectomy/Cutting Balloon by Dr. Hernández. He also states he has been compliant with all medications. DS: Diagnosis - Discharge Diagnosis (1) ESRD (end stage renal disease) on dialysis Status: Acute (2) Anemia in chronic kidney disease, on chronic dialysis Status: Acute (3) HTN (hypertension) Status: Chronic (4) Chest pain due to CAD Status: Acute (5) DM (diabetes mellitus) type II controlled with renal manifestation Status: Acute (6) Dyslipidemia Status: Chronic (7) Coronary artery disease Status: Chronic DS: Summary Hospital Course: Clinical Update at DC : In nad. Feels much better. Had cardiac cath , continue meds per cardiology recommendations. Patient has no chest pain or sob. Feels improved significantly. Wants to go home Cleared by consultants for DC. To follow up as OP with PCP and consultants. 72-year-old male with a history of hypertension, hyperlipidemia, end-stage renal disease, diabetes and CAD status post bypass in 2012 with multiple stent placements presented to the ED with ongoing chest pain. Patient was last admitted in January 2018 in which he underwent a laser atherectomy/Cutting Balloon by Dr. Hernández. He also states he has been compliant with all medications. Patient with unstable angina, s/p cardiac cath by Dr Juárez on 05/04/18. Status post repeat PCI of [place] left circumflex using 3 bioabsorbable Synergy stents. Groin stable. continue same home medications per cardiology Patient improved. DC home in stable condition to follow up as OP with PCP and consultants. Unstable angina, r/o acs Troponin I 0.7 on admission -Heparin drip and nitroglycerin drip ordered -Serial troponin and EKGs -Monitor telemetry -Consult cardiology for recommendations -Resume his Effient and aspirin - SP cardiac cath by Dr Juárez. Status post repeat PCI of [place] left circumflex using 3 bioabsorbable Synergy stents. Groin stable. continue same home medications per cardiology - Will have HD after the cardiac cath per nephro ff End-stage renal disease, creatinine 8.6 around baseline -Patient is a dialysis patient on hemodialysis at home Thursday, Thursday, and Thursday -Consult nephrology, patient's forestry scientist is Dr. Cisneros in [place] -Trend creatinine - Plan for HD after cardiac cath -CI gadolinium Diabetes, chronic -Hold home p.o. medications for now -Accu-Cheks with sliding scale insulin ordered Patient improved. DC home in stable condition to follow up as OP with PCP and consultants. - Time Spent with Patient Total time spent providing and/or coordinating discharge services: Greater than 30 minutes - Quality: VTE Deep Vein Thrombosis/Pulmonary Embolism Present on Admission: No Exam Vital signs: Vital Signs 05/04/18 11:00 05/04/18 11:35 05/04/18 12:00 Temperature 98.2 F 98.2 F Pulse Rate 64 58 L Respiratory Rate 18 18 Blood Pressure 117/63 Blood Pressure [Left Arm] 116/50 L Blood Pressure [Right Arm] 117/63 Pulse Oximetry 97 96 97 05/04/18 13:00 05/04/18 14:00 05/04/18 15:00 Temperature Pulse Rate 62 58 L 59 L Respiratory Rate Blood Pressure Blood Pressure [Left Arm] Blood Pressure [Right Arm] Pulse Oximetry 05/04/18 17:34 05/04/18 17:40 05/04/18 18:00 Temperature Pulse Rate 59 L 61 Respiratory Rate 20 Blood Pressure 153/62 H Blood Pressure [Left Arm] Blood Pressure [Right Arm] Pulse Oximetry 98 98 05/04/18 19:00 05/04/18 20:00 05/04/18 21:00 Temperature 98.4 F Pulse Rate 62 70 72 Respiratory Rate 20 Blood Pressure 110/52 L Blood Pressure [Left Arm] Blood Pressure [Right Arm] Pulse Oximetry 98 98 05/04/18 22:00 05/04/18 23:00 05/05/18 00:00 Temperature 98.5 F Pulse Rate 68 68 68 Respiratory Rate 18 Blood Pressure 113/44 L Blood Pressure [Left Arm] Blood Pressure [Right Arm] Pulse Oximetry 97 05/05/18 01:00 05/05/18 02:00 05/05/18 03:00 Temperature Pulse Rate 75 67 69 Respiratory Rate Blood Pressure Blood Pressure [Left Arm] Blood Pressure [Right Arm] Pulse Oximetry 05/05/18 04:00 05/05/18 05:00 05/05/18 06:00 Temperature 98.3 F Pulse Rate 69 65 70 Respiratory Rate 20 Blood Pressure 112/53 L Blood Pressure [Left Arm] Blood Pressure [Right Arm] Pulse Oximetry 99 05/05/18 07:00 05/05/18 08:00 05/05/18 08:40 Temperature 98.8 F Pulse Rate 68 73 72 Respiratory Rate 15 Blood Pressure 95/48 L Blood Pressure [Left Arm] Blood Pressure [Right Arm] Pulse Oximetry 96 05/05/18 09:07 Temperature Pulse Rate Respiratory Rate Blood Pressure 101/56 L Blood Pressure [Left Arm] Blood Pressure [Right Arm] Pulse Oximetry Intake & Output 05/04/18 05/05/18 05/05/18 18:59 06:59 18:59 Intake Total 0 / 0 620 / 620 Output Total 100 / 100 1999 Balance -100 / -100 -1380 / -1380 Weight 120.9 kg 124.1 kg Intake: Oral 0 / 0 620 / 620 Output: Urine 100 / 100 0 / 0 Hemodialysis Amount 1999 Other: Date of Last Bowel Movement 05/04/18 05/03/18 Narrative: GENERAL: 72 yo male, appear sin nad. CARDIOVASCULAR: Regular rate and rhythm without murmurs, gallops, or rubs. RESPIRATORY: Breath sounds equal bilaterally. No accessory muscle use. GASTROINTESTINAL: Abdomen soft, non-tender, nondistended. MUSCULOSKELETAL: No cyanosis, or edema. BACK: Nontender without obvious deformity. No CVA tenderness. Results Procedures completed during hospitalization: cardiac cath Labs on day of discharge: Labs from last 24 hours 05/05/18 05/05/18 05/05/18 08:36 04:32 04:32 WBC RBC Hgb Hct MCV MCH MCHC RDW Plt Count MPV Neut % (Auto) Lymph % (Auto) Gordon % (Auto) Eos % (Auto) Baso % (Auto) Neut # (Auto) Lymph # (Auto) Gordon # (Auto) Eos # (Auto) Baso # (Auto) WBC Differential Differential Comment Sodium 138 Potassium 3.9 Chloride 99 Carbon Dioxide 30.2 Anion Gap 9 BUN 36 H Creatinine 7.95 H Estimated GFR 7 L POC Glucose 171 H Random Glucose 207 H Calcium 7.9 L D Phosphorus 4.3 Total Creatine Kinase 1031 H CK-MB (CK-2) 6.1 H CK-MB (CK-2) % 0.6 Triglycerides 277 H Cholesterol 98 L LDL Cholesterol, Calc 9 HDL Cholesterol 34.0 L Cholesterol/HDL Ratio 2.88 Hepatitis A IgM Ab Hep Bs Antigen Hep B Core IgM Ab Hep C IgG Ab 05/05/18 05/04/18 05/04/18 04:32 20:38 17:35 WBC 6.3 RBC 3.04 L Hgb 10.1 L Hct 30.4 L MCV 100.2 H MCH 33.2 MCHC 33.1 RDW 14.7 Plt Count 180 MPV 9.6 Neut % (Auto) 67.5 Lymph % (Auto) 17.4 Gordon % (Auto) 11.4 H Eos % (Auto) 3.3 Baso % (Auto) 0.4 Neut # (Auto) 4.2 Lymph # (Auto) 1.1 Gordon # (Auto) 0.7 Eos # (Auto) 0.2 Baso # (Auto) 0.0 WBC Differential . Differential Comment Auto diff final Sodium Potassium Chloride Carbon Dioxide Anion Gap BUN Creatinine Estimated GFR POC Glucose 118 H 185 H Random Glucose Calcium Phosphorus Total Creatine Kinase CK-MB (CK-2) CK-MB (CK-2) % Triglycerides Cholesterol LDL Cholesterol, Calc HDL Cholesterol Cholesterol/HDL Ratio Hepatitis A IgM Ab Hep Bs Antigen Hep B Core IgM Ab Hep C IgG Ab 05/04/18 05/04/18 05/04/18 12:31 12:07 08:12 WBC RBC Hgb Hct MCV MCH MCHC RDW Plt Count MPV Neut % (Auto) Lymph % (Auto) Gordon % (Auto) Eos % (Auto) Baso % (Auto) Neut # (Auto) Lymph # (Auto) Gordon # (Auto) Eos # (Auto) Baso # (Auto) WBC Differential Differential Comment Sodium Potassium Chloride Carbon Dioxide Anion Gap BUN Creatinine Estimated GFR POC Glucose 192 H Random Glucose Calcium Phosphorus Total Creatine Kinase CK-MB (CK-2) CK-MB (CK-2) % Triglycerides 76 Cholesterol 92 L LDL Cholesterol, Calc 26 HDL Cholesterol 50.7 Cholesterol/HDL Ratio 1.81 Hepatitis A IgM Ab Nonreactive Hep Bs Antigen Nonreactive Hep B Core IgM Ab Nonreactive Hep C IgG Ab Nonreactive - Impressions ITS Impressions Chest X-Ray 05/03/18 20:40 CONCLUSION: Increasing nonconsolidative airspace opacities in the left lower lung. Discharge Plan - Discharge Disposition Patient Disposition: 01 Discharge Home - Discharge Condition Condition: Good - Discharge Order Discharge Orders: Discharge Order (Routine); Ordered 05/05/18 Ordered By: Rosa Isela Ochoa Cardiology Clear for Discharge (Routine); Ordered 05/05/18 Ordered By: Julio Juárez - Physicians Team Primary Care Provider: Brittany Rutledge Attending Provider: Rosa Isela Ochoa Other Providers: Julio Juárez MD ; Stephen Mixon MD
--- NOTE | 2018-05-05 11:08 | P.PNNP ---
Subjective Interval history: Had a cardiac cath yesterday with 3 stents placed. Dialyzed after, 2L fluid removal. To be discharged today. <Vivienne Thomas - Last Filed: 05/05/18 11:02> Physical Exam Vital signs: Vital Signs 05/04/18 11:35 05/04/18 12:00 05/04/18 13:00 Temperature 98.2 F Pulse Rate 58 L 62 Respiratory Rate 18 Blood Pressure 117/63 Pulse Oximetry 96 97 05/04/18 14:00 05/04/18 15:00 05/04/18 17:34 Temperature Pulse Rate 58 L 59 L 59 L Respiratory Rate 20 Blood Pressure 153/62 H Pulse Oximetry 98 05/04/18 17:40 05/04/18 18:00 05/04/18 19:00 Temperature 98.4 F Pulse Rate 61 62 Respiratory Rate 20 Blood Pressure 110/52 L Pulse Oximetry 98 98 05/04/18 20:00 05/04/18 21:00 05/04/18 22:00 Temperature Pulse Rate 70 72 68 Respiratory Rate Blood Pressure Pulse Oximetry 98 05/04/18 23:00 05/05/18 00:00 05/05/18 01:00 Temperature 98.5 F Pulse Rate 68 68 75 Respiratory Rate 18 Blood Pressure 113/44 L Pulse Oximetry 97 05/05/18 02:00 05/05/18 03:00 05/05/18 04:00 Temperature 98.3 F Pulse Rate 67 69 69 Respiratory Rate 20 Blood Pressure 112/53 L Pulse Oximetry 99 05/05/18 05:00 05/05/18 06:00 05/05/18 07:00 Temperature Pulse Rate 65 70 68 Respiratory Rate Blood Pressure Pulse Oximetry 05/05/18 08:00 05/05/18 09:00 05/05/18 09:07 Temperature 98.8 F Pulse Rate 72 72 Respiratory Rate 15 Blood Pressure 95/48 L 101/56 L Pulse Oximetry 96 05/05/18 10:00 Temperature Pulse Rate 72 Respiratory Rate Blood Pressure Pulse Oximetry Intake & Output 05/04/18 05/05/18 05/05/18 18:59 06:59 18:59 Intake Total 0 / 0 620 / 620 Output Total 100 / 100 1999 / 1999 Balance -100 / -100 -1380 / -1380 Weight 120.9 kg 124.1 kg Intake: Oral 0 / 0 620 / 620 Output: Urine 100 / 100 0 / 0 Hemodialysis Amount 1999 Other: Date of Last Bowel Movement 05/04/18 05/03/18 - Constitutional no acute distress - Routine HEENT Exam Head: Present: normocephalic ENT: Present: mucous membranes moist - Routine Neck Exam Present: supple, full ROM. Absent: JVD, carotid bruit - Routine Respiratory Exam Present: CTA bilaterally. Absent: accessory muscle use, rhonchi, wheezes - Routine Cardiovascular Exam Present: RRR, S1, S2 - Routine Abdominal Exam Present: soft, normoactive bowel sounds - Routine Extremities Exam Present: full ROM, pulses intact, AV fistula. Absent: edema - Routine Skin Exam Present: intact, warm - Routine Neurological Exam Present: alert, oriented X3, CN II-XII intact - Detailed Neurological Exam: Coma Scale Eye Opening: Spontaneous Verbal Response: Oriented Motor Response: Obey commands Nathen Coma Scale Total: 15 - Routine Psychiatric Exam Present: normal affect, normal thought process <Vivienne Thomas - Last Filed: 05/05/18 11:02> Vital signs: Vital Signs 05/04/18 20:00 05/04/18 21:00 05/04/18 22:00 Temperature Pulse Rate 70 72 68 Respiratory Rate Blood Pressure Pulse Oximetry 98 05/04/18 23:00 05/05/18 00:00 05/05/18 01:00 Temperature 98.5 F Pulse Rate 68 68 75 Respiratory Rate 18 Blood Pressure 113/44 L Pulse Oximetry 97 05/05/18 02:00 05/05/18 03:00 05/05/18 04:00 Temperature 98.3 F Pulse Rate 67 69 69 Respiratory Rate 20 Blood Pressure 112/53 L Pulse Oximetry 99 05/05/18 05:00 05/05/18 06:00 05/05/18 07:00 Temperature Pulse Rate 65 70 68 Respiratory Rate Blood Pressure Pulse Oximetry 05/05/18 08:00 05/05/18 09:00 05/05/18 09:07 Temperature 98.8 F Pulse Rate 72 72 Respiratory Rate 15 Blood Pressure 95/48 L 101/56 L Pulse Oximetry 96 05/05/18 10:00 05/05/18 11:27 Temperature Pulse Rate 72 Respiratory Rate Blood Pressure Pulse Oximetry 96 Intake & Output 05/05/18 05/05/18 05/06/18 06:59 18:59 06:59 Intake Total 620 / 620 Output Total 1999 Balance -1380 / -1380 Weight 124.1 kg Intake: Oral 620 / 620 Output: Urine 0 / 0 Hemodialysis Amount 1999 Other: Date of Last Bowel Movement 05/03/18 <Stephen Mixon - Last Filed: 05/05/18 19:34> Assessment and Plan - Assessment (1) ESRD (end stage renal disease) on dialysis Code(s): N18.6 - End stage renal disease; Z99.2 - Dependence on renal dialysis Status: Acute Plan: He normally does home HD 4 times weekly (///) for 3 hr each treatment. Dialyzed yesterday, he can resume HD at home tomorrow. Electrolytes are unremarkable. Phosphorus is acceptable. AVF for HD use. High protein diet encouraged. Stable for discharge. Can follow with carroter in [place]. (2) Anemia in chronic kidney disease, on chronic dialysis Code(s): N18.6 - End stage renal disease; D63.1 - Anemia in chronic kidney disease; Z99.2 - Dependence on renal dialysis Status: Acute Plan: Epogen ordered with dialysis. (3) HTN (hypertension) Code(s): I10 - Essential (primary) hypertension Status: Chronic Qualifiers: Hypertension type: essential hypertension Qualified Code(s): I10 - Essential (primary) hypertension Plan: BP stable, can resume home medications at discharge. (4) Chest pain due to CAD Code(s): R07.9 - Chest pain, unspecified; I25.10 - Atherosclerotic heart disease of [place] coronary artery without angina pectoris Status: Acute Plan: Cardiology following. Hx of stents and CABG. s/p cath 05/04, 3 stents placed On statin therapy. F/U as recommended by plateman, sees Dr. Juárez. (5) DM (diabetes mellitus) type II controlled with renal manifestation Code(s): E11.29 - Type 2 diabetes mellitus with other diabetic kidney complication Status: Acute Plan: Maintain glucose 140-180 mg/dL while admitted. - Plan Discharge Planning: cleared for discharge from renal perspective. <Vivienne Thomas - Last Filed: 05/05/18 11:02> - Assessment (1) ESRD (end stage renal disease) on dialysis Code(s): N18.6 - End stage renal disease; Z99.2 - Dependence on renal dialysis Status: Acute (2) Anemia in chronic kidney disease, on chronic dialysis Code(s): N18.6 - End stage renal disease; D63.1 - Anemia in chronic kidney disease; Z99.2 - Dependence on renal dialysis Status: Acute (3) HTN (hypertension) Code(s): I10 - Essential (primary) hypertension Status: Chronic Qualifiers: Hypertension type: essential hypertension Qualified Code(s): I10 - Essential (primary) hypertension (4) Chest pain due to CAD Code(s): R07.9 - Chest pain, unspecified; I25.10 - Atherosclerotic heart disease of [place] coronary artery without angina pectoris Status: Acute (5) DM (diabetes mellitus) type II controlled with renal manifestation Code(s): E11.29 - Type 2 diabetes mellitus with other diabetic kidney complication Status: Acute - Attending Attestation patient was seen and examined. Agree with above assessment and plan. <Stephen Mixon - Last Filed: 05/05/18 19:34>
== END 2018-05-05 12:17 | disposition home or self-care (01) ==
LOC: NEPD 20:02 → NEDA 22:49 → HCIS 05-04 02:05
PROVIDERS: ADMIT Hospitalist; ATTEND Hospitalist
DX: D63.1 Anemia in chronic kidney disease; Z79.899 Other long term (current) drug therapy; Z79.84 Long term (current) use of oral hypoglycemic drugs; E78.5 Hyperlipidemia, unspecified; Z95.5 Presence of coronary angioplasty implant and graft; E11.22 Type 2 diabetes mellitus with diabetic chronic kidney disease; Z79.82 Long term (current) use of aspirin; I25.2 Old myocardial infarction; N18.6 End stage renal disease; I12.0 Hypertensive chronic kidney disease with stage 5 chronic kidney disease or end stage renal disease; M10.9 Gout, unspecified; I25.720 Atherosclerosis of autologous artery coronary artery bypass graft(s) with unstable angina pectoris; Z99.2 Dependence on renal dialysis; I25.110 Atherosclerotic heart disease of native coronary artery with unstable angina pectoris